=== PATIENT | male | born 1960 | race Caucasian/White ===

== ENCOUNTER → 2016-06-21 | Outpatient (CLI) | payer BC ==
--- NOTE | 2016-06-21 14:06 | CT ---
EXAMINATION TYPE: CT brain wo con DATE OF EXAM: 06/21/2016 2:00 PM COMPARISON: NONE HISTORY: Headaches severe for [address] DLP: 1126.5 mGycm. Automated Exposure Control for Dose Reduction was Utilized. TECHNIQUE: CT scan of the head is performed without contrast. FINDINGS: There is no acute intracranial hemorrhage, mass effect, or midline shift identified. The ventricles and sulci are within normal limits in size. There is 1.7 cm mucous retention cyst or poly p in the anterior left maxillary sinus. The globes are intact and the visualized sinuses are otherwis e clear. Some increased opacity bilateral mastoid air cells could reflect mastoiditis, clinical corre lation advised, findings more prominent on the right than on the left side. IMPRESSION: No acute intracranial hemorrhage or midline shift is seen. Possible right greater than l eft bilateral mastoiditis, clinical correlation advised.
== END | disposition home or self-care (01) ==
LOC: RADCTMAIN 12:13
PROVIDERS: ATTEND Family Medicine
DX: H70.92 Unspecified mastoiditis, left ear (principal); E11.9 Type 2 diabetes mellitus without complications
CPT/HCPCS: 70450; 82565; 84520

== ENCOUNTER → 2016-06-29 | Outpatient (CLI) | payer BC ==
--- NOTE | 2016-06-29 13:22 | US ---
EXAMINATION TYPE: US carotid duplex BILAT DATE OF EXAM: 06/29/2016 9:57 AM COMPARISON: NONE CLINICAL HISTORY: I10 htn E11.9 dm 2. EXAM MEASUREMENTS: RIGHT: Peak Systolic Velocity (PSV) cm/sec ----- Right CCA: 116.0 ----- Right ICA: 149.5 ----- Right ECA: 229.2 ICA/CCA ratio: 1.3 RIGHT: End Diastole cm/sec ----- Right CCA: 43.1 ----- Right ICA: 55.0 ----- Right ECA: 25.5 LEFT: Peak Systolic Velocity (PSV) cm/sec ----- Left CCA: 112.1 ----- Left ICA: 527.1 ----- Left ECA: 218.4 ICA/CCA ratio: 4.7 LEFT: End Diastole cm/sec ----- Left CCA: 23.4 ----- Left ICA: 253.9 ----- Left ECA: 30.9 VERTEBRALS (direction of flow): Right Vertebral: Antegrade Left Vertebral: Antegrade No significant stenosis seen on right moderate to severe atherosclerotic changes. Left side shows s evere atherosclerotic plaque with moderate to severe intimal thickening in CCA, ICA velocities severe ly elevated with extensive plaque with blunted signal distally. Intimal thickening is noted bilaterally. Large plaques are noted within the proximal internal carotid arteries bilaterally. There are marked left and moderate right elevated velocities within the financial internship al carotid arteries IMPRESSION: 1. Severe stenosis left internal carotid artery greater than 70%. 2. Moderate stenosis between 50 and 69% right internal carotid artery Criteria for Assigning % of Stenosis / Diameter reduction (Estimation based on the indirect measurements of the internal carotid artery velocities (ICA PSV). 1. Normal (no stenosis)=ICA PSV < 125 cm/s: ratio < 2.0: ICA EDV<40 cm/s. 2. Less than 50% stenosis=ICA PSV < 125 cm/s: ratio < 2.0: ICA EDV<40 cm/s. 3. 50 to 69% stenosis=ICA PSV of 125 to 230 cm/s: ration 2.0 ? 4.0: ICA EDV 40-100 cm/s. 4. Greater than 70% stenosis to near occlusion= ICA PSV > 230 cm/s: ratio > 4.0: ICA EDV > 100 cm/s. 5. Near occlusion= ICA PSV velocities may be low or undetectable: variable ratio and ICA EDV. 6. Total occlusion=unable to detect flow.
--- NOTE | 2016-06-29 14:01 | EST ---
DATE OF SERVICE: 06/29/2016 AGE: 56Y SEX: M HT: 70" WT: 200 lbs. Protocol David: X Other: Stress Stage: 2 Dur. of Exercise: 6:29 *Heart Rate Blood Pressure *Rest: 102 Rest: 144/75 * *Max. Achieved: 132 Maximum BP: 210/90 85% PMHR: 140 100% PMHR: 166 *METS: 7.1 INDICATIONS: Hypertension. MEDICATIONS: Omeprazole, fenofibrate, Invokana, Janumet, losartan, Toujeo. Patient was exercised for a total period of 6 minutes and 30 seconds. Peak heart rate of 132 was achieved, and maximum blood pressure of 210/90 mmHg was noted. Resting EKG shows normal sinus rhythm with ST-T changes suggestive of left ventricular hypertrophy and strain pattern was again about 0.[address] segment depression was noted in the lateral leads. Patient did not complain of any anginal pain during the test. FINAL IMPRESSION: 1. This exercise EKG is inconclusive to diagnose ischemia because of the resting electrocardiographic abnormality suggestive of left ventricular hypertrophy and strain pattern. 2. Patient did not complain of any anginal pain during the test. 3. Isolated premature ventricular contractions were recorded.
--- NOTE | 2016-06-30 10:55 | ECHOF ---
Referral Reason:I10 htn E11.9 dfm2 MEASUREMENTS -------- HEIGHT: 152.4 cm WEIGHT: 90.7 kg BP: IVSd: 1.4 cm (0.6 - 1.1) LVIDd: 4.8 cm (3.9 - 5.3) LVPWd: 1.4 cm (0.6 - 1.1) IVSs: 1.9 cm LVIDs: 3.9 cm LVPWs: 1.6 cm LAESV Index (A-L): 28.88 ml/m Ao Diam: 3.5 cm (2.0 - 3.7) AV Cusp: 1.3 cm (1.5 - 2.6) LA Diam: 3.3 cm (2.7 - 3.8) MV EXCURSION: 16.009 mm (> 18.000) MV EF SLOPE: 98 mm/s (70 - 150) EPSS: 0.4 cm MV E Cm: 0.73 m/s MV DecT: 315 ms MV A Cm: 1.07 m/s MV E/A Ratio: 0.68 AV maxP.07 mmHg AV meanP.62 mmHg RAP: 5.00 mmHg RVSP: 13.19 mmHg FINDINGS -------- Sinus rhythm. This was a technically adequate study. There is moderate concentric left ventricular hypertrophy. Overall left ventricular systolic function is normal with, an EF between 55 - 60 %. The right ventricle is normal in size. LA is midly dilated 29-33ml/m2. There is moderate aortic stenosis present. Peak/mean gradient across the Aortic Valve is 34.07mmHg / 17.62mmHg. Aov is not well visualized possible Bicuspid. Mild mitral annular calcification present. Mild mitral regurgitation is present. Mild tricuspid regurgitation present. Right ventricular systolic pressure is normal at < 35 mmHg. There is no evidence of pulmonary hypertension. There is no pulmonic regurgitation present. The aortic root size is normal. There is no pericardial effusion. Sushant recommended for evaluation of AOV. CONCLUSIONS -------- 1. There is moderate concentric left ventricular hypertrophy. 2. Right ventricular systolic pressure is normal at < 35 mmHg. 3. There is no evidence of pulmonary hypertension. 4. Sushant recommended for evaluation of AOV. 5. Overall left ventricular systolic function is normal with, an EF between 55 - 60 %. 6. LA is midly dilated 29-33ml/m2. 7. There is moderate aortic stenosis present. 8. Peak/mean gradient across the Aortic Valve is 34.07mmHg / 17.62mmHg. 9. Aov is not well visualized possible Bicuspid. 10. Mild mitral annular calcification present. 11. Mild mitral regurgitation is present. 12. Mild tricuspid regurgitation present. ACCOUNT DEVELOPER: Rody Watkins RDCS
== END | disposition home or self-care (01) ==
LOC: RADUSMAIN 09:22
PROVIDERS: ATTEND Family Medicine
DX: I10 Essential (primary) hypertension (principal); E11.9 Type 2 diabetes mellitus without complications; I65.23 Occlusion and stenosis of bilateral carotid arteries
CPT/HCPCS: 93017; 93306; 93880

== ENCOUNTER 2016-07-06 07:57 | Observation (INO) | payer BC ==
[2016-07-06] MEDS ORDERED: NITROGLYCERIN SL TABS 0.4 MG TAB SUBLINGUAL PRN ×2 (08:32→11:05)
[2016-07-06] MEDS ORDERED: ASPIRIN 325 MG TAB PO STA (08:32)
--- NOTE | 2016-07-06 08:36 | ED ---
General Adult HPI - General Source: patient, family, RN notes reviewed, old records reviewed Mode of arrival: ambulatory Limitations: no limitations <Danish Carty - Last Filed: 07/06/16 10:54> <Dimitris Ramesh - Last Filed: 07/06/16 11:04> - General Chief complaint: Chest Pain Stated complaint: Chest pain Time Seen by Provider: 07/06/16 08:21 - History of Present Illness Initial comments: Patient is 56-year-old male who has significant past medical history for diabetes, hypertension, who presents emergency room today with chief complaint of chest pain that started yesterday morning. Does admit that he worked a double shift yesterday. States he was having some discomfort. States that when he got home from work symptoms slightly better was able to go to bed. States woke up this morning with increased pain once again. Describes it as sharp pain in the middle of his chest. Patient states feels like it's difficult to breathe at times. Patient denies any other complaints or symptoms. Does admit that he had a recent stress test and echocardiogram performed. States does have an appointment with a vascular surgeon in one week. Patient denies any recent fever, chills, back pain, abdominal pain, nausea or vomiting, numbness or tingling, dysuria or hematuria, constipation or diarrhea, headaches or visual changes, or any other complaints. (Danish Carty) - Related Data Home Medications Medication Instructions Recorded Confirmed Canagliflozin [Invokana] 100 mg PO DAILY 12/03/15 07/06/16 Fenofibrate Nanocrystallized 145 mg PO DAILY 12/03/15 07/06/16 [Fenofibrate] Omeprazole [PriLOSEC] 20 mg PO DAILY 12/03/15 07/06/16 glipiZIDE [Glucotrol] 10 mg PO AC-BID 12/03/15 07/06/16 sitaGLIPtin PHOS/metFORMIN HCL 1 tab PO DAILY 12/03/15 07/06/16 [Janumet 50-1,000 mg Tablet] Insulin Glargine,Hum.rec.anlog 30 units SQ HS 07/06/16 07/06/16 [T[place]am Solostar] Losartan Potassium [Cozaar] 100 mg PO BID 07/06/16 07/06/16 Pregabalin [Lyrica] 100 mg PO BID 07/06/16 07/06/16 Allergies Allergy/AdvReac Type Severity Reaction Status Date / Time No Known Allergies Allergy Verified 07/06/16 08:40 Review of Systems ROS Other: All systems not noted in ROS Statement are negative. <Danish Carty - Last Filed: 07/06/16 10:54> ROS Other: All systems not noted in ROS Statement are negative. <Dimitris Ramesh - Last Filed: 07/06/16 11:04> ROS Statement: Those systems with pertinent positive or pertinent negative responses have been documented in the HPI. Past Medical History Past Medical History: Diabetes Mellitus, Hyperlipidemia, Hypertension History of Any Multi-Drug Resistant Organisms: None Reported Past Surgical History: Orthopedic Surgery Past Psychological History: Anxiety Smoking Status: Current every day smoker Past Alcohol Use History: None Reported Past Drug Use History: None Reported <Danish Carty - Last Filed: 07/06/16 10:54> General Exam Limitations: no limitations <Danish Carty - Last Filed: 07/06/16 10:54> <Dimitris Ramesh - Last Filed: 07/06/16 11:04> - General Exam Comments Initial Comments: General: The patient is awake and alert, in no distress, and does not appear acutely ill. Eye: Pupils are equal, round and reactive to light, extra-ocular movements are intact. No nystagmus. There is normal conjunctiva bilaterally. No signs of icterus. Ears, nose, mouth and throat: There are moist mucous membranes and no oral lesions. Neck: The neck is supple, there is no tenderness or JVD. Cardiovascular: There is a regular rate and rhythm. No murmur, rub or gallop is appreciated. Respiratory: Lungs are clear to auscultation, respirations are non-labored, breath sounds are equal. No wheezes, stridor, rales, or rhonchi. Gastrointestinal: Soft, non-distended, non-tender abdomen without masses or organomegaly noted. There is no rebound or guarding present. No CVA tenderness. Bowel sounds are unremarkable. Musculoskeletal: Normal ROM, no tenderness. Strength 5/5. Sensation intact. Pulses equal bilaterally 2+. Neurological: A&O x 3. CN II-XII intact, There are no obvious motor or sensory deficits. Coordination appears grossly intact. Speech is normal. Skin: Skin is warm and dry and no rashes or lesions are noted. Psychiatric: Cooperative, appropriate mood & affect, normal judgment. (Danish Carty) Course <Danish Carty - Last Filed: 07/06/16 10:54> <Dimitris Ramesh - Last Filed: 07/06/16 11:04> Vital Signs 07/06/16 08:04 Temperature 98.7 F Pulse Rate 83 Respiratory 18 Rate Blood Pressure 161/78 O2 Sat by Pulse 97 Oximetry - Reevaluation(s) Reevaluation #1: 07/06/16 11:04 Patient reevaluated by myself, Dr. Ramesh. Patient wasn't comfortably in bed. Patient updated on results and plan. Case discussed in detail with Dr. Hairston, who will admit for Dr. Cronin. (Dimitris Ramesh) EKG Findings - EKG Comments: EKG Findings:: EKG performed at 0809: Shows normal sinus rhythm at 83 bpm. [place] interval 186. QRS 92. QT/QTC 360/423. Compared to previous EKG on 04/30/2015. <Danish Carty - Last Filed: 07/06/16 10:54> Medical Decision Making - Lab Data Result diagrams: 07/06/16 08:20 07/06/16 08:20 <Danish Carty - Last Filed: 07/06/16 10:54> - Lab Data Result diagrams: 07/06/16 08:20 07/06/16 08:20 <Dimitris Ramesh - Last Filed: 07/06/16 11:04> - Medical Decision Making Patient's labs reviewed negative cardiac enzymes. Patient resting comfortable at this time. Patient's EKG reviewed and show a sinus rhythm. No acute changes at this time. Patient will be admitted for serial enzymes. Discussed with attending physician Dr. Ramesh. (Danish Carty) - Lab Data Lab Results 07/06/16 07/06/16 07/06/16 Range/Units 08:20 08:20 08:20 WBC 9.9 (3.8-10.6) k/uL RBC 4.63 (4.30-5.90) m/uL Hgb 12.9 L (13.0-17.5) gm/dL Hct 39.8 (39.0-53.0) % MCV 86.0 (80.0-100.0) fL MCH 28.0 (25.0-35.0) pg MCHC 32.5 (31.0-37.0) g/dL RDW 12.9 (11.5-15.5) % Plt Count 346 (150-450) k/uL Neutrophils % 73 % Lymphocytes % 16 % Monocytes % 5 % Eosinophils % 3 % Basophils % 0 % Neutrophils # 7.2 (1.3-7.7) k/uL Lymphocytes # 1.6 (1.0-4.8) k/uL Monocytes # 0.5 (0-1.0) k/uL Eosinophils # 0.3 (0-0.7) k/uL Basophils # 0.0 (0-0.2) k/uL Hypochromasia Slight PT (9.0-12.0) sec INR (<1.1) APTT (22.0-30.0) sec Sodium 142 (137-145) mmol/L Potassium 5.0 (3.5-5.1) mmol/L Chloride 103 (98-107) mmol/L Carbon Dioxide 29 (22-30) mmol/L Anion Gap 10 mmol/L BUN 30 H (9-20) mg/dL Creatinine 1.97 H (0.66-1.25) mg/dL Est GFR (MDRD) Af Amer 43 (>60 ml/min/1.73 sqM) Est GFR (MDRD) Non-Af 35 (>60 ml/min/1.73 sqM) Glucose 158 H (74-99) mg/dL Calcium 9.6 (8.4-10.2) mg/dL Magnesium 2.2 (1.6-2.3) mg/dL Total Bilirubin 0.5 (0.2-1.3) mg/dL AST 11 L (17-59) U/L ALT 22 (21-72) U/L Alkaline Phosphatase 52 (38-126) U/L Total Creatine Kinase 64 (55-170) U/L CK-MB (CK-2) 1.0 (0.0-2.4) ng/mL CK-MB (CK-2) Rel Index 1.6 Troponin I <0.012 (0.000-0.034) ng/mL Total Protein 6.7 (6.3-8.2) g/dL Albumin 3.8 (3.5-5.0) g/dL 07/06/16 Range/Units 08:20 WBC (3.8-10.6) k/uL RBC (4.30-5.90) m/uL Hgb (13.0-17.5) gm/dL Hct (39.0-53.0) % MCV (80.0-100.0) fL MCH (25.0-35.0) pg MCHC (31.0-37.0) g/dL RDW (11.5-15.5) % Plt Count (150-450) k/uL Neutrophils % % Lymphocytes % % Monocytes % % Eosinophils % % Basophils % % Neutrophils # (1.3-7.7) k/uL Lymphocytes # (1.0-4.8) k/uL Monocytes # (0-1.0) k/uL Eosinophils # (0-0.7) k/uL Basophils # (0-0.2) k/uL Hypochromasia PT 10.6 (9.0-12.0) sec INR 1.0 (<1.1) APTT 29.0 (22.0-30.0) sec Sodium (137-145) mmol/L Potassium (3.5-5.1) mmol/L Chloride (98-107) mmol/L Carbon Dioxide (22-30) mmol/L Anion Gap mmol/L BUN (9-20) mg/dL Creatinine (0.66-1.25) mg/dL Est GFR (MDRD) Af Amer (>60 ml/min/1.73 sqM) Est GFR (MDRD) Non-Af (>60 ml/min/1.73 sqM) Glucose (74-99) mg/dL Calcium (8.4-10.2) mg/dL Magnesium (1.6-2.3) mg/dL Total Bilirubin (0.2-1.3) mg/dL AST (17-59) U/L ALT (21-72) U/L Alkaline Phosphatase (38-126) U/L Total Creatine Kinase (55-170) U/L CK-MB (CK-2) (0.0-2.4) ng/mL CK-MB (CK-2) Rel Index Troponin I (0.000-0.034) ng/mL Total Protein (6.3-8.2) g/dL Albumin (3.5-5.0) g/dL Disposition Time of Disposition: 10:36 <Danish Carty - Last Filed: 07/06/16 10:54> <iDmitris Ramesh - Last Filed: 07/06/16 11:04> Clinical Impression: Chest pain Disposition: ADMITTED IP TO THIS [facility] Condition: Stable Referrals: Marquez Cronin DO [Primary Care Provider] - 1-2 days
--- NOTE | 2016-07-06 08:57 | XR ---
EXAMINATION TYPE: XR chest 2V DATE OF EXAM: 07/06/2016 8:49 AM COMPARISON: Chest x-ray April 30, 2015. HISTORY: Chest pain today. History of hypertension. TECHNIQUE: Frontal and lateral views of the chest are obtained. FINDINGS: There is chronic parenchymal change without suspicious new focal air space opacity, pleura l effusion, or pneumothorax seen. The cardiac silhouette size is stable and upper limits of normal. The osseous structures are intact. IMPRESSION: No acute process. No significant change from prior.
[2016-07-06 09:18] LABS: Basophils % (A) 0 %; CH 27.1; CHCM 31.6; Eosinophils # (A) 0.3 k/uL (0-0.7); Eosinophils % (A) 3 %; HCT 39.8 % (39.0-53.0); HDW 2.82; HGB 12.9 gm/dL (13.0-17.5); Hypochromasia Slight; Luc # (Auto) 0.27; Luc % (Auto) 3; Lymphocytes # (A) 1.6 k/uL (1.0-4.8); Lymphocytes % (A) 16 %; MCHC 32.5 g/dL (31.0-37.0); Mean Platelet Volume 7.2; Monocytes # (A) 0.5 k/uL (0-1.0); Monocytes % (A) 5 %; Neutrophils # (A) 7.2 k/uL (1.3-7.7); Neutrophils % (A) 73 %; RBC 4.63 m/uL (4.30-5.90); RDW 12.9 % (11.5-15.5); WBC 9.9 k/uL (3.8-10.6); WBC (Perox) 9.96
[2016-07-06 09:22] LABS: Calcium 9.6 mg/dL (8.4-10.2); Magnesium 2.2 mg/dL (1.6-2.3); Total Bilirubin 0.5 mg/dL (0.2-1.3); Total Protein 6.7 g/dL (6.3-8.2)
[2016-07-06 09:23] LABS: Prothrombin Time 10.6 sec (9.0-12.0)
[2016-07-06 09:44] LABS: Creatine Kinase 64 U/L (55-170)
[2016-07-06 09:56] LABS: Troponin I <0.012 ng/mL (0.000-0.034)
[2016-07-06] MEDS ORDERED: HEPARIN SODIUM,PORCINE 5,000 UNIT/ML 1 ML VIAL IV ONE (11:05)
[2016-07-06] MEDS ORDERED: SODIUM CHLORIDE 0.9% 1,000 ML IV ONE (11:05)
[2016-07-06] MEDS ORDERED: HEPARIN SODIUM,PORCINE/D5W PMX 25,000 UNIT in DEXTROSE/WATER 1 500ML.BAG IV SCH (11:15)
[2016-07-06 17:01] LABS: Creatine Kinase 51 U/L (55-170)
[2016-07-06 17:15] LABS: Creatine Kinase MB 0.7 ng/mL (0.0-2.4); Troponin I <0.012 ng/mL (0.000-0.034)
[2016-07-06 20:47] LABS: Creatine Kinase 52 U/L (55-170)
[2016-07-06] MEDS: PREGABALIN 100 MG CAP PO SCH (20:57)
[2016-07-06] MEDS: LOSARTAN 50 MG TAB PO SCH (20:57)
[2016-07-06] MEDS: NICOTINE 21MG/24HR PATCH TRANSDERM SCH (20:57)
[2016-07-06] MEDS ORDERED: INSULIN GLARGINE 100 UNIT/ML 10 ML VIAL SQ SCH (21:00)
[2016-07-06 21:01] LABS: Creatine Kinase MB 0.7 ng/mL (0.0-2.4); Troponin I <0.012 ng/mL (0.000-0.034)
[2016-07-06 21:19] LABS: Glucose,Whole Blood 187 mg/dL (75-99)
--- NOTE | 2016-07-06 22:48 | P.HPIM ---
History of Present Illness H&P Date: 07/06/16 Chief Complaint: Chest pain This is a pleasant 56-year-old gentleman patient of Dr. Cronin. He has underlying history of diabetes mellitus type 2, hypertension, BPH and chronic tobacco dependency. 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 Same consistency patient was subsequently seen in emergency room for cardiac evaluation. He was last seen by his PCP for which patient has had hypertensive urgency on his last visit several weeks ago and last week he underwent stress test and echocardiogram was performed in our facility. The echocardiogram showed ejection fraction of 55%, stress test shows equivocal test for ischemia. There is a significant family history of IN as young as 40 use of age, he was subsequently admitted to the hospital for monitoring, during his last informed material recommendation from Dr. Cronin , he was scheduled to see a vascular surgeon secondary to carotid stenosis patient does not know the physician or the amount of stenosis. Patient does not have any history of TIAs or previous CVAs in the past patient does not have any history of PE DVT or previous IN CHF Review of Systems Constitutional: Reports as per HPI, Denies anorexia, Denies chills, Denies chronic headaches, Denies chronic pain, Denies daytime sleepiness, Denies fatigue, Denies fever, Denies lethargy, Denies malaise, Denies night sweats, Denies poor appetite, Denies sweats, Denies weakness, Denies weight gain, Denies weight loss Ears, nose, mouth and throat: Reports as per HPI, Denies ant. neck pain, Denies bleeding gums, Denies dental pain, Denies dysphagia, Denies epistaxis, Denies headache, Denies hoarseness, Denies mouth pain, Denies nasal congestion, Denies nasal discharge, Denies neck fullness/pressure, Denies neck lump, Denies nose pain, Denies odynophagia, Denies post-nasal drip, Denies sinus pain, Denies sinus pressure, Denies swelling in mouth, Denies swelling in throat, Denies sore throat, Denies vertigo, Denies voice changes Cardiovascular: Reports as per HPI, Reports chest pain, Denies claudication, Denies decreased exercise tolerance, Denies dyspnea on exertion, Denies edema, Denies high blood pressure, Denies irregular heart beat, Denies leg edema, Denies lightheadedness, Denies orthopnea, Denies palpitations, Denies paroxysmal nocturnal dyspnea, Denies phlebitis, Denies rapid heart beat, Denies shortness of breath, Denies syncope Respiratory: Reports as per HPI, Denies congestion, Denies cough, Denies cough with sputum, Denies dyspnea, Denies excessive sputum, Denies hemoptysis, Denies home oxygen, Denies pain, Denies pain on inspiration, Denies pleurisy, Denies respiratory infections, Denies sleep apnea, Denies snoring, Denies wheezing Gastrointestinal: Reports as per HPI, Denies abdominal pain, Denies belching, Denies bloating, Denies BRBPR, Denies change in bowel habits, Denies coffee ground emesis, Denies constipation, Denies diarrhea, Denies dyspepsia, Denies early satiety, Denies excessive gas, Denies heartburn, Denies hematemesis, Denies hematochezia, Denies indigestion, Denies jaundice, Denies lactose intolerance, Denies loss of appetite, Denies melena, Denies nausea, Denies vomiting Genitourinary: Reports as per HPI, Denies decreased libido, Denies difficulties fathering child, Denies discharge, Denies dysuria, Denies erectile dysfunction, Denies flank pain, Denies genital pain, Denies genital sores, Denies hematuria, Denies impotence, Denies incontinence, Denies kidney stones, Denies nocturia, Denies polyuria, Denies testicular lump, Denies testicular pain, Denies urinary frequency, Denies urinary hesitancy, Denies urinary retention Musculoskeletal: Reports as per HPI, Denies arm numbness/tingling, Denies atrophy, Denies fractures, Denies frequent falls, Denies gait dysfunction, Denies hot joints, Denies leg numbness/tingling, Denies limitation of motion, Denies loss of height, Denies low back pain, Denies morning stiffness, Denies muscle cramps, Denies muscle weakness, Denies myalgias, Denies neck pain, Denies neck stiffness, Denies prior amputations, Denies redness of joints, Denies shooting arm pain, Denies shooting leg pain Integumentary: Reports as per HPI, Denies acne, Denies boils, Denies brittle nails, Denies change in hair/nails, Denies color changes, Denies darkening of skin, Denies depigmentation, Denies dryness, Denies foot/leg ulcers, Denies growths, Denies hirsutism, Denies lesions, Denies onychomycosis, Denies pruritus , Denies rash, Denies sores, Denies striae, Denies unusual bruising, Denies wounds Neurological: Reports as per HPI, Denies aphasia, Denies ataxia, Denies balance difficulties, Denies burning pain, Denies change in mentation, Denies change in smell/taste, Denies change in speech, Denies confusion, Denies convulsions, Denies double vision, Denies gait dysfunction, Denies head injury, Denies headaches, Denies hearing difficulties, Denies lack of coordination, Denies loss of vision, Denies memory loss, Denies migraines, Denies motor disturbance, Denies numbness, Denies paralysis, Denies paresthesias, Denies seizures, Denies sensory deficit, Denies spasticity, Denies syncope, Denies tic, Denies tingling , Denies transient paralysis, Denies tremors, Denies vertigo, Denies weakness, Denies visual changes Past Medical History Past Medical History: Diabetes Mellitus, GERD/Reflux, Hyperlipidemia, Hypertension Additional Past Medical History / Comment(s): IDDM type II, bilateral feet neuropathy, recent stress test and echo, History of Any Multi-Drug Resistant Organisms: None Reported Past Surgical History: Hernia Repair, Orthopedic Surgery Additional Past Surgical History / Comment(s): L arm muscle repair by elbow, L inguinal hernia repair. Past Anesthesia/Blood Transfusion Reactions: No Reported Reaction Past Psychological History: Anxiety Additional Psychological History / Comment(s): Pt resides with his spouse. He is independent. Smoking Status: Current every day smoker Past Alcohol Use History: None Reported Additional Past Alcohol Use History / Comment(s): Pt started smoking in 1981. He smokes less than a ppd. Past Drug Use History: None Reported - Past Family History Father Family Medical History: Coronary Artery Disease (CAD) Additional Family Medical History / Comment(s): Father during CABG Mother Family Medical History: Myocardial Infarction (IN) Additional Family Medical History / Comment(s): Mother of massive IN at the age of 81 yrs. Medications and Allergies Home Medications Medication Instructions Recorded Confirmed Type Canagliflozin [Invokana] 100 mg PO DAILY 12/03/15 07/06/16 History Fenofibrate Nanocrystallized 145 mg PO DAILY 12/03/15 07/06/16 History [Fenofibrate] Omeprazole [PriLOSEC] 20 mg PO DAILY 12/03/15 07/06/16 History glipiZIDE [Glucotrol] 10 mg PO AC-BID 12/03/15 07/06/16 History sitaGLIPtin PHOS/metFORMIN HCL 1 tab PO DAILY 12/03/15 07/06/16 History [Janumet 50-1,000 mg Tablet] Insulin Glargine,Hum.rec.anlog 30 units SQ HS 07/06/16 07/06/16 History [Toujeo Solostar] Losartan Potassium [Cozaar] 100 mg PO BID 07/06/16 07/06/16 History Pregabalin [Lyrica] 100 mg PO BID 07/06/16 07/06/16 History Allergies Allergy/AdvReac Type Severity Reaction Status Date / Time No Known Allergies Allergy Verified 07/06/16 08:40 Physical Exam Vitals: Vital Signs Temp Pulse Pulse Resp BP BP Pulse Ox 07/06/16 20:00 97.8 F 157 H 16 157/87 92 L 07/06/16 17:25 97.2 F L 83 16 157/77 96 07/06/16 15:30 98.1 F 83 16 128/60 96 07/06/16 12:29 98.4 F 07/06/16 11:18 84 16 147/74 98 Intake and Output 07/06/16 07/06/16 07/06/16 06:59 14:59 22:59 Other: # Voids 1 Weight 92.5 kg Patient Weight 07/07/16 06:59 Weight 92.5 kg - Constitutional General appearance: cooperative, no acute distress, obese - EENT Eyes: no abnormal pupil, anicteric sclerae, no disc margins sharp, no edentulous , EOMI, PERRLA, no fundus normal, no photophobia, dentition normal, no poor dentition, no ptosis, no scleral icterus, normal appearance ENT: hearing grossly normal, NA/AT, normal oropharynx - Neck Neck: no lymphadenopathy, normal ROM, no other, no rigidity, no stridor, no thyromegaly Carotids: bilateral: bruit present - Respiratory Respiratory: bilateral: CTA, negative: diminished, dullness, rales, rhonchi, wheezing - Cardiovascular Rhythm: regular Heart sounds: normal: S1, S2 Abnormal Heart Sounds: systolic murmur, no diastolic murmur, no rub, no S3 Gallop, no S4 Gallop, no click, no other - Gastrointestinal General gastrointestinal: normal bowel sounds, soft - Integumentary Integumentary: normal, normal turgor - Neurologic Neurologic: CNII-XII intact - Musculoskeletal Musculoskeletal: gait normal, strength equal bilaterally - Psychiatric Psychiatric: A&O x's 3, appropriate affect, intact judgment & insight Results CBC & Chem 7: 07/06/16 08:20 07/06/16 08:20 Labs: Abnormal Lab Results - Last 24 Hours (Table) 07/06/16 07/06/16 07/06/16 Range/Units 16:22 20:01 21:16 POC Glucose (mg/dL) 187 H (75-99) mg/dL Total Creatine Kinase 51 L 52 L (55-170) U/L Laboratory Results WBC 9.9 k/uL (3.8-10.6) 07/06/16 08:20 RBC 4.63 m/uL (4.30-5.90) 07/06/16 08:20 Hgb 12.9 gm/dL (13.0-17.5) L 07/06/16 08:20 Hct 39.8 % (39.0-53.0) 07/06/16 08:20 MCV 86.0 fL (80.0-100.0) 07/06/16 08:20 MCH 28.0 pg (25.0-35.0) 07/06/16 08:20 MCHC 32.5 g/dL (31.0-37.0) 07/06/16 08:20 RDW 12.9 % (11.5-15.5) 07/06/16 08:20 Plt Count 346 k/uL (150-450) 07/06/16 08:20 Neutrophils % 73 % 07/06/16 08:20 Lymphocytes % 16 % 07/06/16 08:20 Monocytes % 5 % 07/06/16 08:20 Eosinophils % 3 % 07/06/16 08:20 Basophils % 0 % 07/06/16 08:20 Neutrophils # 7.2 k/uL (1.3-7.7) 07/06/16 08:20 Lymphocytes # 1.6 k/uL (1.0-4.8) 07/06/16 08:20 Monocytes # 0.5 k/uL (0-1.0) 07/06/16 08:20 Eosinophils # 0.3 k/uL (0-0.7) 07/06/16 08:20 Basophils # 0.0 k/uL (0-0.2) 07/06/16 08:20 Hypochromasia Slight 07/06/16 08:20 PT 10.6 sec (9.0-12.0) 07/06/16 08:20 INR 1.0 (<1.1) 07/06/16 08:20 APTT 29.7 sec (22.0-30.0) 07/06/16 21:14 Sodium 142 mmol/L (137-145) 07/06/16 08:20 Potassium 5.0 mmol/L (3.5-5.1) 07/06/16 08:20 Chloride 103 mmol/L (98-107) 07/06/16 08:20 Carbon Dioxide 29 mmol/L (22-30) 07/06/16 08:20 Anion Gap 10 mmol/L 07/06/16 08:20 BUN 30 mg/dL (9-20) H 07/06/16 08:20 Creatinine 1.97 mg/dL (0.66-1.25) H 07/06/16 08:20 Est GFR (MDRD) Af Amer 43 (>60 ml/min/1.73 sqM) 07/06/16 08:20 Est GFR (MDRD) Non-Af 35 (>60 ml/min/1.73 sqM) 07/06/16 08:20 Glucose 158 mg/dL (74-99) H 07/06/16 08:20 POC Glucose (mg/dL) 187 mg/dL (75-99) H 07/06/16 21:16 POC Glu [employer] Enma Robertson 07/06/16 21:16 Calcium 9.6 mg/dL (8.4-10.2) 07/06/16 08:20 Magnesium 2.2 mg/dL (1.6-2.3) 07/06/16 08:20 Total Bilirubin 0.5 mg/dL (0.2-1.3) 07/06/16 08:20 AST 11 U/L (17-59) L 07/06/16 08:20 ALT 22 U/L (21-72) 07/06/16 08:20 Alkaline Phosphatase 52 U/L (38-126) 07/06/16 08:20 Total Creatine Kinase 52 U/L (55-170) L 07/06/16 20:01 CK-MB (CK-2) 0.7 ng/mL (0.0-2.4) 07/06/16 20:01 CK-MB (CK-2) Rel Index 1.3 07/06/16 20:01 Troponin I <0.012 ng/mL (0.000-0.034) 07/06/16 20:01 Total Protein 6.7 g/dL (6.3-8.2) 07/06/16 08:20 Albumin 3.8 g/dL (3.5-5.0) 07/06/16 08:20 Thrombosis Risk Factor Assmnt - DVT/VTE Prophylaxis DVT/VTE Prophylaxis: Low risk, early ambulation encouraged - Choose All That Apply Each Factor Represents 1 point: Age 41-60 years Thrombosis Risk Factor Assessment Total Risk Factor Score: 1 Thrombosis Risk Factor Assessment Level: Low Risk Assessment and Plan Plan: 1. Unstable angina presenting with pain with exertion equivocal stress test last week, patient will be seen by cardiology currently on nitrates, and IV heparin and aspirin and beta blockers 2. Aortic murmur of aortic stenosis type, this would be monitored as an outpatient 3. Abnormal EKG with inferolateral asymmetric ST-T wave changes, with equivocal stress test from his recent imaging studies 1 week prior to admission secondary to baseline EKG abnormalities 2. CK D stage III for approximately one year now, nephrotoxins will be avoided patient also was advised regarding strict surveillance and control of sugar diabetes and compliance medication as the patient already has reached the maximum allowance of safety for metformin, metformin is going to be discontinued 4. Carotid bruit with carotid stenosis per preliminary report from the patient , patient will be has scheduled vascular appointments, 5. chronic tobacco use at one pack per day patient is started on nicotine patches and was counseled regarding a permanent tobacco cessation program, 6. Hypertensive cardiac vascular disease for which patient is losartan 100 mg twice a day at home 7. 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 Hyperlipidemia on fenofibrate patient is not on statin fasting lipids would obtained ldl control needs to be maximized need to clarify statin intolerance or not 9. DVT prophylaxis with early ambulation GI prophylaxis with IV Pepcid
[2016-07-07] MEDS: METOPROLOL TARTRATE 25 MG TAB PO SCH ×2 (00:12→10:57)
[2016-07-07] MEDS: MORPHINE SULFATE 2 MG/ML SYRINGE IVP PRN ×2 (00:19→04:19)
[2016-07-07 04:37] LABS: Basophils # (A) 0.1 k/uL (0-0.2); Basophils % (A) 1 %; CH 27.5; CHCM 31.2; Eosinophils # (A) 0.3 k/uL (0-0.7); Eosinophils % (A) 4 %; HCT 43.7 % (39.0-53.0); HDW 2.79; HGB 13.6 gm/dL (13.0-17.5); Hypochromasia Slight; Luc # (Auto) 0.24; Luc % (Auto) 3; Lymphocytes # (A) 2.1 k/uL (1.0-4.8); Lymphocytes % (A) 21 %; MCH 27.6 pg (25.0-35.0); MCHC 31.2 g/dL (31.0-37.0); MCV 88.3 fL (80.0-100.0); Mean Platelet Volume 6.9; Monocytes # (A) 0.5 k/uL (0-1.0); Monocytes % (A) 6 %; Neutrophils # (A) 6.3 k/uL (1.3-7.7); Neutrophils % (A) 66 %; RBC 4.95 m/uL (4.30-5.90); RDW 13.3 % (11.5-15.5); WBC 9.6 k/uL (3.8-10.6); WBC (Perox) 9.62
[2016-07-07 04:45] LABS: Partial Thromboplastin Time 30.3 sec (22.0-30.0); Prothrombin Time 10.1 sec (9.0-12.0)
[2016-07-07 04:49] LABS: Calcium 9.9 mg/dL (8.4-10.2); Potassium 5.1 mmol/L (3.5-5.1); Total Bilirubin 0.4 mg/dL (0.2-1.3); Total Protein 6.9 g/dL (6.3-8.2)
[2016-07-07 06:50] LABS: Glucose,Whole Blood 132 mg/dL (75-99)
[2016-07-07] MEDS ORDERED: PANTOPRAZOLE 40 MG TABLET PO SCH (07:30)
[2016-07-07 07:57] VITALS: RESP 18
[2016-07-07] MEDS ORDERED: RX INFO: IV CONTRAST WAS GIVEN 1 EACH MISC MISCELLANE PRN (08:45)
[2016-07-07] MEDS ORDERED: FENOFIBRATE 160 MG TAB PO SCH (09:00)
[2016-07-07] MEDS ORDERED: ASPIRIN 325 MG TAB PO SCH (09:00)
[2016-07-07] MEDS ORDERED: NON-FORMULARY DRUG (Canagliflozin [Invokana] 100 MG) PO SCH (09:00)
[2016-07-07] MEDS ORDERED: metFORMIN 500 MG TAB PO SCH (09:00)
[2016-07-07] MEDS ORDERED: SODIUM CHLORIDE 0.9% 1,000 ML IV SCH (09:00)
[2016-07-07] MEDS ORDERED: ATORVASTATIN 20 MG TAB PO SCH (09:00)
[2016-07-07] MEDS ORDERED: LINAGLIPTIN 5 MG TABLET PO SCH (09:00)
--- NOTE | 2016-07-07 10:27 | CT ---
CT CHEST FOR PULMONARY EMBOLISM. EXAMINATION TYPE: CT angio chest DATE OF EXAM: 07/07/2016 10:20 AM INDICATION: Evaluate for aortic Aneur and dissection CT DLP: 816.1 mGycm, Automated exposure control for dose reduction was used. CONTRAST: Patient injected with 80ml with 50 ml saline flush mL of Visipaque 320. COMPARISON: NONE TECHNIQUE: CT of the chest is performed on a spiral scan at 2 mm thick sections. Study is performed with intravenous contrast timed for evaluation for pulmonary embolism. This will limit additional po rtions of the evaluation. 3-D MIP images reconstructed by the technologist are reviewed on the compu ter in the coronal and sagittal planes. FINDINGS: No persistent filling defects are evident to suggest an acute pulmonary embolism. There is a 1.1 cm pretracheal lymph node present. Additional enlarged adenopathy is not evident. The ascending aorta diameter at the level of the main pulmonary artery is 3.5 cm. The main pulmonary artery diameter at the bifurcation is 3.0 cm. Coronary artery calcification is present. Vascular calcifications within the aorta. Ascending aorta, aortic arch, descending thoracic aorta as well as the visualized proximal abdominal aorta appears normal without aneurysmal dilatation or disse ction. No mediastinal fluid is evident. There is a normal three-vessel arch. Lung windows are clear. Limited CT section through the upper abdomen are unremarkable. Small hiatal hernia is present. IMPRESSIONS: 1. No dissection or aneurysm of the thoracic or proximal abdominal aorta. 2. 1.1 cm pretracheal lymph node.
[2016-07-07] MEDS: glipiZIDE 10 MG TAB PO SCH ×2 (10:57→18:07)
[2016-07-07] MEDS: LOSARTAN 50 MG TAB PO SCH (10:57)
[2016-07-07] MEDS: NICOTINE 21MG/24HR PATCH TRANSDERM SCH (10:58)
[2016-07-07] MEDS: PREGABALIN 100 MG CAP PO SCH (11:05)
--- NOTE | 2016-07-07 11:05 | P.GSCN ---
<Chandni Monsivais - Last Filed: 07/07/16 10:52> History of Present Illness Consult date: 07/07/16 Reason for Consult: carotid stenosis Requesting physician: Chip Anthony History of present illness: This 56-year-old gentleman with a medical history of diabetes, hypertension, chronic tobacco abuse, hyperlipidemia, and family history of coronary artery disease presented to the emergency room with intermittent chest pain which went straight through to his back. Nothing he did was able to relieve his chest pain including position changes. He described the pain as sharp, intermittent, associated with mild shortness of breath, but no nausea, vomiting, palpitations. He was admitted for full cardiac workup. He does state that he previously had been having some increasing symptoms of headache, dizziness, and accelerated hypertension for which his primary care physician had ordered multiple diagnostic tests. His carotid Dopplers demonstrated significant stenosis of the left internal carotid artery. He did have a follow-up appointment scheduled for today with Dr. Anthony, however he was admitted to the hospital last night. Dr. Anthony was consulted to see this patient regarding his carotid stenosis while in hospital. Review of Systems 14 point review of systems was completed and was negative except as noted. - Cardiovascular Reports as per HPI - Respiratory Reports as per HPI - Neurological Reports as per HPI Past Medical History Past Medical History: Diabetes Mellitus, GERD/Reflux, Hyperlipidemia, Hypertension Additional Past Medical History / Comment(s): IDDM type II, bilateral feet neuropathy, recent stress test and echo, History of Any Multi-Drug Resistant Organisms: None Reported Past Surgical History: Hernia Repair, Orthopedic Surgery Additional Past Surgical History / Comment(s): L arm muscle repair by elbow, L inguinal hernia repair. Past Anesthesia/Blood Transfusion Reactions: No Reported Reaction Past Psychological History: Anxiety Additional Psychological History / Comment(s): Pt resides with his spouse. He is independent. Smoking Status: Current every day smoker Past Alcohol Use History: None Reported Additional Past Alcohol Use History / Comment(s): Pt started smoking in 1981. He smokes less than a ppd. Past Drug Use History: None Reported - Past Family History Father Family Medical History: Coronary Artery Disease (CAD) Additional Family Medical History / Comment(s): Father during CABG Mother Family Medical History: Myocardial Infarction (AL) Additional Family Medical History / Comment(s): Mother of massive AL at the age of 81 yrs. Medications and Allergies Home Medications Medication Instructions Recorded Confirmed Type Canagliflozin [Invokana] 100 mg PO DAILY 12/03/15 07/06/16 History Fenofibrate Nanocrystallized 145 mg PO DAILY 12/03/15 07/06/16 History [Fenofibrate] Omeprazole [PriLOSEC] 20 mg PO DAILY 12/03/15 07/06/16 History glipiZIDE [Glucotrol] 10 mg PO AC-BID 12/03/15 07/06/16 History sitaGLIPtin PHOS/metFORMIN HCL 1 tab PO DAILY 12/03/15 07/06/16 History [Janumet 50-1,000 mg Tablet] Insulin Glargine,Hum.rec.anlog 30 units SQ HS 07/06/16 07/06/16 History [Toujeo Solostar] Losartan Potassium [Cozaar] 100 mg PO BID 07/06/16 07/06/16 History Pregabalin [Lyrica] 100 mg PO BID 07/06/16 07/06/16 History Allergies Allergy/AdvReac Type Severity Reaction Status Date / Time No Known Allergies Allergy Verified 07/06/16 08:40 Surgical - Exam Vital Signs Temp Pulse Resp BP Pulse Ox 98.7 F 83 18 161/78 97 07/06/16 08:04 07/06/16 08:04 07/06/16 08:04 07/06/16 08:04 07/06/16 08:04 - General well developed, well nourished, no distress - Eyes PERRL, normal ocular movement - Neck no masses, trachea midline thyroid nodule: absent, carotid bruit: left - Respiratory normal expansion, normal respiratory effort, clear to auscultation - Cardiovascular S1 and S2 present. Systolic murmur present. Regular rate and rhythm, normal sinus rhythm on telemetry. No edema present. Palpable pulses bilaterally. Rhythm: regular - Abdomen Abdomen: soft, non tender, bowel sounds - Integumentary no rash - Neurologic normal coordination, normal sensation - Musculoskeletal normal gait - Psychiatric oriented to time, oriented to person, oriented to place, speech is normal, memory intact Results - Labs 07/07/16 04:16 07/07/16 04:16 Abnormal Lab Results - Last 24 Hours (Table) 07/06/16 07/06/16 07/06/16 Range/Units 16:22 20:01 21:16 APTT (22.0-30.0) sec BUN (9-20) mg/dL Creatinine (0.66-1.25) mg/dL Glucose (74-99) mg/dL POC Glucose (mg/dL) 187 H (75-99) mg/dL AST (17-59) U/L Total Creatine Kinase 51 L 52 L (55-170) U/L Triglycerides (<150) mg/dL Cholesterol (<200) mg/dL HDL Cholesterol (40-60) mg/dL 07/07/16 07/07/16 07/07/16 Range/Units 04:16 04:16 06:48 APTT 30.3 H (22.0-30.0) sec BUN 28 H (9-20) mg/dL Creatinine 1.62 H (0.66-1.25) mg/dL Glucose 213 H (74-99) mg/dL POC Glucose (mg/dL) 132 H (75-99) mg/dL AST 12 L (17-59) U/L Total Creatine Kinase (55-170) U/L Triglycerides 731 H (<150) mg/dL Cholesterol 263 H (<200) mg/dL HDL Cholesterol 26 L (40-60) mg/dL Diabetes panel 07/07/16 Range/Units 04:16 Sodium 140 (137-145) mmol/L Potassium 5.1 (3.5-5.1) mmol/L Chloride 104 (98-107) mmol/L Carbon Dioxide 29 (22-30) mmol/L BUN 28 H (9-20) mg/dL Creatinine 1.62 H (0.66-1.25) mg/dL Glucose 213 H (74-99) mg/dL Calcium 9.9 (8.4-10.2) mg/dL AST 12 L (17-59) U/L ALT 21 (21-72) U/L Alkaline Phosphatase 65 (38-126) U/L Total Protein 6.9 (6.3-8.2) g/dL Albumin 3.9 (3.5-5.0) g/dL Triglycerides 731 H (<150) mg/dL HDL Cholesterol 26 L (40-60) mg/dL Calcium panel 07/07/16 Range/Units 04:16 Calcium 9.9 (8.4-10.2) mg/dL Albumin 3.9 (3.5-5.0) g/dL Pituitary panel 07/07/16 Range/Units 04:16 Sodium 140 (137-145) mmol/L Potassium 5.1 (3.5-5.1) mmol/L Chloride 104 (98-107) mmol/L Carbon Dioxide 29 (22-30) mmol/L BUN 28 H (9-20) mg/dL Creatinine 1.62 H (0.66-1.25) mg/dL Glucose 213 H (74-99) mg/dL Calcium 9.9 (8.4-10.2) mg/dL Adrenal panel 07/07/16 Range/Units 04:16 Sodium 140 (137-145) mmol/L Potassium 5.1 (3.5-5.1) mmol/L Chloride 104 (98-107) mmol/L Carbon Dioxide 29 (22-30) mmol/L BUN 28 H (9-20) mg/dL Creatinine 1.62 H (0.66-1.25) mg/dL Glucose 213 H (74-99) mg/dL Calcium 9.9 (8.4-10.2) mg/dL Total Bilirubin 0.4 (0.2-1.3) mg/dL AST 12 L (17-59) U/L ALT 21 (21-72) U/L Alkaline Phosphatase 65 (38-126) U/L Total Protein 6.9 (6.3-8.2) g/dL Albumin 3.9 (3.5-5.0) g/dL - Imaging Chest x-ray: report reviewed, image reviewed CT scan - chest: report reviewed, image reviewed Assessment and Plan (1) Carotid stenosis, left Status: Acute Plan: 1. Continue aspirin, Lipitor, losartan, metoprolol. 2. Risk factor modification encouraged including quitting smoking, controlling diabetes, increasing exercise. 3. Blood pressure control extremely important and this was discussed in detail with the patient. 4. Recent diagnostics reviewed, will discuss with Dr. Anthony. Per Dr. Ayon patient may be discharged with follow-up in Dr. Anthony's office. Thank you Dr. Ayon for this consult. We look forward to participating in the care of your patient. <Chip Anthony - Last Filed: 07/07/16 12:11> Surgical - Exam Osteopathic Statement: *. No significant issues noted on an osteopathic structural exam other than those noted in the History and Physical/Consult. Vital Signs Temp Pulse Resp BP Pulse Ox 98.7 F 83 18 161/78 97 07/06/16 08:04 07/06/16 08:04 07/06/16 08:04 07/06/16 08:04 07/06/16 08:04 Results - Labs 07/07/16 04:16 07/07/16 04:16 Abnormal Lab Results - Last 24 Hours (Table) 07/06/16 07/06/16 07/06/16 Range/Units 16:22 20:01 21:16 APTT (22.0-30.0) sec BUN (9-20) mg/dL Creatinine (0.66-1.25) mg/dL Glucose (74-99) mg/dL POC Glucose (mg/dL) 187 H (75-99) mg/dL AST (17-59) U/L Total Creatine Kinase 51 L 52 L (55-170) U/L Triglycerides (<150) mg/dL Cholesterol (<200) mg/dL HDL Cholesterol (40-60) mg/dL 07/07/16 07/07/16 07/07/16 Range/Units 04:16 04:16 06:48 APTT 30.3 H (22.0-30.0) sec BUN 28 H (9-20) mg/dL Creatinine 1.62 H (0.66-1.25) mg/dL Glucose 213 H (74-99) mg/dL POC Glucose (mg/dL) 132 H (75-99) mg/dL AST 12 L (17-59) U/L Total Creatine Kinase (55-170) U/L Triglycerides 731 H (<150) mg/dL Cholesterol 263 H (<200) mg/dL HDL Cholesterol 26 L (40-60) mg/dL Diabetes panel 07/07/16 Range/Units 04:16 Sodium 140 (137-145) mmol/L Potassium 5.1 (3.5-5.1) mmol/L Chloride 104 (98-107) mmol/L Carbon Dioxide 29 (22-30) mmol/L BUN 28 H (9-20) mg/dL Creatinine 1.62 H (0.66-1.25) mg/dL Glucose 213 H (74-99) mg/dL Calcium 9.9 (8.4-10.2) mg/dL AST 12 L (17-59) U/L ALT 21 (21-72) U/L Alkaline Phosphatase 65 (38-126) U/L Total Protein 6.9 (6.3-8.2) g/dL Albumin 3.9 (3.5-5.0) g/dL Triglycerides 731 H (<150) mg/dL HDL Cholesterol 26 L (40-60) mg/dL Calcium panel 07/07/16 Range/Units 04:16 Calcium 9.9 (8.4-10.2) mg/dL Albumin 3.9 (3.5-5.0) g/dL Pituitary panel 07/07/16 Range/Units 04:16 Sodium 140 (137-145) mmol/L Potassium 5.1 (3.5-5.1) mmol/L Chloride 104 (98-107) mmol/L Carbon Dioxide 29 (22-30) mmol/L BUN 28 H (9-20) mg/dL Creatinine 1.62 H (0.66-1.25) mg/dL Glucose 213 H (74-99) mg/dL Calcium 9.9 (8.4-10.2) mg/dL Adrenal panel 07/07/16 Range/Units 04:16 Sodium 140 (137-145) mmol/L Potassium 5.1 (3.5-5.1) mmol/L Chloride 104 (98-107) mmol/L Carbon Dioxide 29 (22-30) mmol/L BUN 28 H (9-20) mg/dL Creatinine 1.62 H (0.66-1.25) mg/dL Glucose 213 H (74-99) mg/dL Calcium 9.9 (8.4-10.2) mg/dL Total Bilirubin 0.4 (0.2-1.3) mg/dL AST 12 L (17-59) U/L ALT 21 (21-72) U/L Alkaline Phosphatase 65 (38-126) U/L Total Protein 6.9 (6.3-8.2) g/dL Albumin 3.9 (3.5-5.0) g/dL Assessment and Plan Plan: SECURITY SYSTEMS INTEGRATOR notes reviewed and accepted. Impression: #1 asymptomatic high-grade left ICA stenosis #2 moderate aortic stenosis with mild AI #3 type 2 diabetes, poor control #4 ongoing cigarette smoker #5 renal insufficiency with elevated creatinine to 1.6 #6 dyslipidemia Recommendation: #1 definitive assessment of carotid anatomy with either MRA or selected carotid study if heart cath is undertaken. #2 most likely left carotid endarterectomy which would be delayed until after any definitive therapy recommended for cardiac status. #3 I've discussed specifically with the patient his need for better risk factor modification. This would include but not be exclusive of #1 smoking cessation # 2 better diabetes control #3 active exercise program. #4 aggressive management of her lipid status. He appears to understand all of these factors and is in agreement with an aggressive plan of management. We will communicate with cardiology regarding further measures.
--- NOTE | 2016-07-07 11:38 | CONS ---
DATE OF CONSULTATION: This is a 56-year-old gentleman with a history of type 2 diabetes, chronic kidney disease stage II, hypertension, and aortic stenosis which is mild and possibly has a bicuspid aortic valve. Within a week ago, he had a carotid Doppler and a stress test and echocardiogram. He walked for 6-1/2 minutes and LVH was noted on the EKG and his stress test was technically inconclusive, but no angina was noted. He had an echocardiogram that revealed normal LV function with possible bicuspid aortic valve and mild stenosis. He has type 2 diabetes mellitus as well. He came into the hospital complaining of discomfort in the chest. He has the pain in the chest that radiates sometimes to the back and also to the shoulder. Quality of the pain seems very atypical, however, possibility of underlying aortic pathology cannot be excluded given the fact he has bicuspid aortic valve. His stress test within the last 5 days was normal. He was actually advised to see Dr. Anthony from a vascular surgery standpoint because of a left carotid disease of moderate severity. The patient does not have any carotid related symptoms. He is resting comfortably without symptoms. His troponins are normal. PAST MEDICAL HISTORY: 1. Hypertension. 2. Type 2 diabetes mellitus. 3. Hypercholesterolemia. 4. Aortic stenosis possible bicuspid valve. 5. History of chronic kidney disease with creatinine of about 1.5. Medications at home include Invokana, fenofibrate, glipizide, Janumet, insulin, losartan. ALLERGIES: None. REVIEW OF SYSTEMS: Unremarkable other than above-mentioned facts. On examination, blood pressure is 128/70, pulse rate 78 per minute, regular. HEENT: Unremarkable. Fundus was not examined by me. Neck is supple. There is no JVD. I do not hear a carotid bruit. Heart exam reveals S1, S2 with ejection systolic murmur. Preserved second heart sound. Lungs are clear. Abdomen is soft, nontender. Lower extremities reveal normal pulses. Bilateral pulses are equal. Central nervous system is grossly within normal limits. EKG revealed sinus mechanism, borderline voltage criteria for LVH with nonspecific ST-T changes. IMPRESSION: 1. Chest wall pain cannot exclude aortic pathology. 2. Possible bicuspid valve with mild stenosis. 3. Type 2 diabetes with chronic kidney disease. 4. Hypertension. 5. Recent stress test, which was equivocal, but no chest pain at 6-1/2 minutes of exercise. 6. Carotid disease unilateral more so on the left side. RECOMMENDATIONS: I am recommending that we should perform a CT scan of the chest with contrast to look for aortic pathology. I initially contemplated of doing both for a carotid also but because there will be lot of contrast administration we will only give him 80 mL or less dye and perform a CT scan of the chest to assess the ascending aorta to rule out any dissection or aneurysm. I will also recommend a evaluation by Dr. Anthony for his carotid disease and he was supposed to see Dr. Anthony in the office. I will initiate him on a statin agent and continue beta erich. There is concern with worsening renal function, but I have explained to the patient the involved risks and he understands and we will proceed with angiography and I spoke to Dr. Rivera in radiology in this regard. Thank you very much for the consult.
[2016-07-07 12:18] LABS: Glucose,Whole Blood 144 mg/dL (75-99)
[2016-07-07 13:02] LABS: Hemoglobin A1C 9.4 % (4.2-6.1)
--- NOTE | 2016-07-07 15:05 | P.DS ---
Providers Date of admission: 07/06/16 11:04 Expected date of discharge: 07/07/16 Attending physician: Daniella Hairston Consults: 07/06/16 11:05 Consult Physician Stat Consulting Provider: [facility] Consult Reason/Comments: chest pain Do you want consulting provider notified?: Yes 07/07/16 08:50 Consult Physician Routine Consulting Provider: Chip Anthony Consult Reason/Comments: cartoid stenosis Do you want consulting provider notified?: Yes Primary care physician: Marquez Cronin [facility] Course: This is a pleasant 56-year-old gentleman patient of Dr. Cronin. He has underlying history of diabetes mellitus type 2, hypertension, BPH and chronic tobacco dependency. 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 Same consistency patient was subsequently seen in emergency room for cardiac evaluation. He was last seen by his PCP for which patient has had hypertensive urgency on his last visit several weeks ago and last week he underwent stress test and echocardiogram was performed in our facility. The echocardiogram showed ejection fraction of 55%, stress test shows equivocal test for ischemia. There is a significant family history of IA as young as 40 use of age, he was subsequently admitted to the hospital for monitoring, during his last informed material recommendation from Dr. Cronin , he was scheduled to see a vascular surgeon secondary to carotid stenosis patient does not know the physician or the amount of stenosis. Patient does not have any history of TIAs or previous CVAs in the past patient does not have any history of PE DVT or previous IA CHF 07/07: Cardiology order CAT scan of the chest to look at aortic pathology. Statin and beta erich started. CAT scan showed no dissection or aneurysm of the thoracic or proximal aortic aorta. 1.1 cm pretracheal lymph node. Patient was seen by Dr. Anthony with recommendations for either MRA or selected carotid study. Most likely left carotid endarterectomy will be delayed until after definitive therapy is done for cardiac status. Repeat BUN 20 and creatinine 1.62. Hemoglobin A1c is 9.4. Patient is being taken off and will continue only on Maruvia due to kidney function. Recommended for patient to follow-up with Dr. Guallpa or Dr. Arevalo. Nicotine patch is being provided for the patient. Patient will be discharged home today in stable condition. Discharge diagnoses: 1. Unstable angina presenting with pain with exertion equivocal stress test last week 2. Aortic murmur of aortic stenosis type 3. Abnormal EKG with inferolateral asymmetric ST-T wave changes, with equivocal stress test from his recent imaging studies 1 week prior to admission secondary to baseline EKG abnormalities 2. CKD stage III 4. Carotid carotid stenosis per preliminary report 5. chronic tobacco use at one pack per day 6. Hypertensive cardiac vascular disease 7. Diabetes mellitus type 2 with neuropathy and hyperglycemia 8. Hyperlipidemia Discharge plan: Return home Impression and plan of care have been directed as dictated by the signing physician. Chen Quiroz nurse practitioner acting as scribe for signing physician. Cc: Dr. Marquez Cronin Patient Condition at Discharge: Good Plan - Discharge Summary New Discharge Prescriptions: Atorvastatin [Lipitor] 20 mg PO DAILY #30 tab Metoprolol Tartrate [Lopressor] 25 mg PO BID #60 tab Nicotine 21Mg/24Hr Patch [Habitrol] 1 patch TRANSDERM DAILY #30 patch Nitroglycerin Sl Tabs [Nitrostat] 0.4 mg SUBLINGUAL Q5M PRN #25 tab PRN Reason: Chest Pain sitaGLIPtin PHOSPHATE [Januvia] 50 mg PO DAILY #30 tab Discharge Medication List Canagliflozin [Invokana] 100 mg PO DAILY 12/03/15 [History] Fenofibrate Nanocrystallized [Fenofibrate] 145 mg PO DAILY 12/03/15 [History] Omeprazole [PriLOSEC] 20 mg PO DAILY 12/03/15 [History] glipiZIDE [Glucotrol] 10 mg PO AC-BID 12/03/15 [History] Insulin Glargine,Hum.rec.anlog [Toujeo Solostar] 30 units SQ HS 07/06/16 [ History] Losartan Potassium [Cozaar] 100 mg PO BID 07/06/16 [History] Pregabalin [Lyrica] 100 mg PO BID 07/06/16 [History] Aspirin 325 mg PO DAILY tab 07/07/16 [Rx] Atorvastatin [Lipitor] 20 mg PO DAILY #30 tab 07/07/16 [Rx] Metoprolol Tartrate [Lopressor] 25 mg PO BID #60 tab 07/07/16 [Rx] Nicotine 21Mg/24Hr Patch [Habitrol] 1 patch TRANSDERM DAILY #30 patch 07/07/16 [ Rx] Nitroglycerin Sl Tabs [Nitrostat] 0.4 mg SUBLINGUAL Q5M PRN #25 tab 07/07/16 [Rx ] sitaGLIPtin PHOSPHATE [Januvia] 50 mg PO DAILY #30 tab 07/07/16 [Rx] Follow up Appointment(s)/Referral(s): Marian Ayon MD [STAFF PHYSICIAN] - 2 Weeks (Your appointment on July 15 was cancelled. [facility] will call you to schedule your follow up with Dr. Ayon. ) Marquez Cronin DO [Primary Care Provider] - 1 Week (Office will call you with follow up appointment. ) Niharika Guallpa MD [STAFF PHYSICIAN] - 1 Week Chip Anthony DO [Doctor of Osteopathic Medicine] - 1 Week Discharge Disposition: HOME SELF-CARE
[2016-07-07 16:27] VITALS: BP 127/62; PULSE 82; TEMP 97.9
[2016-07-07 17:09] LABS: Glucose,Whole Blood 128 mg/dL (75-99)
== END 2016-07-07 18:38 | disposition home or self-care (01) ==
LOC: EC 07:57 → 3OBS 11:04
PROVIDERS: ADMIT Family Medicine; ATTEND Family Medicine
DX: I20.0 Unstable angina (principal); I35.0 Nonrheumatic aortic (valve) stenosis; R94.31 Abnormal electrocardiogram [ECG] [EKG]; I12.9 Hypertensive chronic kidney disease with stage 1 through stage 4 chronic kidney disease, or unspecified chronic kidney disease; N18.3 Chronic kidney disease, stage 3 (moderate); I65.22 Occlusion and stenosis of left carotid artery; F17.210 Nicotine dependence, cigarettes, uncomplicated; I11.9 Hypertensive heart disease without heart failure; E78.5 Hyperlipidemia, unspecified; E78.00 Pure hypercholesterolemia, unspecified; K21.9 Gastro-esophageal reflux disease without esophagitis; E11.22 Type 2 diabetes mellitus with diabetic chronic kidney disease; E11.65 Type 2 diabetes mellitus with hyperglycemia; E11.40 Type 2 diabetes mellitus with diabetic neuropathy, unspecified; Z79.899 Other long term (current) drug therapy; Z79.84 Long term (current) use of oral hypoglycemic drugs; Z79.4 Long term (current) use of insulin; Z82.49 Family history of ischemic heart disease and other diseases of the circulatory system
CPT/HCPCS: 96366 ×4; 96372; 96375; 96376 ×2; 96365; 99285; 36415; 93005; 85379; 80061; 80053 ×2; 83036; 82550; 82553; 83735; 84484; 85025 ×2; 85610 ×2; 85730 ×2; 83721; 71020; 71275; G0378 ×2; S4990 ×2; J1644 ×2; Q9967; J2270

== ENCOUNTER → 2016-07-18 | Outpatient (CLI) | payer BC ==
[2016-07-18 08:35] LABS: CH 27.3; CHCM 31.3; HCT 40.9 % (39.0-53.0); HGB 12.8 gm/dL (13.0-17.5); Hypochromasia Slight; MCH 27.5 pg (25.0-35.0); MCHC 31.4 g/dL (31.0-37.0); MCV 87.4 fL (80.0-100.0); Mean Platelet Volume 7.9; RBC 4.68 m/uL (4.30-5.90); RDW 13.5 % (11.5-15.5); WBC 9.1 k/uL (3.8-10.6)
[2016-07-18 08:51] LABS: Calcium 9.6 mg/dL (8.4-10.2); Potassium 5.2 mmol/L (3.5-5.1)
== END | disposition home or self-care (01) ==
LOC: LABWHC1 07:57
PROVIDERS: ATTEND Internal Medicine Interventional Cardiology
DX: E11.9 Type 2 diabetes mellitus without complications (principal); N18.9 Chronic kidney disease, unspecified
CPT/HCPCS: 36415; 80048; 85027

== ENCOUNTER → 2016-07-22 | Outpatient (CLI) | payer BC ==
--- NOTE | 2016-07-23 11:08 | MR ---
EXAMINATION TYPE: MR angio neck wo/w con DATE OF EXAM: 07/22/2016 10:30 PM COMPARISON: Carotid ultrasound June 29, 2016. HISTORY: Left Carotid Stenosis CONTRAST: Standard multiplanar, multisequence MRI departmental protocol utilizing 20 mL intravenous MultiHance gadolinium contrast. Imaging is performed of the neck with 2-D and 3-D reconstructed images created and reviewed. FINDINGS: There is normal three-vessel origin from the aortic arch. The right common carotid artery s hows normal origin from the right brachiocephalic artery. There is no significant stenosis along cour se of the right common carotid artery. There is mild narrowing at right carotid bulb without signific ant stenosis seen in visualized portion of right internal carotid artery up to the petrous segment. T here is patent external carotid artery without significant stenosis. There is no significant stenosis in visualized portion of left common carotid artery up to carotid bu lb. There is significant stenosis in the left internal carotid artery proximal portion which then onl y transient flow remains present noted on images 55 through 58 series 401. Lumen diameter is estimate d 1.6 mm and reconstitutes to 7.5 x 5.2 mm superiorly on axial image 67. Past this point there is med ial course to the left internal carotid artery without significant stenosis of the petrous segment. O n the 3-D high-resolution images internal carotid arteries are patent to the [place] without significant stenosis. There is patent left external carotid artery without significant stenosis. The vertebral arteries are patent bilaterally. There is codominant vertebral basilar system patent to the basilar junction. Three-D images show patency through the basilar bifurcation. IMPRESSION: Hemodynamically significant stenosis on the left is confirmed, stenosis is 90-99% with minimal flow a long the seen on dedicated bifurcation axial images. No hemodynamically significant stenosis is noted on the right internal carotid artery.
== END ==
LOC: RADMRIMAIN 21:31
PROVIDERS: ATTEND Thoracic Surgery (Cardiothoracic Vascular Surgery)
DX: I65.22 Occlusion and stenosis of left carotid artery (principal)
CPT/HCPCS: 70549; A9577

== ENCOUNTER → 2016-08-11 | Outpatient (CLI) | payer BC ==
[2016-08-11 09:41] LABS: Partial Thromboplastin Time 27.9 sec (22.0-30.0); Prothrombin Time 10.4 sec (9.0-12.0)
[2016-08-11 09:43] LABS: Appearance,Urine Clear (Clear); Bilirubin,Urine Negative (Negative); Glucose,Urine (UA) 4+ (Negative); Ketones,Urine Negative (Negative); Leukocyte Esterase,Urine Negative (Negative); Nitrite,Urine Negative (Negative); PH, Urine 6.5 (5.0-8.0); Particle Count 287; Protein,Urine 1+ (Negative); RBC,Urine <1 /hpf (0-5); Specific Gravity,Urine 1.018 (1.001-1.035); UA Billing (MACRO vs. MICRO) MICRO; Urobilinogen,Urine <2.0 mg/dL (<2.0); WBC,Urine <1 /hpf (0-5)
[2016-08-11 09:46] LABS: Potassium 5.5 mmol/L (3.5-5.1)
[2016-08-11 09:47] LABS: CH 27.2; CHCM 32.1; HCT 44.2 % (39.0-53.0); HDW 2.83; HGB 14.5 gm/dL (13.0-17.5); MCH 27.8 pg (25.0-35.0); MCHC 32.7 g/dL (31.0-37.0); Mean Platelet Volume 7.8; RDW 14.5 % (11.5-15.5); WBC 8.5 k/uL (3.8-10.6)
== END ==
LOC: LABPAT 08:59
PROVIDERS: ATTEND Thoracic Surgery (Cardiothoracic Vascular Surgery)
DX: Z01.812 Encounter for preprocedural laboratory examination (principal)
CPT/HCPCS: 80051; 81001; 82565; 82947; 84520; 85027; 85610; 85730; 87086

== ENCOUNTER 2016-08-15 06:32 | Inpatient (IN) | payer BC ==
[2016-08-09 15:28] VITALS: BMI 29.2
[~2016-08-15 06:32] MED LIST: DEXAMETHASONE SOD PHOSPHATE 10 MG/ML 1 ML VIAL IV ONE; LACTATED RINGERS 1,000 ML IV SCH; LIDOCAINE 1% 20 ML VIAL (10MG/ML) FOR IV START INTRADERMA PRN; ONDANSETRON 4 MG/2 ML VIAL IVP ONE; SCOPOLAMINE 1.5MG/72HR PATCH TRANSDERM ONE; ceFAZolin 2 GM in SODIUM CHLORIDE 0.9% 100 ML IVPB ONE
[2016-08-15 07:30] LABS: Glucose,Whole Blood 132 mg/dL (75-99)
[2016-08-15] MEDS ORDERED: MIDAZOLAM 2 MG/2 ML VIAL IVP ONE (08:10)
[2016-08-15] MEDS ORDERED: NITROGLYCERIN-D5W PMX 50 MG in DEXTROSE/WATER 1 250ML.BAG IV SCH ×2 (08:30→14:00)
[2016-08-15] MEDS ORDERED: PHENYLEPHRINE 40 MG in SODIUM CHLORIDE 0.9% 250 ML IV SCH (08:30)
[2016-08-15] MEDS ORDERED: NEOSTIGMINE 1 MG/ML 10 ML VIAL ONE (08:49)
[2016-08-15] MEDS ORDERED: HEPARIN SODIUM,PORCINE 5,000 UNIT/ML 1 ML VIAL ONE (08:49)
[2016-08-15] MEDS ORDERED: SODIUM CHLORIDE 0.9% 500 ML with HEPARIN SODIUM,PORCINE 5,000 UNIT IV ONE ×2 (08:49)
[2016-08-15] MEDS ORDERED: SUCCINYLCHOLINE CHLORIDE 100 MG/5 ML SYR IV ONE (08:49)
[2016-08-15] MEDS ORDERED: ATROPINE SULFATE 0.4 MG/ML 1 ML VIAL ONE (08:49)
[2016-08-15] MEDS ORDERED: ROCURONIUM BROMIDE 10 MG/ML 10 ML VIAL IV ONE (08:49)
[2016-08-15] MEDS ORDERED: PHENYLEPHRINE-0.9% NACL SYG 1 MG/10 ML SYRINGE ONE (08:49)
[2016-08-15] MEDS ORDERED: PROPOFOL 10 MG/ML 20 ML VIAL IV ONE (08:49)
[2016-08-15] MEDS ORDERED: GLYCOPYRROLATE 0.2 MG/ML 2 ML VIAL ONE (08:49)
[2016-08-15] MEDS ORDERED: fentaNYL (PF) 50 MCG/ML 2 ML AMP ONE (08:49)
[2016-08-15] MEDS ORDERED: LIDOCAINE 1% INJ 10MG/ML (20 ML MDV) ONE (08:49)
[2016-08-15] MEDS ORDERED: THROMBIN (BOVINE) 5,000 UNIT VIAL MISCELLANE ONE (08:57)
[2016-08-15] MEDS ORDERED: LIDOCAINE 1% INJ 10MG/ML (20 ML MDV) SQ ONE ×2 (08:57→09:27)
[2016-08-15] MEDS ORDERED: GELATIN SPONGE,ABSORB (LARGE) 1 EACH SPONGE MISCELLANE ONE (08:58)
[2016-08-15] MEDS ORDERED: LACTATED RINGERS 1,000 ML IV ONE (10:37)
--- NOTE | 2016-08-15 10:48 | P.OP ---
Date of Procedure: 08/15/16 Preoperative Diagnosis: Left internal carotid artery stenosis left internal carotid artery stenosis Postoperative Diagnosis: Same Procedure(s) Performed: Left carotid endarterectomy with dacryon patch angioplasty Implants: Anesthesia: GETA Surgeon: Silvio Ramirez Estimated Blood Loss (ml): 100 Pathology: other (Atherosclerotic plaque) Condition: stable Disposition: ICU Indications for Procedure: Operative Findings: Description of Procedure: Patient was brought electively to the operating room because of a high-grade left internal carotid artery stenosis he was positioned under general anesthesia prepped and draped in usual sterile Betadine fashion and prepared for left carotid endarterectomy procedure was performed heparin was administered throughout the procedure at 5000 units of heparin IV and the carotid sheath was opened and the common carotid internal and external carotid arteries were identified the hypoglossal nerve was identified as well the carotid was controlled and the severe atherosclerotic plaque just above the bifurcation was completely and meticulously endarterectomized backbleeding and venting and restoring flow after the completed endarterectomy we patch close the vessel with background patch with a 6-0 Prolene suture meticulous care within the vessel during cross-clamp was accomplished with loupe magnification and fine [place] elevator we removed all particulate intimal debris and patch the vessel closed with 6-0 Prolene in a Hemashield background patch patient tolerated and vented the vessel well restore blood flow without changes in any neural monitoring during the case monitoring was performed with S SPEP as well as EEG monitoring there was no shunt required in this case patient tolerated all procedures well the heparin was not reversed and the wound was closed in layers with Vicryl sutures and Steri-Strips hemostatic Surgicel with topical thrombin as well as Gelfoam and topical thrombin were utilized and the wound was completely dry we closed in layers with Vicryl sutures and Steri-Strips C end of an operative report on patient Robby Oliva Dr. Ramirez dictating thank you
[2016-08-15] MEDS ORDERED: TEMAZEPAM 15 MG CAP PO PRN (11:29)
[2016-08-15] MEDS ORDERED: TRIMETHOBENZAMIDE 100 MG/ML 2 ML VIAL IM PRN (11:29)
[2016-08-15] MEDS ORDERED: ACETAMINOPHEN TAB 325 MG TAB PO PRN (11:29)
[2016-08-15] MEDS ORDERED: MAG HYDROX/AL HYDROX/SIMETH 30 ML CUP PO PRN (11:29)
[2016-08-15] MEDS ORDERED: BENZOCAINE/MENTHOL LOZENG 1 EACH LOZENGE MUCOUS MEM PRN (11:29)
[2016-08-15] MEDS: HYDROmorphone 1 MG/ML 1 ML SYRINGE IVP PRN ×3 (12:03→13:30)
[2016-08-15 12:19] LABS: Glucose,Whole Blood 184 mg/dL (75-99)
[2016-08-15 14:09] LABS: Glucose,Whole Blood 185 mg/dL (75-99)
[2016-08-15] MEDS ORDERED: ALPRAZolam 0.5 MG TAB PO PRN (15:25)
[2016-08-15] MEDS: HYDROcodone/APAP 5-325MG 1 EACH TAB PO PRN ×2 (15:28→21:06)
[2016-08-15] MEDS: ceFAZolin 2 GM in SODIUM CHLORIDE 0.9% 100 ML IVPB SCH (15:28)
[2016-08-15] MEDS: LACTATED RINGERS 1,000 ML IV SCH (15:28)
[2016-08-15] MEDS: HEPARIN SODIUM,PORCINE 5,000 UNIT/ML 1 ML VIAL SQ SCH (15:29)
[2016-08-15] MEDS: glipiZIDE 10 MG TAB PO SCH (17:38)
[2016-08-15] MEDS: MORPHINE SULFATE 2 MG/ML SYRINGE IVP PRN (17:41)
[2016-08-15] MEDS ORDERED: INSULIN GLARGINE 100 UNIT/ML 10 ML VIAL SQ SCH (21:00)
[2016-08-15 21:03] LABS: Glucose,Whole Blood 312 mg/dL (75-99)
[2016-08-15] MEDS: LOSARTAN 50 MG TAB PO SCH (21:06)
[2016-08-15] MEDS: METOPROLOL TARTRATE 25 MG TAB PO SCH (21:07)
[2016-08-15] MEDS: ATORVASTATIN 20 MG TAB PO SCH (21:07)
[2016-08-15] MEDS: PREGABALIN 100 MG CAP PO SCH (21:08)
[2016-08-16] MEDS: ceFAZolin 2 GM in SODIUM CHLORIDE 0.9% 100 ML IVPB SCH (00:18)
[2016-08-16] MEDS: HEPARIN SODIUM,PORCINE 5,000 UNIT/ML 1 ML VIAL SQ SCH ×3 (00:19→16:12)
[2016-08-16] MEDS: LACTATED RINGERS 1,000 ML IV SCH (01:55)
[2016-08-16] MEDS: HYDROcodone/APAP 5-325MG 1 EACH TAB PO PRN ×4 (03:40→21:16)
[2016-08-16 04:36] LABS: Basophils % (A) 0 %; CH 27.7; CHCM 32.3; Eosinophils # (A) 0.1 k/uL (0-0.7); Eosinophils % (A) 1 %; HCT 37.6 % (39.0-53.0); HDW 2.72; HGB 12.3 gm/dL (13.0-17.5); Luc # (Auto) 0.42; Luc % (Auto) 4; Lymphocytes # (A) 1.6 k/uL (1.0-4.8); Lymphocytes % (A) 14 %; MCHC 32.6 g/dL (31.0-37.0); MCV 85.9 fL (80.0-100.0); Mean Platelet Volume 8.5; Monocytes # (A) 0.7 k/uL (0-1.0); Monocytes % (A) 6 %; Neutrophils # (A) 9.1 k/uL (1.3-7.7); Neutrophils % (A) 76 %; RBC 4.38 m/uL (4.30-5.90); RDW 14.6 % (11.5-15.5); WBC 11.9 k/uL (3.8-10.6); WBC (Perox) 12.91
[2016-08-16] MEDS: MORPHINE SULFATE 2 MG/ML SYRINGE IVP PRN (05:54)
[2016-08-16] MEDS: glipiZIDE 10 MG TAB PO SCH (08:37)
[2016-08-16] MEDS: ASPIRIN 81 MG CHEW PO SCH (08:37)
[2016-08-16] MEDS: PANTOPRAZOLE 40 MG TABLET PO SCH (08:38)
[2016-08-16] MEDS: FENOFIBRATE 160 MG TAB PO SCH (08:38)
[2016-08-16] MEDS: LINAGLIPTIN 5 MG TABLET PO SCH (08:38)
[2016-08-16] MEDS: NICOTINE 21MG/24HR PATCH TRANSDERM SCH (08:39)
[2016-08-16] MEDS: METOPROLOL TARTRATE 25 MG TAB PO SCH ×2 (08:39→20:23)
[2016-08-16] MEDS: LOSARTAN 50 MG TAB PO SCH ×2 (08:39→20:24)
[2016-08-16 08:44] LABS: Glucose,Whole Blood 364 mg/dL (75-99)
[2016-08-16] MEDS ORDERED: NON-FORMULARY DRUG (Canagliflozin [Invokana] 100 MG) PO SCH (09:00)
[2016-08-16 09:45] LABS: Potassium 4.9 mmol/L (3.5-5.1); Total Bilirubin 0.4 mg/dL (0.2-1.3); Total Protein 6.1 g/dL (6.3-8.2)
[2016-08-16] MEDS ORDERED: cloNIDine HCL 0.1 MG TAB PO PRN (10:31)
--- NOTE | 2016-08-16 10:31 | P.PN ---
<Danny Castillo - Last Filed: 08/16/16 10:12> Progress Note - Text CV Surgery Nursing Principal diagnosis: Left internal carotid artery stenosis. POD: #1, status post elective left carotid endarterectomy with Dacron patch angioplasty. Patient awake and alert, no distress noted, no specific complaints. No focal or neuro deficits. He is sitting up to bedside. Vital Signs: Afebrile Vital Signs - 24 hr 08/15/16 08/15/16 08/15/16 11:03 11:15 11:30 Temperature 97.7 F Pulse Rate Pulse Rate [ 94 81 83 Left Pulse Oximetery] Respiratory 14 14 14 Rate Blood Pressure Blood Pressure 148/69 141/61 126/59 [Left Arm Sitting] O2 Sat by Pulse 95 96 97 Oximetry 08/15/16 08/15/16 08/15/16 11:45 12:00 12:15 Temperature Pulse Rate Pulse Rate [ 80 78 76 Left Pulse Oximetery] Respiratory 14 16 16 Rate Blood Pressure Blood Pressure 123/52 120/59 119/63 [Left Arm Sitting] O2 Sat by Pulse 97 97 97 Oximetry 08/15/16 08/15/16 08/15/16 12:31 12:45 13:00 Temperature Pulse Rate Pulse Rate [ 78 73 77 Left Pulse Oximetery] Respiratory 16 16 16 Rate Blood Pressure Blood Pressure 127/64 121/60 120/60 [Left Arm Sitting] O2 Sat by Pulse 97 98 98 Oximetry 08/15/16 08/15/16 08/15/16 13:15 13:30 13:45 Temperature Pulse Rate Pulse Rate [ 72 76 78 Left Pulse Oximetery] Respiratory 16 16 16 Rate Blood Pressure Blood Pressure 116/67 120/55 126/68 [Left Arm Sitting] O2 Sat by Pulse 97 97 97 Oximetry 08/15/16 08/15/16 08/15/16 14:08 14:10 14:20 Temperature 98.0 F Pulse Rate 81 Pulse Rate [ Left Pulse Oximetery] Respiratory Rate Blood Pressure 129/68 Blood Pressure [Left Arm Sitting] O2 Sat by Pulse 90 L 85 L 95 Oximetry 08/15/16 08/15/16 08/15/16 14:30 15:00 15:30 Temperature Pulse Rate 85 75 81 Pulse Rate [ Left Pulse Oximetery] Respiratory Rate Blood Pressure 129/68 123/68 132/72 Blood Pressure [Left Arm Sitting] O2 Sat by Pulse 97 96 96 Oximetry 08/15/16 08/15/16 08/15/16 15:51 16:00 16:30 Temperature Pulse Rate 73 82 Pulse Rate [ Left Pulse Oximetery] Respiratory Rate Blood Pressure 121/56 115/58 Blood Pressure [Left Arm Sitting] O2 Sat by Pulse 94 L 95 95 Oximetry 08/15/16 08/15/16 08/15/16 17:00 17:30 18:00 Temperature Pulse Rate 72 80 78 Pulse Rate [ Left Pulse Oximetery] Respiratory Rate Blood Pressure 115/60 135/66 113/56 Blood Pressure [Left Arm Sitting] O2 Sat by Pulse 94 L 96 91 L Oximetry 08/15/16 08/15/16 08/15/16 18:30 19:00 20:00 Temperature 98.4 F Pulse Rate 76 80 79 Pulse Rate [ Left Pulse Oximetery] Respiratory 16 Rate Blood Pressure 117/62 123/60 134/64 Blood Pressure [Left Arm Sitting] O2 Sat by Pulse 96 94 L 95 Oximetry 08/15/16 08/15/16 08/15/16 21:00 22:00 23:00 Temperature Pulse Rate 79 75 78 Pulse Rate [ Left Pulse Oximetery] Respiratory 16 8 L 8 L Rate Blood Pressure 134/64 Blood Pressure [Left Arm Sitting] O2 Sat by Pulse 95 94 L 94 L Oximetry 08/16/16 08/16/16 08/16/16 00:00 01:00 02:00 Temperature 97.9 F Pulse Rate 71 68 70 Pulse Rate [ Left Pulse Oximetery] Respiratory 7 L 8 L 10 L Rate Blood Pressure 147/62 147/62 Blood Pressure [Left Arm Sitting] O2 Sat by Pulse 95 95 94 L Oximetry 08/16/16 08/16/16 08/16/16 03:00 04:00 05:00 Temperature 98.5 F Pulse Rate 67 70 72 Pulse Rate [ Left Pulse Oximetery] Respiratory 10 L 8 L 10 L Rate Blood Pressure 166/78 166/78 Blood Pressure [Left Arm Sitting] O2 Sat by Pulse 96 96 95 Oximetry 08/16/16 08/16/16 08/16/16 06:00 07:00 08:00 Temperature Pulse Rate 78 72 87 Pulse Rate [ Left Pulse Oximetery] Respiratory 17 14 22 Rate Blood Pressure 147/69 Blood Pressure [Left Arm Sitting] O2 Sat by Pulse 94 L 94 L 95 Oximetry 08/16/16 09:00 Temperature 97.6 F Pulse Rate 78 Pulse Rate [ Left Pulse Oximetery] Respiratory 15 Rate Blood Pressure Blood Pressure [Left Arm Sitting] O2 Sat by Pulse 94 L Oximetry ABP, PAP, CO, CI - Last 8 Hours Arterial Blood Pressure 140/59 Arterial Blood Pressure 145/65 Arterial Blood Pressure 122/57 Arterial Blood Pressure 133/65 Arterial Blood Pressure 129/63 Arterial Blood Pressure 136/67 Arterial Blood Pressure 120/57 Labs: Short CBC 08/16/16 Range/Units 04:15 WBC 11.9 H (3.8-10.6) k/uL Hgb 12.3 L (13.0-17.5) gm/dL Hct 37.6 L (39.0-53.0) % Plt Count 217 (150-450) k/uL Neutrophils # 9.1 H (1.3-7.7) k/uL BMP 08/16/16 04:15 Sodium 138 Potassium 4.9 Chloride 104 Carbon Dioxide 27 BUN 32 H Creatinine 1.58 H Glucose 159 H Calcium 9.0 Liver Function 08/16/16 Range/Units 04:15 Total Bilirubin 0.4 (0.2-1.3) mg/dL AST 12 L (17-59) U/L ALT 23 (21-72) U/L Alkaline Phosphatase 58 (38-126) U/L Albumin 3.5 (3.5-5.0) g/dL IV Fluids: Lactated Ringer's at 75 mL per hour. 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 Respirations are symmetrical and unlabored. O2 sat: 92% on room air. I/S: 2000 mL, reviewed with the patient important of using his incentive spirometry every hour while awake. Patient did give a good return demonstration on his incentive spirometry. Heart: S1S2, regular rhythm and rate, positive for pansystolic murmur. Bedside telemetry showing normal sinus rhythm heart rate 77. Left neck incision clean dry and well approximated. Steri-Strips intact. No drainage noted. Abdomen: Soft, Positive bowel sounds present in all 4 quadrants. Patient states he is passing gas, but denies having a bowel movement. CBGs: 132-364 mg/dL in the last 24 hours. U/O: Adequate. 24 hr Total: Intake & Output 08/14/16 08/15/16 08/16/16 08/17/16 06:59 06:59 06:59 06:59 Intake Total 3473 465 Output Total 1375 Balance 808 465 Weight 97.9 kg Active Medications Acetaminophen (Tylenol Tab) 650 mg PO Q4HR PRN PRN Reason: Mild Pain Hydrocodone Bitart/Acetaminophen ([place] 5-325) 1 each PO Q6HR PRN PRN Reason: Pain Scale 4 to 6 Last Admin: 08/16/16 03:40 Dose: 1 each Hydrocodone Bitart/Acetaminophen ([place] 5-325) 2 each PO Q6HR PRN PRN Reason: Pain Scale 7 to 10 Last Admin: 08/16/16 09:09 Dose: 2 each Al Hydroxide/Mg Hydroxide (Maalox) 30 ml PO Q6HR PRN PRN Reason: Indigestion Alprazolam (Xanax) 0.5 mg PO BID PRN PRN Reason: Anxiety Aspirin (Aspirin) 162 mg PO DAILY [facility] Last Admin: 08/16/16 08:37 Dose: 162 mg Atorvastatin Calcium (Lipitor) 20 mg PO HS [facility] Last Admin: 08/15/16 21:07 Dose: 20 mg Benzocaine/Menthol (Cepacol Lozenge) 1 each MUCOUS MEM Q2HR PRN PRN Reason: Sore Throat Fenofibrate (Lofibra) 160 mg PO DAILY [facility] Last Admin: 08/16/16 08:38 Dose: 160 mg Glipizide (Glucotrol) 10 mg PO AC-BID [facility] Last Admin: 08/16/16 08:37 Dose: 10 mg Heparin Sodium (Porcine) (Heparin) 5,000 unit SQ Q8HR [facility] Last Admin: 08/16/16 08:37 Dose: 5,000 unit Nitroglycerin/Dextrose 50 mg/ (IV Solution) 250 mls @ 0 mls/hr IV .Q0M [facility]; Titrate PRN Reason: Protocol Insulin Glargine (Lantus) 30 unit SQ HS [facility] Last Admin: 08/15/16 21:06 Dose: 30 unit Linagliptin (Tradjenta) 5 mg PO DAILY [facility] Last Admin: 08/16/16 08:38 Dose: 5 mg Losartan Potassium (Cozaar) 100 mg PO BID [facility] Last Admin: 08/16/16 08:39 Dose: 100 mg Metoprolol Tartrate (Lopressor) 25 mg PO BID [facility] Last Admin: 08/16/16 08:39 Dose: 25 mg Nicotine (Habitrol 21mg/24hr Patch) 1 patch TRANSDERM DAILY [facility] Last Admin: 08/16/16 08:39 Dose: 1 patch Non-Formulary Medication (Canagliflozin [Invokana]) 100 mg PO DAILY [facility] Pantoprazole Sodium (Protonix) 40 mg PO AC-BRKFST [facility] Last Admin: 08/16/16 08:38 Dose: 40 mg Pregabalin (Lyrica) 100 mg PO BID [facility] Last Admin: 08/15/16 21:08 Dose: 100 mg Temazepam (Restoril) 15 mg PO HS PRN PRN Reason: Insomnia Trimethobenzamide HCl (Tigan) 200 mg IM Q4HR PRN PRN Reason: Nausea And Vomiting <Chip Anthony - Last Filed: 08/17/16 11:33> Progress Note - Text [facility] notes reviewed and accepted. Good first day post left carotid endarterectomy. Continue inpatient 1 more day to well regulate blood pressure.
[2016-08-16] MEDS: hydrALAZINE HCL 50 MG TAB PO SCH ×3 (11:24→21:16)
[2016-08-16] MEDS: PREGABALIN 100 MG CAP PO SCH ×2 (11:26→20:25)
[2016-08-16 11:50] LABS: Glucose,Whole Blood 233 mg/dL (75-99)
[2016-08-16 12:20] LABS: Hemoglobin A1C 8.4 % (4.2-6.1)
[2016-08-16] MEDS: INSULIN LISPRO (humaLOG) 300 UNIT/3 ML VIAL SQ SCH ×3 (12:58→21:16)
--- NOTE | 2016-08-16 14:59 | P.CONS ---
History of Present Illness - Reason for Consult Consult date: 08/16/16 Medical management Requesting physician: Silvio Ramirez - Chief Complaint Left carotid endarterectomy - History of Present Illness This is a pleasant 56-year-old gentleman patient of Dr. Cronin, Dr. SANDY Ayon. He has underlying history of diabetes mellitus type 2, hypertension, BPH and chronic tobacco dependency CK D stage III, hypertensive Vascular disease , diabetic neuropathy, hyperlipidemia. Patient was admitted for left carotid endarterectomy secondary to critical stenosis, patient did not have any previous history off CVA or TIA in the past, imaging studies was done as an outpatient prior to proceeding to the carotid endarterectomy. Patient currently stable in ICU, no chest pain no shortness of breath, he was thus admitted from our facility 07/06/2016 secondary to chest discomfort for which came in for unstable angina at that time and was treated by cardiology. The patient was asymptomatic since his last admission, no chest pain no shortness of breath, no TIA symptoms, no difficulty of breathing Review of Systems Constitutional: Reports as per HPI, Denies anorexia, Denies chills, Denies chronic headaches, Denies chronic pain, Denies daytime sleepiness, Denies fatigue, Denies fever, Denies lethargy, Denies malaise, Denies night sweats, Denies poor appetite, Denies sweats, Denies weakness, Denies weight gain, Denies weight loss Ears, nose, mouth and throat: Reports as per HPI, Denies ant. neck pain, Denies bleeding gums, Denies dental pain, Denies dysphagia, Denies epistaxis, Denies headache, Denies hoarseness, Denies mouth pain, Denies nasal congestion, Denies nasal discharge, Denies neck fullness/pressure, Denies neck lump, Denies nose pain, Denies odynophagia, Denies post-nasal drip, Denies sinus pain, Denies sinus pressure, Denies swelling in mouth, Denies swelling in throat, Denies sore throat, Denies vertigo, Denies voice changes Cardiovascular: Reports as per HPI, Denies chest pain, Denies claudication, Denies decreased exercise tolerance, Denies dyspnea on exertion, Denies edema, Denies high blood pressure, Denies irregular heart beat, Denies leg edema, Denies lightheadedness, Denies orthopnea, Denies palpitations, Denies paroxysmal nocturnal dyspnea, Denies phlebitis, Denies rapid heart beat, Denies shortness of breath, Denies syncope Respiratory: Reports as per HPI, Denies congestion, Denies cough, Denies cough with sputum, Denies dyspnea, Denies excessive sputum, Denies hemoptysis, Denies home oxygen, Denies pain, Denies pain on inspiration, Denies pleurisy, Denies respiratory infections, Denies sleep apnea, Denies snoring, Denies wheezing Gastrointestinal: Reports as per HPI, Denies abdominal pain, Denies belching, Denies bloating, Denies BRBPR, Denies change in bowel habits, Denies coffee ground emesis, Denies constipation, Denies diarrhea, Denies dyspepsia, Denies early satiety, Denies excessive gas, Denies heartburn, Denies hematemesis, Denies hematochezia, Denies indigestion, Denies jaundice, Denies lactose intolerance, Denies loss of appetite, Denies melena, Denies nausea, Denies vomiting Genitourinary: Reports as per HPI, Denies decreased libido, Denies difficulties fathering child, Denies discharge, Denies dysuria, Denies erectile dysfunction, Denies flank pain, Denies genital pain, Denies genital sores, Denies hematuria, Denies impotence, Denies incontinence, Denies kidney stones, Denies nocturia, Denies polyuria, Denies testicular lump, Denies testicular pain, Denies urinary frequency, Denies urinary hesitancy, Denies urinary retention Musculoskeletal: Reports as per HPI, Denies arm numbness/tingling, Denies atrophy, Denies fractures, Denies frequent falls, Denies gait dysfunction, Denies hot joints, Denies leg numbness/tingling, Denies limitation of motion, Denies loss of height, Denies low back pain, Denies morning stiffness, Denies muscle cramps, Denies muscle weakness, Denies myalgias, Denies neck pain, Denies neck stiffness, Denies prior amputations, Denies redness of joints, Denies shooting arm pain, Denies shooting leg pain Integumentary: Reports as per HPI, Denies acne, Denies boils, Denies brittle nails, Denies change in hair/nails, Denies color changes, Denies darkening of skin, Denies depigmentation, Denies dryness, Denies foot/leg ulcers, Denies growths, Denies hirsutism, Denies lesions, Denies onychomycosis, Denies pruritus , Denies rash, Denies sores, Denies striae, Denies unusual bruising, Denies wounds Neurological: Reports as per HPI, Denies aphasia, Denies ataxia, Denies balance difficulties, Denies burning pain, Denies change in mentation, Denies change in smell/taste, Denies change in speech, Denies confusion, Denies convulsions, Denies double vision, Denies gait dysfunction, Denies head injury, Denies headaches, Denies hearing difficulties, Denies lack of coordination, Denies loss of vision, Denies memory loss, Denies migraines, Denies motor disturbance, Denies numbness, Denies paralysis, Denies paresthesias, Denies seizures, Denies sensory deficit, Denies spasticity, Denies syncope, Denies tic, Denies tingling , Denies transient paralysis, Denies tremors, Denies vertigo, Denies weakness, Denies visual changes Psychiatric: Reports as per HPI, Denies anhedonia, Denies anxiety, Denies anxiety attacks, Denies change in appetite, Denies change in libido, Denies change in sleep habits, Denies confusion, Denies depression, Denies difficulty concentrating, Denies disorientation, Denies hallucinations, Denies hopelessness , Denies hypersomnia, Denies insomnia, Denies irritability, Denies memory loss, Denies mood swings, Denies paranoia, Denies sadness/tearfulness, Denies sleep disturbances, Denies suicidal ideation Endocrine: Reports as per HPI, Denies cold intolerance, Denies deepening of the voice, Denies excessive sweating, Denies excessive thirst, Denies fatigue, Denies flushing, Denies heat intolerance, Denies high blood sugars, Denies increase in ring/shoe/hat size, Denies low blood sugars, Denies nocturia, Denies palpitations, Denies polydipsia, Denies polyphagia, Denies polyuria, Denies proptosis, Denies recent glucocorticoid use, Denies thyroid mass, Denies weight change Past Medical History Past Medical History: Diabetes Mellitus, GERD/Reflux, Hyperlipidemia, Hypertension, Renal Disease Additional Past Medical History / Comment(s): bilateral feet neuropathy, recent stress test and echo, decreased kidney function per pt-to see kidney dr in August History of Any Multi-Drug Resistant Organisms: None Reported Past Surgical History: Hernia Repair, Orthopedic Surgery Additional Past Surgical History / Comment(s): L arm muscle repair by elbow, L inguinal hernia repair. Past Anesthesia/Blood Transfusion Reactions: No Reported Reaction Past Psychological History: Anxiety Additional Psychological History / Comment(s): Pt resides with his spouse. He is independent. Smoking Status: Former smoker Past Alcohol Use History: None Reported Additional Past Alcohol Use History / Comment(s): Pt started smoking in 1981. < ppd. quit in April 2016 Past Drug Use History: None Reported - Past Family History Father Family Medical History: Coronary Artery Disease (CAD) Additional Family Medical History / Comment(s): Father during CABG Mother Family Medical History: Myocardial Infarction (MT) Additional Family Medical History / Comment(s): Mother of massive MT at the age of 81 yrs. Medications and Allergies Home Medications Medication Instructions Recorded Confirmed Type Canagliflozin [Invokana] 100 mg PO DAILY 12/03/15 08/15/16 History Fenofibrate Nanocrystallized 145 mg PO DAILY 12/03/15 08/15/16 History [Fenofibrate] Omeprazole [PriLOSEC] 20 mg PO DAILY 12/03/15 08/15/16 History glipiZIDE [Glucotrol] 10 mg PO AC-BID 12/03/15 08/15/16 History Insulin Glargine,Hum.rec.anlog 30 units SQ HS 07/06/16 08/15/16 History [Toujeo Solostar] Losartan Potassium [Cozaar] 100 mg PO BID 07/06/16 08/15/16 History Pregabalin [Lyrica] 100 mg PO BID 07/06/16 08/15/16 History ALPRAZolam [Xanax] 0.5 mg PO BID PRN 08/09/16 08/15/16 History Atorvastatin [Lipitor] 20 mg PO HS 08/09/16 08/15/16 History Allergies Allergy/AdvReac Type Severity Reaction Status Date / Time No Known Allergies Allergy Verified 08/09/16 15:20 Physical Exam Vitals: Vital Signs Temp Pulse Resp BP Pulse Ox 08/16/16 13:00 97.9 F 75 17 158/81 95 05/23/17 12:00 68 19 155/78 93 L 08/16/16 11:00 63 13 156/84 92 L 08/16/16 10:00 80 24 93 L 08/16/16 09:00 97.6 F 78 15 94 L 08/16/16 08:00 87 22 147/69 95 08/16/16 07:00 72 14 94 L 08/16/16 06:00 78 17 94 L 08/16/16 05:00 72 10 L 166/78 95 08/16/16 04:00 98.5 F 70 8 L 166/78 96 08/16/16 03:00 67 10 L 96 08/16/16 02:00 70 10 L 94 L 08/16/16 01:00 68 8 L 147/62 95 08/16/16 00:00 97.9 F 71 7 L 147/62 95 08/15/16 23:00 78 8 L 94 L 08/15/16 22:00 75 8 L 94 L 08/15/16 21:00 79 16 134/64 95 08/15/16 20:00 98.4 F 79 16 134/64 95 08/15/16 19:00 80 123/60 94 L 08/15/16 18:30 76 117/62 96 08/15/16 18:00 78 113/56 91 L 08/15/16 17:30 80 135/66 96 08/15/16 17:00 72 115/60 94 L 08/15/16 16:30 82 115/58 95 08/15/16 16:00 73 121/56 95 08/15/16 15:51 94 L 08/15/16 15:30 81 132/72 96 08/15/16 15:00 75 123/68 96 08/15/16 14:30 85 129/68 97 08/15/16 14:20 98.0 F 81 129/68 95 Intake and Output 08/15/16 08/16/16 08/16/16 22:59 06:59 14:59 Intake Total 875 790 840 Output Total 605 1160 650 Balance 270 -370 190 Intake: IV 225 700 360 Lactated Ringers 1,000 ml 60 @ 20 mls/hr IV .Q24H [facility] Rx#:[id number] Lactated Ringers 1,000 ml 225 600 300 @ 75 mls/hr IV .[id number] [facility] Rx#:[id number] ceFAZolin 2 gm In Sodium 100 Chloride 0.9% 100 ml @ 100 mls/hr IVPB Q8HR [facility] Rx#:[id number] Intake, IV Titration 475 Amount Lactated Ringers 1,000 ml 375 @ 75 mls/hr IV .[id number] [facility] Rx#:[id number] ceFAZolin 2 gm In Sodium 100 Chloride 0.9% 100 ml @ 100 mls/hr IVPB Q8HR [facility] Rx#:[id number] Oral 175 90 480 Output: Urine 605 1160 650 Other: Voiding Method Indwelling Catheter Indwelling Catheter Urinal # Voids 0 Weight 97.9 kg ABP, PAP, CO, CI - Last 8 Hours Arterial Blood Pressure 144/72 Arterial Blood Pressure 166/84 Arterial Blood Pressure 141/73 Arterial Blood Pressure 152/77 Arterial Blood Pressure 140/59 Arterial Blood Pressure 145/65 Arterial Blood Pressure 122/57 - Constitutional General appearance: cooperative, no acute distress - EENT Eyes: anicteric sclerae, EOMI, PERRLA, dentition normal, normal appearance ENT: hearing grossly normal, NA/AT, normal oropharynx - Neck Neck: no lymphadenopathy, normal ROM, no other, no rigidity, no stridor, no thyromegaly - Respiratory Respiratory: bilateral: CTA, negative: diminished, dullness, rales, rhonchi, wheezing, prolonged expiration - Cardiovascular Rhythm: regular Heart sounds: normal: S1, S2 Abnormal Heart Sounds: no systolic murmur, no diastolic murmur, no rub, no S3 Gallop, no S4 Gallop, no click, no other - Gastrointestinal General gastrointestinal: normal bowel sounds, soft - Integumentary Integumentary: normal, normal turgor - Neurologic Neurologic: CNII-XII intact - Musculoskeletal Musculoskeletal: gait normal - Psychiatric Psychiatric: A&O x's 3, appropriate affect, intact judgment & insight Results CBC & Chem 7: 08/16/16 04:15 08/16/16 04:15 Labs: Abnormal Lab Results - Last 24 Hours (Table) 08/15/16 08/16/16 08/16/16 Range/Units 21:00 04:15 04:15 WBC 11.9 H (3.8-10.6) k/uL Hgb 12.3 L (13.0-17.5) gm/dL Hct 37.6 L (39.0-53.0) % Neutrophils # 9.1 H (1.3-7.7) k/uL BUN 32 H (9-20) mg/dL Creatinine 1.58 H (0.66-1.25) mg/dL Glucose 159 H (74-99) mg/dL POC Glucose (mg/dL) 312 H (75-99) mg/dL Hemoglobin A1c (4.2-6.1) % AST 12 L (17-59) U/L Total Protein 6.1 L (6.3-8.2) g/dL 08/16/16 08/16/16 08/16/16 Range/Units 04:15 08:42 11:47 WBC (3.8-10.6) k/uL Hgb (13.0-17.5) gm/dL Hct (39.0-53.0) % Neutrophils # (1.3-7.7) k/uL BUN (9-20) mg/dL Creatinine (0.66-1.25) mg/dL Glucose (74-99) mg/dL POC Glucose (mg/dL) 364 H 233 H (75-99) mg/dL Hemoglobin A1c 8.4 H (4.2-6.1) % AST (17-59) U/L Total Protein (6.3-8.2) g/dL Assessment and Plan Plan: 1. Critical internal carotid artery stenosis requiring Decron patch angioplasty on 08/15/[address] Ramirez, patient currently is in ICU requiring close vascular and blood pressure monitor in, patient tolerated the procedures intraoperatively, patient stable in ICU. Patient is to have closer titration off his sugars as his sugars is uncontrolled,, incentive spirometry for pulmonary prophylaxis, narcotics for pain control, 2. Diabetes mellitus type 2 with neuropathy and hyperglycemia, gout been A1c of 9.0, patient's on Glucotrol Lantus, recent adjustment made today to increase Lantus 10 additional units for a total 40 this would be monitored very closely with compliance to the carb consistent regimen as an outpatient, most likely secondary failure to Glucotrol is noted, we'll going to replace it with Glimepiride and dietitian to see for blood glucose monitor in, he is not a candidate for metformin and continue her trajenta 5 mg daily 3. Aortic murmur of aortic stenosis type, this would be monitored as an outpatient 4. History of Abnormal EKG with inferolateral asymmetric ST-T wave changes, with equivocal stress test from his recent imaging studies 5. CK D stage III for approximately one year now, nephrotoxins will be avoided patient also was advised regarding strict surveillance and control of sugar diabetes 6. chronic tobacco use at one pack per day patient is started on nicotine patches and was counseled regarding a permanent tobacco cessation program 7. Hypertensive cardiac vascular disease uncontrolled hypertension for which patient is losartan 100 mg twice a day at home, we'll going to add hydralazine 50 mg 3 times a day with parameters, Catapres 0.1 when necessary for blood pressure over 160 8. Hyperlipidemia on fenofibrate and Lipitor 20 9. DVT prophylaxis with early ambulation GI prophylaxis with IV Pepcid
[2016-08-16 17:34] LABS: Glucose,Whole Blood 185 mg/dL (75-99)
[2016-08-16] MEDS: GLIMEPIRIDE 4 MG TAB PO SCH (17:40)
[2016-08-16] MEDS: HYDROmorphone 1 MG/ML 1 ML SYRINGE IVP PRN (19:18)
[2016-08-16] MEDS: DOCUSATE 100 MG CAP PO SCH (20:24)
[2016-08-16] MEDS: ATORVASTATIN 20 MG TAB PO SCH (20:24)
[2016-08-16] MEDS ORDERED: INSULIN GLARGINE 100 UNIT/ML 10 ML VIAL SQ SCH (21:00)
[2016-08-16 21:14] LABS: Glucose,Whole Blood 167 mg/dL (75-99)
[2016-08-17] MEDS: HEPARIN SODIUM,PORCINE 5,000 UNIT/ML 1 ML VIAL SQ SCH ×3 (00:30→16:26)
[2016-08-17] MEDS: HYDROcodone/APAP 5-325MG 1 EACH TAB PO PRN ×2 (03:00→12:34)
[2016-08-17 04:38] LABS: Basophils # (A) 0.1 k/uL (0-0.2); Basophils % (A) 1 %; CH 27.5; CHCM 32.3; Eosinophils # (A) 0.5 k/uL (0-0.7); Eosinophils % (A) 6 %; HCT 38.3 % (39.0-53.0); HDW 2.75; HGB 12.5 gm/dL (13.0-17.5); Luc # (Auto) 0.26; Luc % (Auto) 3; Lymphocytes # (A) 2.6 k/uL (1.0-4.8); Lymphocytes % (A) 32 %; MCH 27.8 pg (25.0-35.0); MCHC 32.5 g/dL (31.0-37.0); MCV 85.4 fL (80.0-100.0); Mean Platelet Volume 8.8; Monocytes # (A) 0.5 k/uL (0-1.0); Monocytes % (A) 6 %; Neutrophils # (A) 4.3 k/uL (1.3-7.7); Neutrophils % (A) 53 %; RBC 4.48 m/uL (4.30-5.90); RDW 14.6 % (11.5-15.5); WBC 8.2 k/uL (3.8-10.6); WBC (Perox) 8.55
--- NOTE | 2016-08-17 07:20 | P.PN ---
<Danny Castillo L - Last Filed: 08/17/16 07:13> Progress Note - Text CV Surgery Nursing Principal diagnosis: Left internal carotid artery stenosis. POD: #2, status post elective left carotid endarterectomy with Dacron patch angioplasty. Patient awake and alert, no distress noted, no specific complaints. Vital Signs: Afebrile Vital Signs - 24 hr 08/16/16 08/16/16 08/16/16 08:00 09:00 10:00 Temperature 97.6 F Pulse Rate 87 78 80 Respiratory 22 15 24 Rate Blood Pressure 147/69 O2 Sat by Pulse 95 94 L 93 L Oximetry 08/16/16 08/16/16 08/16/16 11:00 12:00 13:00 Temperature 97.9 F Pulse Rate 63 68 75 Respiratory 13 19 17 Rate Blood Pressure 156/84 155/78 158/81 O2 Sat by Pulse 92 L 93 L 95 Oximetry 08/16/16 08/16/16 08/16/16 14:00 15:00 16:00 Temperature 97.6 F Pulse Rate 76 78 72 Respiratory 14 25 H 25 H Rate Blood Pressure O2 Sat by Pulse 93 L 90 L 90 L Oximetry 08/16/16 08/16/16 08/16/16 17:00 18:00 19:00 Temperature Pulse Rate 66 78 76 Respiratory 18 19 25 H Rate Blood Pressure O2 Sat by Pulse 95 93 L 91 L Oximetry 08/16/16 08/16/16 08/16/16 20:00 21:00 22:00 Temperature 98.2 F Pulse Rate 74 69 81 Respiratory 9 L 9 L 22 Rate Blood Pressure 159/82 159/82 O2 Sat by Pulse 88 L 96 95 Oximetry 08/16/16 08/17/16 08/17/16 23:00 00:00 01:00 Temperature 97.7 F Pulse Rate 72 73 69 Respiratory 11 L 11 L 10 L Rate Blood Pressure 144/74 144/74 O2 Sat by Pulse 94 L 94 L 94 L Oximetry 08/17/16 08/17/16 08/17/16 02:00 03:00 04:00 Temperature 98.3 F Pulse Rate 71 73 67 Respiratory 12 13 11 L Rate Blood Pressure 161/84 O2 Sat by Pulse 95 97 94 L Oximetry 08/17/16 08/17/16 08/17/16 05:00 06:00 07:00 Temperature Pulse Rate 67 68 65 Respiratory 8 L 10 L 10 L Rate Blood Pressure 161/84 O2 Sat by Pulse 96 96 94 L Oximetry ABP, PAP, CO, CI - Last 8 Hours Arterial Blood Pressure 139/67 Arterial Blood Pressure 141/67 Arterial Blood Pressure 136/62 Arterial Blood Pressure 142/64 Arterial Blood Pressure 143/69 Arterial Blood Pressure 145/65 Arterial Blood Pressure 120/58 Arterial Blood Pressure 131/60 Labs: Short CBC 08/17/16 Range/Units 04:25 WBC 8.2 (3.8-10.6) k/uL Hgb 12.5 L (13.0-17.5) gm/dL Hct 38.3 L (39.0-53.0) % Plt Count 190 (150-450) k/uL Neutrophils # 4.3 (1.3-7.7) k/uL BMP 08/16/16 04:15 Sodium 138 Potassium 4.9 Chloride 104 Carbon Dioxide 27 BUN 32 H Creatinine 1.58 H Glucose 159 H Calcium 9.0 Liver Function 08/16/16 Range/Units 04:15 Total Bilirubin 0.4 (0.2-1.3) mg/dL AST 12 L (17-59) U/L ALT 23 (21-72) U/L Alkaline Phosphatase 58 (38-126) U/L Albumin 3.5 (3.5-5.0) g/dL IV Fluids: Lactated Ringer's at 20 mL per hour Lungs: Essentially clear throughout, diminished bilateral bases. Respirations are symmetrical and unlabored. O2 sat: 96% on 2 L nasal cannula. I/S: 2000- 2250 mL, reviewed with the patient important of using his incentive spirometry every hour while awake. The patient did give a good return demonstration on his incentive spirometry. Heart: S1S2, regular rhythm and rate, pansystolic murmur. Bedside telemetry showing normal sinus rhythm heart rate 73. Left neck incision clean dry and well approximated. No drainage noted. Steri- Strips remain in place to his incision. Abdomen: Soft, Positive bowel sounds present in all 4 quadrants, positive flatus. CBGs: 167 to 263 mg/dL in the last 24 hours. U/O: Adequate. 24 hr Total: Intake & Output 08/15/16 08/16/16 08/17/16 08/18/16 06:59 06:59 06:59 06:59 Intake Total 3473 1400 Output Total 2665 5420 Balance 808 -2298 Weight 97.9 kg 90 kg Active Medications Acetaminophen (Tylenol Tab) 650 mg PO Q4HR PRN PRN Reason: Mild Pain Hydrocodone Bitart/Acetaminophen ([place] 5-325) 1 each PO Q6HR PRN PRN Reason: Pain Scale 4 to 6 Last Admin: 08/17/16 03:00 Dose: 1 each Hydrocodone Bitart/Acetaminophen ([place] 5-325) 2 each PO Q6HR PRN PRN Reason: Pain Scale 7 to 10 Last Admin: 08/16/16 21:16 Dose: 2 each Al Hydroxide/Mg Hydroxide (Maalox) 30 ml PO Q6HR PRN PRN Reason: Indigestion Alprazolam (Xanax) 0.5 mg PO BID PRN PRN Reason: Anxiety Last Admin: 08/16/16 20:47 Dose: 0.5 mg Aspirin (Aspirin) 162 mg PO DAILY [facility] Last Admin: 08/16/16 08:37 Dose: 162 mg Atorvastatin Calcium (Lipitor) 20 mg PO HS [facility] Last Admin: 08/16/16 20:24 Dose: 20 mg Benzocaine/Menthol (Cepacol Lozenge) 1 each MUCOUS MEM Q2HR PRN PRN Reason: Sore Throat Clonidine (Catapres) 0.1 mg PO Q4H PRN PRN Reason: SBP greater than 160mmhg Docusate Sodium (Colace) 100 mg PO BID [facility] Last Admin: 08/16/16 20:24 Dose: 100 mg Fenofibrate (Lofibra) 160 mg PO DAILY [facility] Last Admin: 08/16/16 08:38 Dose: 160 mg Glimepiride (Amaryl) 4 mg PO AC-BID [facility] Last Admin: 08/16/16 17:40 Dose: 4 mg Heparin Sodium (Porcine) (Heparin) 5,000 unit SQ Q8HR [facility] Last Admin: 08/17/16 00:30 Dose: 5,000 unit Hydralazine HCl (Apresoline) 50 mg PO TID [facility] Last Admin: 08/16/16 21:16 Dose: 50 mg Hydromorphone HCl (Dilaudid) 1 mg IVP Q3HR PRN PRN Reason: Pain Last Admin: 08/16/16 19:18 Dose: 1 mg Nitroglycerin/Dextrose 50 mg/ (IV Solution) 250 mls @ 0 mls/hr IV .Q0M ZAIN; Titrate PRN Reason: Protocol Insulin Glargine (Lantus) 40 unit SQ HS [facility] Last Admin: 08/16/16 21:16 Dose: 40 unit Insulin Human Lispro (Humalog) 0 unit SQ ACHS [facility] PRN Reason: Protocol Last Admin: 08/16/16 21:16 Dose: 2 unit Linagliptin (Tradjenta) 5 mg PO DAILY [facility] Last Admin: 08/16/16 08:38 Dose: 5 mg Losartan Potassium (Cozaar) 100 mg PO BID [facility] Last Admin: 08/16/16 20:24 Dose: 100 mg Metoprolol Tartrate (Lopressor) 25 mg PO BID [facility] Last Admin: 08/16/16 20:23 Dose: 25 mg Nicotine (Habitrol 21mg/24hr Patch) 1 patch TRANSDERM DAILY [facility] Last Admin: 08/16/16 08:39 Dose: 1 patch Non-Formulary Medication (Canagliflozin [Invokana]) 100 mg PO DAILY [facility] Pantoprazole Sodium (Protonix) 40 mg PO AC-BRKFST [facility] Last Admin: 08/16/16 08:38 Dose: 40 mg Pregabalin (Lyrica) 100 mg PO BID [facility] Last Admin: 08/16/16 20:25 Dose: 100 mg Temazepam (Restoril) 15 mg PO HS PRN PRN Reason: Insomnia Last Admin: 08/17/16 00:32 Dose: 15 mg Trimethobenzamide HCl (Tigan) 200 mg IM Q4HR PRN PRN Reason: Nausea And Vomiting <Chip Anthony - Last Filed: 08/17/16 11:32> Progress Note - Text PRIOR AUTHORIZATION NURSE notes reviewed and accepted. Good progress post left carotid endarterectomy. Continue to work on discharge as long as blood pressure maintains stability. Instructions reviewed.
[2016-08-17 07:22] LABS: Glucose,Whole Blood 70 mg/dL (75-99)
[2016-08-17] MEDS: GLIMEPIRIDE 4 MG TAB PO SCH ×2 (07:44→17:03)
[2016-08-17] MEDS: PANTOPRAZOLE 40 MG TABLET PO SCH (07:44)
[2016-08-17] MEDS: NICOTINE 21MG/24HR PATCH TRANSDERM SCH ×2 (07:47→07:48)
[2016-08-17] MEDS: INSULIN LISPRO (humaLOG) 300 UNIT/3 ML VIAL SQ SCH ×3 (07:47→17:01)
[2016-08-17 07:49] LABS: ALT 22 U/L (21-72); AST 13 U/L (17-59); Alkaline Phosphatase 50 U/L (38-126); Anion Gap 9 mmol/L; Blood Urea Nitrogen 29 mg/dL (9-20); Calcium 9.5 mg/dL (8.4-10.2); Carbon Dioxide 31 mmol/L (22-30); Chloride 103 mmol/L (98-107); Glucose 64 mg/dL (74-99); Non-African American GFR(MDRD) 51 (>60 ml/min/1.73 sqM); Potassium 4.8 mmol/L (3.5-5.1); Sodium 143 mmol/L (137-145); Total Bilirubin 0.5 mg/dL (0.2-1.3); Total Protein 6.3 g/dL (6.3-8.2)
[2016-08-17] MEDS: DOCUSATE 100 MG CAP PO SCH (07:52)
[2016-08-17] MEDS: FENOFIBRATE 160 MG TAB PO SCH (07:53)
[2016-08-17] MEDS: hydrALAZINE HCL 50 MG TAB PO SCH ×2 (07:54→16:26)
[2016-08-17] MEDS: LINAGLIPTIN 5 MG TABLET PO SCH (07:55)
[2016-08-17] MEDS: METOPROLOL TARTRATE 25 MG TAB PO SCH (07:55)
[2016-08-17] MEDS: LOSARTAN 50 MG TAB PO SCH (07:55)
[2016-08-17] MEDS: PREGABALIN 100 MG CAP PO SCH (07:58)
[2016-08-17] MEDS: ASPIRIN 81 MG CHEW PO SCH (08:55)
[2016-08-17 12:37] LABS: Glucose,Whole Blood 79 mg/dL (75-99)
[2016-08-17 14:19] LABS: Glucose,Whole Blood 139 mg/dL (75-99)
--- NOTE | 2016-08-17 14:52 | P.PN ---
Subjective This is a pleasant 56-year-old gentleman patient of Dr. Cronin, Dr. SANDY Ayon. He has underlying history of diabetes mellitus type 2, hypertension, BPH and chronic tobacco dependency CK D stage III, hypertensive Vascular disease , diabetic neuropathy, hyperlipidemia. Patient was admitted for left carotid endarterectomy secondary to critical stenosis, patient did not have any previous history off CVA or TIA in the past, imaging studies was done as an outpatient prior to proceeding to the carotid endarterectomy. Patient currently stable in ICU, no chest pain no shortness of breath, he was thus admitted from our facility 07/06/2016 secondary to chest discomfort for which came in for unstable angina at that time and was treated by cardiology. The patient was asymptomatic since his last admission, no chest pain no shortness of breath, no TIA symptoms, no difficulty of breathing 08/17: Patient's blood pressure have been elevated for which he has been started on hydralazine. He has also received Catapres as needed. We'll plan for patient to continue hydralazine for home at the current dose. 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 Regarding blood sugars, he is back on long acting insulin at 30 units at bedtime which will be continued at home as well as his Januvia and he was taken off Glucotrol and placed on glimepiride. Patient denies any chest pain. He does have some pain at the surgical site. Objective - Vital Signs Vital signs: Vital Signs Temp 98.6 F 08/17/16 08:00 Pulse 74 08/17/16 10:00 Resp 26 H 08/17/16 10:00 BP 170/81 08/17/16 10:00 Pulse Ox 94 L 08/17/16 10:00 Intake & Output 08/16/16 08/17/16 08/17/16 18:59 06:59 18:59 Intake Total 940 460 540 Output Total 1350 4070 0 Balance -410 -3610 540 Weight 90 kg Intake: IV 460 260 40 0.9 Normal Saline 100 260 Lactated Ringers 1,000 ml 60 @ 20 mls/hr IV .Q24H ZAIN Rx#:[id number] Lactated Ringers 1,000 ml 300 40 @ 75 mls/hr IV .[id number] ZAIN Rx#:[id number] Oral 480 100 500 Tube Feeding 100 Output: Urine 1350 4070 0 Other: Voiding Method Urinal Urinal Urinal # Voids 0 1 ABP, PAP, CO, CI - Last Documented Arterial Blood Pressure 142/60 - Exam General appearance: cooperative, no acute distress - EENT Eyes: anicteric sclerae, EOMI, PERRLA, dentition normal, normal appearance ENT: hearing grossly normal, NA/AT, normal oropharynx - Neck Neck: no lymphadenopathy, normal ROM, no other, no rigidity, no stridor, no thyromegaly - Respiratory Respiratory: bilateral: CTA, negative: diminished, dullness, rales, rhonchi, wheezing, prolonged expiration - Cardiovascular Rhythm: regular Heart sounds: normal: S1, S2 Abnormal Heart Sounds: no systolic murmur, no diastolic murmur, no rub, no S3 Gallop, no S4 Gallop, no click, no other - Gastrointestinal General gastrointestinal: normal bowel sounds, soft - Integumentary Integumentary: normal, normal turgor - Neurologic Neurologic: CNII-XII intact - Musculoskeletal Musculoskeletal: gait normal - Psychiatric Psychiatric: A&O x's 3, appropriate affect, intact judgment & insight - Labs CBC & Chem 7: 08/17/16 04:25 08/17/16 04:25 Labs: Abnormal Lab Results - Last 24 Hours (Table) 08/16/16 08/16/16 08/16/16 Range/Units 04:15 11:47 17:33 Hgb (13.0-17.5) gm/dL Hct (39.0-53.0) % Carbon Dioxide (22-30) mmol/L BUN (9-20) mg/dL Creatinine (0.66-1.25) mg/dL Glucose (74-99) mg/dL POC Glucose (mg/dL) 233 H 185 H (75-99) mg/dL Hemoglobin A1c 8.4 H (4.2-6.1) % AST (17-59) U/L 08/16/16 08/17/16 08/17/16 Range/Units 21:13 04:25 04:25 Hgb 12.5 L (13.0-17.5) gm/dL Hct 38.3 L (39.0-53.0) % Carbon Dioxide 31 H (22-30) mmol/L BUN 29 H (9-20) mg/dL Creatinine 1.45 H (0.66-1.25) mg/dL Glucose 64 L (74-99) mg/dL POC Glucose (mg/dL) 167 H (75-99) mg/dL Hemoglobin A1c (4.2-6.1) % AST 13 L (17-59) U/L 08/17/16 Range/Units 07:21 Hgb (13.0-17.5) gm/dL Hct (39.0-53.0) % Carbon Dioxide (22-30) mmol/L BUN (9-20) mg/dL Creatinine (0.66-1.25) mg/dL Glucose (74-99) mg/dL POC Glucose (mg/dL) 70 L (75-99) mg/dL Hemoglobin A1c (4.2-6.1) % AST (17-59) U/L Assessment and Plan Plan: 1. Critical internal carotid artery stenosis requiring Decron patch angioplasty on 08/15/[address] Ramirez, patient currently is in ICU requiring close vascular and blood pressure monitor in, patient tolerated the procedures intraoperatively, patient stable in ICU. Patient is to have closer titration off his sugars as his sugars is uncontrolled,, incentive spirometry for pulmonary prophylaxis, narcotics for pain control, 2. Diabetes mellitus type 2 with neuropathy and hyperglycemia, A1c of 9.0, patient's on Glucotrol discontinued and patient started on glimepiride. Continue long-acting insulin at 30 units and continue Januvia and invokana,. 3. Aortic murmur of aortic stenosis type, this would be monitored as an outpatient 4. History of Abnormal EKG with inferolateral asymmetric ST-T wave changes, with equivocal stress test from his recent imaging studies 5. CKD stage III for approximately one year now, nephrotoxins will be avoided patient also was advised regarding strict surveillance and control of sugar diabetes 6. chronic tobacco use at one pack per day patient is started on nicotine patches and was counseled regarding a permanent tobacco cessation program 7. Hypertensive cardiac vascular disease uncontrolled hypertension for which patient is losartan 100 mg twice a day at home, add hydralazine 50 mg 3 times a day with parameters, Catapres 0.1 when necessary for blood pressure over 160 8. Hyperlipidemia on fenofibrate and Lipitor 20 9. DVT prophylaxis with early ambulation GI prophylaxis with IV Pepcid Discharge plan: Return home Impression and plan of care have been directed as dictated by the signing physician. Chen Quirzo nurse practitioner acting as scribe for signing physician. Cc: Dr. Marquez Cronin
[2016-08-17] MEDS: HYDROmorphone 1 MG/ML 1 ML SYRINGE IVP PRN (15:24)
[2016-08-17 15:57] VITALS: BP 137/70; PULSE 75; RESP 18; TEMP 97.1
--- NOTE | 2016-08-17 16:24 | P.DS ---
Providers Date of admission: 08/15/16 06:32 Attending physician: Silvio Ramirez Consults: 08/15/16 11:29 Consult Physician Routine Consulting Provider: Chip Anthony Consult Reason/Comments: medical management Do you want consulting provider notified?: Already Contacted 08/15/16 11:36 Consult Physician Routine Consulting Provider: Daniella Hairston Consult Reason/Comments: medical management Do you want consulting provider notified?: Yes Primary care physician: Stated None Hospital Course: FINAL DIAGNOSIS: 1. Left internal carotid artery stenosis 2. Hypertension 3. Diabetes mellitus type 2 4. Benign prostatic hypertrophy 5. Chronic tobacco dependency PRINCIPAL PROCEDURE: 1. Left carotid endarterectomy with Dacron patch angioplasty HISTORY OF PRESENT ILLNESS: [This is a 56-year-old gentleman who is followed by Dr. Marquez Cronin on an outpatient basis. Recently, the patient had had complaints of a headache for 3-4 day period and was found to be having a hypertensive urgency. Subsequently on 06/29/2016 the patient underwent a carotid Doppler study which demonstrated severe stenosis to his left internal carotid artery greater than 70%, and moderate stenosis between 50 and 69% to his right internal carotid artery. For further workup and evaluation the patient underwent an MRA on 07/22/2016 which showed him to have a hemodynamically significant stenosis to his left internal carotid artery of 90- 99% and no hemodynamically significant stenosis noted to his right internal carotid artery. The above-mentioned studies were reviewed with the patient by Dr. Cronin and by Dr. Anthony and an elective left carotid endarterectomy was recommended.] HOSPITAL COURSE:[ The patient was admitted to the hospital and after obtaining consent, he underwent an elective left carotid endarterectomy with Dacron patch angioplasty performed by Dr. Ramirez. The patient was then recovered and transferred to the cardiovascular intensive care unit where he was further monitored and recovered. Postoperatively the patient did have some elevated blood pressures and blood sugars which were treated accordingly.] COMPLICATIONS: [There were no postoperative consultations.] CONSULTATIONS: 1.[ Dr. Hairston for medical management] DISCHARGE INSTRUCTIONS: 1. No driving for 2 weeks, or until physician gives their ok. 2. Shower daily, cleaning his incision with a separate white washcloth and liquid antibacterial soap, pat incision dry. 3. Continue with incentive spirometry every hour while awake, until otherwise directed by the physician. 4. No lifting, pushing, or pulling more than 10 pounds for 12 weeks. The physician will advise of any restriction changes. 5. The importance of smoking cessation discussed with the patient. Plan - Discharge Summary Discharge Medication List Canagliflozin [Invokana] 100 mg PO DAILY 12/03/15 [History] Fenofibrate Nanocrystallized [Fenofibrate] 145 mg PO DAILY 12/03/15 [History] Omeprazole [PriLOSEC] 20 mg PO DAILY 12/03/15 [History] glipiZIDE [Glucotrol] 10 mg PO AC-BID 12/03/15 [History] Insulin Glargine,Hum.rec.anlog [[place] Solostar] 30 units SQ HS 07/06/16 [ History] Losartan Potassium [Cozaar] 100 mg PO BID 07/06/16 [History] Pregabalin [Lyrica] 100 mg PO BID 07/06/16 [History] Aspirin 325 mg PO DAILY tab 07/07/16 [Rx] Metoprolol Tartrate [Lopressor] 25 mg PO BID #60 tab 07/07/16 [Rx] Nicotine 21Mg/24Hr Patch [Habitrol] 1 patch TRANSDERM DAILY #30 patch 07/07/16 [ Rx] Nitroglycerin Sl Tabs [Nitrostat] 0.4 mg SUBLINGUAL Q5M PRN #25 tab 07/07/16 [Rx ] sitaGLIPtin PHOSPHATE [Januvia] 50 mg PO DAILY #30 tab 07/07/16 [Rx] ALPRAZolam [Xanax] 0.5 mg PO BID PRN 08/09/16 [History] Atorvastatin [Lipitor] 20 mg PO HS 08/09/16 [History] Follow up Appointment(s)/Referral(s): Marquez Cronin DO [STAFF PHYSICIAN] - 1 Week (Dr. Cronin's office will call with a follow-up appointment.) Chip Anthony DO [Doctor of Osteopathic Medicine] - 08/25/16 10:45 am
[2016-08-17 16:48] LABS: Glucose,Whole Blood 102 mg/dL (75-99)
[2016-08-17] MEDS ORDERED: INSULIN GLARGINE 100 UNIT/ML 10 ML VIAL SQ SCH (21:00)
== END 2016-08-17 18:07 | disposition home or self-care (01) | DRG 38 ==
LOC: 2ORMAIN 06:32 → 6ICU 13:23 → 6SEL 08-17 12:25
PROVIDERS: ADMIT Thoracic Surgery (Cardiothoracic Vascular Surgery); ATTEND Thoracic Surgery (Cardiothoracic Vascular Surgery)
PROC: 03UJ0JZ Supplement Left Common Carotid Artery with Synthetic Substitute, Open Approach (ICD-10-PCS; 2016-08-15)
PROC: 03CL0ZZ Extirpation of Matter from Left Internal Carotid Artery, Open Approach (ICD-10-PCS; principal; 2016-08-15 08:15)
DX: I65.22 Occlusion and stenosis of left carotid artery (principal); Q23.1 Congenital insufficiency of aortic valve; E11.22 Type 2 diabetes mellitus with diabetic chronic kidney disease; E11.40 Type 2 diabetes mellitus with diabetic neuropathy, unspecified; N18.3 Chronic kidney disease, stage 3 (moderate); E78.00 Pure hypercholesterolemia, unspecified; I12.9 Hypertensive chronic kidney disease with stage 1 through stage 4 chronic kidney disease, or unspecified chronic kidney disease; E78.5 Hyperlipidemia, unspecified; N40.0 Benign prostatic hyperplasia without lower urinary tract symptoms; K21.9 Gastro-esophageal reflux disease without esophagitis; F41.9 Anxiety disorder, unspecified; Z87.891 Personal history of nicotine dependence; Z79.82 Long term (current) use of aspirin; Z79.84 Long term (current) use of oral hypoglycemic drugs; Z79.4 Long term (current) use of insulin; Z79.899 Other long term (current) drug therapy; Z82.49 Family history of ischemic heart disease and other diseases of the circulatory system
CPT/HCPCS: 80051; 80053; 81001; 82565; 82947; 83036; 84132; 84520; 85025; 85027; 85610; 85730; 86850; 86900; 86901; 87086; 88304

== ENCOUNTER → 2016-09-01 | Outpatient (CLI) | payer BC ==
--- NOTE | 2016-09-01 14:08 | US ---
EXAMINATION TYPE: US kidneys/renal and bladder DATE OF EXAM: 09/01/2016 COMPARISON: MRI lumbar spine December 14, 2015 CLINICAL HISTORY: Chronic N18.3 Kidney Disease stage 3. EXAM MEASUREMENTS: Right Kidney: 12.2 x 4.8 x 5.1 cm Left Kidney: 10.7 x 5.3 x 4.2 cm Post Void Residual Volume: 1.9 mL Right Kidney: No hydronephrosis or masses seen Left Kidney: No hydronephrosis or masses seen Bladder: wnl Bilateral Jets seen: No Normal Post Void Residual: Yes There is no evidence for hydronephrosis at this point in time. No nephrolithiasis is seen. No li s are identified. The urinary bladder is anechoic. Bilateral ureteral jets are not seen. After void ing minimal residual urine is present. IMPRESSION: No hydronephrosis is evident bilaterally.
== END | disposition home or self-care (01) ==
LOC: RADUSWWP 12:50
PROVIDERS: ATTEND Internal Medicine
DX: N18.3 Chronic kidney disease, stage 3 (moderate) (principal)
CPT/HCPCS: 76770; 81050; 84156

== ENCOUNTER → 2016-12-08 | Outpatient (CLI) | payer BC ==
--- NOTE | 2016-12-08 09:26 | NM ---
EXAMINATION TYPE: NM hepatobiliary w EF DATE OF EXAM: 12/08/2016 COMPARISON: NONE HISTORY: Right upper quadrant pain TECHNIQUE: After the intravenous administration of 5.21 mCi Tc 99m Mebrofenin hepatobiliary scintigra phy is performed. Immediate images post injection. FINDINGS: There is satisfactory initial accumulation of tracer by the liver. The gallbladder is visualized wit hin 12 minutes. The small bowel activity is noted within 60 minutes. At one hour 8 ounces of oral e nsure plus is given to mimic CCK and gallbladder ejection fraction is calculated at 90. IMPRESSION: Correlate for hypercontractile gallbladder.
== END | disposition home or self-care (01) ==
LOC: RADNMMAIN 07:02
PROVIDERS: ATTEND Family Medicine
DX: R10.9 Unspecified abdominal pain (principal)
CPT/HCPCS: 78226; A9537

== ENCOUNTER 2016-12-26 07:59 | Day surgery (SDC) | payer BC ==
[2016-12-21 13:02] VITALS: BMI 28.7
[~2016-12-26 07:59] MED LIST changes: +HEPARIN SODIUM,PORCINE 5,000 UNIT/ML 1 ML VIAL SQ ONE; -LIDOCAINE 1% 20 ML VIAL (10MG/ML) FOR IV START INTRADERMA PRN; +MIDAZOLAM 2 MG/2 ML VIAL IV PRN
[2016-12-26] MEDS ORDERED: LIDOCAINE 1% 20 ML VIAL (10MG/ML) FOR IV START INTRADERMA ONE (08:25)
[2016-12-26 08:43] LABS: Glucose,Whole Blood 138 mg/dL (75-99)
--- NOTE | 2016-12-26 09:05 | P.GSHP ---
History of Present Illness H&P Date: 12/26/16 Chief Complaint: Right upper quadrant pain Is a 56-year-old male referred from Dr. Cronin he's had complaints of right upper quadrant pain. His recent HIDA scan shows abnormal ejection fraction of 90%. He presents today for laparoscopic cholecystectomy Past Medical History Past Medical History: Diabetes Mellitus, GERD/Reflux, Hyperlipidemia, Hypertension, Renal Disease Additional Past Medical History / Comment(s): bilateral feet neuropathy, decreased kidney function per pt History of Any Multi-Drug Resistant Organisms: None Reported Past Surgical History: Hernia Repair, Orthopedic Surgery Additional Past Surgical History / Comment(s): L arm muscle repair by elbow, L inguinal hernia repair.Carotid Endarterectomy Past Anesthesia/Blood Transfusion Reactions: No Reported Reaction Smoking Status: Former smoker - Past Family History Father Family Medical History: Coronary Artery Disease (CAD) Additional Family Medical History / Comment(s): Father during CABG Mother Family Medical History: Myocardial Infarction ([place]) Additional Family Medical History / Comment(s): Mother of massive [place] at the age of 81 yrs. Medications and Allergies Home Medications Medication Instructions Recorded Confirmed Type Canagliflozin [Invokana] 100 mg PO DAILY 12/03/15 12/26/16 History Fenofibrate Nanocrystallized 145 mg PO HS 12/03/15 12/26/16 History [Fenofibrate] Omeprazole [PriLOSEC] 20 mg PO DAILY 12/03/15 12/26/16 History Insulin Glargine,Hum.rec.anlog 30 units SQ HS 07/06/16 12/26/16 History [Toujeo Solostar] Pregabalin [Lyrica] 100 mg PO BID 07/06/16 12/26/16 History Aspirin 325 mg PO DAILY tab 07/07/16 12/26/16 Rx Metoprolol Tartrate [Lopressor] 25 mg PO BID #60 tab 07/07/16 12/26/16 Rx Nitroglycerin Sl Tabs [Nitrostat] 0.4 mg SUBLINGUAL Q5M PRN #25 tab 07/07/1605/13 Rx sitaGLIPtin PHOSPHATE [Januvia] 50 mg PO DAILY #30 tab 07/07/16 12/26/16 Rx ALPRAZolam [Xanax] 0.5 mg PO BID PRN 08/09/16 12/26/16 History Atorvastatin [Lipitor] 20 mg PO HS 08/09/16 12/26/16 History Glimepiride [Amaryl] 4 mg PO AC-BID #60 tab 08/17/16 12/26/16 Rx HYDROcodone/APAP 5-325MG [[place] 1 each PO Q6HR PRN #90 tab 08/17/16 12/26/16 Rx 5-325] Losartan [Cozaar] 100 mg PO BID #60 tab 08/17/16 12/26/16 Rx hydrALAZINE HCL [Apresoline] 50 mg PO TID #90 tab 08/17/16 12/26/16 Rx Allergies Allergy/AdvReac Type Severity Reaction Status Date / Time No Known Allergies Allergy Verified 12/26/16 08:11 Surgical - Exam Vital Signs Temp Pulse Resp BP Pulse Ox 97.9 F 87 16 155/80 96 12/26/16 08:27 12/26/16 08:27 12/26/16 08:27 12/26/16 08:27 12/26/16 08:27 - General well developed, no distress - Eyes PERRL - ENT normal pinna - Neck no masses - Respiratory normal expansion - Cardiovascular Rhythm: regular - Abdomen Abdomen: soft, non tender Results - Labs Abnormal Lab Results - Last 24 Hours (Table) 12/26/16 Range/Units 08:22 POC Glucose (mg/dL) 138 H (75-99) mg/dL Assessment and Plan Plan: Right upper quadrant pain Chronic cholecystitis We'll perform laparoscopic cholecystectomy.
[2016-12-26] MEDS ORDERED: MIDAZOLAM 2 MG/2 ML VIAL ONE (09:28)
[2016-12-26] MEDS ORDERED: PHENYLEPHRINE-0.9% NACL SYG 1 MG/10 ML SYRINGE ONE (09:28)
[2016-12-26] MEDS ORDERED: LIDOCAINE 1% INJ 10MG/ML (20 ML MDV) ONE (09:28)
[2016-12-26] MEDS ORDERED: PROPOFOL 10 MG/ML 20 ML VIAL IV ONE (09:28)
[2016-12-26] MEDS ORDERED: fentaNYL (PF) 50 MCG/ML 2 ML AMP ONE (09:28)
[2016-12-26] MEDS ORDERED: NEOSTIGMINE 1 MG/ML 10 ML VIAL ONE (09:28)
[2016-12-26] MEDS ORDERED: NITROGLYCERIN OINT 1 INCH/GM PACKET TOPICAL ONE (09:28)
[2016-12-26] MEDS ORDERED: GLYCOPYRROLATE 0.2 MG/ML 2 ML VIAL ONE (09:28)
[2016-12-26] MEDS ORDERED: SUCCINYLCHOLINE CHLORIDE 100 MG/5 ML SYR IV ONE (09:28)
[2016-12-26] MEDS ORDERED: ROCURONIUM BROMIDE 10 MG/ML 10 ML VIAL IV ONE (09:28)
[2016-12-26] MEDS ORDERED: BUPIVACAINE (PF) 0.25% 30 ML VIAL SQ ONE (09:45)
[2016-12-26] MEDS ORDERED: LACTATED RINGERS 1,000 ML IV ONE ×2 (09:51→11:55)
--- NOTE | 2016-12-26 10:20 | P.OP ---
Date of Procedure: 12/26/16 Preoperative Diagnosis: Cholecystitis Postoperative Diagnosis: Cholecystitis Procedure(s) Performed: Laparoscopic cholecystectomy Anesthesia: MAC Surgeon: Gibson Rivera Estimated Blood Loss (ml): 5 Pathology: other (gAll bladder) Condition: stable Disposition: PACU Description of Procedure: The patient was placed on the operating table. The patient received a general endotracheal tube anesthesia. The patients abdomen was prepped and draped in the usual sterile fashion. Through an infraumbilical stab incision, the fascia of the anterior abdominal wall was grasped with a pair of Kochers and then the Veress needle was placed in the peritoneal cavity. Position of the Veress needle was confirmed with positive drop test. The abdomen was then insufflated. After adequate insufflation, the 10 mm trocar was placed in the peritoneal cavity. Following this the laparoscope was placed in the peritoneal cavity. The patient was placed in the head-up, right side up position and then a 5 mm trocar was placed in the right lateral and right subcostal position under direct visualization. A 8 mm trocar was placed in the epigastric position. The gallbladder was grasped in the fundus and infundibulum. Traction on the gallbladder was placed in the lateral and the cephalad positions. The triangle of Calot was visualized.. The cystic duct was bluntly dissected until the union of the cystic duct and common bile duct was seen. The cystic duct was then divided and sealed with the Harmonic scissors. A PDS Endoloop was then placed throughout the cystic duct stump. The cystic artery divided and sealed with the Harmonic scissors. The gallbladder was then removed from the liver bed using Harmonic scissors. The gallbladder was then extracted through the epigastric port site. Operative field was checked for any bleeding spots and Harmonic scissors was used to coagulate the liver bed. The abdomen was irrigated. The trocars were removed. The skin was closed using interrupted 3-0 Vicryl suture. Dermabond dressing were applied. The patient tolerated the procedure well.
[2016-12-26 10:36] VITALS: TEMP 97.4
[2016-12-26] MEDS: HYDROmorphone 0.5 MG/0.5 ML SYRINGE IVP PRN ×2 (10:41→11:08)
[2016-12-26 11:02] LABS: Glucose,Whole Blood 156 mg/dL (75-99)
--- NOTE | 2016-12-26 13:05 | CONS ---
CONSULTATION Mr. Oliva is followed on a regular basis by Dr. Mat Ayon, has a known history of carotid disease status post left carotid endarterectomies. He has a history of hypertension, hyperlipidemia, diabetes mellitus, as well as chronic kidney disease and a history of a bicuspid aortic valve. He underwent cholecystectomy today and postoperatively he had some elevation in his blood pressure and there was EKG changes for unknown duration. In view of that, cardiology consultation was requested. The patient denies any symptoms of chest pain. He is active physically, has no dyspnea on exertion. No dizziness, palpitation. No PND or orthopnea. No significant peripheral edema. His coronary risk factors are remarkable for diabetes, hypertension, hyperlipidemia, chronic tobacco use. MEDICATION: His medications at home include: 1. Aspirin, Coreg 12.5 mg twice a day. 2. Fenofibrate. 3. Glipizide. 4. Invokana. 5. Losartan 100 mg. 6. Lyrica. 7. Omeprazole. 8. Pravastatin. 9. Insulin. REVIEW OF SYSTEMS: Respiratory system: No recent wheezing. No cough. No history of documented obstructive lung disease. GI system: No recent GI bleeding. No peptic ulcer disease. system: No dysuria or hematuria nervous system. No stroke or seizure. PHYSICAL EXAMINATION: 83-year-old male evaluated in the recovery room. Her blood pressure 136/62 with a heart in the 80s. HEAD: Normocephalic. Eyes: Sclerae anicteric. Neck: Good carotid upstroke with bilateral bruit. Scar noted on the left side. LUNGS: Clear to auscultation. HEART: Regular rate and rhythm S1, S2. No S3 with systolic murmur ejection type heard at the base. No diastolic murmur. No rub. ABDOMEN: Soft, nontender. Positive bowel sounds. EXTREMITIES: No edema. EKG reveals sinus mechanism with T-wave inversion in the lateral leads consistent with hypertrophy. The patient had a myocardial perfusion imaging in June of this year that revealed no evidence of stress-induced ischemia. At that time the T-wave inversion laterally was documented. IMPRESSION: 1. Status post cholecystectomy. 2. Hypertension. 3. Hyperlipidemia. 4. Diabetes mellitus. 5. Chronic tobacco use. 6. Abnormal EKG, appears to be chronic. 7. History of left carotid endarterectomy. RECOMMENDATION: From the cardiac standpoint, he is stable. He will follow up with Dr. Mat Ayon in about a week. He will continue his present medical regimen. Thank you for this consult. We will follow with you. MMANGELICA / JOLENEN: [id number] /
[2016-12-26 13:30] VITALS: BP 134/67; PULSE 89; RESP 18
== END 2016-12-26 14:08 | disposition home or self-care (01) ==
LOC: OR 07:59
PROVIDERS: ATTEND Surgery
DX: K81.1 Chronic cholecystitis (principal); R94.31 Abnormal electrocardiogram [ECG] [EKG]; E78.5 Hyperlipidemia, unspecified; K21.9 Gastro-esophageal reflux disease without esophagitis; E11.40 Type 2 diabetes mellitus with diabetic neuropathy, unspecified; E11.22 Type 2 diabetes mellitus with diabetic chronic kidney disease; Z79.4 Long term (current) use of insulin; I12.9 Hypertensive chronic kidney disease with stage 1 through stage 4 chronic kidney disease, or unspecified chronic kidney disease; N18.9 Chronic kidney disease, unspecified; Q23.1 Congenital insufficiency of aortic valve; F17.200 Nicotine dependence, unspecified, uncomplicated; I25.10 Atherosclerotic heart disease of native coronary artery without angina pectoris; Z82.49 Family history of ischemic heart disease and other diseases of the circulatory system; I73.9 Peripheral vascular disease, unspecified; Z79.82 Long term (current) use of aspirin; Z79.899 Other long term (current) drug therapy
CPT/HCPCS: 47562; 93005; 88304; J2250; J1644; J1100; J2710; J0690; J2405; J2001; J3010; J2370; J0330; J2704; J1170

== ENCOUNTER 2017-10-05 09:19 | Emergency (ER) | payer BC ==
[2017-10-05 09:27] VITALS: TEMP 98.3
[2017-10-05] MEDS ORDERED: SODIUM CHLORIDE 0.9% 1,000 ML IV STA (09:42)
--- NOTE | 2017-10-05 09:51 | ED ---
General Adult HPI - General Chief complaint: Abdominal Pain Stated complaint: Back & Abd Pain Time Seen by Provider: 10/05/17 09:28 Source: patient, RN notes reviewed Mode of arrival: ambulatory Limitations: no limitations - History of Present Illness Initial comments: Patient 57-year-old male presented to the emergency room today with a chief complaint of left-sided abdominal pain and back pain over the last 6 weeks. Patient states started very superficial. States he was treated for auscultation but there has never been a rash. Patient states skin is very sensitive to touch even with the shirt been on top. Patient states over the last few days been feeling a deeper pain into the abdomen as well. Patient denies any other complaints or symptoms. Patient denies any recent fever, chills , shortness of breath, chest pain, nausea or vomiting, numbness or tingling, dysuria or hematuria, constipation or diarrhea, headaches or visual changes, or any other complaints. - Related Data Home Medications Medication Instructions Recorded Confirmed Canagliflozin [Invokana] 100 mg PO DAILY 12/03/15 10/05/17 Omeprazole [PriLOSEC] 20 mg PO DAILY 12/03/15 10/05/17 Insulin Glargine,Hum.rec.anlog 30 units SQ DAILY 07/06/16 10/05/17 [Toujeo Solostar] Pregabalin [Lyrica] 100 mg PO TID 07/06/16 10/05/17 Atorvastatin [Lipitor] 20 mg PO HS 08/09/16 10/05/17 Aspirin 325 mg PO DAILY 10/05/17 10/05/17 Carvedilol [Coreg] 12.5 mg PO BID 10/05/17 10/05/17 Fenofibrate Nanocrystallized 145 mg PO DAILY 10/05/17 10/05/17 [Tricor] Metoprolol Tartrate [Lopressor] 50 mg PO BID 10/05/17 10/05/17 Naproxen Sodium [Aleve] 220 mg PO DAILY PRN 10/05/17 10/05/17 Vortioxetine Hydrobromide 10 mg PO DAILY 10/05/17 10/05/17 [Trintellix] metFORMIN HCL [metFORMIN HCL ER] 750 mg PO BID 10/05/17 10/05/17 sitaGLIPtin [Januvia] 100 mg PO DAILY 10/05/17 10/05/17 Previous Rx's Medication Instructions Recorded Nitroglycerin Sl Tabs [Nitrostat] 0.4 mg SUBLINGUAL Q5M PRN #25 tab 07/07/16 Losartan [Cozaar] 100 mg PO BID #60 tab 08/17/16 hydrALAZINE HCL [Apresoline] 50 mg PO TID #90 tab 08/17/16 Lidocaine [Lidoderm 5% Patch] 1 patch TRANSDERM DAILY #7 patch 10/05/17 Sodium Polystyrene Sulfonate 15 gm PO BID 4 Days ml 10/05/17 [Kayexalate] Allergies Allergy/AdvReac Type Severity Reaction Status Date / Time No Known Allergies Allergy Verified 10/05/17 09:42 Review of Systems ROS Statement: Those systems with pertinent positive or pertinent negative responses have been documented in the HPI. ROS Other: All systems not noted in ROS Statement are negative. Past Medical History Past Medical History: Diabetes Mellitus, GERD/Reflux, Hyperlipidemia, Hypertension, Renal Disease Additional Past Medical History / Comment(s): bilateral feet neuropathy, decreased kidney function per pt History of Any Multi-Drug Resistant Organisms: None Reported Past Surgical History: Cholecystectomy, Hernia Repair, Orthopedic Surgery Additional Past Surgical History / Comment(s): L arm muscle repair by elbow, L inguinal hernia repair.Carotid Endarterectomy Past Anesthesia/Blood Transfusion Reactions: No Reported Reaction Past Psychological History: Anxiety Smoking Status: Current every day smoker Past Alcohol Use History: None Reported Past Drug Use History: None Reported - Past Family History Father Family Medical History: Coronary Artery Disease (CAD) Additional Family Medical History / Comment(s): Father during CABG Mother Family Medical History: Myocardial Infarction ([place]) Additional Family Medical History / Comment(s): Mother of massive [place] at the age of 81 yrs. General Exam - General Exam Comments Initial Comments: General: The patient is awake and alert, in no distress, and does not appear acutely ill. Eye: Pupils are equal, round and reactive to light, extra-ocular movements are intact. No nystagmus. There is normal conjunctiva bilaterally. No signs of icterus. Ears, nose, mouth and throat: There are moist mucous membranes and no oral lesions. Neck: The neck is supple, there is no tenderness or JVD. Cardiovascular: There is a regular rate and rhythm. No murmur, rub or gallop is appreciated. Respiratory: Lungs are clear to auscultation, respirations are non-labored, breath sounds are equal. No wheezes, stridor, rales, or rhonchi. Gastrointestinal: Normal. The abdomen. Abdomen soft on palpation. Mild discomfort left upper quadrant. No rebound tenderness. No guarding. Musculoskeletal: Normal ROM, no tenderness. Strength 5/5. Sensation intact. Pulses equal bilaterally 2+. Neurological: A&O x 3. CN II-XII intact, There are no obvious motor or sensory deficits. Coordination appears grossly intact. Speech is normal. Skin: Skin is warm and dry and no rashes or lesions are noted. Psychiatric: Cooperative, appropriate mood & affect, normal judgment. Limitations: no limitations Course Vital Signs 10/05/17 09:23 Temperature 98.3 F Pulse Rate 77 Respiratory 18 Rate Blood Pressure 126/68 O2 Sat by Pulse 97 Oximetry Medical Decision Making - Medical Decision Making Case discussed in detail with attending physician Dr. Coles. Patient's CT the abdomen and pelvis reviewed and does show 1. A few loops of small bowel cluster within the left mid abdomen demonstrates small bowel wall thickening most, relating to enteritis of infectious or inflammatory etiology. (No elevated white count. No fever). 2. Hepatosplenomegaly and hepatic stenosis. 3. A few equal. Thickening may relate to an incomplete distention or other etiology with most common etiology of gastritis. Small hiatal hernia is also seen. 4. Colonic diverticulosis without any evidence of diverticulitis. Patient is resting comfortable. Again has no fever. All other white count. Patient does describe a superficial pain to the left side flank. He states he' s had deep pain over the last few days. He was on some antiviral medication. Patient does not want steroids as he is a diabetic is afraid it'll mess up his blood sugar. Patient will be given a Lidoderm patch and prescription go home with. His potassium was elevated at 5.9 here in emergency room. EKG reviewed does show few mildly peaked T waves which is similar to previous EKG. Patient at this time doing well will be discharged home continue on Kayexalate for potassium and have prescription for redraw in 3 days. Patient's kidney function mildly elevated compared to previous. He is advised follow-up the family doctor. Patient and family state understanding and agreement. - Lab Data Result diagrams: 10/05/17 09:50 10/05/17 09:50 Lab Results 10/05/17 10/05/17 10/05/17 Range/Units 09:50 09:50 09:50 WBC 9.9 (3.8-10.6) k/uL RBC 5.89 (4.30-5.90) m/uL Hgb 16.0 (13.0-17.5) gm/dL Hct 50.5 (39.0-53.0) % MCV 85.7 (80.0-100.0) fL MCH 27.1 (25.0-35.0) pg MCHC 31.6 (31.0-37.0) g/dL RDW 16.0 H (11.5-15.5) % Plt Count 202 (150-450) k/uL Neutrophils % 67 % Lymphocytes % 18 % Monocytes % 7 % Eosinophils % 5 % Basophils % 1 % Neutrophils # 6.6 (1.3-7.7) k/uL Lymphocytes # 1.8 (1.0-4.8) k/uL Monocytes # 0.7 (0-1.0) k/uL Eosinophils # 0.5 (0-0.7) k/uL Basophils # 0.1 (0-0.2) k/uL Anisocytosis Slight Sodium 139 (137-145) mmol/L Potassium 5.9 H (3.5-5.1) mmol/L Chloride 104 (98-107) mmol/L Carbon Dioxide 24 (22-30) mmol/L Anion Gap 11 mmol/L BUN 38 H (9-20) mg/dL Creatinine 2.14 H (0.66-1.25) mg/dL Est GFR (CKD-EPI)AfAm 39 (>60 ml/min/1.73 sqM) Est GFR (CKD-EPI)NonAf 34 (>60 ml/min/1.73 sqM) Glucose 295 H (74-99) mg/dL Calcium 9.6 (8.4-10.2) mg/dL Total Bilirubin 0.5 (0.2-1.3) mg/dL AST 15 L (17-59) U/L ALT 24 (21-72) U/L Alkaline Phosphatase 60 (38-126) U/L Total Protein 6.7 (6.3-8.2) g/dL Albumin 4.4 (3.5-5.0) g/dL Amylase 77 (30-110) U/L Lipase 264 (23-300) U/L Urine Color Yellow Urine Appearance Clear (Clear) Urine pH 5.5 (5.0-8.0) Ur Specific Eagle 1.029 (1.001-1.035) Urine Protein 1+ H (Negative) Urine Glucose (UA) 4+ H (Negative) Urine Ketones Negative (Negative) Urine Blood Negative (Negative) Urine Nitrite Negative (Negative) Urine Bilirubin Negative (Negative) Urine Urobilinogen <2.0 (<2.0) mg/dL Ur Leukocyte Esterase Negative (Negative) Urine RBC <1 (0-5) /hpf Disposition Clinical Impression: Hyperkalemia Narrative: Zoster sine herpete Disposition: HOME SELF-CARE Condition: Good Instructions: Hyperkalemia (ED), Shingles (ED) Additional Instructions: Please use medications as prescribed and have repeat blood draw as discussed. Please follow-up the family doctor over the next 2 days returning to the emergency room symptoms increase worsen. Prescriptions: Lidocaine [Lidoderm 5% Patch] 1 patch TRANSDERM DAILY #7 patch Sodium Polystyrene Sulfonate [Kayexalate] 15 gm PO BID 4 Days ml Is patient prescribed a controlled substance at d/c from ED?: No Referrals: Marquez Cronin DO [Primary Care Provider] - 1-2 days Time of Disposition: 12:04
[2017-10-05 10:11] LABS: Anisocytosis Slight; Basophils # (A) 0.1 k/uL (0-0.2); Basophils % (A) 1 %; Eosinophils # (A) 0.5 k/uL (0-0.7); Eosinophils % (A) 5 %; HCT 50.5 % (39.0-53.0); Lymphocytes # (A) 1.8 k/uL (1.0-4.8); Lymphocytes % (A) 18 %; MCH 27.1 pg (25.0-35.0); MCHC 31.6 g/dL (31.0-37.0); MCV 85.7 fL (80.0-100.0); Mean Platelet Volume 8.8; Monocytes # (A) 0.7 k/uL (0-1.0); Monocytes % (A) 7 %; Neutrophils # (A) 6.6 k/uL (1.3-7.7); Neutrophils % (A) 67 %; Platelet Count 202 k/uL (150-450); RBC 5.89 m/uL (4.30-5.90); WBC 9.9 k/uL (3.8-10.6)
[2017-10-05 10:24] LABS: Albumin 4.4 g/dL (3.5-5.0); Calcium 9.6 mg/dL (8.4-10.2); Potassium 5.9 mmol/L (3.5-5.1); Total Bilirubin 0.5 mg/dL (0.2-1.3); Total Protein 6.7 g/dL (6.3-8.2)
[2017-10-05 10:25] LABS: Appearance,Urine Clear (Clear); Bilirubin,Urine Negative (Negative); Blood,Urine Negative (Negative); Color,Urine Yellow; Glucose,Urine (UA) 4+ (Negative); Ketones,Urine Negative (Negative); Leukocyte Esterase,Urine Negative (Negative); Nitrite,Urine Negative (Negative); PH, Urine 5.5 (5.0-8.0); Protein,Urine 1+ (Negative); RBC,Urine <1 /hpf (0-5); Specific Gravity,Urine 1.029 (1.001-1.035); Urobilinogen,Urine <2.0 mg/dL (<2.0)
--- NOTE | 2017-10-05 11:09 | CT ---
EXAMINATION TYPE: CT abdomen pelvis wo con DATE OF EXAM: 10/05/2017 COMPARISON: 12/03/2015 HISTORY: LLQ Pain; back pain CT DLP: 617.5 mGycm Automated exposure control for dose reduction was used. TECHNIQUE: Helical acquisition of images was performed from the lung bases aerated through the pelvi s. FINDINGS: LUNG BASES: No significant abnormality is appreciated. LIVER/GB: Hepatic parenchyma is diffusely hypoattenuated in comparison to that of the spleen, most co mmonly seen in hepatic steatosis. This finding limits evaluation for hepatic masses. No gross evidenc e of hepatic mass is seen. No intrahepatic biliary ductal dilatation. Gallbladder appears surgically absent. Liver is enlarged. PANCREAS: No significant abnormality is seen. SPLEEN: There is splenomegaly as the spleen measures 14.4 cm in craniocaudal dimension. ADRENALS: No significant abnormality is seen. KIDNEYS: No hydronephrosis or nephrolithiasis. FREE AIR: No free air is visualized REPRODUCTIVE ORGANS: Prostate gland is heterogenous containing central zone calcifications. URINARY BLADDER: Incompletely distended. PELVIC ADENOPATHY: No greater than 1 cm short axis lymph nodes within the abdomen or pelvis. OSSEOUS STRUCTURES: Mild multilevel degenerative disc disease. No suspicious osseous lesion. BOWEL: Diffuse gastric rugal fold thickening may relate to incomplete distention and is slightly calderon ited without oral contrast. Small hiatal hernia is also noted. There are multiple colonic diverticula predominating within the sigmoid colon without pericolonic fat stranding. Moderate amount retained colonic stool is noted. Appendix is air-filled and within normal limits of size. Few loops of prominent left mid abdominal small bowel demonstrate fold thickening wi thout significant inflammatory change. No dilated bowel. OTHER: Moderate calcific atheromatous changes of the abdominal aorta and its branches. IMPRESSION: 1. FEW LOOPS OF SMALL BOWEL CLUSTERED WITHIN THE LEFT MID ABDOMEN DEMONSTRATE SMALL BOWEL WALL THICKE MICHAEL MOST, RELATING TO ENTERITIS OF INFECTIOUS OR INFLAMMATORY ETIOLOGY. 2. HEPATOSPLENOMEGALY AND HEPATIC STEATOSIS. 3. FEW RUGAL FOLD THICKENING MAY RELATE TO INCOMPLETE DISTENTION OR OTHER ETIOLOGY WITH MOST COMMON E TIOLOGY OF GASTRITIS. SMALL HIATAL HERNIA IS ALSO SEEN. 4. COLONIC DIVERTICULOSIS WITHOUT EVIDENCE OF ACUTE DIVERTICULITIS.
[2017-10-05] MEDS ORDERED: SODIUM POLYSTYRENE SULFONATE 15 GM/60 ML BOTTLE PO STA (12:03)
[2017-10-05] MEDS ORDERED: LIDOCAINE 5% PATCH TOPICAL STA (12:03)
[2017-10-05 12:19] VITALS: BP 135/60; PULSE 72; RESP 16
== END 2017-10-05 12:20 | disposition home or self-care (01) ==
LOC: EC 09:19
DX: E87.5 Hyperkalemia (principal); R10.9 Unspecified abdominal pain; M54.9 Dorsalgia, unspecified; R21 Rash and other nonspecific skin eruption; K57.30 Diverticulosis of large intestine without perforation or abscess without bleeding; K83.1 Obstruction of bile duct; R16.2 Hepatomegaly with splenomegaly, not elsewhere classified; R94.31 Abnormal electrocardiogram [ECG] [EKG]; E11.9 Type 2 diabetes mellitus without complications; K21.9 Gastro-esophageal reflux disease without esophagitis; E78.5 Hyperlipidemia, unspecified; I10 Essential (primary) hypertension; F41.9 Anxiety disorder, unspecified; F17.200 Nicotine dependence, unspecified, uncomplicated; Z79.4 Long term (current) use of insulin; Z79.82 Long term (current) use of aspirin; Z79.899 Other long term (current) drug therapy; Z90.49 Acquired absence of other specified parts of digestive tract
CPT/HCPCS: 36415; 74176; 80053; 81001; 82150; 83690; 85025; 93005; 96360; 99284

== ENCOUNTER → 2017-10-05 | Outpatient (CLI) | payer BC ==
[2017-10-05 08:44] LABS: Albumin 4.5 g/dL (3.5-5.0); Calcium 9.8 mg/dL (8.4-10.2); Potassium 5.8 mmol/L (3.5-5.1); Total Bilirubin 0.5 mg/dL (0.2-1.3); Total Protein 6.8 g/dL (6.3-8.2)
== END | disposition home or self-care (01) ==
LOC: LABWHC1 07:26
PROVIDERS: ATTEND Internal Medicine Endocrinology, Diabetes & Metabolism
DX: E11.65 Type 2 diabetes mellitus with hyperglycemia (principal)
CPT/HCPCS: 36415; 80053; 84681

== ENCOUNTER 2017-10-12 16:53 | Emergency (ER) | payer BC ==
[2017-10-12 18:53] LABS: Anisocytosis Slight; Basophils # (A) 0.1 k/uL (0-0.2); Basophils % (A) 1 %; Eosinophils # (A) 0.5 k/uL (0-0.7); Eosinophils % (A) 5 %; HCT 45.6 % (39.0-53.0); HGB 15.1 gm/dL (13.0-17.5); Lymphocytes # (A) 1.7 k/uL (1.0-4.8); Lymphocytes % (A) 18 %; MCH 28.8 pg (25.0-35.0); MCHC 33.2 g/dL (31.0-37.0); MCV 86.7 fL (80.0-100.0); Mean Platelet Volume 8.2; Monocytes # (A) 0.6 k/uL (0-1.0); Monocytes % (A) 6 %; Neutrophils # (A) 6.4 k/uL (1.3-7.7); Neutrophils % (A) 68 %; Platelet Count 221 k/uL (150-450); RBC 5.26 m/uL (4.30-5.90); RDW 16.1 % (11.5-15.5); WBC 9.4 k/uL (3.8-10.6)
[2017-10-12 19:02] LABS: Albumin 4.2 g/dL (3.5-5.0); Potassium 5.6 mmol/L (3.5-5.1); Total Bilirubin 0.3 mg/dL (0.2-1.3); Total Protein 6.6 g/dL (6.3-8.2)
--- NOTE | 2017-10-12 19:45 | ED ---
General Adult HPI - General Chief complaint: Abdominal Pain Stated complaint: Sent by PCP for admission Source: patient Mode of arrival: ambulatory Limitations: no limitations - History of Present Illness Initial comments: Dictation was produced using [employer] dictation software. please excuse any grammatical, word or spelling errors. Chief Complaint: 57-year-old male sent in by his primary care physician for evaluation to possibly get a splenectomy. History of Present Illness: Patient is a 57-year-old male with past medical history of diabetes, hyperlipidemia, hypertension presents via instruction from his primary care physician come to the emergency department for possible splenectomy. Patient states that he was seen at his primary care physician's office with his PCP reviewed his films performed last week. Patient reports that his primary care physician but that his spleen was severely enlarged. Patient was seen in the emergency department last week. This is confirmed via chart review. Patient's chief complaint at that time was left-sided abdominal pain back pain for 6 weeks. Patient reports having had several weeks of skin pain in a dermatomal distribution. He is told that he possibly has shingles. Patient denies any abdominal pain. He is is however reports that his abdomen feels a little bit more scaphoid than usual. Patient has no other complaints at this time. The ROS documented in this emergency department record has been reviewed and confirmed by me. Those systems with pertinent positive or negative responses have been documented in the HPI. All other systems are other negative and/or noncontributory. - Related Data Home Medications Medication Instructions Recorded Confirmed Canagliflozin [Invokana] 100 mg PO DAILY 12/03/15 10/12/17 Omeprazole [PriLOSEC] 20 mg PO DAILY 12/03/15 10/12/17 Insulin Glargine,Hum.rec.anlog 30 units SQ DAILY 07/06/16 10/12/17 [Toujeo Solostar] Pregabalin [Lyrica] 100 mg PO TID 07/06/16 10/12/17 Atorvastatin [Lipitor] 20 mg PO HS 08/09/16 10/12/17 Aspirin 325 mg PO DAILY 10/05/17 10/12/17 Carvedilol [Coreg] 12.5 mg PO BID 10/05/17 10/12/17 Fenofibrate Nanocrystallized 145 mg PO DAILY 10/05/17 10/12/17 [Tricor] Metoprolol Tartrate [Lopressor] 50 mg PO BID 10/05/17 10/12/17 Naproxen Sodium [Aleve] 220 mg PO DAILY PRN 10/05/17 10/12/17 Vortioxetine Hydrobromide 10 mg PO DAILY 10/05/17 10/12/17 [Trintellix] metFORMIN HCL [metFORMIN HCL ER] 750 mg PO BID 10/05/17 10/12/17 sitaGLIPtin [Januvia] 100 mg PO DAILY 10/05/17 10/12/17 Previous Rx's Medication Instructions Recorded Nitroglycerin Sl Tabs [Nitrostat] 0.4 mg SUBLINGUAL Q5M PRN #25 tab 07/07/16 Losartan [Cozaar] 100 mg PO BID #60 tab 08/17/16 hydrALAZINE HCL [Apresoline] 50 mg PO TID #90 tab 08/17/16 Lidocaine [Lidoderm 5% Patch] 1 patch TRANSDERM DAILY #7 patch 10/05/17 Sodium Polystyrene Sulfonate 15 gm PO BID 4 Days ml 10/05/17 [Kayexalate] Allergies Allergy/AdvReac Type Severity Reaction Status Date / Time No Known Allergies Allergy Verified 10/12/17 17:51 Review of Systems ROS Statement: Those systems with pertinent positive or pertinent negative responses have been documented in the HPI. ROS Other: All systems not noted in ROS Statement are negative. Past Medical History Past Medical History: Diabetes Mellitus, GERD/Reflux, Hyperlipidemia, Hypertension, Renal Disease Additional Past Medical History / Comment(s): bilateral feet neuropathy, decreased kidney function per pt History of Any Multi-Drug Resistant Organisms: None Reported Past Surgical History: Cholecystectomy, Hernia Repair, Orthopedic Surgery Additional Past Surgical History / Comment(s): L arm muscle repair by elbow, L inguinal hernia repair.Carotid Endarterectomy Past Anesthesia/Blood Transfusion Reactions: No Reported Reaction Past Psychological History: Anxiety Smoking Status: Current every day smoker Past Alcohol Use History: None Reported Past Drug Use History: None Reported - Past Family History Father Family Medical History: Coronary Artery Disease (CAD) Additional Family Medical History / Comment(s): Father during CABG Mother Family Medical History: Myocardial Infarction ([place]) Additional Family Medical History / Comment(s): Mother of massive [place] at the age of 81 yrs. General Exam - General Exam Comments Initial Comments: PHYSICAL EXAM: General Impression: Alert and oriented x3, not in acute distress HEENT: Normocephalic atraumatic, extra-ocular movements intact, pupils equal and reactive to light bilaterally, mucous membranes moist. Cardiovascular: Heart regular rate and rhythm, S1&S2 audible, no murmurs, rubs or gallops Chest: Lungs clear to auscultation bilaterally, no rhonchi, no wheeze, no rales Abdomen: Bowel sounds present, abdomen soft, non-tender, non-distended, no organomegaly Musculoskeletal: Pulses present and equal in all extremities, no peripheral edema Motor: Power 5/5 bilaterally, no focal deficits noted Neurological: CN II-XII grossly intact, no focal motor or sensory deficits noted Skin: Exquisite tenderness to palpation with brushing of the skin of the left flank Psych: Normal affect and mood Limitations: no limitations Course Vital Signs 10/12/17 10/12/17 17:27 18:39 Temperature 97.9 F Pulse Rate 84 81 Respiratory 18 16 Rate Blood Pressure 152/73 152/79 O2 Sat by Pulse 97 94 L Oximetry Medical Decision Making - Medical Decision Making ED course: 57-year-old male who allegedly was sent here by his primary care physician for possible surgical intervention. They say that he was sent here because he may need a splenectomy. Chart review was performed. Patient was seen here last week where a CT abdomen and pelvis was performed. Patient had liver disease with resultant splenic enlargement. Vital signs upon arrival are within acceptable limits. Physical examination is benign. Patient is well-appearing. Discussed with patient that there is no urgent need for surgical intervention at this time. Patient was offered being admitted to observation with surgical consultation. However they preferred that they can be discharged with outpatient follow-up with the general surgeon. - Lab Data Result diagrams: 10/12/17 18:40 10/12/17 18:40 Lab Results 10/12/17 10/12/17 Range/Units 18:40 18:40 WBC 9.4 (3.8-10.6) k/uL RBC 5.26 (4.30-5.90) m/uL Hgb 15.1 (13.0-17.5) gm/dL Hct 45.6 (39.0-53.0) % MCV 86.7 (80.0-100.0) fL MCH 28.8 (25.0-35.0) pg MCHC 33.2 (31.0-37.0) g/dL RDW 16.1 H (11.5-15.5) % Plt Count 221 (150-450) k/uL Neutrophils % 68 % Lymphocytes % 18 % Monocytes % 6 % Eosinophils % 5 % Basophils % 1 % Neutrophils # 6.4 (1.3-7.7) k/uL Lymphocytes # 1.7 (1.0-4.8) k/uL Monocytes # 0.6 (0-1.0) k/uL Eosinophils # 0.5 (0-0.7) k/uL Basophils # 0.1 (0-0.2) k/uL Anisocytosis Slight Sodium 142 (137-145) mmol/L Potassium 5.6 H (3.5-5.1) mmol/L Chloride 108 H (98-107) mmol/L Carbon Dioxide 25 (22-30) mmol/L Anion Gap 9 mmol/L BUN 34 H (9-20) mg/dL Creatinine 1.80 H (0.66-1.25) mg/dL Est GFR (CKD-EPI)AfAm 48 (>60 ml/min/1.73 sqM) Est GFR (CKD-EPI)NonAf 41 (>60 ml/min/1.73 sqM) Glucose 272 H (74-99) mg/dL Calcium 10.0 (8.4-10.2) mg/dL Total Bilirubin 0.3 (0.2-1.3) mg/dL AST 15 L (17-59) U/L ALT 26 (21-72) U/L Alkaline Phosphatase 54 (38-126) U/L Total Protein 6.6 (6.3-8.2) g/dL Albumin 4.2 (3.5-5.0) g/dL Lipase 234 (23-300) U/L Disposition Clinical Impression: Spleen enlarged Disposition: HOME SELF-CARE Condition: Fair Instructions: Non-penetrating Injuries to the Liver or Spleen (ED) Is patient prescribed a controlled substance at d/c from ED?: No Referrals: Marquez Cronin DO [Primary Care Provider] - 1-2 days Alisa Fierro DO [Doctor of Osteopathic Medicine] - 1-2 days Time of Disposition: 19:44
[2017-10-12 19:53] VITALS: BP 135/74; PULSE 74; RESP 18; TEMP 97.5
== END 2017-10-12 19:56 | disposition home or self-care (01) ==
LOC: EC 16:53
DX: R16.1 Splenomegaly, not elsewhere classified (principal); R10.9 Unspecified abdominal pain; M54.9 Dorsalgia, unspecified; K21.9 Gastro-esophageal reflux disease without esophagitis; E78.5 Hyperlipidemia, unspecified; I10 Essential (primary) hypertension; E11.40 Type 2 diabetes mellitus with diabetic neuropathy, unspecified; F41.9 Anxiety disorder, unspecified; F17.200 Nicotine dependence, unspecified, uncomplicated; Z79.82 Long term (current) use of aspirin; Z79.4 Long term (current) use of insulin; Z79.899 Other long term (current) drug therapy; Z90.49 Acquired absence of other specified parts of digestive tract
CPT/HCPCS: 36415; 80053; 83690; 85025; 93005; 99284

== ENCOUNTER → 2017-12-18 | Outpatient (CLI) | payer BC ==
--- NOTE | 2017-12-18 08:10 | XR ---
EXAMINATION TYPE: XR ribs LT DATE OF EXAM: 12/18/2017 COMPARISON: NONE HISTORY: Pain TECHNIQUE: 4 views submitted FINDINGS: Mild hypertrophic change of the AC joint. Osseous structures intact. Hypertrophic change of the spine. Atherosclerotic change aorta. IMPRESSION: No acute displaced rib fracture.
--- NOTE | 2017-12-18 09:12 | CT ---
EXAMINATION TYPE: CT chest wo con DATE OF EXAM: 12/18/2017 COMPARISON: 07/07/2016 HISTORY: Chest pain CT DLP: 370.60 mGycm. Automated Exposure Control for Dose Reduction was Utilized. TECHNIQUE: CT scan of the thorax is performed without IV contrast. FINDINGS: LUNGS: The lungs are grossly clear, there is no concerning parenchymal mass or nodule identified. T here is no pleural effusion or pneumothorax seen. The tracheobronchial tree is patent. There is mild interlobular septal thickening. Vague areas of subsegmental consolidation are most typical atelectas is. MEDIASTINUM: Lack of IV contrast is noted to limit evaluation for mediastinal and especially hilar ad enopathy. There are no definitive greater than 1 cm hilar or mediastinal lymph nodes. No cardiomega ly or pericardial effusion is seen. Atherosclerotic change of the aorta. Coronary artery calcificatio n noted. Borderline cardiomegaly. OTHER: Postcholecystectomy changes are noted. Mild hypertrophic changes of the vertebral column. A va cuum disc and degenerative disc disease at multiple levels. Visualized rib cage appears intact. Arthr opathy of the sternoclavicular joints noted. Tiny hiatal hernia. IMPRESSION: 1. Minimal interlobular septal thickening can be associated with early interstitial chronic lung dise ase. No suspicious pulmonary nodule or mass. No consolidative process. 2. Borderline cardiomegaly and coronary artery calcification. 3. Tiny hiatal hernia. 4. Postcholecystectomy changes.
== END | disposition home or self-care (01) ==
LOC: RADCTMAIN 06:15
PROVIDERS: ATTEND Internal Medicine Hematology & Oncology
DX: I51.7 Cardiomegaly (principal); J98.4 Other disorders of lung; I25.10 Atherosclerotic heart disease of native coronary artery without angina pectoris; K44.9 Diaphragmatic hernia without obstruction or gangrene; R16.1 Splenomegaly, not elsewhere classified; E11.9 Type 2 diabetes mellitus without complications; Z71.3 Dietary counseling and surveillance
CPT/HCPCS: 36415; 71250; 82565; 84520

== ENCOUNTER → 2017-12-19 | Outpatient (CLI) | payer BC ==
[2017-12-19 15:05] LABS: Calcium 9.7 mg/dL (8.4-10.2); Creatinine,Urine Random 65.2 mg/dL; Magnesium 1.9 mg/dL (1.6-2.3); Phosphorus 2.9 mg/dL (2.5-4.5); Total Bilirubin 0.3 mg/dL (0.2-1.3); Total Protein 6.6 g/dL (6.3-8.2); Uric Acid 4.3 mg/dL (3.5-8.5)
[2017-12-19 18:57] LABS: Vitamin D 25 Hydroxy 16.2 ng/mL (30.0-100.0)
[2017-12-19 20:16] LABS: Parathyroid Hormone Intact 43.5 pg/mL (14.0-72.0)
== END | disposition home or self-care (01) ==
LOC: LABWHC1 14:14
PROVIDERS: ATTEND Internal Medicine
DX: E55.9 Vitamin D deficiency, unspecified (principal); M10.9 Gout, unspecified; N25.81 Secondary hyperparathyroidism of renal origin; D64.9 Anemia, unspecified; R80.9 Proteinuria, unspecified
CPT/HCPCS: 36415; 80053; 82306; 82570; 83735; 83970; 84100; 84156; 84550

== ENCOUNTER → 2018-07-02 | Outpatient (CLI) | payer BC | END | disposition home or self-care (01) | LOC: RADCTMAIN 06:23 | PROVIDERS: ATTEND Thoracic Surgery (Cardiothoracic Vascular Surgery) | DX: I65.29 Occlusion and stenosis of unspecified carotid artery (principal) | CPT/HCPCS: 82565; 84520 ==

== ENCOUNTER → 2018-07-02 | Outpatient (CLI) | payer BC ==
--- NOTE | 2018-07-02 09:53 | MR ---
EXAMINATION TYPE: MR angio neck wo/w con DATE OF EXAM: 07/02/2018 COMPARISON: MRA of the neck July 22, 2016. Carotid ultrasound June 29, 2016. HISTORY: carotid stenosis right per order. TECHNIQUE: Time of flight images focusing on the [place] [employer] [place] were performed without contrast.. 2-D and 3-D postprocessing imaging is performed on MRI scanner. FINDINGS: There is poor contrast opacification of the aortic arch and great vessels, no obvious steno sis in the right brachiocephalic or left subclavian artery is seen. No obvious stenosis in visualized portion of the subclavian arteries bilaterally. Suboptimal evaluation of left common carotid artery at its origin is noted. The right common carotid artery shows normal origin from the right brachiocep halic artery with poor opacification, concentric narrowing remains present image 118 down to 3.9 mm, there is constitution to 8.4 mm superior to this. This was even less well visualized on prior MRA. Re mainder of the mid to distal right common carotid artery shows no significant stenosis. There is more prominent plaque before and after right carotid bulb with nonvisualization of short segment of right internal carotid artery consistent with complete occlusion shortly after its origin. This is correla michaela with axial images. There is progression from prior MRA. There is patency of the right external ca rotid artery without significant stenosis. Visualized portion of left common carotid artery mid to distal segments shows no significant stenosis . There is mild to moderate narrowed narrowing near origin of proximal left internal carotid artery r ight before area of suspected interval surgery. No significant stenosis is identified on current stud y. Remainder of right internal carotid artery shows no significant stenosis. There is patent left ext ernal carotid artery without significant stenosis. There is codominant vertebral basilar system. Vertebral arteries are patent to basilar junction witho ut significant focal stenosis. IMPRESSION: Successful interval treatment of prior significant stenosis proximal left internal caroti d artery without recurrent significant stenosis. New significant stenosis proximal right internal car otid artery, there is nonvisualization of short segment suggesting complete occlusion. Advise direct catheter angiogram to further evaluate and/or possibly treat. I do also suspect stenosis just over 50 % in the proximal right common carotid artery.
== END | disposition home or self-care (01) ==
LOC: RADMRIMAIN 08:28
PROVIDERS: ATTEND Thoracic Surgery (Cardiothoracic Vascular Surgery)
DX: I65.21 Occlusion and stenosis of right carotid artery (principal)
CPT/HCPCS: 70549; 36415; A9585

== ENCOUNTER 2018-07-31 18:24 | Emergency (ER) | payer BC ==
[2018-07-31 18:30] VITALS: PULSE 84; RESP 18
[2018-07-31] MEDS ORDERED: MORPHINE SULFATE 4 MG/ML SYRINGE IVP STA (19:03)
[2018-07-31] MEDS ORDERED: SODIUM CHLORIDE 0.9% 500 ML 500 ML IV STA (19:07)
--- NOTE | 2018-07-31 19:09 | ED ---
General Adult HPI - General Chief complaint: Headache Stated complaint: Headache/post surgery Time Seen by Provider: 07/31/18 18:37 Source: patient, RN notes reviewed Mode of arrival: ambulatory Limitations: no limitations - History of Present Illness Initial comments: 58-year-old male post op day 4 from internal carotid surgery right side by Dr. Jha presents to the emergency department for a chief complaint of headaches. Patient states he has had persistent headaches since his surgery. States it is a pounding headache of his entire head. States it is also into his teeth. He denies any neurologic symptoms such as facial weakness, weakness of the arms or legs. No decreased sensation. No loss of consciousness. Patient states his home nurse called the surgeon today and the surgeon call back to advise him to go to the emergency department for a CT.Patient has no other complaints at this time including shortness of breath, chest pain, abdominal pain, nausea or vomiting, or visual changes. - Related Data Home Medications Medication Instructions Recorded Confirmed Omeprazole [PriLOSEC] 20 mg PO DAILY 12/03/15 07/31/18 Insulin Glargine,Hum.rec.anlog 40 units SQ HS 07/06/16 07/31/18 [Toujeo Solostar] Pregabalin [Lyrica] 100 mg PO TID 07/06/16 07/31/18 Atorvastatin [Lipitor] 20 mg PO HS 08/09/16 07/31/18 Fenofibrate Nanocrystallized 145 mg PO HS 10/05/17 07/31/18 [Tricor] sitaGLIPtin [Januvia] 100 mg PO DAILY 10/05/17 07/31/18 Carvedilol [Coreg] 25 mg PO DAILY 07/31/18 07/31/18 Clopidogrel [Plavix] 75 mg PO DAILY 07/31/18 07/31/18 Vortioxetine Hydrobromide 10 mg PO DAILY 07/31/18 07/31/18 [Trintellix] Previous Rx's Medication Instructions Recorded Losartan [Cozaar] 100 mg PO BID #60 tab 08/17/16 hydrALAZINE HCL [Apresoline] 50 mg PO TID #90 tab 08/17/16 Allergies Allergy/AdvReac Type Severity Reaction Status Date / Time No Known Allergies Allergy Verified 07/31/18 19:00 Review of Systems ROS Statement: Those systems with pertinent positive or pertinent negative responses have been documented in the HPI. ROS Other: All systems not noted in ROS Statement are negative. Past Medical History Past Medical History: Diabetes Mellitus, GERD/Reflux, Hyperlipidemia, Hypertension, Renal Disease Additional Past Medical History / Comment(s): bilateral feet neuropathy, decreased kidney function per pt History of Any Multi-Drug Resistant Organisms: None Reported Past Surgical History: Cholecystectomy, Hernia Repair, Orthopedic Surgery Additional Past Surgical History / Comment(s): L arm muscle repair by elbow, L inguinal hernia repair.Carotid Endarterectomy Past Anesthesia/Blood Transfusion Reactions: No Reported Reaction Past Psychological History: Anxiety Smoking Status: Former smoker Past Alcohol Use History: None Reported Past Drug Use History: None Reported - Past Family History Father Family Medical History: Coronary Artery Disease (CAD) Additional Family Medical History / Comment(s): Father during CABG Mother Family Medical History: Myocardial Infarction ([place]) Additional Family Medical History / Comment(s): Mother of massive [place] at the age of 81 yrs. General Exam Limitations: no limitations General appearance: alert, in no apparent distress Head exam: Present: atraumatic, normocephalic, normal inspection Eye exam: Present: normal appearance, PERRL, EOMI. Absent: scleral icterus, conjunctival injection, periorbital swelling ENT exam: Present: normal exam, normal oropharynx, mucous membranes moist, TM's normal bilaterally, normal external ear exam Neck exam: Present: full ROM, other (Patient has a new surgical incision right side anterior neck but does appear to be healing well. There is a noted old left surgical incision on the left side of the neck which patient states is from 2 years ago). Absent: tenderness, meningismus, lymphadenopathy Respiratory exam: Present: normal lung sounds bilaterally. Absent: respiratory distress, wheezes, rales, rhonchi, stridor Cardiovascular Exam: Present: regular rate, normal rhythm, normal heart sounds. Absent: bradycardia, tachycardia, irregular rhythm GI/Abdominal exam: Present: soft, normal bowel sounds. Absent: distended, tenderness, guarding, rebound, rigid Neurological exam: Present: alert, oriented X3, CN II-XII intact, normal gait Expanded Patient oriented to: Present: person, place, time Speech: Present: fluid speech Cranial nerves: EOM's Intact: Normal, Tongue Deviation: Normal, Nystagmus: Normal, Facial Sensation: Normal Cerebellar function: Finger to Nose: Normal Upper motor neuron: Pronator Drift: Normal Sensory exam: Upper Extremity Light Touch: Normal, Upper Extremity Pin Prick: Normal, Lower Extremity Light Touch: Normal, Lower Extremity Pin Prick: Normal Motor strength exam: RUE: 5 (no drift), LUE: 5 (no drift), RLE: 5 (no drift), LLE: 5 (no drift) Eye Response: (4) open spontaneously Motor Response: (6) obeys commands Verbal Response: (5) oriented [place] Total: 15 Psychiatric exam: Present: normal affect, normal mood Course Vital Signs 07/31/18 18:27 Temperature 98.2 F Pulse Rate 84 Respiratory 18 Rate Blood Pressure 187/89 O2 Sat by Pulse 99 Oximetry Medical Decision Making - Medical Decision Making 58-year-old male postop day 4 from internal carotid artery surgery presents for chief complaint of headaches. These have been persistent since his surgery. Pounding in nature. Patient states he spoke with his surgeon who recommended a CT and to come to the emergency department. On presentation patient is well- appearing. There are no focal neurologic deficits present. CBC and CMP are unremarkable. However glucose is 311, patient is diabetic on insulin. CT brain shows no acute process. CT angios shows no significant abnormality. Carotid artery systems are patent. Dr. Becerra spoke with who recommends discharge home. Patient will follow-up with him outpatient. He will return here if he has any worsening symptoms. - Lab Data Result diagrams: 07/31/18 19:10 07/31/18 19:10 Lab Results 07/31/18 07/31/18 07/31/18 Range/Units 19:10 19:10 19:10 WBC 10.4 (3.8-10.6) k/uL RBC 4.88 (4.30-5.90) m/uL Hgb 13.8 (13.0-17.5) gm/dL Hct 42.5 (39.0-53.0) % MCV 87.1 (80.0-100.0) fL MCH 28.2 (25.0-35.0) pg MCHC 32.4 (31.0-37.0) g/dL RDW 13.7 (11.5-15.5) % Plt Count 219 (150-450) k/uL Neutrophils % 69 % Lymphocytes % 15 % Monocytes % 5 % Eosinophils % 7 % Basophils % 0 % Neutrophils # 7.2 (1.3-7.7) k/uL Lymphocytes # 1.6 (1.0-4.8) k/uL Monocytes # 0.5 (0-1.0) k/uL Eosinophils # 0.8 H (0-0.7) k/uL Basophils # 0.0 (0-0.2) k/uL PT 9.7 (9.0-12.0) sec INR 0.9 (<1.2) APTT 25.9 (22.0-30.0) sec Sodium 137 (137-145) mmol/L Potassium 5.1 (3.5-5.1) mmol/L Chloride 102 (98-107) mmol/L Carbon Dioxide 29 (22-30) mmol/L Anion Gap 6 mmol/L BUN 21 H (9-20) mg/dL Creatinine 1.38 H (0.66-1.25) mg/dL Est GFR (CKD-EPI)AfAm 65 (>60 ml/min/1.73 sqM) Est GFR (CKD-EPI)NonAf 56 (>60 ml/min/1.73 sqM) Glucose 311 H (74-99) mg/dL Calcium 9.7 (8.4-10.2) mg/dL Total Bilirubin 0.4 (0.2-1.3) mg/dL AST 11 L (17-59) U/L ALT 26 (21-72) U/L Alkaline Phosphatase 61 (38-126) U/L Total Protein 6.1 L (6.3-8.2) g/dL Albumin 3.7 (3.5-5.0) g/dL Disposition Clinical Impression: Headache Disposition: HOME SELF-CARE Condition: Good Instructions (If sedation given, give patient instructions): Acute Headache (ED) Additional Instructions: Please follow-up with your surgeon and primary care in 1-2 days. If you have a ny worsening symptoms return here to the emergency department. Is patient prescribed a controlled substance at d/c from ED?: No Referrals: Marquez Cronin DO [Primary Care Provider] - 1-2 days Time of Disposition: 23:11
[2018-07-31 19:34] LABS: Basophils % (A) 0 %; Eosinophils # (A) 0.8 k/uL (0-0.7); Eosinophils % (A) 7 %; HCT 42.5 % (39.0-53.0); HGB 13.8 gm/dL (13.0-17.5); Lymphocytes # (A) 1.6 k/uL (1.0-4.8); Lymphocytes % (A) 15 %; MCH 28.2 pg (25.0-35.0); MCHC 32.4 g/dL (31.0-37.0); MCV 87.1 fL (80.0-100.0); Mean Platelet Volume 8.1; Monocytes # (A) 0.5 k/uL (0-1.0); Monocytes % (A) 5 %; Neutrophils # (A) 7.2 k/uL (1.3-7.7); Neutrophils % (A) 69 %; Platelet Count 219 k/uL (150-450); RBC 4.88 m/uL (4.30-5.90); RDW 13.7 % (11.5-15.5); WBC 10.4 k/uL (3.8-10.6)
[2018-07-31 19:35] LABS: Albumin 3.7 g/dL (3.5-5.0); Calcium 9.7 mg/dL (8.4-10.2); Potassium 5.1 mmol/L (3.5-5.1); Total Bilirubin 0.4 mg/dL (0.2-1.3); Total Protein 6.1 g/dL (6.3-8.2)
[2018-07-31 19:47] LABS: INR 0.9 (<1.2); Partial Thromboplastin Time 25.9 sec (22.0-30.0); Prothrombin Time 9.7 sec (9.0-12.0)
--- NOTE | 2018-07-31 21:55 | CT ---
EXAMINATION: CT brain wo con DATE AND TIME: 07/31/2018 9:49 PM CLINICAL INDICATION: PHH; Pain TECHNIQUE: Standard departmental protocol.; 1867.5 combined; COMPARISON: CT 06/21/2016 FINDINGS: The calvarium is intact. There is no intracranial hemorrhage. There is no intracranial mass or mass effect. No definite new intra-axial or extra-axial attenuation defect. The paranasal sinuses, middle ear cavities, and mastoid sinus air cells are clear. The orbits are unremarkable. IMPRESSION: NO ACUTE PROCESS.
--- NOTE | 2018-07-31 22:16 | CT ---
EXAMINATION TYPE: CT angio head neck with contrast and with 3-D reconstruction renderings. DATE OF EXAM: 07/31/2018 HISTORY: Headache, pain. Pt had RT carotid sx on Monday COMPARISON: None CT DLP: 1867.5 mGycm. Automated Exposure Control for Dose Reduction was Utilized. TECHNIQUE: CTA scan of the neck is performed with IV Contrast, patient injected with 50 mL of Isovue 370, axial images are obtained, coronal and sagittal reformatted images are reviewed. Three-D recons tructed images are created on an independent workstation and reviewed. FINDINGS: The bilateral carotid arterial systems are patent, without significant stenosis or aneurysm or dissec tion. The bilateral vertebral arterial systems are patent, without significant stenosis or aneurysm or diss ection. The venous structures are unremarkable. There are no significant soft tissue neck or skeletal findings. The bilateral intracranial anterior and posterior circulation are patent, without significant stenosi s or aneurysm or dissection. The dural venous sinuses are unremarkable. There are no significant intracranial findings. However, bilateral maxillary sinus mucosal thickening and fluid are noted, consistent with inflammato ry change, greater on the left. Minimal bilateral ethmoid sinus inflammatory changes are also noted. IMPRESSION: No significant CTA abnormality is seen.
[2018-07-31 23:28] VITALS: BP 150/83; TEMP 98.5
== END 2018-07-31 23:29 | disposition home or self-care (01) ==
LOC: EC 18:24
DX: R51 Headache (principal); E78.5 Hyperlipidemia, unspecified; K21.9 Gastro-esophageal reflux disease without esophagitis; I10 Essential (primary) hypertension; E11.40 Type 2 diabetes mellitus with diabetic neuropathy, unspecified; F41.9 Anxiety disorder, unspecified; Z79.4 Long term (current) use of insulin; Z79.01 Long term (current) use of anticoagulants; Z79.899 Other long term (current) drug therapy
CPT/HCPCS: 36415; 80053; 85025; 85610; 85730; 70496; 70450; 70498; 99284; 96374; 96361; J2270; Q9967

== ENCOUNTER → 2021-02-01 | Outpatient (CLI) | payer OTHER ==
--- NOTE | 2021-02-01 09:56 | XR ---
EXAMINATION TYPE: XR abdomen 1V DATE OF EXAM: 02/01/2021 9:46 AM CLINICAL HISTORY: Abdominal pain and distention. Nausea. TECHNIQUE: Two Upright KUB images of the abdomen are obtained. COMPARISON: CT abdomen and pelvis October 05, 2017. FINDINGS: Gas is seen in nondistended stomach. Some paucity of small bowel gas. Visualized gas seen i n nondistended small bowel loops. Gas and fecal material is seen in non-distended colon. Surgical nusrat nge at L5 level is present. Single cholecystectomy clip redemonstrated. No free air. Lung bases are c lear. Scattered pelvic phleboliths. IMPRESSION: Overall nonobstructive bowel gas pattern.
== END | disposition home or self-care (01) ==
LOC: RADXRMAIN 09:27
PROVIDERS: ATTEND Family Medicine
DX: R10.9 Unspecified abdominal pain (principal); R11.0 Nausea; R14.0 Abdominal distension (gaseous)
CPT/HCPCS: 74018

== ENCOUNTER 2021-03-01 18:55 | Inpatient (IN) | payer OTHER ==
[2021-03-01] MEDS ORDERED: FUROSEMIDE 10 MG/ML 2 ML VIAL IV ONE (19:46)
[2021-03-01 20:28] LABS: Albumin 3.7 g/dL (3.5-5.0); Anisocytosis Slight; Calcium 8.8 mg/dL (8.4-10.2); HCT 31.5 % (39.0-53.0); HGB 8.7 gm/dL (13.0-17.5); Hypochromasia Marked; MCH 19.8 pg (25.0-35.0); MCHC 27.7 g/dL (31.0-37.0); MCV 71.6 fL (80.0-100.0); Magnesium 2.4 mg/dL (1.6-2.3); Mean Platelet Volume 10.1; Microcytosis Marked; Platelet Count 246 k/uL (150-450); Poikilocytosis Slight; Potassium 5.1 mmol/L (3.5-5.1); RDW 18.6 % (11.5-15.5); Total Bilirubin 0.4 mg/dL (0.2-1.3); Total Protein 6.2 g/dL (6.3-8.2)
--- NOTE | 2021-03-01 20:37 | XR ---
EXAMINATION TYPE: XR chest 2V DATE OF EXAM: 03/01/2021 COMPARISON: 07/06/2016 HISTORY: Difficulty breathing TECHNIQUE: 2 views FINDINGS: There is slight increased pulmonary interstitial density. Heart size is fairly normal. Ther e is no pleural effusion. There are no hilar masses. IMPRESSION: Mild increased pulmonary interstitial density compared to old exam. This could be minimal interstitial pneumonia.
[2021-03-01] MEDS ORDERED: SODIUM CHLORIDE 0.9% 1,000 ML IV ONE (20:52)
--- NOTE | 2021-03-01 20:52 | ED ---
General Adult HPI - General Chief complaint: Extremity Problem,Nontraumatic Stated complaint: swelling legs/feet Time Seen by Provider: 03/01/21 19:00 Source: patient, RN notes reviewed, old records reviewed Mode of arrival: ambulatory Limitations: no limitations - History of Present Illness Initial comments: This is a 60-year-old male who presents emergency Department complaining of swelling to his legs last 10 days. Patient also states over the last few weeks she's been extremely tired short of breath. Patient denies any black or bloody stools. Patient denies any vomiting or diarrhea. Patient denies any abdominal pain. Patient denies any chest pain or palpitation. Patient denies any headache patient denies numbness weakness. Patient states a few weeks ago he did pass out one time. Patient currently was feeling okay while lying in bed. - Related Data Home Medications Medication Instructions Recorded Confirmed Omeprazole [PriLOSEC] 20 mg PO DAILY 12/03/15 07/31/18 Insulin Glargine,Hum.rec.anlog 40 units SQ HS 07/06/16 07/31/18 [Toujeo Solostar] Pregabalin [Lyrica] 100 mg PO TID 07/06/16 07/31/18 Atorvastatin [Lipitor] 20 mg PO HS 08/09/16 07/31/18 Fenofibrate Nanocrystallized 145 mg PO HS 10/05/17 07/31/18 [Tricor] sitaGLIPtin [Januvia] 100 mg PO DAILY 10/05/17 07/31/18 Carvedilol [Coreg] 25 mg PO DAILY 07/31/18 07/31/18 Clopidogrel [Plavix] 75 mg PO DAILY 07/31/18 07/31/18 Vortioxetine Hydrobromide 10 mg PO DAILY 07/31/18 07/31/18 [Trintellix] Previous Rx's Medication Instructions Recorded Losartan [Cozaar] 100 mg PO BID #60 tab 08/17/16 hydrALAZINE HCL [Apresoline] 50 mg PO TID #90 tab 08/17/16 Allergies Allergy/AdvReac Type Severity Reaction Status Date / Time No Known Allergies Allergy Verified 03/01/21 19:26 Review of Systems ROS Statement: Those systems with pertinent positive or pertinent negative responses have been documented in the HPI. ROS Other: All systems not noted in ROS Statement are negative. Past Medical History Past Medical History: Diabetes Mellitus, GERD/Reflux, Hyperlipidemia, Hypertension, Renal Disease Additional Past Medical History / Comment(s): bilateral feet neuropathy, decreased kidney function per pt History of Any Multi-Drug Resistant Organisms: None Reported Past Surgical History: Cholecystectomy, Hernia Repair, Orthopedic Surgery Additional Past Surgical History / Comment(s): L arm muscle repair by elbow, L inguinal hernia repair.Carotid Endarterectomy Past Anesthesia/Blood Transfusion Reactions: No Reported Reaction Past Psychological History: Anxiety Smoking Status: Current every day smoker Past Alcohol Use History: None Reported Past Drug Use History: None Reported - Past Family History Father Family Medical History: Coronary Artery Disease (CAD) Additional Family Medical History / Comment(s): Father during CABG Mother Family Medical History: Myocardial Infarction ([place]) Additional Family Medical History / Comment(s): Mother of massive [place] at the age of 81 yrs. General Exam - General Exam Comments Initial Comments: GENERAL: Patient is well-developed and well-nourished. Patient is nontoxic and well- hydrated and is in mild distress. ENT: Neck is soft and supple. No significant lymphadenopathy is noted. Oropharynx is clear. Moist mucous membranes. Neck has full range of motion without eliciting any pain. EYES: The sclera were anicteric and conjunctiva were pink and moist. Extraocular movements were intact and pupils were equal round and reactive to light. Eyelids were unremarkable. PULMONARY: Unlabored respirations. Good breath sounds bilaterally. No audible rales rhonchi or wheezing was noted. CARDIOVASCULAR: There is a regular rate and rhythm without any murmurs gallops or rubs. ABDOMEN: Soft and nontender with normal bowel sounds. SKIN: Skin is clear with no lesions or rashes and otherwise unremarkable. NEUROLOGIC: Patient is alert and oriented x3. Cranial nerves II through XII are grossly intact. Motor and sensory are also intact. Normal speech, volume and content. Symmetrical smile. MUSCULOSKELETAL: Normal extremities with adequate strength and full range of motion. 2+ edema bilaterally left slightly larger than the right LYMPHATICS: No significant lymphadenopathy is noted PSYCHIATRIC: Normal psychiatric evaluation. Limitations: no limitations Course Vital Signs 03/01/21 19:21 Temperature 98.6 F Pulse Rate 88 Respiratory 18 Rate Blood Pressure 180/86 O2 Sat by Pulse 94 L Oximetry Medical Decision Making - Medical Decision Making EKG shows normal sinus rhythm at 82 bpm IA interval 170 QRS is 96 QT interval 356 QTC is 4:15. Patient's EKG shows flipped T waves in II, III, and F aVF and flipped T waves in 1 and aVL which were seen in previous EKG. Patient's troponin is mildly elevated I will repeated and consult cardiology. I spoke with Dr. Desir she agreed to admit the patient admitted the patient I consult Dr. Rivera for the anemia and the investigation of the anemia. Eating orders I repeated CBCs. - Lab Data Result diagrams: 03/01/21 20:02 03/01/21 20:02 Lab Results 03/01/21 03/01/21 03/01/21 Range/Units 20:02 20:02 20:02 WBC 8.0 (3.8-10.6) k/uL RBC 4.40 (4.30-5.90) m/uL Hgb 8.7 L (13.0-17.5) gm/dL Hct 31.5 L (39.0-53.0) % MCV 71.6 L (80.0-100.0) fL MCH 19.8 L (25.0-35.0) pg MCHC 27.7 L (31.0-37.0) g/dL RDW 18.6 H (11.5-15.5) % Plt Count 246 (150-450) k/uL MPV 10.1 Hypochromasia Marked Poikilocytosis Slight Anisocytosis Slight Microcytosis Marked Sodium 142 (137-145) mmol/L Potassium 5.1 (3.5-5.1) mmol/L Chloride 106 (98-107) mmol/L Carbon Dioxide 29 (22-30) mmol/L Anion Gap 7 mmol/L BUN 42 H (9-20) mg/dL Creatinine 2.39 H (0.66-1.25) mg/dL Est GFR (CKD-EPI)AfAm 33 (>60 ml/min/1.73 sqM) Est GFR (CKD-EPI)NonAf 29 (>60 ml/min/1.73 sqM) Glucose 107 H (74-99) mg/dL Plasma Lactic Acid David 0.6 L (0.7-2.0) mmol/L Calcium 8.8 (8.4-10.2) mg/dL Magnesium 2.4 H (1.6-2.3) mg/dL Total Bilirubin 0.4 (0.2-1.3) mg/dL AST 28 (17-59) U/L ALT 16 (4-49) U/L Alkaline Phosphatase 59 (38-126) U/L Total Protein 6.2 L (6.3-8.2) g/dL Albumin 3.7 (3.5-5.0) g/dL Disposition Clinical Impression: Anemia, Bilateral edema of lower extremity, Elevated troponin Disposition: ADMITTED IP TO THIS HOSP Referrals: Marquez Cronin DO [Primary Care Provider] - 1-2 days Time of Disposition: 20:51
[2021-03-01 21:01] LABS: Eosinophils # (M) 0.16 k/uL (0-0.7); Lymphocytes # (M) 1.12 k/uL (1.0-4.8); Metamyelocytes # (M) 0.08 k/uL (0); Metamyelocytes % 1 %; Monocytes # (M) 0.72 k/uL (0-1.0); Myelocytes # (M) 0.08 k/uL (0); Myelocytes % 1 %; Neutrophils % (M) 75 %; Nucleated Red Blood Cells 0 /100 WBC (0-0); Total Cells Counted 200
[2021-03-01 21:02] LABS: Large Platelets Present; Poikilocytosis (M) Present; Polychromasia Present
--- NOTE | 2021-03-01 21:16 | US ---
EXAMINATION TYPE: US venous doppler duplex LE LT DATE OF EXAM: 03/01/2021 9:07 PM COMPARISON: NONE CLINICAL HISTORY: Swollen leg. Swelling. No hx of DVT. Patient takes aspirin. SIDE PERFORMED: Left TECHNIQUE: The lower extremity deep venous system is examined utilizing real time linear array sonog tomas with graded compression, doppler sonography and color-flow sonography. VESSELS IMAGED: Common Femoral Vein Deep Femoral Vein Greater Saphenous Vein * Femoral Vein Popliteal Vein Small Saphenous Vein * Proximal Calf Veins (* superficial vessels) Left Leg: No evidence of DVT in veins imaged at this time. Duplicate popliteal vein noted. IMPRESSION: No sign of deep vein thrombosis in the left leg.
[2021-03-01 22:31] LABS: Anisocytosis Slight; HCT 31.2 % (39.0-53.0); HGB 8.6 gm/dL (13.0-17.5); Hypochromasia Marked; MCH 19.6 pg (25.0-35.0); MCHC 27.4 g/dL (31.0-37.0); MCV 71.4 fL (80.0-100.0); Mean Platelet Volume 8.9; Microcytosis Marked; Platelet Count 219 k/uL (150-450); Poikilocytosis Slight; RBC 4.37 m/uL (4.30-5.90); RDW 18.4 % (11.5-15.5); WBC 8.6 k/uL (3.8-10.6)
[2021-03-01 23:35] LABS: Eosinophils # (M) 0.43 k/uL (0-0.7); Lymphocytes # (M) 1.89 k/uL (1.0-4.8); Monocytes # (M) 0.52 k/uL (0-1.0); Neutrophils # (M) 5.76 k/uL (1.3-7.7); Neutrophils % (M) 67 %; Nucleated Red Blood Cells 0 /100 WBC (0-0); Total Cells Counted 100
[2021-03-02] MEDS ORDERED: DEXTROSE 50% SYRINGE 50 ML IVP STA (02:44)
[2021-03-02 02:45] LABS: Glucose,Whole Blood 42 mg/dL (75-99)
[2021-03-02] MEDS: DEXTROSE 5%-0.45% NACL 1,000 ML IV SCH ×2 (02:57→14:50)
[2021-03-02 03:25] LABS: Glucose,Whole Blood 108 mg/dL (75-99)
[2021-03-02 05:01] LABS: Glucose,Whole Blood 72 mg/dL (75-99)
[2021-03-02] MEDS ORDERED: HEPARIN SODIUM 1,000 UN/ML (10ML VL) IV ONE (08:24)
[2021-03-02] MEDS ORDERED: HEPARIN SODIUM 1,000 UN/ML (10ML VL) IV PRN (08:24)
[2021-03-02 08:30] LABS: Glucose,Whole Blood 59 mg/dL (75-99)
[2021-03-02] MEDS ORDERED: CLOPIDOGREL 75 MG TAB PO SCH (09:00)
[2021-03-02] MEDS: HEPARIN SOD,PORK IN 0.45% NACL 25,000 UNIT in 0.45% NACL 1 250ML.BAG IV SCH (09:34)
[2021-03-02 09:47] LABS: Calcium 9.1 mg/dL (8.4-10.2)
[2021-03-02 09:49] LABS: INR 1.1 (<1.2); Partial Thromboplastin Time 24.2 sec (22.0-30.0); Prothrombin Time 11.9 sec (9.0-12.0)
[2021-03-02] MEDS: FUROSEMIDE 10 MG/ML 4 ML VIAL IV SCH ×3 (09:54→20:11)
[2021-03-02] MEDS: FENOFIBRATE 160 MG TAB PO SCH (09:54)
[2021-03-02] MEDS: ATORVASTATIN 20 MG TAB PO SCH (09:54)
[2021-03-02] MEDS: hydrALAZINE HCL 50 MG TAB PO SCH ×3 (09:55→20:11)
[2021-03-02] MEDS: carvediloL 12.5 MG TAB PO SCH (09:55)
[2021-03-02] MEDS: LOSARTAN 50 MG TAB PO SCH (09:55)
[2021-03-02 09:59] LABS: Anisocytosis Slight; Basophils % (A) 1 %; Eosinophils # (A) 0.2 k/uL (0-0.7); Eosinophils % (A) 3 %; HCT 32.5 % (39.0-53.0); HGB 9.2 gm/dL (13.0-17.5); Hypochromasia Marked; Lymphocytes # (A) 1.1 k/uL (1.0-4.8); Lymphocytes % (A) 15 %; MCH 20.4 pg (25.0-35.0); MCHC 28.2 g/dL (31.0-37.0); MCV 72.2 fL (80.0-100.0); Mean Platelet Volume 10.5; Microcytosis Marked; Monocytes # (A) 0.3 k/uL (0-1.0); Monocytes % (A) 5 %; Neutrophils # (A) 5.4 k/uL (1.3-7.7); Neutrophils % (A) 73 %; Platelet Count 237 k/uL (150-450); Poikilocytosis Slight; RDW 18.8 % (11.5-15.5); WBC 7.3 k/uL (3.8-10.6)
--- NOTE | 2021-03-02 11:45 | ECHOF ---
Referral Reason: MEASUREMENTS -------- HEIGHT: 177.8 cm WEIGHT: 86.2 kg BP: 198/99 IVSd: 1.7 cm (0.6 - 1.1) LVIDd: 4.4 cm (3.9 - 5.3) LVPWd: 1.6 cm (0.6 - 1.1) EDV(Teich): 88 ml IVSs: 1.9 cm LVIDs: 3.1 cm LVPWs: 2.0 cm %IVS Thck: 9 % ESV(Teich): 38 ml EF(Teich): 57 % %FS: 30 % SV(Teich): 50 ml RVIDd: 3.9 cm (< 3.3) LALs A4C: 5.7 cm LAAs A4C: 22.4 cm LAESV A-L A4C: 74 ml LAESV MOD A4C: 68 ml LALs A2C: 6.3 cm LAAs A2C: 19.8 cm LAESV A-L A2C: 53 ml LAESV MOD A2C: 52 ml LAESV(A-L): 66 ml LAESV Index (A-L): 32.16 ml/m Ao Diam: 2.6 cm (2.0 - 3.7) AV Cusp: 1.1 cm (1.5 - 2.6) MV E Cm: 1.38 m/s MV DecT: 129 ms MV Dec Estill: 10.7 m/s MV A Cm: 0.97 m/s MV E/A Ratio: 1.43 MV PHT: 38 ms LVOT Vmax: 0.93 m/s LVOT maxP.45 mmHg AV Vmax: 2.81 m/s AV maxP.65 mmHg AV Vmax: 2.97 m/s AV Vmean: 2.24 m/s AV maxP.30 mmHg AV meanP.91 mmHg AV Env.Ti: 287 ms AV VTI: 64.1 cm TR Vmax: 3.13 m/s TR maxP.10 mmHg RAP: 5.00 mmHg RVSP: 44.10 mmHg FINDINGS -------- Sinus rhythm. This was a technically difficult study with suboptimal parasternal views. The left ventricular size is normal. There is severe concentric left ventricular hypertrophy. Ove rall left ventricular systolic function is normal with, an EF between 55 - 60 %. The right ventricle is mild to moderately enlarged. LA is midly dilated 29-33ml/m2. The right atrium was not well visualized. 3.0mg of Lumason was utilized for enhancement of images Interatrial and interventricular septum intact. There is mild aortic regurgitation. There is moderate aortic stenosis present. The maximum veloci ty across the aortic valve is 2.97m/s. Peak/mean gradient across the Aortic Valve is 35.30mmHg / 21 .91mmHg. Mild mitral regurgitation is present. [id number] tricuspid regurgitation present. There is mild to moderate pulmonary hypertension. The right ventricular systolic pressure, as measured by Doppler, is 44.10mmHg. There is no pulmonic regurgitation present. The aortic root size is normal. IVC Not well visulized. There is no pericardial effusion. CONCLUSIONS -------- 1. The left ventricular size is normal. 2. There is severe concentric left ventricular hypertrophy. 3. Overall left ventricular systolic function is normal with, an EF between 55 - 60 %. 4. The right ventricle is mild to moderately enlarged. 5. LA is midly dilated 29-33ml/m2. 6. There is mild aortic regurgitation. 7. There is moderate aortic stenosis present. 8. The maximum velocity across the aortic valve is 2.97m/s. 9. Peak/mean gradient across the Aortic Valve is 35.30mmHg / 21.91mmHg. 10. Mild mitral regurgitation is present. 11. [id number] tricuspid regurgitation present. 12. There is mild to moderate pulmonary hypertension. 13. The right ventricular systolic pressure, as measured by Doppler, is 44.10mmHg. PSYCHOLOGY INTERN: Sandy Allen RDCS
--- NOTE | 2021-03-02 11:46 | P.CRDCN ---
History of Present Illness Consult date: 03/02/21 History of present illness: HISTORY OF PRESENT ILLNESS: This is a 60-year-old male with a past medical history significant for hypertension, aortic stenosis, hyperlipidemia, and diabetes. Patient used to follow in the office with Dr. Ayon but has not been seen in the office since 2017. We have been asked to see the patient in consultation for elevated troponin. Patient examined at the bedside. Patient states he has noticed shortness of breath and lower extremity edema for the past 10 days. 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 He states his post commander ordered some blood work and then he went to the ER for further evaluation. The patient also reports a presyncopal e pisode about two weeks ago. He did not lose consciousness at that time. The patient currently denies chest pain or pressure. He reports mild shortness of breath. Patient was found to be in congestive heart failure upon presentation to the emergency room. Patient's blood pressure is also elevated this morning with a systolic ranging between 180 and 190. EKG reveals sinus mechanism with T-wave inversions in inferior and lateral leads, new from previous EKG Chest xray mild increased pulmonary interstitial density compared to old exam. This could be minimal interstitial pneumonia. Laboratory data: WBC 7.3. Hemoglobin 9.2. Platelet count 237. Sodium 141. Potassium 5.0. BUN 38. Creatinine 2.32. Troponin 0.058. 0.067. 0.039. Current home cardiac medications include hydralazine 50 mg 3 times a day, fenofibrate 145 mg daily, atorvastatin 20 mg daily, aspirin 325 mg daily, losartan 100 mg twice a day, carvedilol 25 mg daily, Plavix any 5 mg daily Patient underwent Lexiscan stress test in June 2016 which was negative for stress-induced ischemia Echocardiogram performed in 2017 revealed ejection fraction 60%, possible bicuspid aortic valve, trace aortic regurgitation, mild aortic stenosis, mild mitral regurgitation, and mild tricuspid regurgitation REVIEW OF SYSTEMS: At the time of my exam: CONSTITUTIONAL: Denies fever or chills. HEENT: Denies blurred vision, vision changes, or eye pain. Denies hemoptysis CARDIOVASCULAR: Denies chest pain. Denies orthopnea. Denies PND. Denies palpitations RESPIRATORY: + shortness of breath. GASTROINTESTINAL: Denies abdominal pain. Denies nausea or vomiting. HEMATOLOGIC: Denies bleeding disorders. GENITOURINARY: Denies any blood in urine. SKIN: Denies pruitis. Denies rash. PHYSICAL EXAM: VITAL SIGNS: Reviewed. GENERAL: Well-developed in no acute distress. HEENT: Head is normocephalic. Pupils are equal, round. Sclerae anicteric. Mucous membranes of the mouth are moist. Neck supple. No JVD or thyromegaly LUNGS: Respirations even and unlabored. Lungs diminished with bibasilar rales HEART: Regular rate and rhythm. S1 and S2 heard. Harsh systolic murmur. ABDOMEN: Soft. Nondistended. Nontender. EXTREMITIES: Normal range of motion. No clubbing or cyanosis. Peripheral pulses intact. 2+ bilateral lower extremity edema NEUROLOGIC: Awake and alert. Oriented x 3. ASSESSMENT: Acute congestive heart failure, type unknown, echo pending Hypertensive urgency Acute on chronic kidney disease Abnormal troponins, may be secondary to CKD, cannot rule out underlying coronary artery disease Aortic stenosis Carotid stenosis, status post bilateral carotid enterectomy Hyperlipidemia Diabetes PLAN: Obtain 2-D echo to assess cardiac structure and function Continue IV heparin Begin Lasix 40 mg IV every 8 hours Monitor kidney function Daily weights Accurate I&O Resume home cardiac medications Decrease losartan to 100 mg daily as maximum daily dose is 100 mg Monitor blood pressure Add aspirin 81 mg daily Further recommendations pending patient's course Nurse practitioner note has been reviewed by physician. Signing provider agrees with the documented findings, assessment, and plan of care. Past Medical History Past Medical History: Diabetes Mellitus, GERD/Reflux, Hyperlipidemia, Hypertension, Renal Disease Additional Past Medical History / Comment(s): bilateral feet neuropathy, decreased kidney function per pt History of Any Multi-Drug Resistant Organisms: None Reported Past Surgical History: Cholecystectomy, Hernia Repair, Orthopedic Surgery Additional Past Surgical History / Comment(s): L arm muscle repair by elbow, L inguinal hernia repair.Carotid Endarterectomy Past Anesthesia/Blood Transfusion Reactions: No Reported Reaction Past Psychological History: Anxiety Smoking Status: Current every day smoker Past Alcohol Use History: None Reported Past Drug Use History: None Reported - Past Family History Father Family Medical History: Coronary Artery Disease (CAD) Additional Family Medical History / Comment(s): Father during CABG Mother Family Medical History: Myocardial Infarction ([place]) Additional Family Medical History / Comment(s): Mother of massive [place] at the age of 81 yrs. Medications and Allergies Home Medications Medication Instructions Recorded Confirmed Type Omeprazole [PriLOSEC] 20 mg PO DAILY 12/03/15 03/01/21 History Insulin Glargine,Hum.rec.anlog 40 units SQ DAILY 07/06/16 03/01/21 History [Toucyruso Solostar] Pregabalin [Lyrica] 100 mg PO TID 07/06/16 03/01/21 History Atorvastatin [Lipitor] 20 mg PO DAILY 08/09/16 03/01/21 History Losartan [Cozaar] 100 mg PO BID #60 tab 08/17/16 03/01/21 Rx Fenofibrate Nanocrystallized 145 mg PO DAILY 10/05/17 03/01/21 History [Tricor] Carvedilol [Coreg] 25 mg PO DAILY 07/31/18 03/01/21 History Clopidogrel [Plavix] 75 mg PO DAILY 07/31/18 03/01/21 History Vortioxetine Hydrobromide 10 mg PO DAILY 07/31/18 03/01/21 History [Trintellix] Aspirin EC [Ecotrin] 325 mg PO DAILY 03/01/21 03/01/21 History Cholecalciferol (Vitamin D3) 125 mcg PO DAILY 03/01/21 03/01/21 History [Vitamin D3 (125 MCG = 5,000 IU)] Cyanocobalamin [Vitamin B-12] 500 mcg PO DAILY 03/01/21 03/01/21 History Multivitamins, Thera [Multivitamin 1 tab PO DAILY 03/01/21 03/01/21 History (formulary)] Zinc Gluconate [Zinc] 50 mg PO DAILY 03/01/21 03/01/21 History Empagliflozin [Jardiance] 10 mg PO DAILY 03/02/21 03/02/21 History hydrALAZINE HCL [Apresoline] 50 mg PO TID PRN 03/02/21 03/02/21 History Allergies Allergy/AdvReac Type Severity Reaction Status Date / Time No Known Allergies Allergy Verified 03/01/21 22:03 Physical Exam Vitals: Vital Signs Temp Pulse Resp BP Pulse Ox 03/02/21 02:19 73 17 198/99 100 03/01/21 19:21 98.6 F 88 18 180/86 94 L Intake and Output 03/01/21 03/02/21 03/02/21 22:59 06:59 14:59 Other: Weight 86.183 kg Results 03/02/21 09:11 03/02/21 09:11 Cardiac Enzymes 03/01/21 03/01/21 03/01/21 Range/Units 20:02 20:02 21:46 AST 28 (17-59) U/L Troponin I 0.058 H* 0.067 H* (0.000-0.034) ng/mL CBC 03/01/21 03/01/21 Range/Units 20:02 21:46 WBC 8.0 8.6 (3.8-10.6) k/uL RBC 4.40 4.37 (4.30-5.90) m/uL Hgb 8.7 L 8.6 L (13.0-17.5) gm/dL Hct 31.5 L 31.2 L (39.0-53.0) % Plt Count 246 219 (150-450) k/uL Comprehensive Metabolic Panel 03/01/21 Range/Units 20:02 Sodium 142 (137-145) mmol/L Potassium 5.1 (3.5-5.1) mmol/L Chloride 106 (98-107) mmol/L Carbon Dioxide 29 (22-30) mmol/L BUN 42 H (9-20) mg/dL Creatinine 2.39 H (0.66-1.25) mg/dL Glucose 107 H (74-99) mg/dL Calcium 8.8 (8.4-10.2) mg/dL AST 28 (17-59) U/L ALT 16 (4-49) U/L Alkaline Phosphatase 59 (38-126) U/L Total Protein 6.2 L (6.3-8.2) g/dL Albumin 3.7 (3.5-5.0) g/dL Current Medications Generic Name Dose Route Start Last Admin Trade Name Freq PRN Reason Stop Dose Admin Sodium Chloride 1,000 mls @ 75 mls/hr 03/01/21 20:52 03/02/21 01:24 Saline 0.9% IV 03/02/21 10:11 75 mls/hr .[id number] ONE Administration Dextrose/Sodium Chloride 1,000 mls @ 83 mls/hr 03/02/21 02:45 03/02/21 02:57 Dextrose 5%-1/2ns Iv Soln IV 83 mls/hr .[id number] ZAIN Administration Intake and Output 03/01/21 03/02/21 03/02/21 22:59 06:59 14:59 Other: Weight 86.183 kg 03/01/21 21:46 03/01/21 20:02
--- NOTE | 2021-03-02 15:05 | P.GSCN ---
History of Present Illness Consult date: 03/02/21 History of present illness: CHIEF COMPLAINT: Shortness of breath, leg swelling and fatigue HISTORY OF PRESENT ILLNESS: This is a 60-year-old male who presented to the [facility] with complaints of bilateral leg swelling, shortness of breath and fatigue for the last 10 days. Patient was found to be in congestive heart failure exacerbation. Cardiology did place patient on IV Lasix. They've also placed him on IV heparin drip. Patient did have mildly abnormal troponins. Patient was also found to be anemic. Hemoglobin 8.7 on admission. December 2019 patient's hemoglobin was around 12.7. Patient has never had EGD or colonoscopy. He reports no signs or symptoms of bleeding. He denies any abdominal pain. Surgical service was consult blood in regards to patient's anemia. He also has a known history of chronic kidney disease. He is on Plavix at home. Plavix has currently been placed on hold. PAST MEDICAL HISTORY: Diabetes Mellitus, GERD/Reflux, Hyperlipidemia, Hypertension, chronic kidney disease, bilateral feet neuropathy PAST SURGICAL HISTORY: Cholecystectomy, left inguinal hernia repair, carotid endarterectomy bilaterally MEDICATIONS: See list. ALLERGIES: See list. SOCIAL HISTORY: No illicit drug use. REVIEW OF SYSTEMS: CONSTITUTIONAL: Denies fever or chills. HEENT: Denies blurred vision, vision changes, or eye pain. Denies hemoptysis CARDIOVASCULAR: Denies chest pain or pressure. RESPIRATORY: No shortness of breath. GASTROINTESTINAL: See HPI for pertinent findings HEMATOLOGIC: Denies bleeding disorders. GENITOURINARY: Denies any blood in urine or increased urinary frequency. SKIN: Denies pruitis. Denies rash. PHYSICAL EXAM: VITAL SIGNS: Reviewed GENERAL: Well-developed in no acute distress. HEENT: No sclera icterus. Extraocular movements grossly intact. Moist buccal mucosa. Head is atraumatic, normocephalic. No nasal drainage. ABDOMEN: Soft. Nondistended. Nontender. NEUROLOGIC: Alert and oriented. Cranial nerves II through XII grossly intact. LABORATORY DATA: WBC 8.6 Hgb 8.6 up to 9.2 platelets 237 Sodium 141 potassium 5.0 BUN 38 creatinine 2.3 to glucose 103 lactic acid 0.6 magnesium 2.4 LFTs normal. Troponin 0.058, 0.0 67, 0.039 BNP elevated IMAGING: Venous Doppler negative for DVT Echo shows EF of 55-60% moderate aortic stenosis, mild to moderate pulmonary hypertension, mild to moderate tricuspid regurgitation and mild mitral regurgitation ASSESSMENT: 1. Anemia with no active bleeding 2. Acute diastolic CHF exacerbation 3. Acute on Chronic kidney disease 4. Diabetes 5. Minimally elevated troponins evaluated by cardiology service and felt likely due to renal PLAN: -Hold Plavix -CHF management per cardiology service -We'll plan for EGD and colonoscopy for further evaluation of anemia on , 03/04/[address] Rivera if cleared by cardiology -Start heart healthy, carb consistent diet Thank you for this consultation Physician Ll[employer] Farmer note has been reviewed by physician. Signing provider agrees with the documented findings, assessment, and plan of care. Past Medical History Past Medical History: Diabetes Mellitus, GERD/Reflux, Hyperlipidemia, Hypertension, Renal Disease Additional Past Medical History / Comment(s): bilateral feet neuropathy, decreased kidney function per pt History of Any Multi-Drug Resistant Organisms: None Reported Past Surgical History: Cholecystectomy, Hernia Repair, Orthopedic Surgery Additional Past Surgical History / Comment(s): L arm muscle repair by elbow, L inguinal hernia repair.Carotid Endarterectomy Past Anesthesia/Blood Transfusion Reactions: No Reported Reaction Past Psychological History: Anxiety Smoking Status: Current every day smoker Past Alcohol Use History: None Reported Past Drug Use History: None Reported - Past Family History Father Family Medical History: Coronary Artery Disease (CAD) Additional Family Medical History / Comment(s): Father during CABG Mother Family Medical History: Myocardial Infarction ([place]) Additional Family Medical History / Comment(s): Mother of massive [place] at the age of 81 yrs. Medications and Allergies Home Medications Medication Instructions Recorded Confirmed Type Omeprazole [PriLOSEC] 20 mg PO DAILY 12/03/15 03/01/21 History Insulin Glargine,Hum.rec.anlog 40 units SQ DAILY 07/06/16 03/01/21 History [Toujeo Solostar] Pregabalin [Lyrica] 100 mg PO TID 07/06/16 03/01/21 History Atorvastatin [Lipitor] 20 mg PO DAILY 08/09/16 03/01/21 History Losartan [Cozaar] 100 mg PO BID #60 tab 08/17/16 03/01/21 Rx Fenofibrate Nanocrystallized 145 mg PO DAILY 10/05/17 03/01/21 History [Tricor] Carvedilol [Coreg] 25 mg PO DAILY 07/31/18 03/01/21 History Clopidogrel [Plavix] 75 mg PO DAILY 07/31/18 03/01/21 History Vortioxetine Hydrobromide 10 mg PO DAILY 07/31/18 03/01/21 History [Trintellix] Aspirin EC [Ecotrin] 325 mg PO DAILY 03/01/21 03/01/21 History Cholecalciferol (Vitamin D3) 125 mcg PO DAILY 03/01/21 03/01/21 History [Vitamin D3 (125 MCG = 5,000 IU)] Cyanocobalamin [Vitamin B-12] 500 mcg PO DAILY 03/01/21 03/01/21 History Multivitamins, Thera [Multivitamin 1 tab PO DAILY 03/01/21 03/01/21 History (formulary)] Zinc Gluconate [Zinc] 50 mg PO DAILY 03/01/21 03/01/21 History Empagliflozin [Jardiance] 10 mg PO DAILY 03/02/21 03/02/21 History hydrALAZINE HCL [Apresoline] 50 mg PO TID PRN 03/02/21 03/02/21 History Allergies Allergy/AdvReac Type Severity Reaction Status Date / Time No Known Allergies Allergy Verified 03/01/21 22:03 Surgical - Exam Vital Signs Temp Pulse Resp BP Pulse Ox 98.6 F 88 18 180/86 94 L 03/01/21 19:21 03/01/21 19:21 03/01/21 19:21 03/01/21 19:21 03/01/21 19:21 Results - Labs 03/02/21 09:11 03/02/21 09:11 Abnormal Lab Results - Last 24 Hours (Table) 03/01/21 03/01/21 03/01/21 Range/Units 20:02 20:02 20:02 Hgb 8.7 L (13.0-17.5) gm/dL Hct 31.5 L (39.0-53.0) % MCV 71.6 L (80.0-100.0) fL MCH 19.8 L (25.0-35.0) pg MCHC 27.7 L (31.0-37.0) g/dL RDW 18.6 H (11.5-15.5) % Metamyelocytes # (Man) 0.08 H (0) k/uL Myelocytes # (Manual) 0.08 H (0) k/uL Carbon Dioxide (22-30) mmol/L BUN 42 H (9-20) mg/dL Creatinine 2.39 H (0.66-1.25) mg/dL Glucose 107 H (74-99) mg/dL POC Glucose (mg/dL) (75-99) mg/dL Plasma Lactic Acid David 0.6 L (0.7-2.0) mmol/L Magnesium 2.4 H (1.6-2.3) mg/dL Troponin I (0.000-0.034) ng/mL Total Protein 6.2 L (6.3-8.2) g/dL 03/01/21 03/01/21 03/01/21 Range/Units 20:02 21:46 21:46 Hgb 8.6 L (13.0-17.5) gm/dL Hct 31.2 L (39.0-53.0) % MCV 71.4 L (80.0-100.0) fL MCH 19.6 L (25.0-35.0) pg MCHC 27.4 L (31.0-37.0) g/dL RDW 18.4 H (11.5-15.5) % Metamyelocytes # (Man) (0) k/uL Myelocytes # (Manual) (0) k/uL Carbon Dioxide (22-30) mmol/L BUN (9-20) mg/dL Creatinine (0.66-1.25) mg/dL Glucose (74-99) mg/dL POC Glucose (mg/dL) (75-99) mg/dL Plasma Lactic Acid David (0.7-2.0) mmol/L Magnesium (1.6-2.3) mg/dL Troponin I 0.058 H* 0.067 H* (0.000-0.034) ng/mL Total Protein (6.3-8.2) g/dL 03/02/21 03/02/21 03/02/21 Range/Units 02:43 03:24 04:58 Hgb (13.0-17.5) gm/dL Hct (39.0-53.0) % MCV (80.0-100.0) fL MCH (25.0-35.0) pg MCHC (31.0-37.0) g/dL RDW (11.5-15.5) % Metamyelocytes # (Man) (0) k/uL Myelocytes # (Manual) (0) k/uL Carbon Dioxide (22-30) mmol/L BUN (9-20) mg/dL Creatinine (0.66-1.25) mg/dL Glucose (74-99) mg/dL POC Glucose (mg/dL) 42 L 108 H 72 L (75-99) mg/dL Plasma Lactic Acid David (0.7-2.0) mmol/L Magnesium (1.6-2.3) mg/dL Troponin I (0.000-0.034) ng/mL Total Protein (6.3-8.2) g/dL 03/02/21 03/02/21 03/02/21 Range/Units 08:27 09:11 09:11 Hgb (13.0-17.5) gm/dL Hct (39.0-53.0) % MCV (80.0-100.0) fL MCH (25.0-35.0) pg MCHC (31.0-37.0) g/dL RDW (11.5-15.5) % Metamyelocytes # (Man) (0) k/uL Myelocytes # (Manual) (0) k/uL Carbon Dioxide 33 H (22-30) mmol/L BUN 38 H (9-20) mg/dL Creatinine 2.32 H (0.66-1.25) mg/dL Glucose 103 H (74-99) mg/dL POC Glucose (mg/dL) 59 L (75-99) mg/dL Plasma Lactic Acid David (0.7-2.0) mmol/L Magnesium (1.6-2.3) mg/dL Troponin I 0.039 H* (0.000-0.034) ng/mL Total Protein (6.3-8.2) g/dL 03/02/21 Range/Units 09:11 Hgb 9.2 L (13.0-17.5) gm/dL Hct 32.5 L (39.0-53.0) % MCV 72.2 L (80.0-100.0) fL MCH 20.4 L (25.0-35.0) pg MCHC 28.2 L (31.0-37.0) g/dL RDW 18.8 H (11.5-15.5) % Metamyelocytes # (Man) (0) k/uL Myelocytes # (Manual) (0) k/uL Carbon Dioxide (22-30) mmol/L BUN (9-20) mg/dL Creatinine (0.66-1.25) mg/dL Glucose (74-99) mg/dL POC Glucose (mg/dL) (75-99) mg/dL Plasma Lactic Acid David (0.7-2.0) mmol/L Magnesium (1.6-2.3) mg/dL Troponin I (0.000-0.034) ng/mL Total Protein (6.3-8.2) g/dL Diabetes panel 03/01/21 03/02/21 Range/Units 20:02 09:11 Sodium 142 141 (137-145) mmol/L Potassium 5.1 5.0 (3.5-5.1) mmol/L Chloride 106 102 (98-107) mmol/L Carbon Dioxide 29 33 H (22-30) mmol/L BUN 42 H 38 H (9-20) mg/dL Creatinine 2.39 H 2.32 H (0.66-1.25) mg/dL Glucose 107 H 103 H (74-99) mg/dL Calcium 8.8 9.1 (8.4-10.2) mg/dL AST 28 (17-59) U/L ALT 16 (4-49) U/L Alkaline Phosphatase 59 (38-126) U/L Total Protein 6.2 L (6.3-8.2) g/dL Albumin 3.7 (3.5-5.0) g/dL Calcium panel 03/01/21 03/02/21 Range/Units 20:02 09:11 Calcium 8.8 9.1 (8.4-10.2) mg/dL Albumin 3.7 (3.5-5.0) g/dL Pituitary panel 03/01/21 03/02/21 Range/Units 20:02 09:11 Sodium 142 141 (137-145) mmol/L Potassium 5.1 5.0 (3.5-5.1) mmol/L Chloride 106 102 (98-107) mmol/L Carbon Dioxide 29 33 H (22-30) mmol/L BUN 42 H 38 H (9-20) mg/dL Creatinine 2.39 H 2.32 H (0.66-1.25) mg/dL Glucose 107 H 103 H (74-99) mg/dL Calcium 8.8 9.1 (8.4-10.2) mg/dL Adrenal panel 03/01/21 03/02/21 Range/Units 20:02 09:11 Sodium 142 141 (137-145) mmol/L Potassium 5.1 5.0 (3.5-5.1) mmol/L Chloride 106 102 (98-107) mmol/L Carbon Dioxide 29 33 H (22-30) mmol/L BUN 42 H 38 H (9-20) mg/dL Creatinine 2.39 H 2.32 H (0.66-1.25) mg/dL Glucose 107 H 103 H (74-99) mg/dL Calcium 8.8 9.1 (8.4-10.2) mg/dL Total Bilirubin 0.4 (0.2-1.3) mg/dL AST 28 (17-59) U/L ALT 16 (4-49) U/L Alkaline Phosphatase 59 (38-126) U/L Total Protein 6.2 L (6.3-8.2) g/dL Albumin 3.7 (3.5-5.0) g/dL
--- NOTE | 2021-03-02 16:12 | P.HPIM ---
History of Present Illness H&P Date: 03/02/21 60 years old male patient of Dr. Cronin with past medical history of chronic kidney disease, type 2 diabetes, carotid stenosis status post carotid endarterectomy, GERD, hyperlipidemia, hypertension comes in with the bilateral lower extremity swelling for the past 1 week associated with shortness of breath. Patient denies any chest pain but does endorse palpitation on and off for the past few days. Patient denies any change in bowel habits nausea or vomiting. He denies any hematuria or melena. Labs are reviewed patient was noted to have a hemoglobin of 9.2 hematocrit 72 WBC 7.3 INR 1.1 CO2 33 BUN 38 creatinine 2.3 which is close to patient's baseline troponin 2 was positive. ProBNP 44 2-0 chromic was negative. Vitals are reviewed patient's afebrile pulse 90 respiratory rate 18 blood pressure 163/80 oxygen saturation 96% on room air Cardiology consult was placed. Patient initiated on Lasix 40 IV twice a day. Iron studies were ordered to rule out anemia of chronic disease. Continue patient on heparin drip until evaluated by cardiology. Venous Doppler was ordered. Echocardiogram was ordered. ROS Constitutional: Denies chills, Denies fever, Denies lethargy, Denies malaise, Denies poor appetite, Denies weakness, Denies weight loss Eyes: denies decreased vision, denies diplopia, denies discharge, denies pain Ears: deny: decreased hearing Ears, nose, mouth and throat: Denies dental pain, Denies headache, Denies nasal discharge, Denies nose pain Cardiovascular: Denies chest pain, endorses decreased exercise tolerance, endorses edema, endorses high blood pressure, Denies irregular heart beat, endorses palpitations, Denies paroxysmal nocturnal dyspnea, Denies rapid heart beat, Denies shortness of breath Respiratory: Denies congestion, Denies cough, Denies cough with sputum, Denies dyspnea, Denies home oxygen, Denies wheezing Gastrointestinal: Denies abdominal pain, Denies change in bowel habits, Denies coffee ground emesis, Denies early satiety, Denies excessive gas, Denies heartburn, Denies hematemesis, Denies hematochezia, Denies loss of appetite, Denies nausea, Denies vomiting Genitourinary: Denies dysuria, Denies flank pain, Denies kidney stones, Denies menorrhagia, Denies urgency, Denies urinary frequency Musculoskeletal: Denies gait dysfunction, Denies limitation of motion, Denies morning stiffness, Denies muscle cramps Integumentary: Denies rash, Denies wounds, Denies brittle nails, Denies change in hair/nails, Denies darkening of skin Neurological: Denies balance difficulties, Denies change in speech, Denies double vision, Denies gait dysfunction, Denies loss of vision, Denies motor disturbance, Denies numbness, Denies paralysis, Denies paresthesias, Denies seizures Psychiatric: Denies anxiety, Denies depression Endocrine: Denies excessive sweating, Denies excessive thirst, Denies high blood sugars, Denies palpitations Hematologic/Lymphatic: Denies easy bruising, Denies lymphadenopathy Social history Smokes half pack a day since patient was 20 years old Nonalcoholic No marijuana use and no illicit drug use Doesn't use oxygen at home No use of cane or walker Family history Father at 69 from coronary artery disease while he is getting coronary I artery bypass grafting Mother at 80 from congestive heart failure Brother at 55 from sarcoidosis complications Sr. at 60 from heart attack and stroke Brother in a motor weakness accident has history of coronary artery bypass 3 sisters living with no significant medical problems Patient is has 2 children with no medical problems Physical exam - Constitutional General appearance: cooperative, no acute distress, obese - EENT Eyes: anicteric sclerae, PERRLA, normal appearance ENT: hearing grossly normal - Neck Neck: no lymphadenopathy, normal ROM, no other, no rigidity, no stridor, no thyromegaly - Respiratory Respiratory: bilateral: CTA, negative: diminished, dullness, rales, rhonchi - Cardiovascular Rhythm: regular Heart sounds: normal: S1, S2 Abnormal Heart Sounds: 4/6 systolic murmur, no diastolic murmur, no rub, no S3 Gallop, no S4 Gallop, no click, bilateral lower extremity swelling 2+ - Gastrointestinal General gastrointestinal: normal bowel sounds, soft nontender - Integumentary Integumentary: no rash - Neurologic Neurologic: no gross motor or sensory deficits - Musculoskeletal Musculoskeletal: gait normal, strength equal bilaterally - Psychiatric Psychiatric: A&O x's 3, appropriate affect Assessment and plan acute diastolic congestive heart failure Lasix 40 IV 4 times a day Continue carvedilol 25 mg by mouth daily IV and O monitoring Daily weights Cardiology consult Echocardiogram ordered Carotid stenosis bilateral status post carotid endarterectomy Follows Dr. Jha outpatient Continue daily aspirin Continue Plavix Troponin elevation likely secondary to chronic kidney disease Rule out ACS Troponin 2 elevated EKG suggestive of possible V5 and V6 ST depressions Currently on heparin drip Asymptomatic Cardiology evaluation pending Chronic kidney disease stage IV Appears as baseline Nephrology consulted Anemia rule out acute blood loss likely secondary to anemia of chronic disease Iron studies ordered Nephrology consulted - Fecal occult ordered Surgery consulted for possible EGD and colonoscopy Hypertension Losartan reduced to 100 mg daily Hydralazine 50 3 times a day Hyperlipidemia continue Lipitor 20 mg daily Fenofibrate 160 by mouth daily Type 2 diabetes Continue Lantus 40 subcu daily Continue insulin sliding scale Follows Dr. Harper Diabetic diet Hold jardiance Diabetic neuropathy Continue Lyrica 100 mg 3 times a day Depression On trintellix 10 mg daily DVT prophylaxis Lovenox 40 subcu daily GI prophylaxis omeprazole 20 mg by mouth daily Disposition patient to stay in the hospital for at least 1-2 inpatient nights Past Medical History Past Medical History: Diabetes Mellitus, GERD/Reflux, Hyperlipidemia, Hypertension, Renal Disease, Syncope, Vascular Disorder Additional Past Medical History / Comment(s): IDDM type II, neuropathy bilateral feet, CKD, murmur, chronic low back pain/lumbar spinal stenosis, vertigo, falls, covid infection June 2020 History of Any Multi-Drug Resistant Organisms: None Reported Past Surgical History: Cholecystectomy, Hernia Repair, Orthopedic Surgery Additional Past Surgical History / Comment(s): L arm muscle repair by elbow, low back surgery/verteflex, L inguinal hernia repair, bilaterall carotid endarterectomies Past Anesthesia/Blood Transfusion Reactions: No Reported Reaction Smoking Status: Current every day smoker - Past Family History Father Family Medical History: Coronary Artery Disease (CAD) Additional Family Medical History / Comment(s): Father during CABG Mother Family Medical History: Congestive Heart Failure (CHF), Myocardial Infarction ([place]) Additional Family Medical History / Comment(s): Mother of CHF at the age of 81 yrs. Medications and Allergies Home Medications Medication Instructions Recorded Confirmed Type Omeprazole [PriLOSEC] 20 mg PO DAILY 12/03/15 03/01/21 History Insulin Glargine,Hum.rec.anlog 40 units SQ DAILY 07/06/16 03/01/21 History [Mary Alfaro] Pregabalin [Lyrica] 100 mg PO TID 07/06/16 03/01/21 History Atorvastatin [Lipitor] 20 mg PO DAILY 08/09/16 03/01/21 History Losartan [Cozaar] 100 mg PO BID #60 tab 08/17/16 03/01/21 Rx Fenofibrate Nanocrystallized 145 mg PO DAILY 10/05/17 03/01/21 History [Tricor] Carvedilol [Coreg] 25 mg PO DAILY 07/31/18 03/01/21 History Clopidogrel [Plavix] 75 mg PO DAILY 07/31/18 03/01/21 History Vortioxetine Hydrobromide 10 mg PO DAILY 07/31/18 03/01/21 History [Trintellix] Aspirin EC [Ecotrin] 325 mg PO DAILY 03/01/21 03/01/21 History Cholecalciferol (Vitamin D3) 125 mcg PO DAILY 03/01/21 03/01/21 History [Vitamin D3 (125 MCG = 5,000 IU)] Cyanocobalamin [Vitamin B-12] 500 mcg PO DAILY 03/01/21 03/01/21 History Multivitamins, Thera [Multivitamin 1 tab PO DAILY 03/01/21 03/01/21 History (formulary)] Zinc Gluconate [Zinc] 50 mg PO DAILY 03/01/21 03/01/21 History Empagliflozin [Jardiance] 10 mg PO DAILY 03/02/21 03/02/21 History hydrALAZINE HCL [Apresoline] 50 mg PO TID PRN 03/02/21 03/02/21 History Allergies Allergy/AdvReac Type Severity Reaction Status Date / Time No Known Allergies Allergy Verified 03/01/21 22:03 Physical Exam Vitals: Vital Signs Temp Pulse Resp BP BP Pulse Ox 03/02/21 10:04 16 166/88 98 03/02/21 08:00 16 167/98 98 03/02/21 02:19 73 17 198/99 100 03/01/21 19:21 98.6 F 88 18 180/86 94 L Intake and Output 03/01/21 03/02/21 03/02/21 22:59 06:59 14:59 Other: Weight 86.183 kg 86.183 kg Results CBC & Chem 7: 03/02/21 09:11 03/02/21 09:11 Labs: Abnormal Lab Results - Last 24 Hours (Table) 03/01/21 03/01/21 03/01/21 Range/Units 20:02 20:02 20:02 Hgb 8.7 L (13.0-17.5) gm/dL Hct 31.5 L (39.0-53.0) % MCV 71.6 L (80.0-100.0) fL MCH 19.8 L (25.0-35.0) pg MCHC 27.7 L (31.0-37.0) g/dL RDW 18.6 H (11.5-15.5) % Metamyelocytes # (Man) 0.08 H (0) k/uL Myelocytes # (Manual) 0.08 H (0) k/uL Carbon Dioxide (22-30) mmol/L BUN 42 H (9-20) mg/dL Creatinine 2.39 H (0.66-1.25) mg/dL Glucose 107 H (74-99) mg/dL POC Glucose (mg/dL) (75-99) mg/dL Plasma Lactic Acid David 0.6 L (0.7-2.0) mmol/L Magnesium 2.4 H (1.6-2.3) mg/dL Troponin I (0.000-0.034) ng/mL Total Protein 6.2 L (6.3-8.2) g/dL 03/01/21 03/01/21 03/01/21 Range/Units 20:02 21:46 21:46 Hgb 8.6 L (13.0-17.5) gm/dL Hct 31.2 L (39.0-53.0) % MCV 71.4 L (80.0-100.0) fL MCH 19.6 L (25.0-35.0) pg MCHC 27.4 L (31.0-37.0) g/dL RDW 18.4 H (11.5-15.5) % Metamyelocytes # (Man) (0) k/uL Myelocytes # (Manual) (0) k/uL Carbon Dioxide (22-30) mmol/L BUN (9-20) mg/dL Creatinine (0.66-1.25) mg/dL Glucose (74-99) mg/dL POC Glucose (mg/dL) (75-99) mg/dL Plasma Lactic Acid David (0.7-2.0) mmol/L Magnesium (1.6-2.3) mg/dL Troponin I 0.058 H* 0.067 H* (0.000-0.034) ng/mL Total Protein (6.3-8.2) g/dL 03/02/21 03/02/21 03/02/21 Range/Units 02:43 03:24 04:58 Hgb (13.0-17.5) gm/dL Hct (39.0-53.0) % MCV (80.0-100.0) fL MCH (25.0-35.0) pg MCHC (31.0-37.0) g/dL RDW (11.5-15.5) % Metamyelocytes # (Man) (0) k/uL Myelocytes # (Manual) (0) k/uL Carbon Dioxide (22-30) mmol/L BUN (9-20) mg/dL Creatinine (0.66-1.25) mg/dL Glucose (74-99) mg/dL POC Glucose (mg/dL) 42 L 108 H 72 L (75-99) mg/dL Plasma Lactic Acid David (0.7-2.0) mmol/L Magnesium (1.6-2.3) mg/dL Troponin I (0.000-0.034) ng/mL Total Protein (6.3-8.2) g/dL 03/02/21 03/02/21 03/02/21 Range/Units 08:27 09:11 09:11 Hgb (13.0-17.5) gm/dL Hct (39.0-53.0) % MCV (80.0-100.0) fL MCH (25.0-35.0) pg MCHC (31.0-37.0) g/dL RDW (11.5-15.5) % Metamyelocytes # (Man) (0) k/uL Myelocytes # (Manual) (0) k/uL Carbon Dioxide 33 H (22-30) mmol/L BUN 38 H (9-20) mg/dL Creatinine 2.32 H (0.66-1.25) mg/dL Glucose 103 H (74-99) mg/dL POC Glucose (mg/dL) 59 L (75-99) mg/dL Plasma Lactic Acid David (0.7-2.0) mmol/L Magnesium (1.6-2.3) mg/dL Troponin I 0.039 H* (0.000-0.034) ng/mL Total Protein (6.3-8.2) g/dL 03/02/21 Range/Units 09:11 Hgb 9.2 L (13.0-17.5) gm/dL Hct 32.5 L (39.0-53.0) % MCV 72.2 L (80.0-100.0) fL MCH 20.4 L (25.0-35.0) pg MCHC 28.2 L (31.0-37.0) g/dL RDW 18.8 H (11.5-15.5) % Metamyelocytes # (Man) (0) k/uL Myelocytes # (Manual) (0) k/uL Carbon Dioxide (22-30) mmol/L BUN (9-20) mg/dL Creatinine (0.66-1.25) mg/dL Glucose (74-99) mg/dL POC Glucose (mg/dL) (75-99) mg/dL Plasma Lactic Acid David (0.7-2.0) mmol/L Magnesium (1.6-2.3) mg/dL Troponin I (0.000-0.034) ng/mL Total Protein (6.3-8.2) g/dL Thrombosis Risk Factor Assmnt - Choose All That Apply Any of the Below Risk Factors Present?: Yes Each Factor Represents 1 point: Age 41-60 years, Obesity (BMI >25), Swollen legs (current) Other Risk Factors: No Other congenital or acquired thrombophilia - If yes, enter type in comment: No Thrombosis Risk Factor Assessment Total Risk Factor Score: 3 Thrombosis Risk Factor Assessment Level: Moderate Risk
[2021-03-02 16:48] LABS: Glucose,Whole Blood 178 mg/dL (75-99)
[2021-03-02] MEDS: VORTIOXETINE HYDROBROMIDE 10 MG TABLET PO SCH (17:16)
[2021-03-02 20:07] LABS: Glucose,Whole Blood 250 mg/dL (75-99)
[2021-03-02] MEDS: PREGABALIN 100 MG CAP PO SCH (20:11)
[2021-03-03] MEDS: DEXTROSE 5%-0.45% NACL 1,000 ML IV SCH (03:18)
[2021-03-03 06:09] LABS: Glucose,Whole Blood 145 mg/dL (75-99)
[2021-03-03] MEDS: INSULIN DETEMIR (LEVEMIR) 100 UNIT/ML SYR SQ SCH (06:14)
[2021-03-03 07:07] LABS: Calcium 9.4 mg/dL (8.4-10.2); Potassium 4.8 mmol/L (3.5-5.1)
[2021-03-03 07:26] LABS: INR 1.1 (<1.2); Prothrombin Time 11.7 sec (9.0-12.0)
[2021-03-03 07:34] LABS: Anisocytosis Slight; Basophils % (A) 1 %; Eosinophils # (A) 0.4 k/uL (0-0.7); Eosinophils % (A) 7 %; HCT 34.5 % (39.0-53.0); HGB 9.5 gm/dL (13.0-17.5); Hypochromasia Marked; Lymphocytes % (A) 17 %; MCH 20.2 pg (25.0-35.0); MCHC 27.5 g/dL (31.0-37.0); MCV 73.3 fL (80.0-100.0); Mean Platelet Volume 9.3; Microcytosis Moderate; Monocytes # (A) 0.4 k/uL (0-1.0); Monocytes % (A) 6 %; Neutrophils # (A) 3.7 k/uL (1.3-7.7); Neutrophils % (A) 64 %; Platelet Count 214 k/uL (150-450); Poikilocytosis Slight; RDW 18.4 % (11.5-15.5); WBC 5.8 k/uL (3.8-10.6)
[2021-03-03] MEDS: ASPIRIN 81 MG PO SCH (07:53)
[2021-03-03] MEDS: FENOFIBRATE 160 MG TAB PO SCH (07:53)
[2021-03-03] MEDS: VORTIOXETINE HYDROBROMIDE 10 MG TABLET PO SCH (07:53)
[2021-03-03] MEDS: ATORVASTATIN 20 MG TAB PO SCH (07:53)
[2021-03-03] MEDS: PREGABALIN 100 MG CAP PO SCH ×3 (07:53→21:10)
[2021-03-03] MEDS: FUROSEMIDE 10 MG/ML 4 ML VIAL IV SCH ×2 (07:53→16:28)
[2021-03-03] MEDS: PANTOPRAZOLE 40 MG TABLET PO SCH (07:54)
[2021-03-03] MEDS: carvediloL 12.5 MG TAB PO SCH (07:54)
[2021-03-03] MEDS: LOSARTAN 50 MG TAB PO SCH (07:54)
[2021-03-03] MEDS: hydrALAZINE HCL 50 MG TAB PO SCH ×3 (07:54→21:10)
[2021-03-03] MEDS: HEPARIN SOD,PORK IN 0.45% NACL 25,000 UNIT in 0.45% NACL 1 250ML.BAG IV SCH (08:02)
[2021-03-03] MEDS ORDERED: PEG 3350-NA SULF,BICARB,CL/KCL 4,000 ML BOTTLE PO ONE (09:34)
--- NOTE | 2021-03-03 10:35 | P.NPCON ---
History of Present Illness - Reason for Consult acute renal failure, chronic renal failure - History of Present Illness Reason for consultation: Acute kidney injury on chronic kidney disease History of present illness: Patient is a 60-year-old male seen in renal consultation for acute kidney injury on chronic kidney disease. Patient has chronic kidney disease stage IIIB/4 with baseline creatinine in the range of 1.8-2. Patient's creatinine in December 2019 was 2.6. This admission it has been stable in the range of 2.3-2.6. Patient presented to the hospital on 03/01/2021 with swelling in his legs and shortness of breath. Echocardiogram showed preserved ejection fraction. He is noted to have mild to moderate tricuspid regurgitation and pulmonary hypertension. He tested negative for coronavirus. No fever or chills. No vomiting or diarrhea. No melena or hematochezia. He scheduled to undergo EGD and colonoscopy tomorrow due to anemia. No evidence of DVT noted on ultrasound. He is currently receiving IV Lasix 40 mg 3 times daily. Urine output over 7 L in the last 24 hours. Edema gradually improving. He does admit to taking NSAIDs. He does a long-standing history of diabetes mellitus. Hemodynamically stable. Vital signs are stable. General: The patient appeared well nourished and normally developed. HEENT: Head exam is unremarkable. LUNGS: Breath sounds decreased. HEART: Rate and Rhythm are regular. ABDOMEN: Soft, no distention. EXTREMITITES: 2+ edema. Past Medical History Past Medical History: Diabetes Mellitus, GERD/Reflux, Hyperlipidemia, Hypertension, Renal Disease, Syncope, Vascular Disorder Additional Past Medical History / Comment(s): IDDM type II, neuropathy bilateral feet, CKD, murmur, chronic low back pain/lumbar spinal stenosis, vertigo, falls, covid infection June 2020 History of Any Multi-Drug Resistant Organisms: None Reported Past Surgical History: Cholecystectomy, Hernia Repair, Orthopedic Surgery Additional Past Surgical History / Comment(s): L arm muscle repair by elbow, low back surgery/verteflex, L inguinal hernia repair, bilaterall carotid endarterectomies Past Anesthesia/Blood Transfusion Reactions: No Reported Reaction Smoking Status: Current every day smoker - Past Family History Father Family Medical History: Coronary Artery Disease (CAD) Additional Family Medical History / Comment(s): Father during CABG Mother Family Medical History: Congestive Heart Failure (CHF), Myocardial Infarction ([place]) Additional Family Medical History / Comment(s): Mother of CHF at the age of 81 yrs. Medications and Allergies Home Medications Medication Instructions Recorded Confirmed Type Omeprazole [PriLOSEC] 20 mg PO DAILY 12/03/15 03/01/21 History Insulin Glargine,Hum.rec.anlog 40 units SQ DAILY 07/06/16 03/01/21 History [Toujeo Solostar] Pregabalin [Lyrica] 100 mg PO TID 07/06/16 03/01/21 History Atorvastatin [Lipitor] 20 mg PO DAILY 08/09/16 03/01/21 History Losartan [Cozaar] 100 mg PO BID #60 tab 08/17/16 03/01/21 Rx Fenofibrate Nanocrystallized 145 mg PO DAILY 10/05/17 03/01/21 History [Tricor] Carvedilol [Coreg] 25 mg PO DAILY 07/31/18 03/01/21 History Clopidogrel [Plavix] 75 mg PO DAILY 07/31/18 03/01/21 History Vortioxetine Hydrobromide 10 mg PO DAILY 07/31/18 03/01/21 History [Trintellix] Aspirin EC [Ecotrin] 325 mg PO DAILY 03/01/21 03/01/21 History Cholecalciferol (Vitamin D3) 125 mcg PO DAILY 03/01/21 03/01/21 History [Vitamin D3 (125 MCG = 5,000 IU)] Cyanocobalamin [Vitamin B-12] 500 mcg PO DAILY 03/01/21 03/01/21 History Multivitamins, Thera [Multivitamin 1 tab PO DAILY 03/01/21 03/01/21 History (formulary)] Zinc Gluconate [Zinc] 50 mg PO DAILY 03/01/21 03/01/21 History Empagliflozin [Jardiance] 10 mg PO DAILY 03/02/21 03/02/21 History hydrALAZINE HCL [Apresoline] 50 mg PO TID PRN 03/02/21 03/02/21 History Allergies Allergy/AdvReac Type Severity Reaction Status Date / Time No Known Allergies Allergy Verified 03/01/21 22:03 Physical Exam Vitals: Vital Signs Temp Pulse Pulse Resp BP BP Pulse Ox 03/03/21 07:48 85 18 03/03/21 07:46 98.0 F 85 18 167/83 96 03/03/21 03:13 76 16 132/74 95 03/03/21 02:00 76 16 03/03/21 00:00 98.3 F 86 18 116/60 96 03/02/21 20:00 97.9 F 80 18 128/57 95 03/02/21 16:00 98.0 F 87 85 18 158/82 98 03/02/21 15:59 97.4 F L 90 18 163/80 96 03/02/21 13:00 98.7 F 80 20 162/87 97 Intake and Output 03/02/21 03/03/21 03/03/21 22:59 06:59 14:59 Intake Total 979.232 6717 1010.182 Output Total 2850 2425 500 Balance -2706.182 -1385 510.182 Intake: Intake, IV Titration 143.818 800 770.182 Amount Dextrose 5%-0.45% NaCl 1, 800 664 000 ml @ 83 mls/hr IV . Q12H3M [facility] Rx#:[id number] Heparin Sod,Pork in 0.45% 143.818 106.182 NaCl 25,000 unit In 0.45 % NaCl 1 250ml.bag @ 11. 603 UNITS/KG/HR 10 mls/hr IV .Q24H [facility] Rx#: [id number] Oral 240 240 Output: Urine 2850 2425 500 Other: Voiding Method Toilet Toilet Toilet Urinal Urinal Urinal # Voids 1 1 Results - Lab Results Most recent lab results Calcium 9.4 mg/dL (8.4-10.2) 03/03/21 05:06 Magnesium 2.4 mg/dL (1.6-2.3) H 03/01/21 20:02 03/03/21 05:06 03/03/21 05:06 Assessment and Plan Plan: Assessment: 1. Acute kidney injury secondary to ATN secondary to cardiorenal syndrome. Renal function stable. Creatinine 2.48 today. 2. Acute on chronic diastolic CHF. 3. Volume overload. 4. Chronic kidney disease stage IIIB/4 with baseline creatinine in the range of 1.8-2. Etiology is diabetic kidney disease. 5. Hypertension with chronic kidney disease. 6. Diabetes mellitus. Plan: Maintain IV Lasix. Low-salt diet. 1500 mL fluid restriction. Maintain losartan for now as blood pressure is not low. Check urinalysis. Check renal ultrasound. Continue to monitor renal function and urine output. Thank you for the consultation. I will continue to follow the patient with you during his hospital stay.
--- NOTE | 2021-03-03 11:08 | P.PN ---
Subjective Progress Note Date: 03/03/21 HISTORY OF PRESENT ILLNESS: This is a 60-year-old male with a past medical history significant for hypertension, aortic stenosis, hyperlipidemia, and diabetes. Patient used to follow in the office with Dr. Ayon but has not been seen in the office since 2017. We have been asked to see the patient in consultation for elevated troponin. Patient examined at the bedside. Patient states he has noticed shortness of breath and lower extremity edema for the past 10 days. He states h e went to see his vp informatics because he thought it might be related to his diabetes. He states his vp informatics ordered some blood work and then he went to the ER for further evaluation. The patient also reports a presyncopal episode about two weeks ago. He did not lose consciousness at that time. The patient currently denies chest pain or pressure. He reports mild shortness of breath. Patient was found to be in congestive heart failure upon presentation to the emergency room. Patient's blood pressure is also elevated this morning with a systolic ranging between 180 and 190. EKG reveals sinus mechanism with T-wave inversions in inferior and lateral leads, new from previous EKG Chest xray mild increased pulmonary interstitial density compared to old exam. This could be minimal interstitial pneumonia. Laboratory data: WBC 7.3. Hemoglobin 9.2. Platelet count 237. Sodium 141. Potassium 5.0. BUN 38. Creatinine 2.32. Troponin 0.058. 0.067. 0.039. Current home cardiac medications include hydralazine 50 mg 3 times a day, fenofibrate 145 mg daily, atorvastatin 20 mg daily, aspirin 325 mg daily, losartan 100 mg twice a day, carvedilol 25 mg daily, Plavix any 5 mg daily Patient underwent Lexiscan stress test in June 2016 which was negative for stress-induced ischemia Echocardiogram performed in 2016 revealed ejection fraction 60%, possible bicuspid aortic valve, trace aortic regurgitation, mild aortic stenosis, mild mitral regurgitation, and mild tricuspid regurgitation 03/03/2021 Patient examined this morning at the bedside. Patient denies chest pain or pressure. Denies shortness of breath. Patients increased lower extremity edema. He remains on IV lasix. Hemoglobin stable. Blood pressure improved. Echo reveals EF 55-60% with moderate aortic stenosis. PHYSICAL EXAM: VITAL SIGNS: Reviewed. GENERAL: Well-developed in no acute distress. HEENT: Head is normocephalic. Pupils are equal, round. Sclerae anicteric. Mucous membranes of the mouth are moist. Neck supple. No JVD or thyromegaly LUNGS: Respirations even and unlabored. Lungs diminished with bibasilar rales HEART: Regular rate and rhythm. S1 and S2 heard. Harsh systolic murmur. ABDOMEN: Soft. Nondistended. Nontender. EXTREMITIES: Normal range of motion. No clubbing or cyanosis. Peripheral pulses intact. 2+ bilateral lower extremity edema NEUROLOGIC: Awake and alert. Oriented x 3. ASSESSMENT: Acute congestive heart failure, diastolic Hypertensive urgency Acute on chronic kidney disease Abnormal troponins, likely may be secondary to CKD Aortic stenosis Carotid stenosis, status post bilateral carotid enterectomy Hyperlipidemia Diabetes PLAN: Discontinue IV heparin Continue Lasix 40 mg IV every 8 hours Monitor kidney function Daily weights Accurate I&O Continue additional cardiac medications Patient may undergo endoscopy tomorrow from a cardiac standpoint Patient does not need to be resumed on Plavix from a cardiac perspective Further recommendations pending patient's course Nurse practitioner note has been reviewed by physician. Signing provider agrees with the documented findings, assessment, and plan of care. Objective - Vital Signs Vital signs: Vital Signs Temp 98.0 F 03/03/21 07:46 Pulse 85 03/03/21 07:48 Resp 18 03/03/21 07:48 BP 167/83 03/03/21 07:46 Pulse Ox 96 03/03/21 07:46 Intake & Output 03/02/21 03/03/21 03/03/21 18:59 06:59 18:59 Intake Total 83 5633.658 4791.182 Output Total 3600 3675 500 Balance -3517 -2574.182 510.182 Weight 86.183 kg Intake: Intake, IV Titration 83 860.818 770.182 Amount Dextrose 5%-0.45% NaCl 1, 800 664 000 ml @ 83 mls/hr IV . Q12H3M [facility] Rx#:[id number] Heparin Sod,Pork in 0.45% 83 60.818 106.182 NaCl 25,000 unit In 0.45 % NaCl 1 250ml.bag @ 11. 603 UNITS/KG/HR 10 mls/hr IV .Q24H [facility] Rx#: [id number] Oral 240 240 Output: Urine 3600 3675 500 Other: Voiding Method Toilet Toilet Toilet Urinal Urinal Urinal # Voids 1 1 - Labs CBC & Chem 7: 03/03/21 05:06 03/03/21 05:06 Labs: Abnormal Lab Results - Last 24 Hours (Table) 03/02/21 03/02/21 03/02/21 Range/Units 09:11 16:36 20:06 Hgb (13.0-17.5) gm/dL Hct (39.0-53.0) % MCV (80.0-100.0) fL MCH (25.0-35.0) pg MCHC (31.0-37.0) g/dL RDW (11.5-15.5) % APTT (22.0-30.0) sec Chloride (98-107) mmol/L Carbon Dioxide (22-30) mmol/L BUN (9-20) mg/dL Creatinine (0.66-1.25) mg/dL Glucose (74-99) mg/dL POC Glucose (mg/dL) 178 H 250 H (75-99) mg/dL Iron 16 L (65-175) ug/dL Transferrin 560.0 H (204.0-354.0) mg/dL Ferritin 7.0 L (22.0-322.0) ng/mL 03/03/21 03/03/21 03/03/21 Range/Units 05:06 05:06 05:06 Hgb 9.5 L (13.0-17.5) gm/dL Hct 34.5 L (39.0-53.0) % MCV 73.3 L (80.0-100.0) fL MCH 20.2 L (25.0-35.0) pg MCHC 27.5 L (31.0-37.0) g/dL RDW 18.4 H (11.5-15.5) % APTT 33.0 H (22.0-30.0) sec Chloride 96 L (98-107) mmol/L Carbon Dioxide 37 H (22-30) mmol/L BUN 38 H (9-20) mg/dL Creatinine 2.48 H (0.66-1.25) mg/dL Glucose 137 H (74-99) mg/dL POC Glucose (mg/dL) (75-99) mg/dL Iron (65-175) ug/dL Transferrin (204.0-354.0) mg/dL Ferritin (22.0-322.0) ng/mL 03/03/21 Range/Units 06:08 Hgb (13.0-17.5) gm/dL Hct (39.0-53.0) % MCV (80.0-100.0) fL MCH (25.0-35.0) pg MCHC (31.0-37.0) g/dL RDW (11.5-15.5) % APTT (22.0-30.0) sec Chloride (98-107) mmol/L Carbon Dioxide (22-30) mmol/L BUN (9-20) mg/dL Creatinine (0.66-1.25) mg/dL Glucose (74-99) mg/dL POC Glucose (mg/dL) 145 H (75-99) mg/dL Iron (65-175) ug/dL Transferrin (204.0-354.0) mg/dL Ferritin (22.0-322.0) ng/mL
[2021-03-03 11:54] LABS: Glucose,Whole Blood 216 mg/dL (75-99)
--- NOTE | 2021-03-03 12:53 | P.PN ---
Subjective Progress Note Date: 03/03/21 CHIEF COMPLAINT: Shortness of breath, leg swelling and fatigue HISTORY OF PRESENT ILLNESS: Surgical service is following regards to patient's anemia. He denies any blood in his stools. He reports some improvement in his shortness of breath and is still having some lower extremity edema. He is followed closely by cardiology for his CHF exacerbation. They have discontinued the IV heparin today. And have cleared patient to proceed with endoscopies tomorrow. Patient is afebrile. WBC is 5.8 hemoglobin is trending upwards at 9.5. Creatinine 2.48 and he is being seen by nephrology. Patient denies any abdominal pain. PHYSICAL EXAM: VITAL SIGNS: Reviewed. GENERAL: Well-developed in no acute distress. HEENT: No sclera icterus. Extraocular movements grossly intact. Moist buccal mucosa. Head is atraumatic, normocephalic. ABDOMEN: Soft. Nondistended. Nontender. NEUROLOGIC: Alert and oriented. Cranial nerves II through XII grossly intact. ASSESSMENT: 1. Anemia with no active bleeding 2. Acute diastolic CHF exacerbation 3. Acute on Chronic kidney disease 4. Diabetes 5. Minimally elevated troponins evaluated by cardiology service and felt likely due to CKD PLAN: -Patient scheduled for EGD and colonoscopy tomorrow, 03/04/[address] Rivera -Patient to have clear liquid diet today and then nothing by mouth after midnight -Start GoLY[employer]ELY prep Physician Banquet Cook note has been reviewed by physician. Signing provider agrees with the documented findings, assessment, and plan of care. Objective - Vital Signs Vital signs: Vital Signs Temp 98.1 F 03/03/21 11:52 Pulse 85 03/03/21 11:52 Resp 18 03/03/21 11:52 BP 110/62 03/03/21 11:52 Pulse Ox 95 03/03/21 11:52 Intake & Output 03/02/21 03/03/21 03/03/21 18:59 06:59 18:59 Intake Total 83 3148.254 5340.182 Output Total 3600 3675 950 Balance -1987 -8824.182 60.182 Weight 86.183 kg Intake: Intake, IV Titration 83 860.818 770.182 Amount Dextrose 5%-0.45% NaCl 1, 800 664 000 ml @ 83 mls/hr IV . Q12H3M [facility] Rx#:[id number] Heparin Sod,Pork in 0.45% 83 60.818 106.182 NaCl 25,000 unit In 0.45 % NaCl 1 250ml.bag @ 11. 603 UNITS/KG/HR 10 mls/hr IV .Q24H [facility] Rx#: [id number] Oral 240 240 Output: Urine 3600 3675 950 Other: Voiding Method Toilet Toilet Toilet Urinal Urinal Urinal # Voids 1 1 - Labs CBC & Chem 7: 03/03/21 05:06 03/03/21 05:06 Labs: Abnormal Lab Results - Last 24 Hours (Table) 03/02/21 03/02/21 03/02/21 Range/Units 09:11 16:36 20:06 Hgb (13.0-17.5) gm/dL Hct (39.0-53.0) % MCV (80.0-100.0) fL MCH (25.0-35.0) pg MCHC (31.0-37.0) g/dL RDW (11.5-15.5) % APTT (22.0-30.0) sec Chloride (98-107) mmol/L Carbon Dioxide (22-30) mmol/L BUN (9-20) mg/dL Creatinine (0.66-1.25) mg/dL Glucose (74-99) mg/dL POC Glucose (mg/dL) 178 H 250 H (75-99) mg/dL Iron 16 L (65-175) ug/dL Transferrin 560.0 H (204.0-354.0) mg/dL Ferritin 7.0 L (22.0-322.0) ng/mL 03/03/21 03/03/21 03/03/21 Range/Units 05:06 05:06 05:06 Hgb 9.5 L (13.0-17.5) gm/dL Hct 34.5 L (39.0-53.0) % MCV 73.3 L (80.0-100.0) fL MCH 20.2 L (25.0-35.0) pg MCHC 27.5 L (31.0-37.0) g/dL RDW 18.4 H (11.5-15.5) % APTT 33.0 H (22.0-30.0) sec Chloride 96 L (98-107) mmol/L Carbon Dioxide 37 H (22-30) mmol/L BUN 38 H (9-20) mg/dL Creatinine 2.48 H (0.66-1.25) mg/dL Glucose 137 H (74-99) mg/dL POC Glucose (mg/dL) (75-99) mg/dL Iron (65-175) ug/dL Transferrin (204.0-354.0) mg/dL Ferritin (22.0-322.0) ng/mL 03/03/21 03/03/21 Range/Units 06:08 11:53 Hgb (13.0-17.5) gm/dL Hct (39.0-53.0) % MCV (80.0-100.0) fL MCH (25.0-35.0) pg MCHC (31.0-37.0) g/dL RDW (11.5-15.5) % APTT (22.0-30.0) sec Chloride (98-107) mmol/L Carbon Dioxide (22-30) mmol/L BUN (9-20) mg/dL Creatinine (0.66-1.25) mg/dL Glucose (74-99) mg/dL POC Glucose (mg/dL) 145 H 216 H (75-99) mg/dL Iron (65-175) ug/dL Transferrin (204.0-354.0) mg/dL Ferritin (22.0-322.0) ng/mL
--- NOTE | 2021-03-03 13:07 | US ---
EXAMINATION TYPE: US kidneys/renal and bladder DATE OF EXAM: 03/03/2021 COMPARISON: CT A&P 2017, US Renal 2017 CLINICAL HISTORY: morales. EXAM MEASUREMENTS: Right Kidney: 11.1 x 6.1 x 5.2 cm Left Kidney: 9.4 x 5.3 x 4.5 cm Right Kidney: No hydronephrosis seen; questionable area mid cortex, appears to be normal renal cortex parenchyma. Angle of imaging may be slightly different than the 2017 comparison which does have a somewhat similar appearance. Consider a column of [place]. Recommend a follow-up exam in 6 months to r ramonavaluate. Left Kidney: No hydronephrosis seen Bladder: wnl; anechoic Bilateral Jets seen: Right jet seen IMPRESSION: 1. No discrete abnormality evident. What may be normal renal cortex is within the right kidney, follo w-up exam to confirm stability in 6 months is recommended.
[2021-03-03] MEDS: oxyCODONE-APAP 7.5-325MG 1 EACH TAB PO PRN ×2 (13:43→21:10)
--- NOTE | 2021-03-03 15:00 | P.PN ---
Subjective Progress Note Date: 03/03/21 60 years old male patient of Dr. Cronin with past medical history of chronic kidney disease, type 2 diabetes, carotid stenosis status post carotid endarterectomy, GERD, hyperlipidemia, hypertension comes in with the bilateral lower extremity swelling for the past 1 week associated with shortness of br eath. Patient denies any chest pain but does endorse palpitation on and off for the past few days. Patient denies any change in bowel habits nausea or vomiting. He denies any hematuria or melena. Labs are reviewed patient was noted to have a hemoglobin of 9.2 hematocrit 72 WBC 7.3 INR 1.1 CO2 33 BUN 38 creatinine 2.3 which is close to patient's baseline troponin 2 was positive. ProBNP 44 2-0 chromic was negative. Vitals are reviewed patient's afebrile pulse 90 respiratory rate 18 blood pressure 163/80 oxygen saturation 96% on room air Cardiology consult was placed. Patient initiated on Lasix 40 IV twice a day. Iron studies were ordered to rule out anemia of chronic disease. Continue patient on heparin drip until evaluated by cardiology. Venous Doppler was ordered. Echocardiogram was ordered. 03/03: Patient is off heparin. He is scheduled for EGD and colonoscopy tomorrow. Hemoglobin is 9.5, BUN 38 and creatinine 2.48. Blood sugars are running between 145 and 250. Patient is normally on Percocet 7.5 at home which is prescribed by a pain specialist which will be resumed. Patient also advised to wear compression socks and ANOOP hose will be ordered for here. Patient is also instructed to follow low-salt diet. Weight is unrecorded. Patient has had good urine output. He is currently on Lasix 40 mg IV every 8 hours. Lower extremity edema improved from yesterday. ROS Constitutional: Denies chills, Denies fever, Denies lethargy, Denies malaise, Denies poor appetite, Denies weakness, Denies weight loss Eyes: denies decreased vision, denies diplopia, denies discharge, denies pain Ears: deny: decreased hearing Ears, nose, mouth and throat: Denies dental pain, Denies headache, Denies nasal discharge, Denies nose pain Cardiovascular: Denies chest pain, endorses decreased exercise tolerance, endorses edema, endorses high blood pressure, Denies irregular heart beat, endorses palpitations, Denies paroxysmal nocturnal dyspnea, Denies rapid heart beat, Denies shortness of breath Respiratory: Denies congestion, Denies cough, Denies cough with sputum, Denies dyspnea, Denies home oxygen, Denies wheezing Gastrointestinal: Denies abdominal pain, Denies change in bowel habits, Denies coffee ground emesis, Denies early satiety, Denies excessive gas, Denies heartburn, Denies hematemesis, Denies loss of appetite, Denies nausea, Denies vomiting Genitourinary: Denies dysuria, Denies flank pain, Denies kidney stones, Denies menorrhagia, Denies urgency, Denies urinary frequency Musculoskeletal: Denies gait dysfunction, Denies limitation of motion, Denies morning stiffness, Denies muscle cramps Integumentary: Denies rash, Denies wounds, Denies brittle nails, Denies change in hair/nails, Denies darkening of skin Neurological: Denies balance difficulties, Denies change in speech, Denies double vision, Denies gait dysfunction, Denies loss of vision, Denies motor disturbance, Denies numbness, Denies paralysis, Denies paresthesias, Denies seizures Psychiatric: Denies anxiety, Denies depression Endocrine: Denies excessive sweating, Denies excessive thirst, Denies high blood sugars, Denies palpitations Hematologic/Lymphatic: Denies easy bruising, Denies lymphadenopathy Physical exam Gen: This is a 60-year-old male. He is resting on at the bedside, /significant other is at bedside. HEENT: Head is atraumatic, normocephalic. Pupils equal, round. Sclerae is anicteric. NECK: Supple. No JVD. No lymphadenopathy. No thyromegaly. LUNGS: Clear to auscultation. No wheezes or rhonchi. No intercostal retractions. HEART: Regular rate and rhythm. 4/6 systolic murmur, no diastolic murmur, no rub, no S3 gallop, no S4 gallop, no click. ABDOMEN: Soft. Bowel sounds are present. No masses. No tenderness. EXTREMITIES: 1+ pedal edema. No calf tenderness. NEUROLOGICAL: Patient is awake, alert and oriented x3. Cranial nerves 2 through 12 are grossly intact. Assessment and plan acute diastolic congestive heart failure Lasix 40 IV 3 times a day Continue carvedilol 25 mg by mouth daily IV and O monitoring Daily weights Cardiology consult Echocardiogram ordered Carotid stenosis bilateral status post carotid endarterectomy Follows Dr. Jha outpatient Continue daily aspirin Continue Plavix Troponin elevation likely secondary to chronic kidney disease Rule out ACS Troponin 2 elevated EKG suggestive of possible V5 and V6 ST depressions Currently on heparin drip Asymptomatic Cardiology evaluation pending Chronic kidney disease stage IV Appears as baseline Nephrology consulted Anemia rule out acute blood loss likely secondary to anemia of chronic disease Iron studies ordered Nephrology consulted Fecal occult ordered Surgery consulted for EGD and colonoscopy for tomorrow Hypertension Losartan reduced to 100 mg daily Hydralazine 50 3 times a day Hyperlipidemia continue Lipitor 20 mg daily Fenofibrate 160 by mouth daily Type 2 diabetes Continue Lantus 40 subcu daily Continue insulin sliding scale Follows Dr. Harper Diabetic diet Hold jardiance Diabetic neuropathy Continue Lyrica 100 mg 3 times a day Depression On trintellix 10 mg daily DVT prophylaxis Upper and drip GI prophylaxis omeprazole 20 mg by mouth daily Impression and plan of care have been directed as dictated by the signing physic ian. Chen Quiroz nurse practitioner acting as scribe for signing physician. Objective - Vital Signs Vital signs: Vital Signs Temp 98.1 F 03/03/21 11:52 Pulse 85 03/03/21 11:52 Resp 18 03/03/21 11:52 BP 110/62 03/03/21 11:52 Pulse Ox 95 03/03/21 11:52 Intake & Output 03/02/21 03/03/21 03/03/21 18:59 06:59 18:59 Intake Total 83 1466.976 8360.182 Output Total 3600 3675 950 Balance -3517 -2574.182 60.182 Weight 86.183 kg Intake: Intake, IV Titration 83 860.818 770.182 Amount Dextrose 5%-0.45% NaCl 1, 800 664 000 ml @ 83 mls/hr IV . Q12H3M [facility] Rx#:[id number] Heparin Sod,Pork in 0.45% 83 60.818 106.182 NaCl 25,000 unit In 0.45 % NaCl 1 250ml.bag @ 11. 603 UNITS/KG/HR 10 mls/hr IV .Q24H [facility] Rx#: [id number] Oral 240 240 Output: Urine 3600 3675 950 Other: Voiding Method Toilet Toilet Toilet Urinal Urinal Urinal # Voids 1 1 - Labs CBC & Chem 7: 03/03/21 05:06 03/03/21 05:06 Labs: Abnormal Lab Results - Last 24 Hours (Table) 03/02/21 03/02/21 03/02/21 Range/Units 09:11 16:36 20:06 Hgb (13.0-17.5) gm/dL Hct (39.0-53.0) % MCV (80.0-100.0) fL MCH (25.0-35.0) pg MCHC (31.0-37.0) g/dL RDW (11.5-15.5) % APTT (22.0-30.0) sec Chloride (98-107) mmol/L Carbon Dioxide (22-30) mmol/L BUN (9-20) mg/dL Creatinine (0.66-1.25) mg/dL Glucose (74-99) mg/dL POC Glucose (mg/dL) 178 H 250 H (75-99) mg/dL Iron 16 L (65-175) ug/dL Transferrin 560.0 H (204.0-354.0) mg/dL Ferritin 7.0 L (22.0-322.0) ng/mL 03/03/21 03/03/21 03/03/21 Range/Units 05:06 05:06 05:06 Hgb 9.5 L (13.0-17.5) gm/dL Hct 34.5 L (39.0-53.0) % MCV 73.3 L (80.0-100.0) fL MCH 20.2 L (25.0-35.0) pg MCHC 27.5 L (31.0-37.0) g/dL RDW 18.4 H (11.5-15.5) % APTT 33.0 H (22.0-30.0) sec Chloride 96 L (98-107) mmol/L Carbon Dioxide 37 H (22-30) mmol/L BUN 38 H (9-20) mg/dL Creatinine 2.48 H (0.66-1.25) mg/dL Glucose 137 H (74-99) mg/dL POC Glucose (mg/dL) (75-99) mg/dL Iron (65-175) ug/dL Transferrin (204.0-354.0) mg/dL Ferritin (22.0-322.0) ng/mL 03/03/21 03/03/21 Range/Units 06:08 11:53 Hgb (13.0-17.5) gm/dL Hct (39.0-53.0) % MCV (80.0-100.0) fL MCH (25.0-35.0) pg MCHC (31.0-37.0) g/dL RDW (11.5-15.5) % APTT (22.0-30.0) sec Chloride (98-107) mmol/L Carbon Dioxide (22-30) mmol/L BUN (9-20) mg/dL Creatinine (0.66-1.25) mg/dL Glucose (74-99) mg/dL POC Glucose (mg/dL) 145 H 216 H (75-99) mg/dL Iron (65-175) ug/dL Transferrin (204.0-354.0) mg/dL Ferritin (22.0-322.0) ng/mL
[2021-03-03 16:16] LABS: Glucose,Whole Blood 108 mg/dL (75-99)
[2021-03-03 17:15] LABS: Appearance,Urine Clear (Clear); Bilirubin,Urine Negative (Negative); Blood,Urine Negative (Negative); Color,Urine Light Yellow; Glucose,Urine (UA) 2+ (Negative); Ketones,Urine Negative (Negative); Leukocyte Esterase,Urine Negative (Negative); Nitrite,Urine Negative (Negative); PH, Urine 7.5 (5.0-8.0); Protein,Urine Trace (Negative); Urobilinogen,Urine <2.0 mg/dL (<2.0)
[2021-03-03 19:58] LABS: Glucose,Whole Blood 96 mg/dL (75-99)
[2021-03-04] MEDS: FUROSEMIDE 10 MG/ML 4 ML VIAL IV SCH ×2 (01:45→09:20)
[2021-03-04 06:21] LABS: Glucose,Whole Blood 76 mg/dL (75-99)
[2021-03-04] MEDS: INSULIN DETEMIR (LEVEMIR) 100 UNIT/ML SYR SQ SCH (06:29)
[2021-03-04 07:58] LABS: Calcium 9.6 mg/dL (8.4-10.2); Magnesium 2.3 mg/dL (1.6-2.3); Potassium 4.7 mmol/L (3.5-5.1)
[2021-03-04 08:00] LABS: Anisocytosis Slight; HCT 33.9 % (39.0-53.0); HGB 9.7 gm/dL (13.0-17.5); Hypochromasia Marked; MCH 20.6 pg (25.0-35.0); MCHC 28.5 g/dL (31.0-37.0); MCV 72.3 fL (80.0-100.0); Mean Platelet Volume 8.9; Microcytosis Moderate; Platelet Count 193 k/uL (150-450); Poikilocytosis Slight; RBC 4.69 m/uL (4.30-5.90); RDW 18.3 % (11.5-15.5)
[2021-03-04] MEDS ORDERED: LIDOCAINE 1% INJ 10MG/ML (20 ML MDV) ONE (08:10)
[2021-03-04] MEDS ORDERED: IV FLUID CONTINUATION 1,000 ML IV ONE (08:10)
[2021-03-04] MEDS ORDERED: PROPOFOL 10 MG/ML 20 ML VIAL IV ONE (08:10)
--- NOTE | 2021-03-04 08:42 | P.OP ---
Date of Procedure: 03/04/21 Preoperative Diagnosis: GI bleed Postoperative Diagnosis: Antral gastritis Diverticulosis Hemorrhoids Procedure(s) Performed: EGD Colonoscopy Anesthesia: MAC Surgeon: Gibson Rivera Pathology: other (Antrum) Condition: stable Disposition: PACU Description of Procedure: The patient's placed on the endoscopy table in the lateral position. She received IV sedation. The gastroscope placed oropharynx past esophagus and stomach. Scope was pylorus. The first and second portion of the duodenum appeared normal. Scope was then brought back the antrum this appeared mildly inflamed. A biopsies performed. Scope was retroflexed the remainder the stomach appeared normal. There is no evidence of GI bleed. The GE junction was at 40 cm. The distal esophagus appeared normal. Proximal esophagus.. Scope withdrawn for patient. Next digital rectal exam was performed which revealed internal and external hemorrhoids. Flexible colonoscope was then placed patient anus passed throughout the entire colon. The ileocecal valve was visualized. The cecum, ascending and transverse colon appeared normal. In the descending; there is moderate diverticular changes. The scope was then brought back into the rectum and this. Normal. Scope was passed through the anus and internal hemorrhoids noted. There is no evidence of any significant GI bleed. The patient may have had bleeding from either hemorrhoids or diverticular disease.
[2021-03-04 09:15] VITALS: BP 141/69; PULSE 87; RESP 16; TEMP 98.1
[2021-03-04] MEDS: ATORVASTATIN 20 MG TAB PO SCH (09:19)
[2021-03-04] MEDS: PREGABALIN 100 MG CAP PO SCH (09:19)
[2021-03-04] MEDS: LOSARTAN 50 MG TAB PO SCH (09:19)
[2021-03-04] MEDS: ASPIRIN 81 MG PO SCH (09:19)
[2021-03-04] MEDS: VORTIOXETINE HYDROBROMIDE 10 MG TABLET PO SCH (09:20)
[2021-03-04] MEDS: hydrALAZINE HCL 50 MG TAB PO SCH (09:20)
[2021-03-04] MEDS: carvediloL 12.5 MG TAB PO SCH (09:21)
[2021-03-04] MEDS: FENOFIBRATE 160 MG TAB PO SCH (09:21)
[2021-03-04] MEDS: PANTOPRAZOLE 40 MG TABLET PO SCH (09:22)
[2021-03-04] MEDS: oxyCODONE-APAP 7.5-325MG 1 EACH TAB PO PRN (09:32)
--- NOTE | 2021-03-04 09:45 | P.PN ---
Subjective Patient is seen in follow-up for acute kidney injury on chronic kidney disease. Edema improved. Good urine output. No chest pain or shortness of breath. Underwent EGD and colonoscopy this morning. Vital signs are stable. General: The patient appeared well nourished and normally developed. HEENT: Head exam is unremarkable. LUNGS: Breath sounds decreased. HEART: Rate and Rhythm are regular. ABDOMEN: Soft, no distention. EXTREMITITES: Trace edema. Objective - Vital Signs Vital signs: Vital Signs Temp 98.1 F 03/04/21 08:00 Pulse 87 03/04/21 08:00 Resp 16 03/04/21 08:00 BP 141/69 03/04/21 08:00 Pulse Ox 96 03/04/21 08:00 Intake & Output 03/03/21 03/04/21 03/04/21 18:59 06:59 18:59 Intake Total 1368.182 400 Output Total 1150 Balance 218.182 400 Intake: IV 400 Intake, IV Titration 770.182 Amount Dextrose 5%-0.45% NaCl 1, 664 000 ml @ 83 mls/hr IV . Q12H3M [facility] Rx#:[id number] Heparin Sod,Pork in 0.45% 106.182 NaCl 25,000 unit In 0.45 % NaCl 1 250ml.bag @ 11. 603 UNITS/KG/HR 10 mls/hr IV .Q24H [facility] Rx#: [id number] Oral 598 Output: Urine 1150 Other: Voiding Method Toilet Toilet Urinal Urinal # Voids 1 1 - Labs CBC & Chem 7: 03/04/21 06:44 03/04/21 06:44 Labs: Abnormal Lab Results - Last 24 Hours (Table) 03/03/21 03/03/21 03/03/21 Range/Units 11:53 16:16 16:47 Hgb (13.0-17.5) gm/dL Hct (39.0-53.0) % MCV (80.0-100.0) fL MCH (25.0-35.0) pg MCHC (31.0-37.0) g/dL RDW (11.5-15.5) % Chloride (98-107) mmol/L Carbon Dioxide (22-30) mmol/L BUN (9-20) mg/dL Creatinine (0.66-1.25) mg/dL Glucose (74-99) mg/dL POC Glucose (mg/dL) 216 H 108 H (75-99) mg/dL Urine Protein Trace H (Negative) Urine Glucose (UA) 2+ H (Negative) 03/04/21 03/04/21 Range/Units 06:44 06:44 Hgb 9.7 L (13.0-17.5) gm/dL Hct 33.9 L (39.0-53.0) % MCV 72.3 L (80.0-100.0) fL MCH 20.6 L (25.0-35.0) pg MCHC 28.5 L (31.0-37.0) g/dL RDW 18.3 H (11.5-15.5) % Chloride 92 L (98-107) mmol/L Carbon Dioxide 38 H (22-30) mmol/L BUN 39 H (9-20) mg/dL Creatinine 2.40 H (0.66-1.25) mg/dL Glucose 56 L (74-99) mg/dL POC Glucose (mg/dL) (75-99) mg/dL Urine Protein (Negative) Urine Glucose (UA) (Negative) Assessment and Plan Plan: Assessment: 1. Acute kidney injury secondary to ATN secondary to cardiorenal syndrome. Renal function stable. Creatinine stable at 2.4 today. UA with trace proteinuria. No hydronephrosis noted on kidney ultrasound. 2. Acute on chronic diastolic CHF. 3. Volume overload. Improved to diuresis. 4. Chronic kidney disease stage IIIB/4 with baseline creatinine in the range of 1.8-2. Etiology is diabetic kidney disease. 5. Hypertension with chronic kidney disease. Controlled. 6. Diabetes mellitus. 7. Anemia of chronic kidney disease. Iron deficiency noted. EGD and colono scopy revealed antral gastritis, diverticulosis and hemorrhoids. Plan: Stop IV Lasix. Add Demadex 20 mg once daily. Low-salt diet. 1500 mL fluid restriction. Maintain losartan for now as blood pressure is not low. Add IV iron.
--- NOTE | 2021-03-04 11:43 | P.PN ---
Subjective Progress Note Date: 03/04/21 HISTORY OF PRESENT ILLNESS: This is a 60-year-old male with a past medical history significant for hypertension, aortic stenosis, hyperlipidemia, and diabetes. Patient used to follow in the office with Dr. Ayon but has not been seen in the office since 2017. We have been asked to see the patient in consultation for elevated troponin. Patient examined at the bedside. Patient states he has noticed shortness of breath and lower extremity edema for the past 10 days. He states h e went to see his grade tamper because he thought it might be related to his diabetes. He states his grade tamper ordered some blood work and then he went to the ER for further evaluation. The patient also reports a presyncopal episode about two weeks ago. He did not lose consciousness at that time. The patient currently denies chest pain or pressure. He reports mild shortness of breath. Patient was found to be in congestive heart failure upon presentation to the emergency room. Patient's blood pressure is also elevated this morning with a systolic ranging between 180 and 190. EKG reveals sinus mechanism with T-wave inversions in inferior and lateral leads, new from previous EKG Chest xray mild increased pulmonary interstitial density compared to old exam. This could be minimal interstitial pneumonia. Laboratory data: WBC 7.3. Hemoglobin 9.2. Platelet count 237. Sodium 141. Potassium 5.0. BUN 38. Creatinine 2.32. Troponin 0.058. 0.067. 0.039. Current home cardiac medications include hydralazine 50 mg 3 times a day, fenofibrate 145 mg daily, atorvastatin 20 mg daily, aspirin 325 mg daily, losartan 100 mg twice a day, carvedilol 25 mg daily, Plavix any 5 mg daily Patient underwent Lexiscan stress test in June 2016 which was negative for stress-induced ischemia Echocardiogram performed in 2017 revealed ejection fraction 60%, possible bicuspid aortic valve, trace aortic regurgitation, mild aortic stenosis, mild mitral regurgitation, and mild tricuspid regurgitation 03/03/2021 Patient examined this morning at the bedside. Patient denies chest pain or pressure. Denies shortness of breath. Patients increased lower extremity edema. He remains on IV lasix. Hemoglobin stable. Blood pressure improved. Echo reveals EF 55-60% with moderate aortic stenosis. 03/04/2021 Patient examined this morning at the bedside. Patient denies chest pain or pressure. He denies short of breath. He remains on IV Lasix. Creatinine 2.4 today. The pressure 141/69. He is scheduled to undergo endoscopy today. He is hoping to be discharged home this afternoon. PHYSICAL EXAM: VITAL SIGNS: Reviewed. GENERAL: Well-developed in no acute distress. HEENT: Head is normocephalic. Pupils are equal, round. Sclerae anicteric. Mucous membranes of the mouth are moist. Neck supple. No JVD or thyromegaly LUNGS: Respirations even and unlabored. Lungs diminished HEART: Regular rate and rhythm. S1 and S2 heard. Harsh systolic murmur. EXTREMITIES: Normal range of motion. No clubbing or cyanosis. Peripheral pulses intact. Trace bilateral lower extremity edema ASSESSMENT: Acute congestive heart failure, diastolic Hypertensive urgency Acute on chronic kidney disease Abnormal troponins, likely secondary to CKD Aortic stenosis Carotid stenosis, status post bilateral carotid enterectomy Hyperlipidemia Diabetes PLAN: IV Lasix discontinued. Patient started on Demadex per nephrology Continue additional cardiac medications Patient does not need to be resumed on Plavix from a cardiac perspective Patient may be discharged home this afternoon from a cardiac standpoint We will sign off. Please reconsult if needed Nurse practitioner note has been reviewed by physician. Signing provider agrees with the documented findings, assessment, and plan of care. Objective - Vital Signs Vital signs: Vital Signs Temp 98.1 F 03/04/21 08:00 Pulse 87 03/04/21 08:00 Resp 16 03/04/21 08:00 BP 141/69 03/04/21 08:00 Pulse Ox 96 03/04/21 08:00 Intake & Output 03/03/21 03/04/21 03/04/21 18:59 06:59 18:59 Intake Total 1368.182 400 Output Total 1150 Balance 218.182 400 Intake: IV 400 Intake, IV Titration 770.182 Amount Dextrose 5%-0.45% NaCl 1, 664 000 ml @ 83 mls/hr IV . Q12H3M [facility] Rx#:[id number] Heparin Sod,Pork in 0.45% 106.182 NaCl 25,000 unit In 0.45 % NaCl 1 250ml.bag @ 11. 603 UNITS/KG/HR 10 mls/hr IV .Q24H [facility] Rx#: [id number] Oral 598 Output: Urine 1150 Other: Voiding Method Toilet Toilet Urinal Urinal # Voids 1 1 - Labs CBC & Chem 7: 03/04/21 06:44 03/04/21 06:44 Labs: Abnormal Lab Results - Last 24 Hours (Table) 03/03/21 03/03/21 03/03/21 Range/Units 11:53 16:16 16:47 Hgb (13.0-17.5) gm/dL Hct (39.0-53.0) % MCV (80.0-100.0) fL MCH (25.0-35.0) pg MCHC (31.0-37.0) g/dL RDW (11.5-15.5) % Chloride (98-107) mmol/L Carbon Dioxide (22-30) mmol/L BUN (9-20) mg/dL Creatinine (0.66-1.25) mg/dL Glucose (74-99) mg/dL POC Glucose (mg/dL) 216 H 108 H (75-99) mg/dL Urine Protein Trace H (Negative) Urine Glucose (UA) 2+ H (Negative) 03/04/21 03/04/21 Range/Units 06:44 06:44 Hgb 9.7 L (13.0-17.5) gm/dL Hct 33.9 L (39.0-53.0) % MCV 72.3 L (80.0-100.0) fL MCH 20.6 L (25.0-35.0) pg MCHC 28.5 L (31.0-37.0) g/dL RDW 18.3 H (11.5-15.5) % Chloride 92 L (98-107) mmol/L Carbon Dioxide 38 H (22-30) mmol/L BUN 39 H (9-20) mg/dL Creatinine 2.40 H (0.66-1.25) mg/dL Glucose 56 L (74-99) mg/dL POC Glucose (mg/dL) (75-99) mg/dL Urine Protein (Negative) Urine Glucose (UA) (Negative)
[2021-03-04 11:44] LABS: Glucose,Whole Blood 194 mg/dL (75-99)
--- NOTE | 2021-03-04 16:46 | P.DS ---
Providers Date of admission: 03/01/21 20:54 Expected date of discharge: 03/04/21 Attending physician: Nitish Desir MD Consults: 03/01/21 20:52 Consult Physician Urgent Consulting Provider: Gibson Rivera Consult Reason/Comments: Anemia Do you want consulting provider notified?: Yes 03/02/21 15:58 Consult Physician Routine Consulting Provider: Harman Arevalo Consult Reason/Comments: CARMELITA on CKD Do you want consulting provider notified?: Yes Primary care physician: Marquez AlvarezRoseanne [facility] Course: 60 years old male patient of Dr. Cronin with past medical history of chronic kidney disease, type 2 diabetes, carotid stenosis status post carotid endarterectomy, GERD, hyperlipidemia, hypertension comes in with the bilateral lower extremity swelling for the past 1 week associated with shortness of breath. Patient denies any chest pain but does endorse palpitation on and off for the past few days. Patient denies any change in bowel habits nausea or vomiting. He denies any hematuria or melena. Labs are reviewed patient was noted to have a hemoglobin of 9.2 hematocrit 72 WBC 7.3 INR 1.1 CO2 33 BUN 38 creatinine 2.3 which is close to patient's baseline troponin 2 was positive. ProBNP 44 2-0 chromic was negative. Vitals are reviewed patient's afebrile pulse 90 respiratory rate 18 blood pressure 163/80 oxygen saturation 96% on room air Cardiology consult was placed. Patient initiated on Lasix 40 IV twice a day. Iron studies were ordered to rule out anemia of chronic disease. Continue patient on heparin drip until evaluated by cardiology. Venous Doppler was ordered. Echocardiogram was ordered. 03/03: Patient is off heparin. He is scheduled for EGD and colonoscopy tomorrow. Hemoglobin is 9.5, BUN 38 and creatinine 2.48. Blood sugars are running between 145 and 250. Patient is normally on Percocet 7.5 at home which is prescribed by a pain specialist which will be resumed. Patient also advised to wear compression socks and ANOOP hose will be ordered for here. Patient is also instructed to follow low-salt diet. Weight is unrecorded. Patient has had good urine output. He is currently on Lasix 40 mg IV every 8 hours. Lower extremity edema improved from yesterday. 03/04: Patient underwent EGD and colonoscopy with Dr. Rivera today which found antral gastritis, diverticulosis and hemorrhoids and patient was cleared for discharge by surgery. Patient was seen and followed by cardiology and cardiology has signed off. He denies any new complaints. Hemoglobin 9.7, BUN 39 creatinine 2.4. Patient will be discharged today in stable condition. DISCHARGE DIAGNOSES acute diastolic congestive heart failure Carotid stenosis bilateral status post carotid endarterectomy Troponin elevation likely secondary to chronic kidney disease Chronic kidney disease stage IV Anemia rule out acute blood loss likely secondary to anemia of chronic disease Hypertension Hyperlipidemia Type 2 diabetes Diabetic neuropathy Recurrent Depression DISCHARGE PLAN Home Greater than 35 minutes was utilized and coordinating patient's discharge. Impression and plan of care have been directed as dictated by the signing physician. Chen Quiroz nurse practitioner acting as scribe for signing physician. Patient Condition at Discharge: Good Plan - Discharge Summary Discharge Rx Participant: No New Discharge Prescriptions: New Torsemide [Demadex] 20 mg PO DAILY #30 tab Aspirin 81 mg PO DAILY #90 tab Continue Omeprazole [PriLOSEC] 20 mg PO DAILY Pregabalin [Lyrica] 100 mg PO TID Insulin Glargine,Hum.rec.anlog [Toujeo Solostar] 40 units SQ DAILY Atorvastatin [Lipitor] 20 mg PO DAILY Losartan [Cozaar] 100 mg PO BID #60 tab Fenofibrate Nanocrystallized [Tricor] 145 mg PO DAILY Carvedilol [Coreg] 25 mg PO DAILY Vortioxetine Hydrobromide [Trintellix] 10 mg PO DAILY Cholecalciferol (Vitamin D3) [Vitamin D3 (125 MCG = 5,000 IU)] 125 mcg PO DAILY hydrALAZINE HCL [Apresoline] 50 mg PO TID PRN PRN Reason: Blood Pressure - High Cyanocobalamin [Vitamin B-12] 500 mcg PO DAILY Multivitamins, Thera [Multivitamin (formulary)] 1 tab PO DAILY Zinc Gluconate [Zinc] 50 mg PO DAILY Empagliflozin [Jardiance] 10 mg PO DAILY Discontinued Clopidogrel [Plavix] 75 mg PO DAILY Aspirin EC [Ecotrin] 325 mg PO DAILY Discharge Medication List Omeprazole [PriLOSEC] 20 mg PO DAILY 12/03/15 [History] Insulin Glargine,Hum.rec.anlog [Toujeo Solostar] 40 units SQ DAILY 07/06/16 [History] Pregabalin [Lyrica] 100 mg PO TID 07/06/16 [History] Atorvastatin [Lipitor] 20 mg PO DAILY 08/09/16 [History] Losartan [Cozaar] 100 mg PO BID #60 tab 08/17/16 [Rx] Fenofibrate Nanocrystallized [Tricor] 145 mg PO DAILY 10/05/17 [History] Carvedilol [Coreg] 25 mg PO DAILY 07/31/18 [History] Vortioxetine Hydrobromide [Trintellix] 10 mg PO DAILY 07/31/18 [History] Cholecalciferol (Vitamin D3) [Vitamin D3 (125 MCG = 5,000 IU)] 125 mcg PO DAILY 03/01/21 [History] Cyanocobalamin [Vitamin B-12] 500 mcg PO DAILY 03/01/21 [History] Multivitamins, Thera [Multivitamin (formulary)] 1 tab PO DAILY 03/01/21 [History] Zinc Gluconate [Zinc] 50 mg PO DAILY 03/01/21 [History] Empagliflozin [Jardiance] 10 mg PO DAILY 03/02/21 [History] hydrALAZINE HCL [Apresoline] 50 mg PO TID PRN 03/02/21 [History] Aspirin 81 mg PO DAILY #90 tab 03/04/21 [Rx] Torsemide [Demadex] 20 mg PO DAILY #30 tab 03/04/21 [Rx] Follow up Appointment(s)/Referral(s): Anant Muñoz MD [STAFF PHYSICIAN] - 1 Week (Office will call you with an appointment.) Marquez Cronin DO [Primary Care Provider] - 1 Week (Office will call you with an appointment.) Patient Instructions/Handouts: Heart Failure (DC), Diverticulosis (DC), Iron Rich Diet (DC), Diverticulosis Diet (GEN) Discharge Disposition: HOME SELF-CARE
[2021-03-05] MEDS ORDERED: TORSEMIDE 20 MG TAB PO SCH (09:00)
== END 2021-03-04 14:39 | disposition home or self-care (01) | DRG 291 ==
LOC: EC 18:55 → 3SCARD 20:54
PROVIDERS: ADMIT Internal Medicine; ATTEND Internal Medicine
PROC: 0DB78ZX Excision of Stomach, Pylorus, Via Natural or Artificial Opening Endoscopic, Diagnostic (ICD-10-PCS; principal; 2021-03-04 11:25)
PROC: 0DJD8ZZ Inspection of Lower Intestinal Tract, Via Natural or Artificial Opening Endoscopic (ICD-10-PCS; 2021-03-04 11:25)
DX: I13.0 Hypertensive heart and chronic kidney disease with heart failure and stage 1 through stage 4 chronic kidney disease, or unspecified chronic kidney disease (principal); I50.33 Acute on chronic diastolic (congestive) heart failure; N17.0 Acute kidney failure with tubular necrosis; K57.31 Diverticulosis of large intestine without perforation or abscess with bleeding; F33.9 Major depressive disorder, recurrent, unspecified; N18.4 Chronic kidney disease, stage 4 (severe); Z20.822 Contact with and (suspected) exposure to COVID-19; I16.0 Hypertensive urgency; D63.1 Anemia in chronic kidney disease; E11.22 Type 2 diabetes mellitus with diabetic chronic kidney disease; E11.40 Type 2 diabetes mellitus with diabetic neuropathy, unspecified; E61.1 Iron deficiency; E78.5 Hyperlipidemia, unspecified; F17.210 Nicotine dependence, cigarettes, uncomplicated; I08.3 Combined rheumatic disorders of mitral, aortic and tricuspid valves; R29.6 Repeated falls; R79.89 Other specified abnormal findings of blood chemistry; I27.20 Pulmonary hypertension, unspecified; G89.29 Other chronic pain; M54.50 Low back pain, unspecified; I65.23 Occlusion and stenosis of bilateral carotid arteries; K29.70 Gastritis, unspecified, without bleeding; K64.9 Unspecified hemorrhoids; Z79.02 Long term (current) use of antithrombotics/antiplatelets; Z79.4 Long term (current) use of insulin; Z79.82 Long term (current) use of aspirin; Z79.84 Long term (current) use of oral hypoglycemic drugs; Z79.899 Other long term (current) drug therapy; Z90.49 Acquired absence of other specified parts of digestive tract; Z87.19 Personal history of other diseases of the digestive system; Z91.81 History of falling
CPT/HCPCS: 36415; 43239; 45378; 71046; 76770; 80048; 80053; 81003; 82728; 83540; 83550; 83605; 83735; 83880; 84484; 85025; 85027; 85610; 85730; 87635; 88305; 93005; 93306; 96374; 99285

== ENCOUNTER → 2021-03-01 | Outpatient (CLI) | payer OTHER ==
[2021-03-02 01:15] LABS: ALT 17 U/L (10-49); AST 21 U/L (14-35); African American GFR (CKD) 29.9 (60.0-200.0); Albumin 3.9 g/dL (3.8-4.9); Albumin/Globulin Ratio 1.86 (1.60-3.17); Alkaline Phosphatase 63 U/L (41-126); Calcium 8.9 mg/dL (8.7-10.3); Carbon Dioxide 26.3 mmol/L (20.0-27.5); Chloride 105 mmol/L (96-109); Globulin 2.1 g/dL (1.6-3.3); Glucose 126 mg/dL (70-110); Non-African American GFR(CKD) 25.8 (60.0-200.0); Potassium 5.7 mmol/L (3.5-5.5); Sodium 143 mmol/L (135-145); Total Bilirubin <0.20 mg/dL (0.30-1.20)
== END | disposition home or self-care (01) ==
LOC: LABWHC1 15:01
PROVIDERS: ATTEND Internal Medicine Endocrinology, Diabetes & Metabolism
DX: E11.65 Type 2 diabetes mellitus with hyperglycemia (principal)
CPT/HCPCS: 36415; 80053

== ENCOUNTER 2021-04-10 02:24 | Inpatient (IN) | payer OTHER ==
--- NOTE | 2021-04-10 02:44 | ED ---
Chest Pain [facility] - General Chief Complaint: Chest Pain Stated Complaint: Chest Pain Time Seen by Provider: 04/10/21 02:43 Source: patient Mode of arrival: ambulatory Limitations: no limitations - History of Present Illness Initial Comments: This patient is a 61-year-old man who woke with pain all across the upper chest tonight. Patient states he also was feeling short of breath. Patient does note that she has history of congestive heart failure and had been out of Lasix. Denies other anginal type symptoms. MD Complaint: chest pain -: hour(s) Onset: during rest Pain Location: left chest, right chest Pain Radiation: none Severity: moderate Quality: heaviness Consistency: constant Improves With: nothing Worsens With: nothing Anginal Symptoms: dyspnea - Related Data Home Medications Medication Instructions Recorded Confirmed Omeprazole [PriLOSEC] 20 mg PO DAILY 12/03/15 04/10/21 Insulin Glargine,Hum.rec.anlog 40 units SQ DAILY 07/06/16 04/10/21 [Toujeo Solostar] Pregabalin [Lyrica] 100 mg PO TID 07/06/16 04/10/21 Atorvastatin [Lipitor] 20 mg PO DAILY 08/09/16 04/10/21 Fenofibrate Nanocrystallized 145 mg PO DAILY 10/05/17 04/10/21 [Tricor] Carvedilol [Coreg] 25 mg PO DAILY 07/31/18 04/10/21 Vortioxetine Hydrobromide 10 mg PO DAILY 07/31/18 04/10/21 [Trintellix] Cholecalciferol (Vitamin D3) 125 mcg PO DAILY 03/01/21 04/10/21 [Vitamin D3 (125 MCG = 5,000 IU)] Cyanocobalamin [Vitamin B-12] 500 mcg PO DAILY 03/01/21 04/10/21 Multivitamins, Thera [Multivitamin 1 tab PO DAILY 03/01/21 04/10/21 (formulary)] Zinc Gluconate [Zinc] 50 mg PO DAILY 03/01/21 04/10/21 Empagliflozin [Jardiance] 10 mg PO DAILY 03/02/21 04/10/21 hydrALAZINE HCL [Apresoline] 50 mg PO TID PRN 03/02/21 04/10/21 Losartan Potassium 100 mg PO DAILY 04/10/21 04/10/21 metFORMIN HCL [Glucophage XR] 750 mg PO BID-W/MEALS 04/10/21 04/10/21 sitaGLIPtin [Januvia] 100 mg PO DAILY 04/10/21 04/10/21 Previous Rx's Medication Instructions Recorded Aspirin 81 mg PO DAILY #90 tab 03/04/21 Torsemide [Demadex] 20 mg PO DAILY #30 tab 03/04/21 Allergies Allergy/AdvReac Type Severity Reaction Status Date / Time No Known Allergies Allergy Verified 04/10/21 07:16 Review of Systems ROS Statement: Those systems with pertinent positive or pertinent negative responses have been documented in the HPI. ROS Other: All systems not noted in ROS Statement are negative. Constitutional: Denies: fever, chills Respiratory: Reports: cough, dyspnea Cardiovascular: Reports: chest pain Gastrointestinal: Denies: abdominal pain, nausea, vomiting, diarrhea Genitourinary: Denies: dysuria, hematuria Musculoskeletal: Denies: back pain Skin: Denies: rash Neurological: Denies: headache, weakness, numbness EKG Findings - EKG Comments: EKG Findings:: Possible old anterior infarct. - EKG Results: EKG: interpreted by ERMD, sinus rhythm EKG shows: tachycardia (Rate 120 bpm) - Blocks, [place], Hypertrophy, ST Abn: Repolarization changes or abnormalities: ST or T wave suggestive of ischemia (Lateral) Past Medical History Past Medical History: Diabetes Mellitus, GERD/Reflux, Hyperlipidemia, Hypertension, Renal Disease, Syncope, Vascular Disorder Additional Past Medical History / Comment(s): IDDM type II, neuropathy bilateral feet, CKD, murmur, chronic low back pain/lumbar spinal stenosis, vertigo, falls, covid infection June 2020 History of Any Multi-Drug Resistant Organisms: None Reported Past Surgical History: Cholecystectomy, Hernia Repair, Orthopedic Surgery Additional Past Surgical History / Comment(s): L arm muscle repair by elbow, low back surgery/verteflex, L inguinal hernia repair, bilaterall carotid endarterectomies Past Anesthesia/Blood Transfusion Reactions: No Reported Reaction Past Psychological History: Anxiety Smoking Status: Current every day smoker Past Alcohol Use History: None Reported Past Drug Use History: None Reported - Past Family History Father Family Medical History: Coronary Artery Disease (CAD) Additional Family Medical History / Comment(s): Father during CABG Mother Family Medical History: Congestive Heart Failure (CHF), Myocardial Infarction ([place]) Additional Family Medical History / Comment(s): Mother of CHF at the age of 81 yrs. General Exam Limitations: no limitations General appearance: alert, in no apparent distress Head exam: Present: atraumatic, normocephalic Eye exam: Present: normal appearance. Absent: scleral icterus, conjunctival in jection Neck exam: Present: normal inspection Respiratory exam: Present: wheezes. Absent: respiratory distress, rales, rhonchi, stridor, chest wall tenderness, accessory muscle use, decreased breath sounds Cardiovascular Exam: Present: normal rhythm, tachycardia, systolic murmur (Grade 3/6 systolic ejection murmur). Absent: diastolic murmur, rubs, gallop GI/Abdominal exam: Present: soft. Absent: distended, tenderness, guarding, rebound, rigid, mass Extremities exam: Present: normal inspection, normal capillary refill. Absent: pedal edema, calf tenderness Neurological exam: Present: alert Skin exam: Present: warm, dry, intact, normal color. Absent: rash Course Vital Signs 04/10/21 04/10/21 04/10/21 02:29 02:54 03:00 Temperature 99.5 F Pulse Rate 130 H 108 H Respiratory 28 H 24 28 H Rate Blood Pressure 182/100 169/94 O2 Sat by Pulse 97 Oximetry 04/10/21 04/10/21 04/10/21 04:18 05:00 06:49 Temperature Pulse Rate 92 90 85 Respiratory 24 20 22 Rate Blood Pressure 169/94 127/83 114/70 O2 Sat by Pulse 97 97 97 Oximetry Disposition Clinical Impression: Elevated troponin, CHF (congestive heart failure), Chest pain Disposition: ADMITTED IP TO THIS HOSP Condition: Fair Is patient prescribed a controlled substance at d/c from ED?: No
[2021-04-10 03:21] LABS: Anisocytosis Moderate; Basophils # (A) 0.1 k/uL (0-0.2); Basophils % (A) 1 %; Eosinophils # (A) 0.6 k/uL (0-0.7); Eosinophils % (A) 6 %; HCT 34.7 % (39.0-53.0); HGB 9.4 gm/dL (13.0-17.5); Hypochromasia Marked; Lymphocytes # (A) 0.6 k/uL (1.0-4.8); Lymphocytes % (A) 6 %; MCH 20.9 pg (25.0-35.0); Mean Platelet Volume 10.7; Microcytosis Moderate; Monocytes # (A) 0.7 k/uL (0-1.0); Monocytes % (A) 7 %; Neutrophils # (A) 7.8 k/uL (1.3-7.7); Neutrophils % (A) 78 %; Platelet Count 210 k/uL (150-450); RBC 4.49 m/uL (4.30-5.90); RDW 21.5 % (11.5-15.5); WBC 9.9 k/uL (3.8-10.6)
--- NOTE | 2021-04-10 03:22 | XR ---
EXAMINATION TYPE: XR chest 1V portable DATE OF EXAM: 04/10/2021 COMPARISON: 03/01/2021 HISTORY: Short of breath. Chest pain TECHNIQUE: FINDINGS: There is coarse interstitial density throughout the lungs. Heart size is fairly normal. The re are chest leads. There is no definite pleural effusion. IMPRESSION: There are interstitial pulmonary infiltrates which are slightly worse than last exam. Thi s could be some acute and chronic interstitial pneumonia.
[2021-04-10 03:35] LABS: MCV 77.4 fL (80.0-100.0)
[2021-04-10 04:02] LABS: INR 0.9 (<1.2)
[2021-04-10 04:24] LABS: Albumin 4.1 g/dL (3.5-5.0); Calcium 9.5 mg/dL (8.4-10.2); Magnesium 2.4 mg/dL (1.6-2.3); Potassium 4.9 mmol/L (3.5-5.1); Total Bilirubin 0.5 mg/dL (0.2-1.3); Total Protein 6.8 g/dL (6.3-8.2)
[2021-04-10] MEDS ORDERED: LABETALOL 5 MG/ML VIAL MDV IVP STA (05:12)
[2021-04-10] MEDS ORDERED: fentaNYL (PF) 50 MCG/ML 2 ML AMP IVP STA (05:13)
[2021-04-10] MEDS ORDERED: METOPROLOL TARTRATE 25 MG TAB PO STA (05:25)
[2021-04-10] MEDS ORDERED: NITROGLYCERIN SL TABS 0.4 MG TAB SUBLINGUAL PRN ×2 (05:31→07:49)
[2021-04-10] MEDS ORDERED: HEPARIN SODIUM 1,000 UN/ML (10ML VL) IV ONE ×2 (05:35→13:16)
[2021-04-10] MEDS ORDERED: HEPARIN SODIUM 1,000 UN/ML (10ML VL) IV PRN (05:35)
[2021-04-10] MEDS ORDERED: AZITHROMYCIN 500 MG TAB PO STA (05:45)
[2021-04-10] MEDS ORDERED: HEPARIN SOD,PORK IN 0.45% NACL 25,000 UNIT in 0.45% NACL 1 250ML.BAG IV SCH (05:45)
[2021-04-10] MEDS ORDERED: NITROGLYCERIN OINT 1 INCH/GM PACKET TOPICAL STA (05:46)
[2021-04-10 06:59] LABS: Anisocytosis Moderate; Basophils % (A) 0 %; Eosinophils # (A) 0.4 k/uL (0-0.7); Eosinophils % (A) 5 %; HCT 31.5 % (39.0-53.0); HGB 8.9 gm/dL (13.0-17.5); Hypochromasia Marked; Lymphocytes # (A) 0.7 k/uL (1.0-4.8); Lymphocytes % (A) 8 %; MCH 22.1 pg (25.0-35.0); MCHC 28.2 g/dL (31.0-37.0); MCV 78.2 fL (80.0-100.0); Mean Platelet Volume 10.6; Microcytosis Moderate; Monocytes # (A) 0.6 k/uL (0-1.0); Monocytes % (A) 6 %; Neutrophils # (A) 7.1 k/uL (1.3-7.7); Neutrophils % (A) 78 %; Platelet Count 174 k/uL (150-450); RBC 4.03 m/uL (4.30-5.90); RDW 21.7 % (11.5-15.5); WBC 9.2 k/uL (3.8-10.6)
[2021-04-10 07:07] LABS: Partial Thromboplastin Time 43.7 sec (22.0-30.0); Prothrombin Time 10.7 sec (9.0-12.0)
[2021-04-10] MEDS ORDERED: ALPRAZolam 0.5 MG TAB PO PRN (07:49)
[2021-04-10] MEDS ORDERED: ATORVASTATIN 80 MG TAB PO STA (07:49)
[2021-04-10] MEDS ORDERED: ALPRAZolam 0.25 MG TAB PO PRN (07:49)
[2021-04-10] MEDS: SODIUM CHLORIDE 0.9% 1,000 ML IV SCH ×2 (08:23→17:01)
[2021-04-10] MEDS: SODIUM CHLORIDE 0.9% 250 ML IV SCH ×4 (08:23→17:01)
[2021-04-10 09:28] LABS: Glucose,Whole Blood 95 mg/dL (75-99)
--- NOTE | 2021-04-10 11:28 | P.CRDCN ---
History of Present Illness Consult date: 04/10/21 Consult reason: non-Q-wave [place] History of present illness: The patient is a 61-year-old male with past medical history of hypertension, aortic stenosis, dyslipidemia, diabetes, chronic kidney disease, who presented to the emergency room with new onset of chest discomfort. The patient states he was sleeping in bed when he developed a sharp midsternal pain. He states that he also had shortness of breath. He denies any diaphoresis or radiation into his jaw or arm. The patient was seen inpatient February for shortness of breath and hypertensive urgency. It was noted to have mildly elevated cardiac enzymes during that admission. He subsequently followed up with Dr. Muñoz in the office. He states he has been compliant with this medication regimen. DIAGNOSTICS: EKG shows sinus tachycardia with possible lateral ischemia Elevated troponins, 0.09 and 3.4 Chest x-ray shows interstitial pulmonary infiltrates Lab data: WBC 9.2, hemoglobin 8.9, platelet 174, d-dimer 1.2, sodium 142, potassium 4.9, BUN 57, creatinine 2.66, magnesium 2.4, AST 34, AL18 Vital signs: Blood pressure 117/71, SpO2 90% on 5 L nasal cannula, pulse 80, respiratory rate 16 REVIEW OF SYSTEMS: No fever or chills. No cough or expectoration. No diaphoresis. Patient denies headache, dizziness, blurred vision, double vision. Patient denies any stomach discomfort. No nausea, vomiting. No hematochezia. No hematemesis. Denies any black stools or blood in his stools. Denies dysuria or hematuria. No muscle weakness or numbness. Chest pain has since resolved. No shortness of breath currently. No orthopnea. PHYSICAL EXAMINATION: This is a 61-year-old male in no apparent distress at the time of my examination. HEENT: Head is atraumatic, normocephalic. Pupils are equal, round. Sclerae anicteric. Conjunctivae are clear. Mucous membranes of the mouth are moist. Neck is supple. There is no jugular venous distention. No carotid bruit is heard. CHEST EXAMINATION: Lungs are clear to auscultation. No chest wall tenderness is noted on palpation or with deep breathing. HEART EXAMINATION: Heart regular rate and rhythm. S1, S2 heard. No gallops or rub. Harsh systolic ejection murmur ABDOMEN: Soft, nontender. Bowel sounds are heard. No organomegaly noted. EXTREMITIES: 2+ peripheral pulses with no evidence of peripheral edema and no calf tenderness noted. NEUROLOGIC EXAMINATION: Patient is awake, alert and oriented x3. FINAL ASSESSMENT AND PLAN: Non-ST elevated myocardial infarction, proceed with coronary angiogram Abnormal troponins, 0.09, 3.4 Elevated BNP, 6470 Elevated d-dimer Chronic kidney disease, 250 mL saline bolus prior to heart cath Hypertension, controlled PLAN: 250 mL saline bolus Continue 100 mL saline infusion thereafter Continue heparin drip Proceed with coronary angiogram Further recommendations will be based on clinical course The patient has been seen and evaluated by practitioner and coordinating physician. Plan of care has been reviewed and agreed upon by Dr Jang. Past Medical History Past Medical History: Diabetes Mellitus, GERD/Reflux, Hyperlipidemia, Hypertension, Renal Disease, Syncope, Vascular Disorder Additional Past Medical History / Comment(s): IDDM type II, neuropathy bilateral feet, CKD, murmur, chronic low back pain/lumbar spinal stenosis, vertigo, falls, covid infection June 2020 History of Any Multi-Drug Resistant Organisms: None Reported Past Surgical History: Cholecystectomy, Hernia Repair, Orthopedic Surgery Additional Past Surgical History / Comment(s): L arm muscle repair by elbow, low back surgery/verteflex, L inguinal hernia repair, bilaterall carotid endarterectomies Past Anesthesia/Blood Transfusion Reactions: No Reported Reaction Past Psychological History: Anxiety Smoking Status: Current every day smoker Past Alcohol Use History: None Reported Past Drug Use History: None Reported - Past Family History Father Family Medical History: Coronary Artery Disease (CAD) Additional Family Medical History / Comment(s): Father during CABG Mother Family Medical History: Congestive Heart Failure (CHF), Myocardial Infarction ([place]) Additional Family Medical History / Comment(s): Mother of CHF at the age of 81 yrs. Medications and Allergies Home Medications Medication Instructions Recorded Confirmed Type Omeprazole [PriLOSEC] 20 mg PO DAILY 12/03/15 04/10/21 History Insulin Glargine,Hum.rec.anlog 40 units SQ DAILY 07/06/16 04/10/21 History [Toujeo Solostar] Pregabalin [Lyrica] 100 mg PO TID 07/06/16 04/10/21 History Atorvastatin [Lipitor] 20 mg PO DAILY 08/09/16 04/10/21 History Fenofibrate Nanocrystallized 145 mg PO DAILY 10/05/17 04/10/21 History [Tricor] Carvedilol [Coreg] 25 mg PO DAILY 07/31/18 04/10/21 History Vortioxetine Hydrobromide 10 mg PO DAILY 07/31/18 04/10/21 History [Trintellix] Cholecalciferol (Vitamin D3) 125 mcg PO DAILY 03/01/21 04/10/21 History [Vitamin D3 (125 MCG = 5,000 IU)] Cyanocobalamin [Vitamin B-12] 500 mcg PO DAILY 03/01/21 04/10/21 History Multivitamins, Thera [Multivitamin 1 tab PO DAILY 03/01/21 04/10/21 History (formulary)] Zinc Gluconate [Zinc] 50 mg PO DAILY 03/01/21 04/10/21 History Empagliflozin [Jardiance] 10 mg PO DAILY 03/02/21 04/10/21 History hydrALAZINE HCL [Apresoline] 50 mg PO TID PRN 03/02/21 04/10/21 History Aspirin 81 mg PO DAILY #90 tab 03/04/21 04/10/21 Rx Torsemide [Demadex] 20 mg PO DAILY #30 tab 03/04/21 04/10/21 Rx Losartan Potassium 100 mg PO DAILY 04/10/21 04/10/21 History metFORMIN HCL [Glucophage XR] 750 mg PO BID-W/MEALS 04/10/21 04/10/21 History sitaGLIPtin [Januvia] 100 mg PO DAILY 04/10/21 04/10/21 History Allergies Allergy/AdvReac Type Severity Reaction Status Date / Time No Known Allergies Allergy Verified 04/10/21 07:16 Physical Exam Vitals: Vital Signs Temp Pulse Resp BP Pulse Ox 04/10/21 06:49 85 22 114/70 97 04/10/21 05:00 90 20 127/83 97 04/10/21 04:18 92 24 169/94 97 04/10/21 03:00 108 H 28 H 169/94 97 04/10/21 02:54 24 04/10/21 02:29 99.5 F 130 H 28 H 182/100 Intake and Output 04/09/21 04/10/21 04/10/21 22:59 06:59 14:59 Other: Weight 83.915 kg Results 04/10/21 06:39 04/10/21 03:06 Cardiac Enzymes 04/10/21 04/10/21 04/10/21 Range/Units 03:06 03:06 06:39 AST 34 (17-59) U/L Troponin I 0.099 H* 3.420 H* (0.000-0.034) ng/mL Coagulation 04/10/21 04/10/21 Range/Units 03:06 06:39 PT 10.0 10.7 (9.0-12.0) sec APTT 24.0 43.7 H (22.0-30.0) sec CBC 04/10/21 04/10/21 Range/Units 03:06 06:39 WBC 9.9 9.2 (3.8-10.6) k/uL RBC 4.49 4.03 L (4.30-5.90) m/uL Hgb 9.4 L 8.9 L (13.0-17.5) gm/dL Hct 34.7 L 31.5 L (39.0-53.0) % Plt Count 210 174 (150-450) k/uL Comprehensive Metabolic Panel 04/10/21 Range/Units 03:06 Sodium 142 (137-145) mmol/L Potassium 4.9 (3.5-5.1) mmol/L Chloride 104 (98-107) mmol/L Carbon Dioxide 29 (22-30) mmol/L BUN 57 H (9-20) mg/dL Creatinine 2.66 H (0.66-1.25) mg/dL Glucose 148 H (74-99) mg/dL Calcium 9.5 (8.4-10.2) mg/dL AST 34 (17-59) U/L ALT 18 (4-49) U/L Alkaline Phosphatase 50 (38-126) U/L Total Protein 6.8 (6.3-8.2) g/dL Albumin 4.1 (3.5-5.0) g/dL Current Medications Generic Name Dose Route Start Last Admin Trade Name Freq PRN Reason Stop Dose Admin Alprazolam 0.25 mg 04/10/21 07:49 Alprazolam 0.25 Mg Tab PO Q6HR PRN Mild Anxiety Alprazolam 0.5 mg 04/10/21 07:49 Alprazolam 0.5 Mg Tab PO Q6HR PRN Moderate Anxiety Aspirin 325 mg 04/11/21 09:00 Aspirin 325 Mg Tab PO DAILY [facility] Atorvastatin Calcium 80 mg 04/10/21 07:49 Atorvastatin 80 Mg Tab PO 04/10/21 07:50 ONCE STA Heparin Sodium (Porcine) 0 unit 04/10/21 05:35 Heparin Sodium 1,000 Un/Ml (10ml Vl) IV PER PROTOCOL PRN Low PTT Protocol Heparin Sodium/Sodium Chloride 250 mls @ 10 mls/hr 04/10/21 05:45 04/10/21 05:46 25,000 unit/ Sodium Chloride IV 11.9168 units/kg/hr .Q24H ZAIN 10 mls/hr Administration Protocol 11.9168 UNITS/KG/HR Sodium Chloride 250 mls @ 999 mls/hr 04/10/21 08:00 Saline 0.9% IV .Q16M [facility] Nitroglycerin 0.4 mg 04/10/21 05:31 Nitroglycerin Sl Tabs 0.4 Mg Tab SUBLINGUAL Q5M PRN Chest Pain Nitroglycerin 0.4 mg 04/10/21 07:49 Nitroglycerin Sl Tabs 0.4 Mg Tab SUBLINGUAL Q5M PRN Chest Pain Intake and Output 04/09/21 04/10/21 04/10/21 22:59 06:59 14:59 Other: Weight 83.915 kg 04/10/21 06:39 04/10/21 03:06
--- NOTE | 2021-04-10 11:39 | CONS ---
CONSULTATION REASON FOR CONSULTATION: Renal failure. HISTORY OF PRESENT ILLNESS: The patient is a 61-year-old male with history of chronic kidney disease, NKF stage 3B to 4, with baseline creatinine around 1.8 to 2 mg/dL, although his creatinine was about 2.6 in December of 2019. Patient since then has had creatinine about 2.3 to 2.4 most of February of 2021. He was admitted to the hospital with complaints of chest pain. His troponin is elevated. It increased from 0.09 to 3.4 and patient is being taken for cardiac catheterization. He denies use of any nonsteroidal anti-inflammatory agents. Blood pressure is not low. His current creatinine is 2.6 mg/dL. PAST MEDICAL HISTORY: Significant for type 2 diabetes, gastroesophageal reflux disease, hyperlipidemia, hypertension, CKD, peripheral vascular disease, history of COVID infection June of 2020, chronic back pain. PAST SURGICAL HISTORY: Cholecystectomy, hernia repair, left arm muscle repair below the elbow, low back surgery, left inguinal hernia repair. SOCIAL HISTORY: Positive for smoking. No drug abuse or alcohol abuse. MEDICATIONS: Medications prior to admission included Januvia, Glucophage, hydralazine zinc, Demadex, Lyrica, Prilosec, losartan, Tricor, Jardiance, Coreg, Lipitor, aspirin. REVIEW OF SYSTEMS: As per HPI. Other systems negative. PHYSICAL EXAMINATION: Patient is comfortable, awake, alert, oriented x3, not in any acute distress. Blood pressure 117/71, heart rate 80 per minute. He is afebrile. EXAMINATION OF THE HEART: S1 and S2. EXAMINATION OF LUNGS: Decreased breath sounds at the bases. Abdomen is soft, non-tender. Examination of lower extremities shows no significant edema. [facility] COORDINATOR EXAM: Grossly intact. LABS: Sodium 142, potassium 4.9, chloride 104. CO2 is 29, BUN 56, creatinine 2.6, hemoglobin 9.4 g/dL. ASSESSMENT: 1. Acute kidney injury, possibly prerenal, currently maintained on IV fluids. Serum creatinine slightly higher than baseline. It is at 2.6 from 2.3 to 2.2 mg/dL previously in February of 2021. Continue with the IV fluids. Patient is advised regarding the risk of dye-induced ATN and even risk for dialysis. He understands at this time. 2. Chronic kidney disease, stage 3B to 4, secondary to nephrosclerosis. Check urinalysis. Patient will need to continue to follow up as outpatient. He had an ultrasound in February of 2021 which showed no significant abnormalities on the kidney. No hydronephrosis was noted at that time. Previous UA showed trace protein in February of 2021. 3. Acute myocardial infarction; going for cardiac catheterization to the salvage laborer in about an hour. 4. Type 2 diabetes, maintained on SGLT2 inhibitors. 5. History of diastolic congestive heart failure. Echocardiogram done in February of 2021 showed ejection fraction 55% to 60% with moderate pulmonary hypertension. 6. Anemia. Rule out iron deficiency as well as component of anemia of chronic disease. PLAN: Continue IV fluids. Check iron profile. Okay to proceed with cardiac catheterization. Patient has been advised regarding risk of contrast-induced nephropathy, including risk of acute kidney injury requiring dialysis. Will repeat labs in a.m. Continue with the IV fluids for now. Check urinalysis. Thank you for this consultation. Will continue to follow the patient with you during his hospitalization. MMODL / IJN: [id number] /
[2021-04-10 12:16] LABS: Appearance,Urine Clear (Clear); Bilirubin,Urine Negative (Negative); Blood,Urine Negative (Negative); Color,Urine Yellow; Glucose,Urine (UA) 4+ (Negative); Ketones,Urine Negative (Negative); Leukocyte Esterase,Urine Negative (Negative); Nitrite,Urine Negative (Negative); PH, Urine 6.5 (5.0-8.0); Protein,Urine 1+ (Negative); RBC,Urine <1 /hpf (0-5); Specific Gravity,Urine 1.019 (1.001-1.035); Urobilinogen,Urine <2.0 mg/dL (<2.0); WBC,Urine <1 /hpf (0-5)
[2021-04-10] MEDS ORDERED: LIDOCAINE 1% INJ 10MG/ML (20 ML MDV) ONE (13:03)
[2021-04-10] MEDS ORDERED: VERAPAMIL 2.5 MG/ML 2 ML AMP ONE (13:03)
[2021-04-10] MEDS ORDERED: HEPARIN SODIUM 1,000 UN/ML (10ML VL) ONE (13:03)
[2021-04-10] MEDS ORDERED: fentaNYL (PF) 50 MCG/ML 2 ML AMP ONE (13:03)
[2021-04-10] MEDS ORDERED: fentaNYL (PF) 50 MCG/ML 2 ML AMP IVP ONE (13:07)
[2021-04-10] MEDS ORDERED: LIDOCAINE 1% INJ 10MG/ML (20 ML MDV) SQ ONE (13:08)
[2021-04-10] MEDS ORDERED: IV FLUID CONTINUATION 1,000 ML IV ONE (13:10)
[2021-04-10] MEDS ORDERED: VERAPAMIL SYRINGE (5 MG/10 ML) INTRAARTER ONE (13:12)
[2021-04-10] MEDS ORDERED: IOPAMIDOL-370 125ML BTL INJ ONE (13:22)
[2021-04-10] MEDS ORDERED: CLOPIDOGREL 75 MG TAB ONE (13:24)
[2021-04-10] MEDS ORDERED: CLOPIDOGREL 75 MG TAB PO ONE (13:26)
[2021-04-10] MEDS ORDERED: RX INFO: IV CONTRAST WAS GIVEN 1 EACH MISC MISCELLANE PRN (13:37)
[2021-04-10] MEDS ORDERED: hydrALAZINE HCL 50 MG TAB PO PRN (13:38)
[2021-04-10] MEDS ORDERED: SODIUM CHLORIDE 0.9% 1,000 ML IV SCH (13:45)
[2021-04-10 14:02] LABS: Glucose,Whole Blood 63 mg/dL (75-99)
[2021-04-10 14:24] LABS: Glucose,Whole Blood 65 mg/dL (75-99)
[2021-04-10 14:41] LABS: Glucose,Whole Blood 90 mg/dL (75-99)
--- NOTE | 2021-04-10 14:43 | P.HPIM ---
History of Present Illness H&P Date: 04/10/21 60 years old male patient of Dr. Cronin and Dr. Muñoz with past medical history of chronic kidney disease, type 2 diabetes, carotid stenosis status post carotid endarterectomy, GERD, hyperlipidemia, hypertension presenting to the emergency room, secondary to chest discomfort, lasting 30 minutes last night. Patient did not take anything for this pain, Patient was sent in via EMS, and was subsequently given nitroglycerin in the ambulance, with relief of the pain. Patient has known history of CHF, CK D stage IV aortic stenosis. His diabetes he said is controlled, with A1c of 6.4 within the past few months. In the emergency room, troponins are noted to be elevated, with anti-troponin o f 0.099, subsequent to that was 3.4, then 7.2 and was seen by Dr. Shelby and was sent to the cardiac cath lab radiology technologist, for non-ST elevation myocardial infarction, patient underwent cardiac cath, right radial artery results are currently pending, has 2 occlusive disease, no intervention according to the patient. Formal report to follow Review of Systems Constitutional: Reports as per HPI, Denies anorexia, Denies chills, Denies chronic headaches, Denies chronic pain, Denies daytime sleepiness, Denies fatigue, Denies fever, Denies lethargy, Denies malaise, Denies night sweats, Denies poor appetite, Denies sweats, Denies weakness, Denies weight gain, Denies weight loss Ears, nose, mouth and throat: Reports as per HPI Cardiovascular: Reports as per HPI, Reports chest pain, Denies irregular heart beat, Denies leg edema, Denies paroxysmal nocturnal dyspnea, Denies shortness of breath Respiratory: Reports as per HPI, Denies cough, Denies cough with sputum, Denies home oxygen, Denies pain on inspiration, Denies wheezing Genitourinary: Reports as per HPI Musculoskeletal: Reports as per HPI, Denies shooting arm pain, Denies shooting leg pain Integumentary: Reports as per HPI, Denies acne, Denies boils, Denies brittle nails, Denies change in hair/nails, Denies color changes, Denies darkening of skin, Denies depigmentation, Denies dryness, Denies foot/leg ulcers, Denies growths, Denies hirsutism, Denies lesions, Denies onychomycosis, Denies pruritus, Denies rash, Denies sores, Denies striae, Denies unusual bruising, Denies wounds Neurological: Reports as per HPI, Denies aphasia, Denies ataxia, Denies balance difficulties, Denies burning pain, Denies change in mentation, Denies change in smell/taste, Denies change in speech, Denies confusion, Denies convulsions, Denies double vision, Denies gait dysfunction, Denies head injury, Denies headaches, Denies hearing difficulties, Denies lack of coordination, Denies loss of vision, Denies memory loss, Denies migraines, Denies motor disturbance, Denies numbness, Denies paralysis, Denies paresthesias, Denies seizures, Denies sensory deficit, Denies spasticity, Denies syncope, Denies tic, Denies tingling, Denies transient paralysis, Denies tremors, Denies vertigo, Denies weakness, Denies visual changes Psychiatric: Reports as per HPI, Denies anhedonia, Denies anxiety, Denies anxiety attacks, Denies change in appetite, Denies change in libido, Denies change in sleep habits, Denies confusion, Denies depression, Denies difficulty concentrating, Denies disorientation, Denies hallucinations, Denies hopele ssness, Denies hypersomnia, Denies insomnia, Denies irritability, Denies memory loss, Denies mood swings, Denies paranoia, Denies sadness/tearfulness, Denies sleep disturbances, Denies suicidal ideation Endocrine: Reports as per HPI, Denies cold intolerance, Denies deepening of the voice, Denies excessive sweating, Denies excessive thirst, Denies fatigue, Denies flushing, Denies heat intolerance, Denies high blood sugars, Denies increase in ring/shoe/hat size, Denies low blood sugars, Denies nocturia, Denies palpitations, Denies polydipsia, Denies polyphagia, Denies polyuria, Denies proptosis, Denies recent glucocorticoid use, Denies thyroid mass, Denies weight change Hematologic/Lymphatic: Reports as per HPI Allergic/Immunologic: Reports as per HPI, Denies allergic rhinitis, Denies anaphylaxis, Denies angioedema, Denies gluten intolerance, Denies persistent infections, Denies seasonal allergies, Denies urticaria, Denies wheezing Past Medical History Past Medical History: Diabetes Mellitus, GERD/Reflux, Hyperlipidemia, Hypertension, Renal Disease, Syncope, Vascular Disorder Additional Past Medical History / Comment(s): IDDM type II, neuropathy bilateral feet, CKD, murmur, chronic low back pain/lumbar spinal stenosis, vertigo, falls, covid infection June 2020 History of Any Multi-Drug Resistant Organisms: None Reported Past Surgical History: Cholecystectomy, Hernia Repair, Orthopedic Surgery Additional Past Surgical History / Comment(s): L arm muscle repair by elbow, low back surgery/verteflex, L inguinal hernia repair, bilaterall carotid endarterectomies Past Anesthesia/Blood Transfusion Reactions: No Reported Reaction Past Psychological History: Anxiety Smoking Status: Current every day smoker Past Alcohol Use History: None Reported Past Drug Use History: None Reported - Past Family History Father Family Medical History: Coronary Artery Disease (CAD) Additional Family Medical History / Comment(s): Father during CABG Mother Family Medical History: Congestive Heart Failure (CHF), Myocardial Infarction (LA) Additional Family Medical History / Comment(s): Mother of CHF at the age of 81 yrs. Medications and Allergies Home Medications Medication Instructions Recorded Confirmed Type Omeprazole [PriLOSEC] 20 mg PO DAILY 12/03/15 04/10/21 History Insulin Glargine,Hum.rec.anlog 40 units SQ DAILY 07/06/16 04/10/21 History [Toujeo Solostar] Pregabalin [Lyrica] 100 mg PO TID 07/06/16 04/10/21 History Atorvastatin [Lipitor] 20 mg PO DAILY 08/09/16 04/10/21 History Fenofibrate Nanocrystallized 145 mg PO DAILY 10/05/17 04/10/21 History [Tricor] Carvedilol [Coreg] 25 mg PO DAILY 07/31/18 04/10/21 History Vortioxetine Hydrobromide 10 mg PO DAILY 07/31/18 04/10/21 History [Trintellix] Cholecalciferol (Vitamin D3) 125 mcg PO DAILY 03/01/21 04/10/21 History [Vitamin D3 (125 MCG = 5,000 IU)] Cyanocobalamin [Vitamin B-12] 500 mcg PO DAILY 03/01/21 04/10/21 History Multivitamins, Thera [Multivitamin 1 tab PO DAILY 03/01/21 04/10/21 History (formulary)] Zinc Gluconate [Zinc] 50 mg PO DAILY 03/01/21 04/10/21 History Empagliflozin [Jardiance] 10 mg PO DAILY 03/02/21 04/10/21 History hydrALAZINE HCL [Apresoline] 50 mg PO TID PRN 03/02/21 04/10/21 History Aspirin 81 mg PO DAILY #90 tab 03/04/21 04/10/21 Rx Torsemide [Demadex] 20 mg PO DAILY #30 tab 03/04/21 04/10/21 Rx Losartan Potassium 100 mg PO DAILY 04/10/21 04/10/21 History metFORMIN HCL [Glucophage XR] 750 mg PO BID-W/MEALS 04/10/21 04/10/21 History sitaGLIPtin [Januvia] 100 mg PO DAILY 04/10/21 04/10/21 History Allergies Allergy/AdvReac Type Severity Reaction Status Date / Time No Known Allergies Allergy Verified 04/10/21 07:16 Physical Exam Vitals: Vital Signs Temp Pulse Resp BP Pulse Ox 04/10/21 09:00 80 16 117/71 98 04/10/21 06:49 85 22 114/70 97 04/10/21 05:00 90 20 127/83 97 04/10/21 04:18 92 24 169/94 97 04/10/21 03:00 108 H 28 H 169/94 97 04/10/21 02:54 24 04/10/21 02:29 99.5 F 130 H 28 H 182/100 Intake and Output 04/09/21 04/10/21 04/10/21 22:59 06:59 14:59 Other: Weight 83.915 kg - Constitutional General appearance: cooperative, no acute distress - EENT Eyes: dentition normal, normal appearance ENT: hard of hearing, NA/AT, normal oropharynx - Neck Neck: normal ROM - Respiratory Respiratory: bilateral: CTA, negative: diminished, dullness - Cardiovascular Rhythm: regular Heart sounds: normal: S1, S2 Abnormal Heart Sounds: no systolic murmur, no diastolic murmur, no rub, no S3 Gallop, no S4 Gallop, no click, no other - Gastrointestinal General gastrointestinal: normal bowel sounds, soft - Integumentary Integumentary: normal - Psychiatric Psychiatric: A&O x's 3, appropriate affect, intact judgment & insight Results CBC & Chem 7: 04/10/21 06:39 04/10/21 03:06 Labs: Abnormal Lab Results - Last 24 Hours (Table) 04/10/21 04/10/21 04/10/21 Range/Units 03:06 03:06 03:06 RBC (4.30-5.90) m/uL Hgb 9.4 L (13.0-17.5) gm/dL Hct 34.7 L (39.0-53.0) % MCV 77.4 L D (80.0-100.0) fL MCH 20.9 L (25.0-35.0) pg MCHC 27.0 L (31.0-37.0) g/dL RDW 21.5 H (11.5-15.5) % Neutrophils # 7.8 H (1.3-7.7) k/uL Lymphocytes # 0.6 L (1.0-4.8) k/uL APTT (22.0-30.0) sec D-Dimer 1.21 H (<0.60) mg/L FEU BUN 57 H (9-20) mg/dL Creatinine 2.66 H (0.66-1.25) mg/dL Glucose 148 H (74-99) mg/dL Magnesium 2.4 H (1.6-2.3) mg/dL Troponin I (0.000-0.034) ng/mL 04/10/21 04/10/21 04/10/21 Range/Units 03:06 06:39 06:39 RBC 4.03 L (4.30-5.90) m/uL Hgb 8.9 L (13.0-17.5) gm/dL Hct 31.5 L (39.0-53.0) % MCV 78.2 L (80.0-100.0) fL MCH 22.1 L (25.0-35.0) pg MCHC 28.2 L (31.0-37.0) g/dL RDW 21.7 H (11.5-15.5) % Neutrophils # (1.3-7.7) k/uL Lymphocytes # 0.7 L (1.0-4.8) k/uL APTT (22.0-30.0) sec D-Dimer (<0.60) mg/L FEU BUN (9-20) mg/dL Creatinine (0.66-1.25) mg/dL Glucose (74-99) mg/dL Magnesium (1.6-2.3) mg/dL Troponin I 0.099 H* 3.420 H* (0.000-0.034) ng/mL 04/10/21 Range/Units 06:39 RBC (4.30-5.90) m/uL Hgb (13.0-17.5) gm/dL Hct (39.0-53.0) % MCV (80.0-100.0) fL MCH (25.0-35.0) pg MCHC (31.0-37.0) g/dL RDW (11.5-15.5) % Neutrophils # (1.3-7.7) k/uL Lymphocytes # (1.0-4.8) k/uL APTT 43.7 H (22.0-30.0) sec D-Dimer (<0.60) mg/L FEU BUN (9-20) mg/dL Creatinine (0.66-1.25) mg/dL Glucose (74-99) mg/dL Magnesium (1.6-2.3) mg/dL Troponin I (0.000-0.034) ng/mL Assessment and Plan Plan: Assessment and plan 1. Acute non-ST elevation myocardial infraction, underwent cardiac cath, on 04/10 2021, for which he is currently on Plavix 75 mg Coreg 25 mg and aspirin 81 mg daily. Cardiac cath report is currently pending, continue on high-dose statin, Lipitor 80 mg daily patient is going to undergo another procedure on April 12, most likely to include a cardiac percutaneous intervention and stenting 2 vessels. The procedure cannot be completed today secondary to elevated creatinine of 2.6 echocardiogram 2. History of carotid stenosis, with bilateral carotid endarterectomy, on aspirin and Plavix, along with statin 3. Hypertension, hold losartan 100 mg daily, hold Demadex secondary to ckd 4, until blood pressure would stabilize 4. Diabetes mellitus type 2, with diabetic neuropathy with hyperglycemia, check for A1c, on Lyrica 100 mg twice a day, continue Januvia, hold metformin, and hold discharge and his continued to retirement 40 units daily 5CK D stage IV, he would require another cast on April 12, for percutaneous intervention, consult with Dr. Guallpa nephrology, need to optimize renal function hold Demadex till blood pressure would stabilize, discontinue metformin, hold charge in his 6. Anemia of chronic disease, baseline hemoglobin of 8.9, check for iron studies 7. Diastolic CHF history 8 Dysthymia, ontrintellix 9 DVT prophylaxis Lovenox 40 subcu daily 10 GI prophylaxis Pepcid not omeprazole secondary to CK D4 Disposition patient to stay in the hospital for at least 1-2 inpatient nights CODE STATUS full
[2021-04-10] MEDS: HEPARIN SOD,PORK IN 0.45% NACL 25,000 UNIT in 0.45% NACL 1 250ML.BAG IV SCH (15:59)
[2021-04-10] MEDS: NITROGLYCERIN OINT 1 INCH/GM PACKET TOPICAL SCH ×2 (16:00→23:15)
[2021-04-10] MEDS: PREGABALIN 100 MG CAP PO SCH ×2 (16:00→20:59)
[2021-04-10] MEDS: carvediloL 12.5 MG TAB PO SCH (16:19)
[2021-04-10 17:07] LABS: Glucose,Whole Blood 241 mg/dL (75-99)
--- NOTE | 2021-04-10 18:10 | US ---
EXAMINATION TYPE: US kidneys/renal and bladder DATE OF EXAM: 04/10/2021 COMPARISON: 03/03/2021. 10/05/2017. CLINICAL HISTORY: ckd hydroneprhosis eval. EXAM MEASUREMENTS: Right Kidney: 12.7 x 5.3 x 5.1 cm Left Kidney: 10.0 x 4.4 x 4.2 cm Right Kidney: No hydronephrosis or shadowing calculi seen. Left Kidney: No hydronephrosis or shadowing calculus seen. Bladder: wnl Bilateral Jets seen: right jet seen, left jet not seen Spleen: enlarged at 14.8cm. . IMPRESSION: 1. Unremarkable appearance of the kidneys and urinary bladder. 2. Splenomegaly, no significant change since CT dated 10/05/2017.
--- NOTE | 2021-04-10 19:54 | CC ---
CARDIAC CATHETERIZATION REPORT Mr. Oliva is a 61-year-old male with known history of hypertension, hyperlipidemia and diabetes mellitus who presented with symptoms of chest discomfort and troponin elevation consistent with non-STEMI. He was evaluated by Dr. Jang. The patient has a known history of advanced chronic kidney disease. He was evaluated by Dr. Guallpa. In view of his presentation, recommendation was made regarding cardiac catheterization. The procedure as well as its risks and the complications were discussed with the patient, who was in full understanding and agreement. PROCEDURE DESCRIPTION: Patient was brought to general laborer in a fasting, semi-sedated state after receiving fentanyl and Benadryl and achieving a moderate conscious sedated state. Using xylocaine anesthesia and Seldinger technique, a 6[place] sheath was introduced in the right radial artery. Selective right and left coronary angiography was performed using 5[place] 3.5 bend right and left Raul catheters. Multiple views were taken of the arteries, including hemiaxial views. Following that, a 5[place] tight pigtail catheter was introduced into the left ventricle and left ventricular end-diastolic pressure was calculated. Following that, catheters and sheath were removed. Hemostasis was obtained with deployment of a TR band. There was no immediate complication. Patient was returned to his room in stable condition. Of note, the patient received 4000 units of intravenous heparin as well as intraarterial verapamil. FINDINGS: LEFT MAIN: This is a large-sized vessel bifurcating into left circumflex and left anterior descending artery. Left main coronary artery has no evidence of high-grade stenosis. LEFT ANTERIOR DESCENDING ARTERY: This is a large-sized vessel reaching to the apex with a wrap around the apex segment giving rise to a diagonal branch of moderate caliber proximally. The left anterior descending artery has mild intimal disease of 10% to 20% in the mid segment. The diagonal branch has about 40% to 50% plaque proximally. The rest of the vessel has no high-grade stenosis. LEFT CIRCUMFLEX: This is a nondominant vessel giving rise to a large obtuse marginal branch. The left circumflex as well as its branches have no evidence of obstructive coronary artery disease. RIGHT CORONARY ARTERY: This vessel is totally occluded in mid segment, has diffuse disease proximally. There is minimal antegrade flow. COLLATERALS: There are collaterals from the left coronary system toward the right PDA. LEFT VENTRICULOGRAM: Left ventriculogram was not performed. HEMODYNAMICS: There was no gradient across the aortic valve. The left ventricular end- diastolic pressure was 20 to 24 mmHg. CONCLUSION: 1. 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 2. Mild disease in the LAD with moderate disease in the diagonal branch. 3. Collaterals from the left coronary system. 4. Elevated left ventricular end-diastolic pressure. RECOMMENDATIONS: In view of findings, I have recommend continued medical therapy. Patient will be reevaluated for possible recanalization of the totally occluded right coronary artery. He will have a staged procedure in view of his advanced renal failure. Those findings and recommendations were discussed with the patient and his family, and they are in full understanding and agreement. Duration of sedation was 17 minutes. MMANGELICA / JOLENEN: [id number] /
[2021-04-10 20:38] LABS: Anisocytosis Moderate; Basophils % (A) 1 %; Eosinophils # (A) 0.5 k/uL (0-0.7); Eosinophils % (A) 7 %; HCT 29.5 % (39.0-53.0); HGB 8.5 gm/dL (13.0-17.5); Hypochromasia Marked; Lymphocytes # (A) 1.1 k/uL (1.0-4.8); Lymphocytes % (A) 15 %; MCH 22.7 pg (25.0-35.0); MCHC 28.9 g/dL (31.0-37.0); MCV 78.5 fL (80.0-100.0); Mean Platelet Volume 9.3; Microcytosis Moderate; Monocytes # (A) 0.6 k/uL (0-1.0); Monocytes % (A) 8 %; Neutrophils # (A) 4.9 k/uL (1.3-7.7); Neutrophils % (A) 66 %; Platelet Count 167 k/uL (150-450); RBC 3.76 m/uL (4.30-5.90); RDW 21.4 % (11.5-15.5); WBC 7.4 k/uL (3.8-10.6)
[2021-04-10 20:51] LABS: Partial Thromboplastin Time 26.1 sec (22.0-30.0); Prothrombin Time 10.4 sec (9.0-12.0)
[2021-04-10 20:55] LABS: Glucose,Whole Blood 140 mg/dL (75-99)
[2021-04-11 03:33] LABS: Anisocytosis Moderate; HGB 7.9 gm/dL (13.0-17.5); Hypochromasia Marked; MCH 22.1 pg (25.0-35.0); MCHC 28.3 g/dL (31.0-37.0); Mean Platelet Volume 9.6; Microcytosis Moderate; Platelet Count 168 k/uL (150-450); RBC 3.59 m/uL (4.30-5.90); RDW 21.5 % (11.5-15.5); WBC 6.8 k/uL (3.8-10.6)
[2021-04-11 03:40] LABS: Partial Thromboplastin Time 31.3 sec (22.0-30.0); Prothrombin Time 10.6 sec (9.0-12.0)
[2021-04-11 03:46] LABS: Calcium 8.8 mg/dL (8.4-10.2); Potassium 5.2 mmol/L (3.5-5.1)
[2021-04-11 03:48] LABS: Eosinophils # (M) 0.75 k/uL (0-0.7); Lymphocytes # (M) 0.54 k/uL (1.0-4.8); Monocytes # (M) 0.61 k/uL (0-1.0); Neutrophils % (M) 72 %; Nucleated Red Blood Cells 0 /100 WBC (0-0); Total Cells Counted 100
[2021-04-11 03:50] LABS: Anisocytosis (M) Present; Ovalocytes Present; Poikilocytosis (M) Present; Polychromasia Present
[2021-04-11 05:57] LABS: Glucose,Whole Blood 106 mg/dL (75-99)
[2021-04-11 06:00] LABS: Glucose,Whole Blood 68 mg/dL (75-99)
[2021-04-11] MEDS: SODIUM CHLORIDE 0.9% 1,000 ML IV SCH ×2 (06:40→15:43)
[2021-04-11] MEDS: carvediloL 12.5 MG TAB PO SCH ×2 (06:44→17:45)
[2021-04-11 08:56] LABS: Chol/HDL Ratio 6.52 Ratio; LDL Cholesterol,Calculated 81.2 mg/dL (0.0-131.0)
[2021-04-11] MEDS ORDERED: NON FORMULARY DRUG (Empagliflozin [Jardiance] 10 MG Tablet) PO SCH (09:00)
[2021-04-11] MEDS ORDERED: ASPIRIN 325 MG TAB PO SCH (09:00)
[2021-04-11] MEDS ORDERED: ASPIRIN 325 MG TAB PO STA (09:50)
[2021-04-11] MEDS ORDERED: ALPRAZolam 0.5 MG TAB PO PRN (09:50)
[2021-04-11] MEDS ORDERED: ALPRAZolam 0.25 MG TAB PO PRN (09:50)
[2021-04-11] MEDS: PANTOPRAZOLE 40 MG TABLET PO SCH (09:59)
[2021-04-11] MEDS: INSULIN DETEMIR (LEVEMIR) 100 UNIT/ML SYR SQ SCH (10:00)
[2021-04-11] MEDS: ATORVASTATIN 80 MG TAB PO SCH (10:00)
[2021-04-11] MEDS: PREGABALIN 100 MG CAP PO SCH ×3 (10:00→21:04)
[2021-04-11] MEDS: CYANOCOBALAMIN 500 MCG TAB PO SCH (10:00)
[2021-04-11] MEDS: NITROGLYCERIN OINT 1 INCH/GM PACKET TOPICAL SCH ×2 (10:00→15:38)
[2021-04-11] MEDS: VORTIOXETINE HYDROBROMIDE 10 MG TABLET PO SCH (10:00)
[2021-04-11] MEDS: CLOPIDOGREL 75 MG TAB PO SCH (10:00)
[2021-04-11] MEDS: ASPIRIN 81 MG PO SCH (10:00)
[2021-04-11] MEDS: HEPARIN SODIUM 1,000 UN/ML (10ML VL) IV PRN ×2 (10:26→18:38)
--- NOTE | 2021-04-11 11:44 | P.PN ---
Subjective Progress Note Date: 04/11/21 This is David cook NP, dictating a progress note on behalf of Dr. Jang. Patient was interviewed and examined. Patient reports he feels okay today. He denies chest pain and shortness of breath. Patient had a diagnostic heart cath yesterday which demonstrated a totally occluded long segment of the mid right coronary artery, mild disease in the LAD with moderate disease in the diagonal branch, collaterals from the left coronary system, and elevated left ventricular end-diastolic pressure. Initial recommendation was to continue medical therapy, with reevaluation for possible recanalization of the RCA using a staged approach due to his renal failure. Patient's labs are somewhat improved today. We will plan on scheduling him for recanalization tomorrow with Dr. Muñoz. GENERAL: Well-appearing, well-nourished and in no acute distress. NECK: Supple without JVD or thyromegaly. LUNGS: Breath sounds clear to auscultation bilaterally. Respiration equal and unlabored. No wheezes, rales or rhonchi. HEART: Regular rate and rhythm with a pansystolic murmur, no rubs or gallops. S1 and S2 heard. EXTREMITIES: Normal range of motion, no edema. No clubbing or cyanosis. Peripheral pulses intact and strong. VITALS: [Temp 98.6, pulse 85, respirations 18, blood pressure 145/74, O2 saturation 96% on 2 L] TELEMETRY: [Normal sinus rhythm] LABS: [White count 6.8, hemoglobin 7.9, platelets 168, sodium 140, potassium 5.2, B1 47, creatinine 2.46, triglycerides 157, cholesterol 133, LDL 81.2, HDL 20.4] IMPRESSION: [Non-ST elevated DC Abnormal troponins Elevated BNP Elevated d-dimer Chronic kidney disease Hypertension] PLAN: [Proceed with coronary angioplasty tomorrow morning with Dr. Muñoz Continue heparin drip Nothing by mouth after midnight Continue current medications as prescribed Recommendations based on patient's clinical course] The patient has been seen and evaluated. Plan of care has been reviewed and agreed upon by Dr. Jang. Objective - Vital Signs Vital signs: Vital Signs Temp 98.6 F 04/11/21 07:46 Pulse 85 04/11/21 07:46 Resp 18 04/11/21 07:46 BP 145/74 04/11/21 07:46 Pulse Ox 96 04/11/21 07:46 Intake & Output 04/10/21 04/11/21 04/11/21 18:59 06:59 18:59 Intake Total 762.5 583.089 600 Balance 762.5 583.089 600 Weight 83.915 kg Intake: IV 100 Intake, IV Titration 62.5 383.089 Amount Heparin Sod,Pork in 0.45% 62.5 NaCl 25,000 unit In 0.45 % NaCl 1 250ml.bag @ 11. 9168 UNITS/KG/HR 10 mls/ hr IV .Q24H [facility] Rx#: [id number] Heparin Sod,Pork in 0.45% 133.089 NaCl 25,000 unit In 0.45 % NaCl 1 250ml.bag @ 12 UNITS/KG/HR 10.07 mls/hr IV .Q24H [facility] Rx#: [id number] Sodium Chloride 0.9% 1, 250 000 ml @ 50 mls/hr IV . Q20H [facility] Rx#:[id number] Oral 600 200 600 Other: # Voids 2 2 - Labs CBC & Chem 7: 04/11/21 02:52 04/11/21 02:52 Labs: Abnormal Lab Results - Last 24 Hours (Table) 04/10/21 04/10/21 04/10/21 Range/Units 06:39 10:54 12:06 RBC (4.30-5.90) m/uL Hgb (13.0-17.5) gm/dL Hct (39.0-53.0) % MCV (80.0-100.0) fL MCH (25.0-35.0) pg MCHC (31.0-37.0) g/dL RDW (11.5-15.5) % Lymphocytes # (Manual) (1.0-4.8) k/uL Eosinophils # (Manual) (0-0.7) k/uL APTT (22.0-30.0) sec Potassium (3.5-5.1) mmol/L BUN (9-20) mg/dL Creatinine (0.66-1.25) mg/dL POC Glucose (mg/dL) (75-99) mg/dL Troponin I 7.230 H* (0.000-0.034) ng/mL Triglycerides (0.00-149.00) mg/dL HDL Cholesterol (40.00-60.00) mg/dL Procalcitonin 0.15 H (0.02-0.09) ng/mL Urine Protein 1+ H (Negative) Urine Glucose (UA) 4+ H (Negative) 04/10/21 04/10/21 04/10/21 Range/Units 13:59 14:21 16:55 RBC (4.30-5.90) m/uL Hgb (13.0-17.5) gm/dL Hct (39.0-53.0) % MCV (80.0-100.0) fL MCH (25.0-35.0) pg MCHC (31.0-37.0) g/dL RDW (11.5-15.5) % Lymphocytes # (Manual) (1.0-4.8) k/uL Eosinophils # (Manual) (0-0.7) k/uL APTT (22.0-30.0) sec Potassium (3.5-5.1) mmol/L BUN (9-20) mg/dL Creatinine (0.66-1.25) mg/dL POC Glucose (mg/dL) 63 L 65 L 241 H (75-99) mg/dL Troponin I (0.000-0.034) ng/mL Triglycerides (0.00-149.00) mg/dL HDL Cholesterol (40.00-60.00) mg/dL Procalcitonin (0.02-0.09) ng/mL Urine Protein (Negative) Urine Glucose (UA) (Negative) 04/10/21 04/10/21 04/11/21 Range/Units 20:00 20:53 02:52 RBC 3.76 L (4.30-5.90) m/uL Hgb 8.5 L (13.0-17.5) gm/dL Hct 29.5 L (39.0-53.0) % MCV 78.5 L (80.0-100.0) fL MCH 22.7 L (25.0-35.0) pg MCHC 28.9 L (31.0-37.0) g/dL RDW 21.4 H (11.5-15.5) % Lymphocytes # (Manual) (1.0-4.8) k/uL Eosinophils # (Manual) (0-0.7) k/uL APTT (22.0-30.0) sec Potassium (3.5-5.1) mmol/L BUN (9-20) mg/dL Creatinine (0.66-1.25) mg/dL POC Glucose (mg/dL) 140 H (75-99) mg/dL Troponin I (0.000-0.034) ng/mL Triglycerides 157.00 H (0.00-149.00) mg/dL HDL Cholesterol 20.40 L (40.00-60.00) mg/dL Procalcitonin (0.02-0.09) ng/mL Urine Protein (Negative) Urine Glucose (UA) (Negative) 04/11/21 04/11/21 04/11/21 Range/Units 02:52 02:52 02:52 RBC 3.59 L (4.30-5.90) m/uL Hgb 7.9 L (13.0-17.5) gm/dL Hct 28.0 L (39.0-53.0) % MCV 78.0 L (80.0-100.0) fL MCH 22.1 L (25.0-35.0) pg MCHC 28.3 L (31.0-37.0) g/dL RDW 21.5 H (11.5-15.5) % Lymphocytes # (Manual) 0.54 L (1.0-4.8) k/uL Eosinophils # (Manual) 0.75 H (0-0.7) k/uL APTT 31.3 H (22.0-30.0) sec Potassium 5.2 H (3.5-5.1) mmol/L BUN 47 H (9-20) mg/dL Creatinine 2.46 H (0.66-1.25) mg/dL POC Glucose (mg/dL) (75-99) mg/dL Troponin I (0.000-0.034) ng/mL Triglycerides (0.00-149.00) mg/dL HDL Cholesterol (40.00-60.00) mg/dL Procalcitonin (0.02-0.09) ng/mL Urine Protein (Negative) Urine Glucose (UA) (Negative) 04/11/21 04/11/21 Range/Units 05:34 05:56 RBC (4.30-5.90) m/uL Hgb (13.0-17.5) gm/dL Hct (39.0-53.0) % MCV (80.0-100.0) fL MCH (25.0-35.0) pg MCHC (31.0-37.0) g/dL RDW (11.5-15.5) % Lymphocytes # (Manual) (1.0-4.8) k/uL Eosinophils # (Manual) (0-0.7) k/uL APTT (22.0-30.0) sec Potassium (3.5-5.1) mmol/L BUN (9-20) mg/dL Creatinine (0.66-1.25) mg/dL POC Glucose (mg/dL) 68 L 106 H (75-99) mg/dL Troponin I (0.000-0.034) ng/mL Triglycerides (0.00-149.00) mg/dL HDL Cholesterol (40.00-60.00) mg/dL Procalcitonin (0.02-0.09) ng/mL Urine Protein (Negative) Urine Glucose (UA) (Negative)
--- NOTE | 2021-04-11 12:01 | ECHOF ---
Referral Reason:mi MEASUREMENTS -------- HEIGHT: 177.8 cm WEIGHT: 83.9 kg BP: 135/78 IVSd: 1.6 cm (0.6 - 1.1) LVIDd: 4.5 cm (3.9 - 5.3) LVPWd: 1.8 cm (0.6 - 1.1) EDV(Teich): 92 ml IVSs: 2.2 cm LVIDs: 3.2 cm LVPWs: 2.0 cm %IVS Thck: 34 % ESV(Teich): 41 ml EF(Teich): 55 % %FS: 29 % SV(Teich): 51 ml LA Diam: 3.5 cm (2.7 - 3.8) RVIDd: 3.6 cm (< 3.3) IVC: 22.64 mm LALs A4C: 5.9 cm LAAs A4C: 20.9 cm LAESV A-L A4C: 63 ml LAESV MOD A4C: 62 ml LALs A2C: 6.5 cm LAAs A2C: 21.4 cm LAESV A-L A2C: 60 ml LAESV MOD A2C: 60 ml LAESV(A-L): 65 ml LAESV Index (A-L): 32.07 ml/m Ao Diam: 3.5 cm (2.0 - 3.7) AV Cusp: 1.8 cm (1.5 - 2.6) EPSS: 0.5 cm MV E Cm: 1.29 m/s MV DecT: 144 ms MV Dec [place]: 9.0 m/s MV A Cm: 1.06 m/s MV E/A Ratio: 1.22 MV PHT: 42 ms LVOT Vmax: 1.03 m/s LVOT maxP.25 mmHg LVOT Vmax: 1.04 m/s LVOT Vmean: 0.65 m/s LVOT maxP.29 mmHg LVOT meanP.04 mmHg LVOT Env.Ti: 364 ms LVOT VTI: 23.8 cm AV Vmax: 2.56 m/s AV maxP.30 mmHg AV Vmax: 2.57 m/s AV Vmean: 1.70 m/s AV maxP.53 mmHg AV meanP.32 mmHg AV Env.Ti: 332 ms AV VTI: 56.4 cm TR Vmax: 2.89 m/s TR maxP.29 mmHg RAP: 5.00 mmHg RVSP: 38.29 mmHg MV EF SLOPE: 71.52 mm/s (70 - 150) MV EXCURSION: 14.75 mm (> 18.000) FINDINGS -------- Sinus rhythm. This was a technically adequate study. The left ventricular size is normal. There is severe concentric left ventricular hypertrophy. Ove rall left ventricular systolic function is normal with, an EF between 60 - 65 %. The right ventricle is mildly enlarged. LA is midly dilated 29-33ml/m2. The right atrium is normal in size. Interatrial and interventricular septum intact. There is moderate aortic valve sclerosis. There is mild aortic stenosis present. Peak/mean gradie nt across the Aortic Valve is 26.53mmHg / 13.32mmHg. There is trace mitral regurgitation. Mild tricuspid regurgitation present. There is mild pulmonary hypertension. The right ventricular systolic pressure, as measured by Doppler, is 38.29mmHg. The pulmonic valve was not well visualized. The aortic root size is normal. Normal inferior vena cava with normal inspiratory collapse consistent with estimated right atrial pre ssure of 5 mmHg. The inferior vena cava is mildly dilated. There is no pericardial effusion. CONCLUSIONS -------- 1. The left ventricular size is normal WITH MILD INFERIOR WALL (MID AND BASE) 2. There is severe concentric left ventricular hypertrophy. 3. Overall left ventricular systolic function is normal with, an EF between 60 - 65 %. 4. The right ventricle is mildly enlarged. 5. LA is midly dilated 29-33ml/m2. 6. There is moderate aortic valve sclerosis. 7. There is mild aortic stenosis present. 8. Peak/mean gradient across the Aortic Valve is 26.53mmHg / 13.32mmHg. 9. There is trace mitral regurgitation. 10. Mild tricuspid regurgitation present. 11. There is mild pulmonary hypertension. 12. The right ventricular systolic pressure, as measured by Doppler, is 38.29mmHg. 13. The inferior vena cava is mildly dilated. 14. There is no pericardial effusion. AUTOMATED WEAVER: Lorene Khalil RD
[2021-04-11 12:22] LABS: Glucose,Whole Blood 171 mg/dL (75-99)
--- NOTE | 2021-04-11 13:01 | PN ---
PROGRESS NOTE Patient is seen for followup for chronic kidney disease and acute kidney injury. He was admitted to the hospital with chest pains. Patient had cardiac catheterization done yesterday. He will need intervention on his right coronary artery, and this is planned for tomorrow. In the meantime, patient is maintained on IV fluids. His creatinine was 2.6 on admission. It is down to 2.46. Baseline creatinine is about 2.4 to 2.3 mg/dL. On examination today, patient is comfortable. Blood pressure 145/74, heart rate 85 per minute. He is afebrile. EXAMINATION OF THE HEART: S1 and S2. EXAMINATION OF LUNGS: Bilateral breath sounds are heard. Abdomen is soft, non-tender. Examination of lower extremities shows no significant edema. EYE CARE PROFESSIONAL EXAM: Grossly intact. Labs show sodium 140, potassium 5.2, chloride 106, BUN 47, creatinine 2.4, hemoglobin 7.9 g/dL. ASSESSMENT: 1. Acute kidney injury, likely prerenal, improved with IV hydration. 2. Chronic kidney disease NKF stage 4. Baseline creatinine 2.3 to 2.4 mg/dL. Also underlying diabetic kidney disease, as patient does have 1+ proteinuria. 3. Coronary artery disease with acute myocardial infarction, status post cardiac catheterization yesterday with plans for intervention on the right coronary artery tomorrow. 4. History of diastolic congestive heart failure. Echocardiogram done in February 2021 showed EF 55% to 60% with moderate pulmonary hypertension. 5. Anemia. Rule out iron deficiency. Check iron profile. Also component of anemia of chronic disease, for which Aranesp will be started. 6. Type 2 diabetes, maintained on SGLT2 inhibitors. PLAN: Check iron profile. Add Aranesp. Repeat labs in a.m. Avoid nephrotoxic agents. May continue with the IV fluids. MMODL / IJN: [id number] /
--- NOTE | 2021-04-11 13:28 | P.PN ---
Subjective Progress Note Date: 04/11/21 60 years old male patient of Dr. Cronin and Dr. Muñoz with past medical history of chronic kidney disease, type 2 diabetes, carotid stenosis status post carotid endarterectomy, GERD, hyperlipidemia, hypertension presenting to the emergency room, secondary to chest discomfort, lasting 30 minutes last night. Patient did not take anything for this pain, Patient was sent in via EMS, and was subsequently given nitroglycerin in the ambulance, with relief of the pain. Patient has known history of CHF, CK D stage IV aortic stenosis. His diabetes he said is controlled, with A1c of 6.4 within the past few months. In the emergency room, troponins are noted to be elevated, with anti-troponin of 0.099, subsequent to that was 3.4, then 7.2 and was seen by Dr. 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 Might need Prandin, for prandial glucose control, however he is on tuojeo, along with a weekly shot not listed in home med, pt will need refill of demadex on discharge per request Review of Systems Constitutional: Reports as per HPI, Denies anorexia, Denies chills, Denies chronic headaches, Denies chronic pain, Denies daytime sleepiness, Denies fatigue, Denies fever, Denies lethargy, Denies malaise, Denies night sweats, Denies poor appetite, Denies sweats, Denies weakness, Denies weight gain, Denies weight loss Ears, nose, mouth and throat: Reports as per HPI Cardiovascular: Reports as per HPI, Reports chest pain, Denies irregular heart beat, Denies leg edema, Denies paroxysmal nocturnal dyspnea, Denies shortness of breath Respiratory: Reports as per HPI, Denies cough, Denies cough with sputum, Denies home oxygen, Denies pain on inspiration, Denies wheezing Genitourinary: Reports as per HPI Musculoskeletal: Reports as per HPI, Denies shooting arm pain, Denies shooting leg pain Integumentary: Reports as per HPI, Denies acne, Denies boils, Denies brittle nails, Denies change in hair/nails, Denies color changes, Denies darkening of skin, Denies depigmentation, Denies dryness, Denies foot/leg ulcers, Denies growths, Denies hirsutism, Denies lesions, Denies onychomycosis, Denies pruritus, Denies rash, Denies sores, Denies striae, Denies unusual bruising, Denies wounds Neurological: Reports as per HPI, Denies aphasia, Denies ataxia, Denies balance difficulties, Denies burning pain, Denies change in mentation, Denies change in smell/taste, Denies change in speech, Denies confusion, Denies convulsions, Denies double vision, Denies gait dysfunction, Denies head injury, Denies headaches, Denies hearing difficulties, Denies lack of coordination, Denies loss of vision, Denies memory loss, Denies migraines, Denies motor disturbance, Denies numbness, Denies paralysis, Denies paresthesias, Denies seizures, Denies sensory deficit, Denies spasticity, Denies syncope, Denies tic, Denies tingling, Denies transient paralysis, Denies tremors, Denies vertigo, Denies weakness, Denies visual changes Psychiatric: Reports as per HPI, Denies anhedonia, Denies anxiety, Denies anxiety attacks, Denies change in appetite, Denies change in libido, Denies change in sleep habits, Denies confusion, Denies depression, Denies difficulty concentrating, Denies disorientation, Denies hallucinations, Denies hopelessness, Denies hypersomnia, Denies insomnia, Denies irritability, Denies memory loss, Denies mood swings, Denies paranoia, Denies sadness/tearfulness, Denies sleep disturbances, Denies suicidal ideation Endocrine: Reports as per HPI, Denies cold intolerance, Denies deepening of the voice, Denies excessive sweating, Denies excessive thirst, Denies fatigue, Denies flushing, Denies heat intolerance, Denies high blood sugars, Denies increase in ring/shoe/hat size, Denies low blood sugars, Denies nocturia, Denies palpitations, Denies polydipsia, Denies polyphagia, Denies polyuria, Denies proptosis, Denies recent glucocorticoid use, Denies thyroid mass, Denies weight change Hematologic/Lymphatic: Reports as per HPI Allergic/Immunologic: Reports as per HPI, Denies allergic rhinitis, Denies anaphylaxis, Denies angioedema, Denies gluten intolerance, Denies persistent infections, Denies seasonal allergies, Denies urticaria, Denies wheezing physical exam - Constitutional General appearance: cooperative, no acute distress - EENT Eyes: dentition normal, normal appearance ENT: hard of hearing, NA/AT, normal oropharynx - Neck Neck: normal ROM - Respiratory Respiratory: bilateral: CTA, negative: diminished, dullness - Cardiovascular Rhythm: regular Heart sounds: normal: S1, S2 Abnormal Heart Sounds: no systolic murmur, no diastolic murmur, no rub, no S3 Gallop, no S4 Gallop, no click, no other - Gastrointestinal General gastrointestinal: normal bowel sounds, soft - Integumentary Integumentary: normal - Psychiatric Psychiatric: A&O x's 3, appropriate affect, intact judgment & insight Assessment and Plan Plan: Assessment and plan 1. Acute non-ST elevation myocardial infraction, underwent cardiac cath, on 04/10 2021, for which he is currently on Plavix 75 mg Coreg 25 mg and aspirin 81 mg daily. Cardiac cath report is currently pending, continue on high-dose statin, Lipitor 80 mg daily patient is going to undergo another procedure on April 12, most likely to include a cardiac percutaneous intervention and stenting 2 vessels. The procedure cannot be completed today secondary to elevated creatinine of 2.6 echocardiogram 2. History of carotid stenosis, with bilateral carotid endarterectomy, on aspirin and Plavix, along with statin 3. Hypertension, hold losartan 100 mg daily, hold Demadex secondary to ckd 4, until blood pressure would stabilize 4. Diabetes mellitus type 2, with diabetic neuropathy with hyperglycemia, check for A1c, on Lyrica 100 mg twice a day, continue Januvia, hold metformin, and hold discharge and his continued levemir 40 units daily 5CK D stage IV, he would require another cast on April 12, for percutaneous intervention, consult with Dr. Guallpa nephrology, need to optimize renal function hold Demadex till blood pressure would stabilize, discontinue metformin, hold charge in his 6. Anemia of chronic disease, baseline hemoglobin of 8.9, check for iron studies 7. Diastolic CHF history 8 Dysthymia, ontrintellix 9 DVT prophylaxis Lovenox 40 subcu daily 10 GI prophylaxis Pepcid not omeprazole secondary to CK D4 Disposition patient to stay in the hospital for at least 1-2 inpatient nights CODE STATUS full Current Medications Alprazolam (Alprazolam 0.25 Mg Tab) 0.25 mg PO Q6HR PRN PRN Reason: Mild Anxiety Alprazolam (Alprazolam 0.5 Mg Tab) 0.5 mg PO Q6HR PRN PRN Reason: Moderate Anxiety Aspirin (Aspirin 81 Mg) 81 mg PO DAILY [facility] Last Admin: 04/11/21 10:00 Dose: 81 mg Documented by: Aspirin (Aspirin 325 Mg Tab) 325 mg PO ONCE ONE Stop: 04/12/21 06:01 Atorvastatin Calcium (Atorvastatin 80 Mg Tab) 80 mg PO DAILY [facility] Last Admin: 04/11/21 10:00 Dose: 80 mg Documented by: Carvedilol (Carvedilol 12.5 Mg Tab) 25 mg PO AC-BID [facility] Last Admin: 04/11/21 06:44 Dose: 25 mg Documented by: Clopidogrel Bisulfate (Clopidogrel 75 Mg Tab) 75 mg PO DAILY [facility] Last Admin: 04/11/21 10:00 Dose: 75 mg Documented by: Cyanocobalamin (Cyanocobalamin 500 Mcg Tab) 500 mcg PO DAILY [facility] Last Admin: 04/11/21 10:00 Dose: 500 mcg Documented by: Heparin Sodium (Porcine) (Heparin Sodium 1,000 Un/Ml (10ml Vl)) 0 unit IV PER PROTOCOL PRN; Protocol PRN Reason: Low PTT Hydralazine HCl (Hydralazine Hcl 50 Mg Tab) 50 mg PO TID [facility] Sodium Chloride (Saline 0.9%) 1,000 mls @ 100 mls/hr IV .Q10H [facility] Last Admin: 04/11/21 06:40 Dose: Not Given Documented by: Heparin Sodium/Sodium Chloride (25,000 unit/ Sodium Chloride) 250 mls @ 10.07 mls/hr IV .Q24H [facility]; Protocol Last Titration: 04/11/21 03:42 Dose: 18 units/kg/hr, 15.105 mls/hr Documented by: Insulin Detemir (Insulin Detemir (Levemir) 100 Unit/Ml Syr) 40 unit SQ DAILY [facility] Last Admin: 04/11/21 10:00 Dose: 40 unit Documented by: Miscellaneous Information (Rx Info: Iv Contrast Was Given 1 Each Misc) 1 each MISCELLANE DAILY PRN PRN Reason: Per Protocol Stop: 04/12/21 13:37 Nitroglycerin (Nitroglycerin Oint 1 Inch/Gm Packet) 1 inch TOPICAL Q8HR [facility] Last Admin: 04/11/21 10:00 Dose: 1 inch Documented by: Nitroglycerin (Nitroglycerin Sl Tabs 0.4 Mg Tab) 0.4 mg SUBLINGUAL Q5M PRN PRN Reason: Chest Pain Pantoprazole Sodium (Pantoprazole 40 Mg Tablet) 40 mg PO DAILY [facility] Last Admin: 04/11/21 09:59 Dose: 40 mg Documented by: Pregabalin (Pregabalin 100 Mg Cap) 100 mg PO TID [facility] Last Admin: 04/11/21 10:00 Dose: 100 mg Documented by: Vortioxetine (Vortioxetine Hydrobromide 10 Mg Tablet) 10 mg PO DAILY [facility] Last Admin: 04/11/21 10:00 Dose: 10 mg Documented by: Laboratory Results - Last 24 Hours 04/10/21 04/10/21 04/10/21 06:39 10:54 10:54 WBC RBC Hgb Hct MCV MCH MCHC RDW Plt Count MPV Neutrophils % Neutrophils % (Manual) Lymphocytes % Lymphocytes % (Manual) Monocytes % Monocytes % (Manual) Eosinophils % Eosinophils % (Manual) Basophils % Neutrophils # Neutrophils # (Manual) Lymphocytes # Lymphocytes # (Manual) Monocytes # Monocytes # (Manual) Eosinophils # Eosinophils # (Manual) Basophils # Nucleated RBCs Manual Slide Review Polychromasia Hypochromasia Poikilocytosis (manual Anisocytosis Anisocytosis (manual) Microcytosis Ovalocytes PT INR APTT 28.5 Sodium Potassium Chloride Carbon Dioxide Anion Gap BUN Creatinine Est GFR (CKD-EPI)AfAm Est GFR (CKD-EPI)NonAf Glucose POC Glucose (mg/dL) POC Glu Mosaic Floor Layer ID Calcium Troponin I 7.230 H* Triglycerides Cholesterol LDL Cholesterol, Calc VLDL Cholesterol, Calc HDL Cholesterol Cholesterol/HDL Ratio Procalcitonin 0.15 H Urine Color Urine Appearance Urine pH Ur Specific [place] Urine Protein Urine Glucose (UA) Urine Ketones Urine Blood Urine Nitrite Urine Bilirubin Urine Urobilinogen Ur Leukocyte Esterase Urine RBC Urine WBC 04/10/21 04/10/21 04/10/21 12:06 13:59 14:21 WBC RBC Hgb Hct MCV MCH MCHC RDW Plt Count MPV Neutrophils % Neutrophils % (Manual) Lymphocytes % Lymphocytes % (Manual) Monocytes % Monocytes % (Manual) Eosinophils % Eosinophils % (Manual) Basophils % Neutrophils # Neutrophils # (Manual) Lymphocytes # Lymphocytes # (Manual) Monocytes # Monocytes # (Manual) Eosinophils # Eosinophils # (Manual) Basophils # Nucleated RBCs Manual Slide Review Polychromasia Hypochromasia Poikilocytosis (manual Anisocytosis Anisocytosis (manual) Microcytosis Ovalocytes PT INR APTT Sodium Potassium Chloride Carbon Dioxide Anion Gap BUN Creatinine Est GFR (CKD-EPI)AfAm Est GFR (CKD-EPI)NonAf Glucose POC Glucose (mg/dL) 63 L 65 L POC Glu Mosaic Floor Layer ID Sumi Reina Sherry Calcium Troponin I Triglycerides Cholesterol LDL Cholesterol, Calc VLDL Cholesterol, Calc HDL Cholesterol Cholesterol/HDL Ratio Procalcitonin Urine Color Yellow Urine Appearance Clear Urine pH 6.5 Ur Specific [place] 1.019 Urine Protein 1+ H Urine Glucose (UA) 4+ H Urine Ketones Negative Urine Blood Negative Urine Nitrite Negative Urine Bilirubin Negative Urine Urobilinogen <2.0 Ur Leukocyte Esterase Negative Urine RBC <1 Urine WBC <1 04/10/21 04/10/21 04/10/21 14:39 16:55 20:00 WBC 7.4 RBC 3.76 L Hgb 8.5 L Hct 29.5 L MCV 78.5 L MCH 22.7 L MCHC 28.9 L RDW 21.4 H Plt Count 167 MPV 9.3 Neutrophils % 66 Neutrophils % (Manual) Lymphocytes % 15 Lymphocytes % (Manual) Monocytes % 8 Monocytes % (Manual) Eosinophils % 7 Eosinophils % (Manual) Basophils % 1 Neutrophils # 4.9 Neutrophils # (Manual) Lymphocytes # 1.1 Lymphocytes # (Manual) Monocytes # 0.6 Monocytes # (Manual) Eosinophils # 0.5 Eosinophils # (Manual) Basophils # 0.0 Nucleated RBCs Manual Slide Review Polychromasia Hypochromasia Marked Poikilocytosis (manual Anisocytosis Moderate Anisocytosis (manual) Microcytosis Moderate Ovalocytes PT INR APTT Sodium Potassium Chloride Carbon Dioxide Anion Gap BUN Creatinine Est GFR (CKD-EPI)AfAm Est GFR (CKD-EPI)NonAf Glucose POC Glucose (mg/dL) 90 241 H POC Glu Mosaic Floor Layer ID Sumi Reina Sherry Calcium Troponin I Triglycerides Cholesterol LDL Cholesterol, Calc VLDL Cholesterol, Calc HDL Cholesterol Cholesterol/HDL Ratio Procalcitonin Urine Color Urine Appearance Urine pH Ur Specific [place] Urine Protein Urine Glucose (UA) Urine Ketones Urine Blood Urine Nitrite Urine Bilirubin Urine Urobilinogen Ur Leukocyte Esterase Urine RBC Urine WBC 04/10/21 04/10/21 04/11/21 20:00 20:53 02:52 WBC RBC Hgb Hct MCV MCH MCHC RDW Plt Count MPV Neutrophils % Neutrophils % (Manual) Lymphocytes % Lymphocytes % (Manual) Monocytes % Monocytes % (Manual) Eosinophils % Eosinophils % (Manual) Basophils % Neutrophils # Neutrophils # (Manual) Lymphocytes # Lymphocytes # (Manual) Monocytes # Monocytes # (Manual) Eosinophils # Eosinophils # (Manual) Basophils # Nucleated RBCs Manual Slide Review Polychromasia Hypochromasia Poikilocytosis (manual Anisocytosis Anisocytosis (manual) Microcytosis Ovalocytes PT 10.4 INR 1.0 APTT 26.1 Sodium Potassium Chloride Carbon Dioxide Anion Gap BUN Creatinine Est GFR (CKD-EPI)AfAm Est GFR (CKD-EPI)NonAf Glucose POC Glucose (mg/dL) 140 H POC Glu Mosaic Floor Layer ID Adin Del Real Calcium Troponin I Triglycerides 157.00 H Cholesterol 133.00 LDL Cholesterol, Calc 81.2 VLDL Cholesterol, Calc 31.40 HDL Cholesterol 20.40 L Cholesterol/HDL Ratio 6.52 Procalcitonin Urine Color Urine Appearance Urine pH Ur Specific [place] Urine Protein Urine Glucose (UA) Urine Ketones Urine Blood Urine Nitrite Urine Bilirubin Urine Urobilinogen Ur Leukocyte Esterase Urine RBC Urine WBC 04/11/21 04/11/21 04/11/21 02:52 02:52 02:52 WBC 6.8 RBC 3.59 L Hgb 7.9 L Hct 28.0 L MCV 78.0 L MCH 22.1 L MCHC 28.3 L RDW 21.5 H Plt Count 168 MPV 9.6 Neutrophils % Neutrophils % (Manual) 72 Lymphocytes % Lymphocytes % (Manual) 8 Monocytes % Monocytes % (Manual) 9 Eosinophils % Eosinophils % (Manual) 11 Basophils % Neutrophils # Neutrophils # (Manual) 4.90 Lymphocytes # Lymphocytes # (Manual) 0.54 L Monocytes # Monocytes # (Manual) 0.61 Eosinophils # Eosinophils # (Manual) 0.75 H Basophils # Nucleated RBCs 0 Manual Slide Review Performed Polychromasia Present Hypochromasia Marked Poikilocytosis (manual Present Anisocytosis Moderate Anisocytosis (manual) Present Microcytosis Moderate Ovalocytes Present PT 10.6 INR 1.0 APTT 31.3 H Sodium 140 Potassium 5.2 H Chloride 106 Carbon Dioxide 30 Anion Gap 4 BUN 47 H Creatinine 2.46 H Est GFR (CKD-EPI)AfAm 32 Est GFR (CKD-EPI)NonAf 27 Glucose 78 POC Glucose (mg/dL) POC Glu Mosaic Floor Layer ID Calcium 8.8 Troponin I Triglycerides Cholesterol LDL Cholesterol, Calc VLDL Cholesterol, Calc HDL Cholesterol Cholesterol/HDL Ratio Procalcitonin Urine Color Urine Appearance Urine pH Ur Specific [place] Urine Protein Urine Glucose (UA) Urine Ketones Urine Blood Urine Nitrite Urine Bilirubin Urine Urobilinogen Ur Leukocyte Esterase Urine RBC Urine WBC 04/11/21 04/11/21 04/11/21 05:34 05:56 09:18 WBC RBC Hgb Hct MCV MCH MCHC RDW Plt Count MPV Neutrophils % Neutrophils % (Manual) Lymphocytes % Lymphocytes % (Manual) Monocytes % Monocytes % (Manual) Eosinophils % Eosinophils % (Manual) Basophils % Neutrophils # Neutrophils # (Manual) Lymphocytes # Lymphocytes # (Manual) Monocytes # Monocytes # (Manual) Eosinophils # Eosinophils # (Manual) Basophils # Nucleated RBCs Manual Slide Review Polychromasia Hypochromasia Poikilocytosis (manual Anisocytosis Anisocytosis (manual) Microcytosis Ovalocytes PT INR APTT 31.8 H Sodium Potassium Chloride Carbon Dioxide Anion Gap BUN Creatinine Est GFR (CKD-EPI)AfAm Est GFR (CKD-EPI)NonAf Glucose POC Glucose (mg/dL) 68 L 106 H POC Glu Mosaic Floor Layer ID Kali Perez FrammoAdin ramirez Calcium Troponin I Triglycerides Cholesterol LDL Cholesterol, Calc VLDL Cholesterol, Calc HDL Cholesterol Cholesterol/HDL Ratio Procalcitonin Urine Color Urine Appearance Urine pH Ur Specific [place] Urine Protein Urine Glucose (UA) Urine Ketones Urine Blood Urine Nitrite Urine Bilirubin Urine Urobilinogen Ur Leukocyte Esterase Urine RBC Urine WBC Vital Signs Temp 98.6 F 04/11/21 07:46 Pulse 85 04/11/21 07:46 Resp 18 04/11/21 07:46 BP 145/74 04/11/21 07:46 Pulse Ox 96 04/11/21 07:46 Intake & Output 04/10/21 04/11/21 04/11/21 18:59 06:59 18:59 Intake Total 762.5 583.089 600 Balance 762.5 583.089 600 Weight 83.915 kg Intake: IV 100 Intake, IV Titration 62.5 383.089 Amount Heparin Sod,Pork in 0.45% 62.5 NaCl 25,000 unit In 0.45 % NaCl 1 250ml.bag @ 11. 9168 UNITS/KG/HR 10 mls/ hr IV .Q24H [facility] Rx#: [id number] Heparin Sod,Pork in 0.45% 133.089 NaCl 25,000 unit In 0.45 % NaCl 1 250ml.bag @ 12 UNITS/KG/HR 10.07 mls/hr IV .Q24H [facility] Rx#: [id number] Sodium Chloride 0.9% 1, 250 000 ml @ 50 mls/hr IV . Q20H [facility] Rx#:[id number] Oral 600 200 600 Other: # Voids 2 2 Objective - Vital Signs Vital signs: Vital Signs Temp 98.6 F 04/11/21 07:46 Pulse 85 04/11/21 07:46 Resp 18 04/11/21 07:46 BP 145/74 04/11/21 07:46 Pulse Ox 96 04/11/21 07:46 Intake & Output 04/10/21 04/11/21 04/11/21 18:59 06:59 18:59 Intake Total 762.5 583.089 600 Balance 762.5 583.089 600 Weight 83.915 kg Intake: IV 100 Intake, IV Titration 62.5 383.089 Amount Heparin Sod,Pork in 0.45% 62.5 NaCl 25,000 unit In 0.45 % NaCl 1 250ml.bag @ 11. 9168 UNITS/KG/HR 10 mls/ hr IV .Q24H [facility] Rx#: [id number] Heparin Sod,Pork in 0.45% 133.089 NaCl 25,000 unit In 0.45 % NaCl 1 250ml.bag @ 12 UNITS/KG/HR 10.07 mls/hr IV .Q24H [facility] Rx#: [id number] Sodium Chloride 0.9% 1, 250 000 ml @ 50 mls/hr IV . Q20H [facility] Rx#:[id number] Oral 600 200 600 Other: # Voids 2 2 - Labs CBC & Chem 7: 04/11/21 02:52 04/11/21 02:52 Labs: Abnormal Lab Results - Last 24 Hours (Table) 04/10/21 04/10/21 04/10/21 Range/Units 06:39 10:54 12:06 RBC (4.30-5.90) m/uL Hgb (13.0-17.5) gm/dL Hct (39.0-53.0) % MCV (80.0-100.0) fL MCH (25.0-35.0) pg MCHC (31.0-37.0) g/dL RDW (11.5-15.5) % Lymphocytes # (Manual) (1.0-4.8) k/uL Eosinophils # (Manual) (0-0.7) k/uL APTT (22.0-30.0) sec Potassium (3.5-5.1) mmol/L BUN (9-20) mg/dL Creatinine (0.66-1.25) mg/dL POC Glucose (mg/dL) (75-99) mg/dL Troponin I 7.230 H* (0.000-0.034) ng/mL Triglycerides (0.00-149.00) mg/dL HDL Cholesterol (40.00-60.00) mg/dL Procalcitonin 0.15 H (0.02-0.09) ng/mL Urine Protein 1+ H (Negative) Urine Glucose (UA) 4+ H (Negative) 04/10/21 04/10/21 04/10/21 Range/Units 13:59 14:21 16:55 RBC (4.30-5.90) m/uL Hgb (13.0-17.5) gm/dL Hct (39.0-53.0) % MCV (80.0-100.0) fL MCH (25.0-35.0) pg MCHC (31.0-37.0) g/dL RDW (11.5-15.5) % Lymphocytes # (Manual) (1.0-4.8) k/uL Eosinophils # (Manual) (0-0.7) k/uL APTT (22.0-30.0) sec Potassium (3.5-5.1) mmol/L BUN (9-20) mg/dL Creatinine (0.66-1.25) mg/dL POC Glucose (mg/dL) 63 L 65 L 241 H (75-99) mg/dL Troponin I (0.000-0.034) ng/mL Triglycerides (0.00-149.00) mg/dL HDL Cholesterol (40.00-60.00) mg/dL Procalcitonin (0.02-0.09) ng/mL Urine Protein (Negative) Urine Glucose (UA) (Negative) 04/10/21 04/10/21 04/11/21 Range/Units 20:00 20:53 02:52 RBC 3.76 L (4.30-5.90) m/uL Hgb 8.5 L (13.0-17.5) gm/dL Hct 29.5 L (39.0-53.0) % MCV 78.5 L (80.0-100.0) fL MCH 22.7 L (25.0-35.0) pg MCHC 28.9 L (31.0-37.0) g/dL RDW 21.4 H (11.5-15.5) % Lymphocytes # (Manual) (1.0-4.8) k/uL Eosinophils # (Manual) (0-0.7) k/uL APTT (22.0-30.0) sec Potassium (3.5-5.1) mmol/L BUN (9-20) mg/dL Creatinine (0.66-1.25) mg/dL POC Glucose (mg/dL) 140 H (75-99) mg/dL Troponin I (0.000-0.034) ng/mL Triglycerides 157.00 H (0.00-149.00) mg/dL HDL Cholesterol 20.40 L (40.00-60.00) mg/dL Procalcitonin (0.02-0.09) ng/mL Urine Protein (Negative) Urine Glucose (UA) (Negative) 04/11/21 04/11/21 04/11/21 Range/Units 02:52 02:52 02:52 RBC 3.59 L (4.30-5.90) m/uL Hgb 7.9 L (13.0-17.5) gm/dL Hct 28.0 L (39.0-53.0) % MCV 78.0 L (80.0-100.0) fL MCH 22.1 L (25.0-35.0) pg MCHC 28.3 L (31.0-37.0) g/dL RDW 21.5 H (11.5-15.5) % Lymphocytes # (Manual) 0.54 L (1.0-4.8) k/uL Eosinophils # (Manual) 0.75 H (0-0.7) k/uL APTT 31.3 H (22.0-30.0) sec Potassium 5.2 H (3.5-5.1) mmol/L BUN 47 H (9-20) mg/dL Creatinine 2.46 H (0.66-1.25) mg/dL POC Glucose (mg/dL) (75-99) mg/dL Troponin I (0.000-0.034) ng/mL Triglycerides (0.00-149.00) mg/dL HDL Cholesterol (40.00-60.00) mg/dL Procalcitonin (0.02-0.09) ng/mL Urine Protein (Negative) Urine Glucose (UA) (Negative) 04/11/21 04/11/21 04/11/21 Range/Units 05:34 05:56 09:18 RBC (4.30-5.90) m/uL Hgb (13.0-17.5) gm/dL Hct (39.0-53.0) % MCV (80.0-100.0) fL MCH (25.0-35.0) pg MCHC (31.0-37.0) g/dL RDW (11.5-15.5) % Lymphocytes # (Manual) (1.0-4.8) k/uL Eosinophils # (Manual) (0-0.7) k/uL APTT 31.8 H (22.0-30.0) sec Potassium (3.5-5.1) mmol/L BUN (9-20) mg/dL Creatinine (0.66-1.25) mg/dL POC Glucose (mg/dL) 68 L 106 H (75-99) mg/dL Troponin I (0.000-0.034) ng/mL Triglycerides (0.00-149.00) mg/dL HDL Cholesterol (40.00-60.00) mg/dL Procalcitonin (0.02-0.09) ng/mL Urine Protein (Negative) Urine Glucose (UA) (Negative)
[2021-04-11] MEDS ORDERED: DARBEPOETIN ALFA 60 MCG/0.3 ML SYRINGE SQ SCH (14:00)
[2021-04-11] MEDS: hydrALAZINE HCL 50 MG TAB PO SCH ×2 (15:37→21:04)
[2021-04-11 17:03] LABS: Glucose,Whole Blood 168 mg/dL (75-99)
[2021-04-11] MEDS: HEPARIN SOD,PORK IN 0.45% NACL 25,000 UNIT in 0.45% NACL 1 250ML.BAG IV SCH (18:37)
[2021-04-11] MEDS: NITROGLYCERIN SL TABS 0.4 MG TAB SUBLINGUAL PRN ×2 (18:40→18:44)
[2021-04-11 20:37] LABS: Glucose,Whole Blood 145 mg/dL (75-99)
[2021-04-11 23:40] LABS: % Iron Saturation 2.94 (15.00-50.00)
[2021-04-12] MEDS: NITROGLYCERIN OINT 1 INCH/GM PACKET TOPICAL SCH ×3 (00:21→17:19)
[2021-04-12] MEDS: SODIUM CHLORIDE 0.9% 1,000 ML IV SCH ×3 (00:21→21:06)
[2021-04-12 01:51] LABS: Glucose,Whole Blood 77 mg/dL (75-99)
[2021-04-12] MEDS ORDERED: FUROSEMIDE 10 MG/ML 10 ML VIAL IV STA (01:51)
[2021-04-12] MEDS ORDERED: FUROSEMIDE 10 MG/ML 4 ML VIAL ONE (01:51)
[2021-04-12] MEDS ORDERED: DEXTROSE 50% SYRINGE 50 ML IVP ONE (01:51)
[2021-04-12] MEDS ORDERED: LABETALOL 5 MG/ML VIAL MDV IVP STA (02:04)
[2021-04-12] MEDS: NITROGLYCERIN-D5W PMX 50 MG in DEXTROSE/WATER 1 250ML.BAG IV SCH (02:14)
[2021-04-12 02:21] LABS: ABG Base Excess 1.1 mmol/L; ABG HCO3 30 mmol/L (21-25); ABG Oxygen Saturation 99.8 % (94-97); ABG PO2 323 mmHg (83-108); ABG TCO2 33 mmol/L (19-24); Allen Test Performed? Yes
[2021-04-12 02:34] LABS: ABG PCO2 91 mmHg (35-45); ABG PH 7.13 (7.35-7.45)
--- NOTE | 2021-04-12 02:37 | XR ---
EXAMINATION TYPE: XR chest 1V portable DATE OF EXAM: 04/12/2021 COMPARISON: 04/10/2021 HISTORY: Short of breath TECHNIQUE: Single view FINDINGS: There is pulmonary interstitial and airspace edema. Heart is enlarged. Costophrenic angles are clear. There are no hilar masses. IMPRESSION: There is pulmonary edema which is suggestive of congestive heart failure and slightly wor se than last exam.
[2021-04-12 02:49] LABS: ABG HCO3 31 mmol/L (21-25); ABG PO2 >400 mmHg (83-108); ABG TCO2 34 mmol/L (19-24); Allen Test Performed? Yes
[2021-04-12 03:02] LABS: ABG PCO2 89 mmHg (35-45); ABG PH 7.15 (7.35-7.45)
[2021-04-12] MEDS ORDERED: NALOXONE 0.4 MG/ML 1 ML VIAL IV PRN (03:03)
[2021-04-12 03:25] LABS: Glucose,Whole Blood 112 mg/dL (75-99)
--- NOTE | 2021-04-12 03:33 | P.EN ---
A- team: Indication: Shortness of breath, chest discomfort Arrived on Scene to find: Patient diaphoretic, sitting at the edge of the bed, complaining of chest discomfort Vital signs reviewed: BP 210/124, pulse 118, SpO2 95% via nonrebreather mask at 15 L Patient seen and examined at bedside. General: A chronic ill-appearing male, in moderate to severe respiratory distress, [appears at stated age] Derm: [warm], [dry] Head: [atraumatic], [normocephalic], [symmetric] Eyes: [EOMI], [no lid lag], [anicteric sclera] Mouth: [no lip lesion], [mucus membranes moist] Cardiovascular: [S1S2 reg], tachycardic, [no murmur], [positive posterior tibial pulse bilateral], Lungs: Bilateral rales, no wheezing or rhonchi, sensory muscle use noted Abdominal: [soft], [ nontender to palpation], [no guarding], [no appreciable organomegaly] Ext: [no gross muscle atrophy], [no edema], [no contractures] Neuro: [no focal neuro deficits] Psych: Somewhat confused, oriented to person and place Assessment: Acute hypoxic and hypercapnic respiratory failure suspected secondary to CHF exacerbation with hypertensive emergency -Chest x-ray showing pulmonary edema -Lasix 80 mg IVP ordered -ABG reviewed showing hypercapnia -The patient's mentation and respiratory status quickly deteriorated upon arrival at the scene. The patient was thereby initiated on Bipap. -The case was discussed with cardiology on-call doctor Suhail including the EKGs obtained showing precordial lead ST-depressions somewhat worse from prior. He recommended transfer to MICU for HTN emergency along with IV labetalol -Nitroglycerin infusion ordered -Case discussed with crater and packer on-call Dr. Gomez who agreed with transfer to MICU -Shortly after arrival at the MICU, the patient's mentation improved slightly and he became more responsive and answered questions appropriately. Repeat ABG showed minor improvements. Will attempt trial of NIPPV for now. -The case was discussed with the patient's via telephone A Total of 45 minutes of critical care time was spent on the complex care of this patient.
[2021-04-12] MEDS: HEPARIN SODIUM 1,000 UN/ML (10ML VL) IV PRN (04:04)
[2021-04-12] MEDS: HEPARIN SOD,PORK IN 0.45% NACL 25,000 UNIT in 0.45% NACL 1 250ML.BAG IV SCH ×2 (04:07→15:05)
[2021-04-12 04:40] LABS: Amorphous Sediment,Urine Rare /hpf; Appearance,Urine Clear (Clear); Bilirubin,Urine Negative (Negative); Blood,Urine Negative (Negative); Color,Urine Light Yellow; Glucose,Urine (UA) 3+ (Negative); Hyaline Casts,Urine 1 /lpf (0-2); Ketones,Urine Negative (Negative); Leukocyte Esterase,Urine Negative (Negative); Mucus,Urine Rare /hpf; Nitrite,Urine Negative (Negative); Protein,Urine 1+ (Negative); RBC,Urine <1 /hpf (0-5); Urobilinogen,Urine <2.0 mg/dL (<2.0); WBC,Urine 1 /hpf (0-5)
[2021-04-12 05:38] LABS: ABG Base Excess 3.8 mmol/L; ABG HCO3 31 mmol/L (21-25); ABG Oxygen Saturation 97.6 % (94-97); ABG PCO2 65 mmHg (35-45); ABG PH 7.28 (7.35-7.45); ABG PO2 100 mmHg (83-108); ABG TCO2 33 mmol/L (19-24); Allen Test Performed? Yes
--- NOTE | 2021-04-12 05:41 | XR ---
EXAMINATION TYPE: XR chest 1V portable DATE OF EXAM: 04/12/2021 COMPARISON: Today HISTORY: Short of breath TECHNIQUE: FINDINGS: There is pulmonary interstitial and airspace edema. Heart appears slightly enlarged. There are chest leads. IMPRESSION: Moderate pulmonary edema without change compared to exam 3 hours ago.
[2021-04-12 05:47] LABS: Anisocytosis Moderate; Basophils % (A) 0 %; Eosinophils # (A) 0.2 k/uL (0-0.7); Eosinophils % (A) 2 %; Hypochromasia Marked; Lymphocytes # (A) 0.5 k/uL (1.0-4.8); Lymphocytes % (A) 5 %; MCH 22.3 pg (25.0-35.0); MCHC 28.1 g/dL (31.0-37.0); MCV 79.4 fL (80.0-100.0); Mean Platelet Volume 9.6; Microcytosis Slight; Monocytes # (A) 0.7 k/uL (0-1.0); Monocytes % (A) 6 %; Neutrophils # (A) 9.4 k/uL (1.3-7.7); Neutrophils % (A) 85 %; Platelet Count 193 k/uL (150-450); RBC 4.03 m/uL (4.30-5.90); RDW 21.3 % (11.5-15.5)
[2021-04-12] MEDS ORDERED: ASPIRIN 325 MG TAB PO ONE (06:00)
[2021-04-12 06:25] LABS: Calcium 9.2 mg/dL (8.4-10.2)
[2021-04-12 06:33] LABS: Magnesium 2.1 mg/dL (1.6-2.3); Potassium 5.7 mmol/L (3.5-5.1)
[2021-04-12 06:38] LABS: Glucose,Whole Blood 111 mg/dL (75-99)
--- NOTE | 2021-04-12 09:37 | P.PN ---
Subjective Patient is seen in follow-up for acute kidney injury on chronic kidney disease. Patient developed chest discomfort last night and was subsequently transferred to the ICU. He's currently on heparin drip and nitro drip. He received a dose of IV Lasix last night. Good urine output. No chest pain now. Vital signs are stable. General: On BiPAP. HEENT: Head exam is unremarkable. LUNGS: Breath sounds decreased. HEART: Rate and Rhythm are regular. ABDOMEN: Soft, no distention. EXTREMITITES: No edema. Objective - Vital Signs Vital signs: Vital Signs Temp 98.8 F 04/12/21 04:00 Pulse 91 04/12/21 07:00 Resp 16 04/12/21 07:00 BP 157/71 04/12/21 07:00 Pulse Ox 96 04/12/21 07:00 Intake & Output 04/11/21 04/12/21 04/12/21 18:59 06:59 18:59 Intake Total 1316.911 183.35 Output Total 1450 300 Balance 1316.911 -1266.65 -300 Intake: Intake, IV Titration 116.911 183.35 Amount Heparin Sod,Pork in 0.45% 116.911 183.35 NaCl 25,000 unit In 0.45 % NaCl 1 250ml.bag @ 12 UNITS/KG/HR 10.07 mls/hr IV .Q24H [facility] Rx#: [id number] Oral 1200 Output: Urine 1450 300 Other: Voiding Method Indwelling Catheter # Voids 2 3 - Labs CBC & Chem 7: 04/12/21 05:16 04/12/21 05:16 Labs: Abnormal Lab Results - Last 24 Hours (Table) 04/10/21 04/11/21 04/11/21 Range/Units 06:39 02:52 09:18 WBC (3.8-10.6) k/uL RBC (4.30-5.90) m/uL Hgb (13.0-17.5) gm/dL Hct (39.0-53.0) % MCV (80.0-100.0) fL MCH (25.0-35.0) pg MCHC (31.0-37.0) g/dL RDW (11.5-15.5) % Neutrophils # (1.3-7.7) k/uL Lymphocytes # (1.0-4.8) k/uL APTT 31.8 H (22.0-30.0) sec ABG pH (7.35-7.45) ABG pCO2 (35-45) mmHg ABG pO2 (83-108) mmHg ABG HCO3 (21-25) mmol/L ABG Total CO2 (19-24) mmol/L ABG O2 Saturation (94-97) % Potassium (3.5-5.1) mmol/L Chloride (98-107) mmol/L BUN (9-20) mg/dL Creatinine (0.66-1.25) mg/dL Glucose (74-99) mg/dL POC Glucose (mg/dL) (75-99) mg/dL Hemoglobin A1c 6.1 H (0.0-6.0) % Iron 19 L (65-175) ug/dL TIBC 638 H (228-460) ug/dL % Saturation 2.94 L (15.00-50.00) Transferrin 456.0 H (204.0-354.0) mg/dL Urine Protein (Negative) Urine Glucose (UA) (Negative) Amorphous Sediment (None) /hpf Urine Mucus (None) /hpf 04/11/21 04/11/21 04/11/21 Range/Units 12:02 16:24 16:47 WBC (3.8-10.6) k/uL RBC (4.30-5.90) m/uL Hgb (13.0-17.5) gm/dL Hct (39.0-53.0) % MCV (80.0-100.0) fL MCH (25.0-35.0) pg MCHC (31.0-37.0) g/dL RDW (11.5-15.5) % Neutrophils # (1.3-7.7) k/uL Lymphocytes # (1.0-4.8) k/uL APTT 36.8 H (22.0-30.0) sec ABG pH (7.35-7.45) ABG pCO2 (35-45) mmHg ABG pO2 (83-108) mmHg ABG HCO3 (21-25) mmol/L ABG Total CO2 (19-24) mmol/L ABG O2 Saturation (94-97) % Potassium (3.5-5.1) mmol/L Chloride (98-107) mmol/L BUN (9-20) mg/dL Creatinine (0.66-1.25) mg/dL Glucose (74-99) mg/dL POC Glucose (mg/dL) 171 H 168 H (75-99) mg/dL Hemoglobin A1c (0.0-6.0) % Iron (65-175) ug/dL TIBC (228-460) ug/dL % Saturation (15.00-50.00) Transferrin (204.0-354.0) mg/dL Urine Protein (Negative) Urine Glucose (UA) (Negative) Amorphous Sediment (None) /hpf Urine Mucus (None) /hpf 04/11/21 04/12/21 04/12/21 Range/Units 20:00 00:45 02:19 WBC (3.8-10.6) k/uL RBC (4.30-5.90) m/uL Hgb (13.0-17.5) gm/dL Hct (39.0-53.0) % MCV (80.0-100.0) fL MCH (25.0-35.0) pg MCHC (31.0-37.0) g/dL RDW (11.5-15.5) % Neutrophils # (1.3-7.7) k/uL Lymphocytes # (1.0-4.8) k/uL APTT 35.7 H (22.0-30.0) sec ABG pH 7.13 L* (7.35-7.45) ABG pCO2 91 H* (35-45) mmHg ABG pO2 323 H (83-108) mmHg ABG HCO3 30 H (21-25) mmol/L ABG Total CO2 33 H (19-24) mmol/L ABG O2 Saturation 99.8 H (94-97) % Potassium (3.5-5.1) mmol/L Chloride (98-107) mmol/L BUN (9-20) mg/dL Creatinine (0.66-1.25) mg/dL Glucose (74-99) mg/dL POC Glucose (mg/dL) 145 H (75-99) mg/dL Hemoglobin A1c (0.0-6.0) % Iron (65-175) ug/dL TIBC (228-460) ug/dL % Saturation (15.00-50.00) Transferrin (204.0-354.0) mg/dL Urine Protein (Negative) Urine Glucose (UA) (Negative) Amorphous Sediment (None) /hpf Urine Mucus (None) /hpf 04/12/21 04/12/21 04/12/21 Range/Units 02:47 03:12 03:38 WBC (3.8-10.6) k/uL RBC (4.30-5.90) m/uL Hgb (13.0-17.5) gm/dL Hct (39.0-53.0) % MCV (80.0-100.0) fL MCH (25.0-35.0) pg MCHC (31.0-37.0) g/dL RDW (11.5-15.5) % Neutrophils # (1.3-7.7) k/uL Lymphocytes # (1.0-4.8) k/uL APTT (22.0-30.0) sec ABG pH 7.15 L* (7.35-7.45) ABG pCO2 89 H* (35-45) mmHg ABG pO2 >400 H (83-108) mmHg ABG HCO3 31 H (21-25) mmol/L ABG Total CO2 34 H (19-24) mmol/L ABG O2 Saturation 100.0 H (94-97) % Potassium (3.5-5.1) mmol/L Chloride (98-107) mmol/L BUN (9-20) mg/dL Creatinine (0.66-1.25) mg/dL Glucose (74-99) mg/dL POC Glucose (mg/dL) 112 H (75-99) mg/dL Hemoglobin A1c (0.0-6.0) % Iron (65-175) ug/dL TIBC (228-460) ug/dL % Saturation (15.00-50.00) Transferrin (204.0-354.0) mg/dL Urine Protein 1+ H (Negative) Urine Glucose (UA) 3+ H (Negative) Amorphous Sediment Rare H (None) /hpf Urine Mucus Rare H (None) /hpf 04/12/21 04/12/21 04/12/21 Range/Units 05:16 05:16 05:36 WBC 11.0 H (3.8-10.6) k/uL RBC 4.03 L (4.30-5.90) m/uL Hgb 9.0 L (13.0-17.5) gm/dL Hct 32.0 L (39.0-53.0) % MCV 79.4 L (80.0-100.0) fL MCH 22.3 L (25.0-35.0) pg MCHC 28.1 L (31.0-37.0) g/dL RDW 21.3 H (11.5-15.5) % Neutrophils # 9.4 H (1.3-7.7) k/uL Lymphocytes # 0.5 L (1.0-4.8) k/uL APTT (22.0-30.0) sec ABG pH 7.28 L (7.35-7.45) ABG pCO2 65 H (35-45) mmHg ABG pO2 (83-108) mmHg ABG HCO3 31 H (21-25) mmol/L ABG Total CO2 33 H (19-24) mmol/L ABG O2 Saturation 97.6 H (94-97) % Potassium 5.7 H (3.5-5.1) mmol/L Chloride 109 H (98-107) mmol/L BUN 42 H (9-20) mg/dL Creatinine 2.39 H (0.66-1.25) mg/dL Glucose 103 H (74-99) mg/dL POC Glucose (mg/dL) (75-99) mg/dL Hemoglobin A1c (0.0-6.0) % Iron (65-175) ug/dL TIBC (228-460) ug/dL % Saturation (15.00-50.00) Transferrin (204.0-354.0) mg/dL Urine Protein (Negative) Urine Glucose (UA) (Negative) Amorphous Sediment (None) /hpf Urine Mucus (None) /hpf 04/12/21 Range/Units 06:36 WBC (3.8-10.6) k/uL RBC (4.30-5.90) m/uL Hgb (13.0-17.5) gm/dL Hct (39.0-53.0) % MCV (80.0-100.0) fL MCH (25.0-35.0) pg MCHC (31.0-37.0) g/dL RDW (11.5-15.5) % Neutrophils # (1.3-7.7) k/uL Lymphocytes # (1.0-4.8) k/uL APTT (22.0-30.0) sec ABG pH (7.35-7.45) ABG pCO2 (35-45) mmHg ABG pO2 (83-108) mmHg ABG HCO3 (21-25) mmol/L ABG Total CO2 (19-24) mmol/L ABG O2 Saturation (94-97) % Potassium (3.5-5.1) mmol/L Chloride (98-107) mmol/L BUN (9-20) mg/dL Creatinine (0.66-1.25) mg/dL Glucose (74-99) mg/dL POC Glucose (mg/dL) 111 H (75-99) mg/dL Hemoglobin A1c (0.0-6.0) % Iron (65-175) ug/dL TIBC (228-460) ug/dL % Saturation (15.00-50.00) Transferrin (204.0-354.0) mg/dL Urine Protein (Negative) Urine Glucose (UA) (Negative) Amorphous Sediment (None) /hpf Urine Mucus (None) /hpf Assessment and Plan Plan: Assessment: 1. Acute kidney injury mostly prerenal initially improved with IV hydration. Now hypervolemic. Creatinine 2.39 today. No hydronephrosis noted on kidney ultrasound. 2. Chronic kidney disease stage IV with baseline creatinine 2.3-2.4 secondary to nephrosclerosis and diabetic kidney disease. 3. Acute HI status post cardiac catheterization on April 10. Right coronary intervention pending. 4. Acute on chronic diastolic CHF. 5. Hyperkalemia secondary to chronic kidney disease. Hemolyzed sample. 6. Diabetes mellitus. 7. Anemia of chronic kidney disease maintained on Aranesp. Severe iron deficiency noted. Plan: Add IV Lasix 40 mg twice daily. Repeat potassium level. Avoid nephrotoxins. Continue to monitor renal function and urine output. Monitor for contrast-induced acute kidney injury. Add IV iron.
--- NOTE | 2021-04-12 09:48 | P.PN ---
Subjective Progress Note Date: 04/12/21 Patient is a 61-year-old male with a past medical history of hypertension, aortic stenosis, dyslipidemia, diabetes, chronic kidney disease was admitted with acute coronary syndrome. He follows with Dr. Muñoz in the office. Patient underwent heart catheterization on April 10 was found to have total occlusion of the mid RCA. Due to advanced renal failure and elevated creatinine of 2.66 at that time patient was not stented, he was continued to be medically managed. Patient remains on heparin drip. Patient's creatinine is returned to baseline of 2.39. Patient will possibly undergo a heart catheterization for PCI of the mid RCA tomorrow at Dr. Muñoz. Patient was evaluated sleeping in bed with no signs of acute distress, he is on 50% BiPAP. Patient denies chest pain, palpitations, dyspnea, dizziness, syncope, or edema at this time. DIAGNOSTICS: EKG shows sinus rhythm with ST-T wave changes Echocardiogram showed normal LV function with an ejection fraction is 60-65%, mild aortic stenosis, and severe left ventricular hypertrophy Chest x-ray showed moderate pulmonary edema with no acute changes from previous exam Labs reviewed-hemoglobin 9, potassium 5.7, B1 42, creatinine 2.39, magnesium 2.1 Objective - Vital Signs Vital signs: Vital Signs Temp 98.8 F 04/12/21 04:00 Pulse 91 04/12/21 07:00 Resp 16 04/12/21 07:00 BP 157/71 04/12/21 07:00 Pulse Ox 96 04/12/21 07:00 Intake & Output 04/11/21 04/12/21 04/12/21 18:59 06:59 18:59 Intake Total 1316.911 183.35 Output Total 1450 300 Balance 1316.911 -1266.65 -300 Intake: Intake, IV Titration 116.911 183.35 Amount Heparin Sod,Pork in 0.45% 116.911 183.35 NaCl 25,000 unit In 0.45 % NaCl 1 250ml.bag @ 12 UNITS/KG/HR 10.07 mls/hr IV .Q24H [facility] Rx#: [id number] Oral 1200 Output: Urine 1450 300 Other: Voiding Method Indwelling Catheter # Voids 2 3 - Exam PHYSICAL EXAM: VITAL SIGNS: Reviewed. GENERAL: Well-developed in no acute distress. HEENT: Head is normocephalic. Pupils are equal, round. Sclerae anicteric. Mucous membranes of the mouth are moist. NECK: Supple. No JVD or thyromegaly RESPIRATORY: Respirations even and unlabored. Lungs diminished to auscultation bilaterally. Patient on BiPAP CARDIO: Regular rate and rhythm. S1 and S2 heard. no gallops. Ejection systolic murmur heard over the left chest EXTREMITIES: Normal range of motion. No clubbing or cyanosis. Peripheral pulses intact. Negative for bilateral lower extremity edema NEURO: Orientated x2, he is fatigued, but arouses to voice - Labs CBC & Chem 7: 04/12/21 05:16 04/12/21 05:16 Labs: Abnormal Lab Results - Last 24 Hours (Table) 04/10/21 04/11/21 04/11/21 Range/Units 06:39 02:52 09:18 WBC (3.8-10.6) k/uL RBC (4.30-5.90) m/uL Hgb (13.0-17.5) gm/dL Hct (39.0-53.0) % MCV (80.0-100.0) fL MCH (25.0-35.0) pg MCHC (31.0-37.0) g/dL RDW (11.5-15.5) % Neutrophils # (1.3-7.7) k/uL Lymphocytes # (1.0-4.8) k/uL APTT 31.8 H (22.0-30.0) sec ABG pH (7.35-7.45) ABG pCO2 (35-45) mmHg ABG pO2 (83-108) mmHg ABG HCO3 (21-25) mmol/L ABG Total CO2 (19-24) mmol/L ABG O2 Saturation (94-97) % Potassium (3.5-5.1) mmol/L Chloride (98-107) mmol/L BUN (9-20) mg/dL Creatinine (0.66-1.25) mg/dL Glucose (74-99) mg/dL POC Glucose (mg/dL) (75-99) mg/dL Hemoglobin A1c 6.1 H (0.0-6.0) % Iron 19 L (65-175) ug/dL TIBC 638 H (228-460) ug/dL % Saturation 2.94 L (15.00-50.00) Transferrin 456.0 H (204.0-354.0) mg/dL Urine Protein (Negative) Urine Glucose (UA) (Negative) Amorphous Sediment (None) /hpf Urine Mucus (None) /hpf 04/11/21 04/11/21 04/11/21 Range/Units 12:02 16:24 16:47 WBC (3.8-10.6) k/uL RBC (4.30-5.90) m/uL Hgb (13.0-17.5) gm/dL Hct (39.0-53.0) % MCV (80.0-100.0) fL MCH (25.0-35.0) pg MCHC (31.0-37.0) g/dL RDW (11.5-15.5) % Neutrophils # (1.3-7.7) k/uL Lymphocytes # (1.0-4.8) k/uL APTT 36.8 H (22.0-30.0) sec ABG pH (7.35-7.45) ABG pCO2 (35-45) mmHg ABG pO2 (83-108) mmHg ABG HCO3 (21-25) mmol/L ABG Total CO2 (19-24) mmol/L ABG O2 Saturation (94-97) % Potassium (3.5-5.1) mmol/L Chloride (98-107) mmol/L BUN (9-20) mg/dL Creatinine (0.66-1.25) mg/dL Glucose (74-99) mg/dL POC Glucose (mg/dL) 171 H 168 H (75-99) mg/dL Hemoglobin A1c (0.0-6.0) % Iron (65-175) ug/dL TIBC (228-460) ug/dL % Saturation (15.00-50.00) Transferrin (204.0-354.0) mg/dL Urine Protein (Negative) Urine Glucose (UA) (Negative) Amorphous Sediment (None) /hpf Urine Mucus (None) /hpf 04/11/21 04/12/21 04/12/21 Range/Units 20:00 00:45 02:19 WBC (3.8-10.6) k/uL RBC (4.30-5.90) m/uL Hgb (13.0-17.5) gm/dL Hct (39.0-53.0) % MCV (80.0-100.0) fL MCH (25.0-35.0) pg MCHC (31.0-37.0) g/dL RDW (11.5-15.5) % Neutrophils # (1.3-7.7) k/uL Lymphocytes # (1.0-4.8) k/uL APTT 35.7 H (22.0-30.0) sec ABG pH 7.13 L* (7.35-7.45) ABG pCO2 91 H* (35-45) mmHg ABG pO2 323 H (83-108) mmHg ABG HCO3 30 H (21-25) mmol/L ABG Total CO2 33 H (19-24) mmol/L ABG O2 Saturation 99.8 H (94-97) % Potassium (3.5-5.1) mmol/L Chloride (98-107) mmol/L BUN (9-20) mg/dL Creatinine (0.66-1.25) mg/dL Glucose (74-99) mg/dL POC Glucose (mg/dL) 145 H (75-99) mg/dL Hemoglobin A1c (0.0-6.0) % Iron (65-175) ug/dL TIBC (228-460) ug/dL % Saturation (15.00-50.00) Transferrin (204.0-354.0) mg/dL Urine Protein (Negative) Urine Glucose (UA) (Negative) Amorphous Sediment (None) /hpf Urine Mucus (None) /hpf 04/12/21 04/12/21 04/12/21 Range/Units 02:47 03:12 03:38 WBC (3.8-10.6) k/uL RBC (4.30-5.90) m/uL Hgb (13.0-17.5) gm/dL Hct (39.0-53.0) % MCV (80.0-100.0) fL MCH (25.0-35.0) pg MCHC (31.0-37.0) g/dL RDW (11.5-15.5) % Neutrophils # (1.3-7.7) k/uL Lymphocytes # (1.0-4.8) k/uL APTT (22.0-30.0) sec ABG pH 7.15 L* (7.35-7.45) ABG pCO2 89 H* (35-45) mmHg ABG pO2 >400 H (83-108) mmHg ABG HCO3 31 H (21-25) mmol/L ABG Total CO2 34 H (19-24) mmol/L ABG O2 Saturation 100.0 H (94-97) % Potassium (3.5-5.1) mmol/L Chloride (98-107) mmol/L BUN (9-20) mg/dL Creatinine (0.66-1.25) mg/dL Glucose (74-99) mg/dL POC Glucose (mg/dL) 112 H (75-99) mg/dL Hemoglobin A1c (0.0-6.0) % Iron (65-175) ug/dL TIBC (228-460) ug/dL % Saturation (15.00-50.00) Transferrin (204.0-354.0) mg/dL Urine Protein 1+ H (Negative) Urine Glucose (UA) 3+ H (Negative) Amorphous Sediment Rare H (None) /hpf Urine Mucus Rare H (None) /hpf 04/12/21 04/12/21 04/12/21 Range/Units 05:16 05:16 05:36 WBC 11.0 H (3.8-10.6) k/uL RBC 4.03 L (4.30-5.90) m/uL Hgb 9.0 L (13.0-17.5) gm/dL Hct 32.0 L (39.0-53.0) % MCV 79.4 L (80.0-100.0) fL MCH 22.3 L (25.0-35.0) pg MCHC 28.1 L (31.0-37.0) g/dL RDW 21.3 H (11.5-15.5) % Neutrophils # 9.4 H (1.3-7.7) k/uL Lymphocytes # 0.5 L (1.0-4.8) k/uL APTT (22.0-30.0) sec ABG pH 7.28 L (7.35-7.45) ABG pCO2 65 H (35-45) mmHg ABG pO2 (83-108) mmHg ABG HCO3 31 H (21-25) mmol/L ABG Total CO2 33 H (19-24) mmol/L ABG O2 Saturation 97.6 H (94-97) % Potassium 5.7 H (3.5-5.1) mmol/L Chloride 109 H (98-107) mmol/L BUN 42 H (9-20) mg/dL Creatinine 2.39 H (0.66-1.25) mg/dL Glucose 103 H (74-99) mg/dL POC Glucose (mg/dL) (75-99) mg/dL Hemoglobin A1c (0.0-6.0) % Iron (65-175) ug/dL TIBC (228-460) ug/dL % Saturation (15.00-50.00) Transferrin (204.0-354.0) mg/dL Urine Protein (Negative) Urine Glucose (UA) (Negative) Amorphous Sediment (None) /hpf Urine Mucus (None) /hpf 04/12/21 Range/Units 06:36 WBC (3.8-10.6) k/uL RBC (4.30-5.90) m/uL Hgb (13.0-17.5) gm/dL Hct (39.0-53.0) % MCV (80.0-100.0) fL MCH (25.0-35.0) pg MCHC (31.0-37.0) g/dL RDW (11.5-15.5) % Neutrophils # (1.3-7.7) k/uL Lymphocytes # (1.0-4.8) k/uL APTT (22.0-30.0) sec ABG pH (7.35-7.45) ABG pCO2 (35-45) mmHg ABG pO2 (83-108) mmHg ABG HCO3 (21-25) mmol/L ABG Total CO2 (19-24) mmol/L ABG O2 Saturation (94-97) % Potassium (3.5-5.1) mmol/L Chloride (98-107) mmol/L BUN (9-20) mg/dL Creatinine (0.66-1.25) mg/dL Glucose (74-99) mg/dL POC Glucose (mg/dL) 111 H (75-99) mg/dL Hemoglobin A1c (0.0-6.0) % Iron (65-175) ug/dL TIBC (228-460) ug/dL % Saturation (15.00-50.00) Transferrin (204.0-354.0) mg/dL Urine Protein (Negative) Urine Glucose (UA) (Negative) Amorphous Sediment (None) /hpf Urine Mucus (None) /hpf Assessment and Plan Assessment: Non-ST elevated myocardial infarction Coronary artery syndrome Post heart catheterization, possible PCI tomorrow Uncontrolled Hypertension Chronic renal failure Mild aortic stenosis Plan: Patient nothing by mouth at midnight, possible heart catheterization tomorrow for stenting of the mid RCA Increase hydralazine to 75 mg 3 times a day for poorly controlled hypertension Continue on heparin drip Continue Plavix Continue Coreg Continue all other current cardiac medications Further recommendations will be based on clinical course The above impression and plan of care have been discussed and directed by the signing physician. Manasa Jimenez, nurse practitioner, acting as scribe for signing physician.
[2021-04-12] MEDS: ASPIRIN 81 MG PO SCH (10:45)
[2021-04-12] MEDS: PANTOPRAZOLE 40 MG TABLET PO SCH (10:50)
[2021-04-12] MEDS: carvediloL 12.5 MG TAB PO SCH ×2 (10:50→17:18)
[2021-04-12] MEDS: CYANOCOBALAMIN 500 MCG TAB PO SCH (10:50)
[2021-04-12] MEDS: SODIUM FERRIC GLUCONAT-SUCROSE 125 MG in SODIUM CHLORIDE 0.9% 100 ML IVPB SCH (10:50)
[2021-04-12] MEDS: ATORVASTATIN 80 MG TAB PO SCH (10:50)
[2021-04-12] MEDS: VORTIOXETINE HYDROBROMIDE 10 MG TABLET PO SCH (10:50)
[2021-04-12] MEDS: PREGABALIN 100 MG CAP PO SCH ×3 (10:50→21:00)
[2021-04-12] MEDS: CLOPIDOGREL 75 MG TAB PO SCH (10:51)
[2021-04-12 11:34] LABS: Glucose,Whole Blood 104 mg/dL (75-99)
[2021-04-12] MEDS: INSULIN DETEMIR (LEVEMIR) 100 UNIT/ML SYR SQ SCH (12:24)
[2021-04-12 13:58] LABS: ABG Base Excess 7.7 mmol/L; ABG HCO3 33 mmol/L (21-25); ABG Oxygen Saturation 96.8 % (94-97); ABG PCO2 59 mmHg (35-45); ABG PH 7.36 (7.35-7.45); ABG PO2 85 mmHg (83-108); ABG TCO2 35 mmol/L (19-24); Allen Test Performed? Yes
--- NOTE | 2021-04-12 14:12 | P.PN ---
Subjective Progress Note Date: 04/12/21 HISTORY OF PRESENT ILLNESS 61-year-old male patient of Dr. Cronin and Dr. Muñoz with past medical hist ory of chronic kidney disease, type 2 diabetes, carotid stenosis status post carotid endarterectomy, GERD, hyperlipidemia, hypertension presenting to the emergency room, secondary to chest discomfort, lasting 30 minutes last night. Patient did not take anything for this pain, Patient was sent in via EMS, and was subsequently given nitroglycerin in the ambulance, with relief of the pain. Patient has known history of CHF, CK D stage IV aortic stenosis. His diabetes he said is controlled, with A1c of 6.4 within the past few months. In the emergency room, troponins are noted to be elevated, with anti-troponin of 0.099, subsequent to that was 3.4, then 7.2 and was seen by Dr. Shelby and was sent to the [facility] lab[facility], for non-ST elevation myocardial infarction, patient underwent cardiac cath, right radial artery results are currently pending, has 2 occlusive disease, no intervention according to the patient. 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 Might need Prandin, for prandial glucose control, however he is on tuojeo, along with a weekly shot not listed in home med, pt will need refill of demadex on discharge per request 04/12: A-Team was called on this patient this morning due to low pulse ox requiring 4 L with pulse ox of 93% then developed worsening shortness of breath and increasingly unresponsive. Blood pressure was 216/105, heart rate 113. Patient was given Lasix 80 mg IV push, 1 amp of dextrose and a nitro drip was started and patient was transferred into the intensive care unit. She has been mostly on BiPAP and intermittently for brief periods on 5 L nasal cannula. Patient has been very sleepy since he arrived to the ICU but awakens and can answer questions appropriately. Urine output has been [address] Muñoz has spoken with him and his in detail about ECI of the RCA and they are undecided whether to have it done here or transfer to tertiary care. Hydralazine was increased to 75 g 3 times daily. Chest x-ray reveals moderate pulmonary edema without change on 3 hours ago. Cardiac gram reveals EF of 60-65% with severe concentric left ventricular hypertrophy, moderate aortic valve sclerosis, mild aortic stenosis with gradient of 26.53 mmHg, trace mitral regurgitation, mild tricuspid regurgitation, mild pulmonary hypertension, RVSP 38.29 mmHg. REVIEW OF SYSTEMS Constitutional: No fever, no chills, no night sweats. No weight change. No weakness, fatigue or lethargy. No daytime sleepiness. EENT: No headache. No blurred vision or double vision, no loss of vision. No loss of Hearing, no ringing in the ears, no dizziness. No nasal drainage or congestion. No epistaxis. No sore throat. Lungs: Reported shortness of breath, cough, no sputum production. No wheezing. Cardiovascular: Reported chest pain, no lower extremity edema. No palpitations. No paroxysmal nocturnal dyspnea. No orthopnea. No lightheadedness or dizziness. No syncopal episodes. Abdominal: No abdominal pain. No nausea, vomiting. No diarrhea. No constipation. No bloody or tarry stools. No loss of appetite. Genitourinary: No dysuria, increased frequency, urgency. No urinary retention. Musculoskeletal: No myalgias. No muscle weakness, no gait dysfunction, no frequent falls. No back pain. No neck pain. Integumentary: No wounds, no lesions. No rash or pruritus. No unusual bruising. No change in hair or nails. Neurologic: No aphasia. No facial droop. No change in mentation. No head injury. No headache. No paralysis. No paresthesia. Psychiatric: No depression. No anxiety. No mood swings. Endocrine: No abnormal blood sugars. No weight change. No excessive sweating or thirst. No cold intolerance. PHYSICAL EXAMINATION Gen: This is a 61-year-old male. He is resting in the ICU bed on nasal cannula and appears to be comfortable and in no acute distress. Patient's is at bedside. HEENT: Head is atraumatic, normocephalic. Pupils equal, round. Sclerae is anicteric. NECK: Supple. No JVD. No lymphadenopathy. No thyromegaly. LUNGS: Clear to auscultation. No wheezes or rhonchi. No intercostal retractions. HEART: Regular rate and rhythm. Systolic murmur. ABDOMEN: Soft. Bowel sounds are present. No masses. No tenderness. EXTREMITIES: No pedal edema. No calf tenderness. Dorsalis pedis +2 bilaterally. NEUROLOGICAL: Patient is awake, alert and oriented x3. Cranial nerves 2 through 12 are grossly intact. ASSESSMENT AND PLAN 1. Acute non-ST elevation myocardial infraction, underwent cardiac cath, on 04/10 2021, for which he is currently on Plavix 75 mg Coreg 25 mg and aspirin 81 mg daily, Lipitor 80 mg daily patient is going to undergo another procedure in the next 24 hours or transferred to tertiary care. 2. Acute hypoxic respiratory failure secondary to acute diastolic heart failure. Continue Lasix 40 mg IV every 12 hours, monitor KALEB, daily weights, electrolytes and renal function. 3. Hypertension. Continue Coreg 25 mg twice daily, Lasix 40 mg IV every 12 hours, hydralazine 75 mg 3 times daily. 4. Diabetes mellitus type 2, with diabetic neuropathy with hyperglycemia, check for A1c, on Lyrica 100 mg twice a day, continue Januvia, hold metformin, and hold discharge and his continued levemir 40 units daily 5. CK D stage IV, followed by nephrology 6. Anemia of chronic disease, baseline hemoglobin of 8.9, check for iron studi es. Continue Aranesp 7. History of carotid stenosis, with bilateral carotid endarterectomy, on as pirin and Plavix, along with statin 8. Dysthymia, on trintellix 9. DVT prophylaxis 10 GI prophylaxis Pepcid not omeprazole secondary to CK D4 11. COVID-19 testing negative. Patient has been hospitalized during a pandemic. DISCHARGE PLAN Home. Impression and plan of care have been directed as dictated by the signing physician. Chen Quiroz nurse practitioner acting as scribe for signing physician. Objective - Vital Signs Vital signs: Vital Signs Temp 98.6 F 04/12/21 12:00 Pulse 80 04/12/21 12:00 Resp 18 04/12/21 12:00 BP 131/58 04/12/21 12:00 Pulse Ox 99 04/12/21 12:00 Intake & Output 04/11/21 04/12/21 04/12/21 18:59 06:59 18:59 Intake Total 1316.911 183.35 600 Output Total 1450 1650 Balance 1316.911 -1266.65 -1050 Intake: IV 100 Sodium Chloride 0.9% 1, 100 000 ml @ 100 mls/hr IV . Q10H [facility] Rx#:[id number] Intake, IV Titration 116.911 183.35 Amount Heparin Sod,Pork in 0.45% 116.911 183.35 NaCl 25,000 unit In 0.45 % NaCl 1 250ml.bag @ 12 UNITS/KG/HR 10.07 mls/hr IV .Q24H [facility] Rx#: [id number] Oral 1200 500 Output: Urine 1450 1650 Other: Voiding Method Indwelling Catheter # Voids 2 3 - Labs CBC & Chem 7: 04/12/21 05:16 04/12/21 10:44 Labs: Abnormal Lab Results - Last 24 Hours (Table) 04/10/21 04/11/21 04/11/21 Range/Units 06:39 16:24 16:47 WBC (3.8-10.6) k/uL RBC (4.30-5.90) m/uL Hgb (13.0-17.5) gm/dL Hct (39.0-53.0) % MCV (80.0-100.0) fL MCH (25.0-35.0) pg MCHC (31.0-37.0) g/dL RDW (11.5-15.5) % Neutrophils # (1.3-7.7) k/uL Lymphocytes # (1.0-4.8) k/uL APTT 36.8 H (22.0-30.0) sec ABG pH (7.35-7.45) ABG pCO2 (35-45) mmHg ABG pO2 (83-108) mmHg ABG HCO3 (21-25) mmol/L ABG Total CO2 (19-24) mmol/L ABG O2 Saturation (94-97) % Potassium (3.5-5.1) mmol/L Chloride (98-107) mmol/L BUN (9-20) mg/dL Creatinine (0.66-1.25) mg/dL Glucose (74-99) mg/dL POC Glucose (mg/dL) 168 H (75-99) mg/dL Iron 19 L (65-175) ug/dL TIBC 638 H (228-460) ug/dL % Saturation 2.94 L (15.00-50.00) Transferrin 456.0 H (204.0-354.0) mg/dL Urine Protein (Negative) Urine Glucose (UA) (Negative) Amorphous Sediment (None) /hpf Urine Mucus (None) /hpf 04/11/21 04/12/21 04/12/21 Range/Units 20:00 00:45 02:19 WBC (3.8-10.6) k/uL RBC (4.30-5.90) m/uL Hgb (13.0-17.5) gm/dL Hct (39.0-53.0) % MCV (80.0-100.0) fL MCH (25.0-35.0) pg MCHC (31.0-37.0) g/dL RDW (11.5-15.5) % Neutrophils # (1.3-7.7) k/uL Lymphocytes # (1.0-4.8) k/uL APTT 35.7 H (22.0-30.0) sec ABG pH 7.13 L* (7.35-7.45) ABG pCO2 91 H* (35-45) mmHg ABG pO2 323 H (83-108) mmHg ABG HCO3 30 H (21-25) mmol/L ABG Total CO2 33 H (19-24) mmol/L ABG O2 Saturation 99.8 H (94-97) % Potassium (3.5-5.1) mmol/L Chloride (98-107) mmol/L BUN (9-20) mg/dL Creatinine (0.66-1.25) mg/dL Glucose (74-99) mg/dL POC Glucose (mg/dL) 145 H (75-99) mg/dL Iron (65-175) ug/dL TIBC (228-460) ug/dL % Saturation (15.00-50.00) Transferrin (204.0-354.0) mg/dL Urine Protein (Negative) Urine Glucose (UA) (Negative) Amorphous Sediment (None) /hpf Urine Mucus (None) /hpf 04/12/21 04/12/21 04/12/21 Range/Units 02:47 03:12 03:38 WBC (3.8-10.6) k/uL RBC (4.30-5.90) m/uL Hgb (13.0-17.5) gm/dL Hct (39.0-53.0) % MCV (80.0-100.0) fL MCH (25.0-35.0) pg MCHC (31.0-37.0) g/dL RDW (11.5-15.5) % Neutrophils # (1.3-7.7) k/uL Lymphocytes # (1.0-4.8) k/uL APTT (22.0-30.0) sec ABG pH 7.15 L* (7.35-7.45) ABG pCO2 89 H* (35-45) mmHg ABG pO2 >400 H (83-108) mmHg ABG HCO3 31 H (21-25) mmol/L ABG Total CO2 34 H (19-24) mmol/L ABG O2 Saturation 100.0 H (94-97) % Potassium (3.5-5.1) mmol/L Chloride (98-107) mmol/L BUN (9-20) mg/dL Creatinine (0.66-1.25) mg/dL Glucose (74-99) mg/dL POC Glucose (mg/dL) 112 H (75-99) mg/dL Iron (65-175) ug/dL TIBC (228-460) ug/dL % Saturation (15.00-50.00) Transferrin (204.0-354.0) mg/dL Urine Protein 1+ H (Negative) Urine Glucose (UA) 3+ H (Negative) Amorphous Sediment Rare H (None) /hpf Urine Mucus Rare H (None) /hpf 04/12/21 04/12/21 04/12/21 Range/Units 05:16 05:16 05:36 WBC 11.0 H (3.8-10.6) k/uL RBC 4.03 L (4.30-5.90) m/uL Hgb 9.0 L (13.0-17.5) gm/dL Hct 32.0 L (39.0-53.0) % MCV 79.4 L (80.0-100.0) fL MCH 22.3 L (25.0-35.0) pg MCHC 28.1 L (31.0-37.0) g/dL RDW 21.3 H (11.5-15.5) % Neutrophils # 9.4 H (1.3-7.7) k/uL Lymphocytes # 0.5 L (1.0-4.8) k/uL APTT (22.0-30.0) sec ABG pH 7.28 L (7.35-7.45) ABG pCO2 65 H (35-45) mmHg ABG pO2 (83-108) mmHg ABG HCO3 31 H (21-25) mmol/L ABG Total CO2 33 H (19-24) mmol/L ABG O2 Saturation 97.6 H (94-97) % Potassium 5.7 H (3.5-5.1) mmol/L Chloride 109 H (98-107) mmol/L BUN 42 H (9-20) mg/dL Creatinine 2.39 H (0.66-1.25) mg/dL Glucose 103 H (74-99) mg/dL POC Glucose (mg/dL) (75-99) mg/dL Iron (65-175) ug/dL TIBC (228-460) ug/dL % Saturation (15.00-50.00) Transferrin (204.0-354.0) mg/dL Urine Protein (Negative) Urine Glucose (UA) (Negative) Amorphous Sediment (None) /hpf Urine Mucus (None) /hpf 04/12/21 04/12/21 04/12/21 Range/Units 06:36 10:44 11:21 WBC (3.8-10.6) k/uL RBC (4.30-5.90) m/uL Hgb (13.0-17.5) gm/dL Hct (39.0-53.0) % MCV (80.0-100.0) fL MCH (25.0-35.0) pg MCHC (31.0-37.0) g/dL RDW (11.5-15.5) % Neutrophils # (1.3-7.7) k/uL Lymphocytes # (1.0-4.8) k/uL APTT 52.7 H (22.0-30.0) sec ABG pH (7.35-7.45) ABG pCO2 (35-45) mmHg ABG pO2 (83-108) mmHg ABG HCO3 (21-25) mmol/L ABG Total CO2 (19-24) mmol/L ABG O2 Saturation (94-97) % Potassium (3.5-5.1) mmol/L Chloride (98-107) mmol/L BUN (9-20) mg/dL Creatinine (0.66-1.25) mg/dL Glucose (74-99) mg/dL POC Glucose (mg/dL) 111 H 104 H (75-99) mg/dL Iron (65-175) ug/dL TIBC (228-460) ug/dL % Saturation (15.00-50.00) Transferrin (204.0-354.0) mg/dL Urine Protein (Negative) Urine Glucose (UA) (Negative) Amorphous Sediment (None) /hpf Urine Mucus (None) /hpf
[2021-04-12] MEDS ORDERED: FUROSEMIDE 100 MG in SODIUM CHLORIDE 0.9% 90 ML IV SCH (17:00)
[2021-04-12] MEDS: hydrALAZINE HCL 25 MG TAB PO SCH ×2 (17:18→22:51)
--- NOTE | 2021-04-12 18:06 | P.CNPUL ---
History of Present Illness Consult date: 04/12/21 Requesting physician: Daniella Hairston Reason for consult: dyspnea Chief complaint: Shortness of breath and chest pain History of present illness: This is a 61-year-old white male with history of hypertension, [id number] smoking history, aortic stenosis, chronic kidney disease, diabetes, patient was admitted on 04/10/2021, patient came into the ER mostly with chest pain, across the upper chest, patient was also complaining of shortness of breath. Patient has been known to have history of congestive heart failure, history of type 2 diabetes, chronic kidney disease, and history of hypertension. Patient is also known to have history of chronic low back pain, and history of COVID-19 infectio n back in June 2020. Patient was seen by cardiology on consultation, and he was felt to have non-ST elevation myocardial infarction, patient had elevated BNP, elevated d-dimer, and he underwent cardiac catheterization. Patient was found to have totally occluded long segment of mid RCA, mild disease in LAD with moderate disease in the diagonal branch, and he was also upon to have elevated left ventricular end-diastolic pressure. Medical therapy was recommended, patient was also advised to have a staged procedure in view of his advanced renal failure, and he may undergo stenting of the RCA and possibly tomorrow the delay was only because of his renal status. Today the patient was transferred to the ICU with shortness of breath, and his chest x-ray is showing worsening pulmonary edema. He is on Lasix, today I recommended Lasix at 10 mg per hour infusion. He is now on 5 L nasal cannula, O2 sats is 94%, he has been intermittently on BiPAP. When I evaluated the patient, did not seem to be in much of distress. But again he is on 5 L nasal cannula with O2 saturation of 94% ABG earlier today showed a pO2 of 85 pCO2 59 pH of 7.36. Previous ABG showed a pO2 of 100 pCO2 of 65 pH of 7.29, and at that point the patient was placed on BiPAP. He was also on 50% FiO2 at the time. And since then the patient has been on lower FiO2 with nasal cannula. Review of Systems Constitutional: Negative. Ears, nose, mouth and throat: Negative. Cardiovascular: As noted in HPI. Respiratory: As noted in HPI. Genitourinary: Negative. Musculoskeletal: Chronic low back pain. Integumentary: Negative. Neurological: Negative. Psychiatric: Negative. Hematologic/Lymphatic: Negative. Allergic: Negative. Past Medical History Past Medical History: Diabetes Mellitus, GERD/Reflux, Hyperlipidemia, Hypertension, Renal Disease, Syncope, Vascular Disorder Additional Past Medical History / Comment(s): IDDM type II, neuropathy bilateral feet, CKD, murmur, chronic low back pain/lumbar spinal stenosis, vertigo, falls, covid infection June 2020 History of Any Multi-Drug Resistant Organisms: None Reported Past Surgical History: Cholecystectomy, Hernia Repair, Orthopedic Surgery Additional Past Surgical History / Comment(s): L arm muscle repair by elbow, low back surgery/verteflex, L inguinal hernia repair, bilaterall carotid endarterectomies Past Anesthesia/Blood Transfusion Reactions: No Reported Reaction Past Psychological History: Anxiety Additional Psychological History / Comment(s): Pt resides with his spouse. He is independent. Smoking Status: Current every day smoker Past Alcohol Use History: None Reported Additional Past Alcohol Use History / Comment(s): Pt started smoking in 1981 and is a half a ppd smoker. Past Drug Use History: None Reported Additional Drug Use History / Comment(s): Rare marijuana - Past Family History Father Family Medical History: Coronary Artery Disease (CAD) Additional Family Medical History / Comment(s): Father during CABG Mother Family Medical History: Congestive Heart Failure (CHF), Myocardial Infarction (OR) Additional Family Medical History / Comment(s): Mother of CHF at the age of 81 yrs. Medications and Allergies Home Medications Medication Instructions Recorded Confirmed Type Omeprazole [PriLOSEC] 20 mg PO DAILY 12/03/15 04/10/21 History Insulin Glargine,Hum.rec.anlog 40 units SQ DAILY 07/06/16 04/10/21 History [Toujeo Solostar] Pregabalin [Lyrica] 100 mg PO TID 07/06/16 04/10/21 History Atorvastatin [Lipitor] 20 mg PO DAILY 08/09/16 04/10/21 History Fenofibrate Nanocrystallized 145 mg PO DAILY 10/05/17 04/10/21 History [Tricor] Carvedilol [Coreg] 25 mg PO DAILY 07/31/18 04/10/21 History Vortioxetine Hydrobromide 10 mg PO DAILY 07/31/18 04/10/21 History [Trintellix] Cholecalciferol (Vitamin D3) 125 mcg PO DAILY 03/01/21 04/10/21 History [Vitamin D3 (125 MCG = 5,000 IU)] Cyanocobalamin [Vitamin B-12] 500 mcg PO DAILY 03/01/21 04/10/21 History Multivitamins, Thera [Multivitamin 1 tab PO DAILY 03/01/21 04/10/21 History (formulary)] Zinc Gluconate [Zinc] 50 mg PO DAILY 03/01/21 04/10/21 History Empagliflozin [Jardiance] 10 mg PO DAILY 03/02/21 04/10/21 History hydrALAZINE HCL [Apresoline] 50 mg PO TID PRN 03/02/21 04/10/21 History Aspirin 81 mg PO DAILY #90 tab 03/04/21 04/10/21 Rx Torsemide [Demadex] 20 mg PO DAILY #30 tab 03/04/21 04/10/21 Rx Losartan Potassium 100 mg PO DAILY 04/10/21 04/10/21 History metFORMIN HCL [Glucophage XR] 750 mg PO BID-W/MEALS 04/10/21 04/10/21 History sitaGLIPtin [Januvia] 100 mg PO DAILY 04/10/21 04/10/21 History Allergies Allergy/AdvReac Type Severity Reaction Status Date / Time No Known Allergies Allergy Verified 04/10/21 07:16 Physical Exam Vitals: Vital Signs Temp Pulse Pulse Resp BP BP Pulse Ox 04/12/21 14:00 77 13 138/66 96 04/12/21 13:30 78 14 127/61 95 04/12/21 13:00 80 14 131/61 94 L 04/12/21 12:30 80 14 129/60 94 L 04/12/21 12:00 98.6 F 80 18 131/58 99 04/12/21 11:30 85 16 143/73 97 04/12/21 11:00 86 12 145/71 94 L 04/12/21 10:30 90 16 151/72 94 L 04/12/21 10:00 98.7 F 89 147/69 93 L 04/12/21 09:30 90 150/73 88 L 04/12/21 09:00 92 13 156/77 94 L 04/12/21 08:30 87 137/60 98 04/12/21 08:00 91 14 151/74 95 04/12/21 07:30 92 14 152/74 96 04/12/21 07:00 91 16 157/71 96 04/12/21 06:30 91 14 161/76 98 04/12/21 06:00 92 14 158/74 95 04/12/21 05:30 90 14 158/76 94 L 04/12/21 05:00 86 18 161/76 94 L 04/12/21 04:30 85 14 145/73 95 04/12/21 04:00 98.8 F 87 13 148/77 96 04/12/21 03:30 90 15 148/72 93 L 04/12/21 03:20 89 16 126/55 95 04/12/21 03:10 90 16 124/50 93 L 04/12/21 03:00 92 16 136/59 97 04/12/21 02:50 93 16 152/85 98 04/12/21 02:40 98.1 F 94 16 150/90 98 04/12/21 00:00 98.9 F 99 17 137/62 95 04/11/21 20:00 98.7 F 96 17 176/81 96 04/11/21 18:42 101 H 20 162/77 95 04/11/21 18:32 97 18 172/81 98 Intake and Output 04/12/21 04/12/21 04/12/21 06:59 14:59 22:59 Intake Total 183.35 740 230.07 Output Total 1450 1925 Balance -1266.65 -1185 230.07 Intake: IV 240 Sodium Chloride 0.9% 1, 140 000 ml @ 100 mls/hr IV . Q10H [facility] Rx#:[id number] Sodium Ferric Gluconat- 100 Sucrose 125 mg In Sodium Chloride 0.9% 100 ml @ 100 mls/hr IVPB DAILY [facility] Rx#:[id number] Intake, IV Titration 183.35 230.07 Amount Heparin Sod,Pork in 0.45% 183.35 230.07 NaCl 25,000 unit In 0.45 % NaCl 1 250ml.bag @ 12 UNITS/KG/HR 10.07 mls/hr IV .Q24H [facility] Rx#: [id number] Oral 500 Output: Urine 1450 1925 Other: Voiding Method Indwelling Catheter Indwelling Catheter # Voids 3 Physical Exam 61-year-old white male in no distress. Head: Atraumatic normocephalic. HEENT:[Neck is supple.] [No neck masses.] [No thyromegaly.] [No JVD.] Chest: [Symmetrical chest expansion crackles at the bases. Cardiac Exam: [Normal S1 and S2, no S3 gallop, no murmur.] Abdomen: [Soft, nontender, no megaly, no rebound, no guarding, normal bowel sounds.] Extremities: [No clubbing, no edema, no cyanosis.] Neurological Exam: [No focal neurologic deficit.] Alert and oriented 3. Psychiatric: Normal mood affect and normal mental status examination. Skin: No rashes. Results - Laboratory Findings CBC and BMP: 04/12/21 05:16 04/12/21 10:44 ABG ABG pH 7.36 (7.35-7.45) 04/12/21 13:56 ABG pCO2 59 mmHg (35-45) H 04/12/21 13:56 ABG pO2 85 mmHg (83-108) 04/12/21 13:56 ABG O2 Saturation 96.8 % (94-97) 04/12/21 13:56 PT/INR, D-dimer PT 10.6 sec (9.0-12.0) 04/11/21 02:52 INR 1.0 (<1.2) 04/11/21 02:52 D-Dimer 1.21 mg/L FEU (<0.60) H 04/10/21 03:06 Abnormal lab findings: Abnormal Labs 04/10/21 04/10/21 04/10/21 03:06 03:06 03:06 WBC RBC Hgb 9.4 L Hct 34.7 L MCV 77.4 L D MCH 20.9 L MCHC 27.0 L RDW 21.5 H Neutrophils # 7.8 H Lymphocytes # 0.6 L Lymphocytes # (Manual) Eosinophils # (Manual) APTT D-Dimer 1.21 H ABG pH ABG pCO2 ABG pO2 ABG HCO3 ABG Total CO2 ABG O2 Saturation Potassium Chloride BUN 57 H Creatinine 2.66 H Glucose 148 H POC Glucose (mg/dL) Hemoglobin A1c Magnesium 2.4 H Iron TIBC % Saturation Transferrin Troponin I Triglycerides HDL Cholesterol Procalcitonin Urine Protein Urine Glucose (UA) Amorphous Sediment Urine Mucus 04/10/21 04/10/21 04/10/21 03:06 06:39 06:39 WBC RBC 4.03 L Hgb 8.9 L Hct 31.5 L MCV 78.2 L MCH 22.1 L MCHC 28.2 L RDW 21.7 H Neutrophils # Lymphocytes # 0.7 L Lymphocytes # (Manual) Eosinophils # (Manual) APTT D-Dimer ABG pH ABG pCO2 ABG pO2 ABG HCO3 ABG Total CO2 ABG O2 Saturation Potassium Chloride BUN Creatinine Glucose POC Glucose (mg/dL) Hemoglobin A1c Magnesium Iron TIBC % Saturation Transferrin Troponin I 0.099 H* 3.420 H* Triglycerides HDL Cholesterol Procalcitonin Urine Protein Urine Glucose (UA) Amorphous Sediment Urine Mucus 04/10/21 04/10/21 04/10/21 06:39 06:39 06:39 WBC RBC Hgb Hct MCV MCH MCHC RDW Neutrophils # Lymphocytes # Lymphocytes # (Manual) Eosinophils # (Manual) APTT 43.7 H D-Dimer ABG pH ABG pCO2 ABG pO2 ABG HCO3 ABG Total CO2 ABG O2 Saturation Potassium Chloride BUN Creatinine Glucose POC Glucose (mg/dL) Hemoglobin A1c Magnesium Iron 19 L TIBC 638 H % Saturation 2.94 L Transferrin 456.0 H Troponin I Triglycerides HDL Cholesterol Procalcitonin 0.15 H Urine Protein Urine Glucose (UA) Amorphous Sediment Urine Mucus 04/10/21 04/10/21 04/10/21 10:54 12:06 13:59 WBC RBC Hgb Hct MCV MCH MCHC RDW Neutrophils # Lymphocytes # Lymphocytes # (Manual) Eosinophils # (Manual) APTT D-Dimer ABG pH ABG pCO2 ABG pO2 ABG HCO3 ABG Total CO2 ABG O2 Saturation Potassium Chloride BUN Creatinine Glucose POC Glucose (mg/dL) 63 L Hemoglobin A1c Magnesium Iron TIBC % Saturation Transferrin Troponin I 7.230 H* Triglycerides HDL Cholesterol Procalcitonin Urine Protein 1+ H Urine Glucose (UA) 4+ H Amorphous Sediment Urine Mucus 04/10/21 04/10/21 04/10/21 14:21 16:55 20:00 WBC RBC 3.76 L Hgb 8.5 L Hct 29.5 L MCV 78.5 L MCH 22.7 L MCHC 28.9 L RDW 21.4 H Neutrophils # Lymphocytes # Lymphocytes # (Manual) Eosinophils # (Manual) APTT D-Dimer ABG pH ABG pCO2 ABG pO2 ABG HCO3 ABG Total CO2 ABG O2 Saturation Potassium Chloride BUN Creatinine Glucose POC Glucose (mg/dL) 65 L 241 H Hemoglobin A1c Magnesium Iron TIBC % Saturation Transferrin Troponin I Triglycerides HDL Cholesterol Procalcitonin Urine Protein Urine Glucose (UA) Amorphous Sediment Urine Mucus 04/10/21 04/11/21 04/11/21 20:53 02:52 02:52 WBC RBC Hgb Hct MCV MCH MCHC RDW Neutrophils # Lymphocytes # Lymphocytes # (Manual) Eosinophils # (Manual) APTT D-Dimer ABG pH ABG pCO2 ABG pO2 ABG HCO3 ABG Total CO2 ABG O2 Saturation Potassium Chloride BUN Creatinine Glucose POC Glucose (mg/dL) 140 H Hemoglobin A1c 6.1 H Magnesium Iron TIBC % Saturation Transferrin Troponin I Triglycerides 157.00 H HDL Cholesterol 20.40 L Procalcitonin Urine Protein Urine Glucose (UA) Amorphous Sediment Urine Mucus 04/11/21 04/11/21 04/11/21 02:52 02:52 02:52 WBC RBC 3.59 L Hgb 7.9 L Hct 28.0 L MCV 78.0 L MCH 22.1 L MCHC 28.3 L RDW 21.5 H Neutrophils # Lymphocytes # Lymphocytes # (Manual) 0.54 L Eosinophils # (Manual) 0.75 H APTT 31.3 H D-Dimer ABG pH ABG pCO2 ABG pO2 ABG HCO3 ABG Total CO2 ABG O2 Saturation Potassium 5.2 H Chloride BUN 47 H Creatinine 2.46 H Glucose POC Glucose (mg/dL) Hemoglobin A1c Magnesium Iron TIBC % Saturation Transferrin Troponin I Triglycerides HDL Cholesterol Procalcitonin Urine Protein Urine Glucose (UA) Amorphous Sediment Urine Mucus 04/11/21 04/11/21 04/11/21 05:34 05:56 09:18 WBC RBC Hgb Hct MCV MCH MCHC RDW Neutrophils # Lymphocytes # Lymphocytes # (Manual) Eosinophils # (Manual) APTT 31.8 H D-Dimer ABG pH ABG pCO2 ABG pO2 ABG HCO3 ABG Total CO2 ABG O2 Saturation Potassium Chloride BUN Creatinine Glucose POC Glucose (mg/dL) 68 L 106 H Hemoglobin A1c Magnesium Iron TIBC % Saturation Transferrin Troponin I Triglycerides HDL Cholesterol Procalcitonin Urine Protein Urine Glucose (UA) Amorphous Sediment Urine Mucus 04/11/21 04/11/21 04/11/21 12:02 16:24 16:47 WBC RBC Hgb Hct MCV MCH MCHC RDW Neutrophils # Lymphocytes # Lymphocytes # (Manual) Eosinophils # (Manual) APTT 36.8 H D-Dimer ABG pH ABG pCO2 ABG pO2 ABG HCO3 ABG Total CO2 ABG O2 Saturation Potassium Chloride BUN Creatinine Glucose POC Glucose (mg/dL) 171 H 168 H Hemoglobin A1c Magnesium Iron TIBC % Saturation Transferrin Troponin I Triglycerides HDL Cholesterol Procalcitonin Urine Protein Urine Glucose (UA) Amorphous Sediment Urine Mucus 04/11/21 04/12/21 04/12/21 20:00 00:45 02:19 WBC RBC Hgb Hct MCV MCH MCHC RDW Neutrophils # Lymphocytes # Lymphocytes # (Manual) Eosinophils # (Manual) APTT 35.7 H D-Dimer ABG pH 7.13 L* ABG pCO2 91 H* ABG pO2 323 H ABG HCO3 30 H ABG Total CO2 33 H ABG O2 Saturation 99.8 H Potassium Chloride BUN Creatinine Glucose POC Glucose (mg/dL) 145 H Hemoglobin A1c Magnesium Iron TIBC % Saturation Transferrin Troponin I Triglycerides HDL Cholesterol Procalcitonin Urine Protein Urine Glucose (UA) Amorphous Sediment Urine Mucus 04/12/21 04/12/21 04/12/21 02:47 03:12 03:38 WBC RBC Hgb Hct MCV MCH MCHC RDW Neutrophils # Lymphocytes # Lymphocytes # (Manual) Eosinophils # (Manual) APTT D-Dimer ABG pH 7.15 L* ABG pCO2 89 H* ABG pO2 >400 H ABG HCO3 31 H ABG Total CO2 34 H ABG O2 Saturation 100.0 H Potassium Chloride BUN Creatinine Glucose POC Glucose (mg/dL) 112 H Hemoglobin A1c Magnesium Iron TIBC % Saturation Transferrin Troponin I Triglycerides HDL Cholesterol Procalcitonin Urine Protein 1+ H Urine Glucose (UA) 3+ H Amorphous Sediment Rare H Urine Mucus Rare H 04/12/21 04/12/21 04/12/21 05:16 05:16 05:36 WBC 11.0 H RBC 4.03 L Hgb 9.0 L Hct 32.0 L MCV 79.4 L MCH 22.3 L MCHC 28.1 L RDW 21.3 H Neutrophils # 9.4 H Lymphocytes # 0.5 L Lymphocytes # (Manual) Eosinophils # (Manual) APTT D-Dimer ABG pH 7.28 L ABG pCO2 65 H ABG pO2 ABG HCO3 31 H ABG Total CO2 33 H ABG O2 Saturation 97.6 H Potassium 5.7 H Chloride 109 H BUN 42 H Creatinine 2.39 H Glucose 103 H POC Glucose (mg/dL) Hemoglobin A1c Magnesium Iron TIBC % Saturation Transferrin Troponin I Triglycerides HDL Cholesterol Procalcitonin Urine Protein Urine Glucose (UA) Amorphous Sediment Urine Mucus 04/12/21 04/12/21 04/12/21 06:36 10:44 11:21 WBC RBC Hgb Hct MCV MCH MCHC RDW Neutrophils # Lymphocytes # Lymphocytes # (Manual) Eosinophils # (Manual) APTT 52.7 H D-Dimer ABG pH ABG pCO2 ABG pO2 ABG HCO3 ABG Total CO2 ABG O2 Saturation Potassium Chloride BUN Creatinine Glucose POC Glucose (mg/dL) 111 H 104 H Hemoglobin A1c Magnesium Iron TIBC % Saturation Transferrin Troponin I Triglycerides HDL Cholesterol Procalcitonin Urine Protein Urine Glucose (UA) Amorphous Sediment Urine Mucus 04/12/21 13:56 WBC RBC Hgb Hct MCV MCH MCHC RDW Neutrophils # Lymphocytes # Lymphocytes # (Manual) Eosinophils # (Manual) APTT D-Dimer ABG pH ABG pCO2 59 H ABG pO2 ABG HCO3 33 H ABG Total CO2 35 H ABG O2 Saturation Potassium Chloride BUN Creatinine Glucose POC Glucose (mg/dL) Hemoglobin A1c Magnesium Iron TIBC % Saturation Transferrin Troponin I Triglycerides HDL Cholesterol Procalcitonin Urine Protein Urine Glucose (UA) Amorphous Sediment Urine Mucus - Diagnostic Findings Chest x-ray: image reviewed (X-ray is mostly consistent with CHF.) Assessment and Plan Assessment: Impression: Acute non-ST elevation myocardial infarction Acute hypoxic respiratory failure secondary to acute diastolic congestive heart failure Acute hypercapnic respiratory failure secondary to underlying COPD and worsened by relatively high FiO2 requiring BiPAP. 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 Chronic anemia History of carotid artery stenosis and previous bilateral carotid endarterectomy Recommendation: Agree with the present treatment plan Continue Lasix as ordered by nephrology, I was considering placing the patient on Lasix infusion, however after knowing that the patient may undergo cardiac catheterization tomorrow, we'll try to keep him on the same dose as ordered by nephrology, until cardiac catheterization is done, my main concern is not to make his renal status any worse at this point. However if the patient gets any worse from the pulmonary perspective may need Lasix infusion or a higher dose of Lasix. Use BiPAP as needed but try to cut down on the FiO2 as much as possible maintaining O2 saturation above 90%. Use DuoNeb 4 times a day and when necessary for his underlying COPD We will continue to follow. Time with Patient: Greater than 30
[2021-04-12 20:38] LABS: Glucose,Whole Blood 218 mg/dL (75-99)
[2021-04-12 20:50] LABS: Glucose,Whole Blood 232 mg/dL (75-99)
[2021-04-12] MEDS: FUROSEMIDE 10 MG/ML 4 ML VIAL IV SCH (20:59)
[2021-04-12] MEDS ORDERED: FUROSEMIDE 10 MG/ML 4 ML VIAL IV SCH (21:00)
[2021-04-13] MEDS: NITROGLYCERIN OINT 1 INCH/GM PACKET TOPICAL SCH ×4 (00:16→23:38)
[2021-04-13] MEDS: SODIUM CHLORIDE 0.9% 1,000 ML IV SCH ×2 (00:20→17:44)
[2021-04-13] MEDS: NITROGLYCERIN-D5W PMX 50 MG in DEXTROSE/WATER 1 250ML.BAG IV SCH (03:18)
[2021-04-13] MEDS: HEPARIN SOD,PORK IN 0.45% NACL 25,000 UNIT in 0.45% NACL 1 250ML.BAG IV SCH (04:05)
[2021-04-13 05:58] LABS: Anisocytosis Moderate; HCT 27.3 % (39.0-53.0); Hypochromasia Marked; MCH 22.5 pg (25.0-35.0); MCHC 29.2 g/dL (31.0-37.0); MCV 77.1 fL (80.0-100.0); Mean Platelet Volume 8.7; Microcytosis Moderate; Platelet Count 174 k/uL (150-450); RBC 3.54 m/uL (4.30-5.90); RDW 21.5 % (11.5-15.5); WBC 5.3 k/uL (3.8-10.6)
[2021-04-13 06:47] LABS: Basophils # (M) 0.05 k/uL (0-0.2); Eosinophils # (M) 0.85 k/uL (0-0.7); Lymphocytes # (M) 0.95 k/uL (1.0-4.8); Monocytes # (M) 0.32 k/uL (0-1.0); Neutrophils # (M) 3.13 k/uL (1.3-7.7); Neutrophils % (M) 59 %; Nucleated Red Blood Cells 0 /100 WBC (0-0); Total Cells Counted 100
[2021-04-13] MEDS: carvediloL 12.5 MG TAB PO SCH ×2 (06:58→17:48)
[2021-04-13 07:14] LABS: Glucose,Whole Blood 56 mg/dL (75-99)
[2021-04-13 07:14] LABS: Glucose,Whole Blood 50 mg/dL (75-99)
[2021-04-13 07:20] LABS: Albumin 3.2 g/dL (3.5-5.0); Calcium 9.3 mg/dL (8.4-10.2); Potassium 4.5 mmol/L (3.5-5.1); Total Bilirubin 0.5 mg/dL (0.2-1.3); Total Protein 5.9 g/dL (6.3-8.2)
[2021-04-13 07:27] LABS: Glucose,Whole Blood 75 mg/dL (75-99)
--- NOTE | 2021-04-13 08:19 | XR ---
EXAMINATION TYPE: XR chest 1V portable DATE OF EXAM: 04/13/2021 COMPARISON: 04/12/2021 INDICATION: CHF TECHNIQUE: Single frontal view of the chest is obtained. FINDINGS: The heart size is normal. The pulmonary vasculature is normal. Patchy infiltrates are present greater on the left. Right lung infiltrates are improving. IMPRESSION: 1. Patchy bilateral lung infiltrates, improving on the right. Continued follow-up is recommended.
[2021-04-13] MEDS: FUROSEMIDE 10 MG/ML 4 ML VIAL IV SCH ×2 (08:54→21:59)
[2021-04-13] MEDS: INSULIN DETEMIR (LEVEMIR) 100 UNIT/ML SYR SQ SCH (09:00)
[2021-04-13] MEDS: SODIUM FERRIC GLUCONAT-SUCROSE 125 MG in SODIUM CHLORIDE 0.9% 100 ML IVPB SCH (09:02)
[2021-04-13] MEDS: CLOPIDOGREL 75 MG TAB PO SCH (09:22)
[2021-04-13] MEDS: PANTOPRAZOLE 40 MG TABLET PO SCH (09:22)
[2021-04-13] MEDS: ATORVASTATIN 80 MG TAB PO SCH (09:22)
[2021-04-13] MEDS: VORTIOXETINE HYDROBROMIDE 10 MG TABLET PO SCH (09:23)
[2021-04-13] MEDS: CYANOCOBALAMIN 500 MCG TAB PO SCH (09:23)
[2021-04-13] MEDS: PREGABALIN 100 MG CAP PO SCH ×3 (09:23→21:59)
[2021-04-13] MEDS: ASPIRIN 81 MG PO SCH (09:23)
[2021-04-13] MEDS: hydrALAZINE HCL 25 MG TAB PO SCH ×3 (09:24→21:59)
--- NOTE | 2021-04-13 09:41 | P.PN ---
Subjective Patient is seen in follow-up for acute kidney injury on chronic kidney disease. He's currently on heparin drip and nitro drip. Maintained on IV Lasix. Nonoliguric. On 5 L nasal cannula. Denies chest pain or shortness of breath. Vital signs are stable. General: On nasal cannula. HEENT: Head exam is unremarkable. LUNGS: Breath sounds decreased. HEART: Rate and Rhythm are regular. ABDOMEN: Soft, no distention. EXTREMITITES: No edema. Objective - Vital Signs Vital signs: Vital Signs Temp 97.9 F 04/13/21 04:00 Pulse 72 04/13/21 07:00 Resp 16 04/13/21 07:00 BP 136/61 04/13/21 07:00 Pulse Ox 93 L 04/13/21 07:00 Intake & Output 04/12/21 04/13/21 04/13/21 18:59 06:59 18:59 Intake Total 1558.07 1870 300 Output Total 2124 2039 155 Balance -566.93 -170 145 Intake: IV 320 1120 300 Sodium Chloride 0.9% 1, 220 1120 200 000 ml @ 50 mls/hr IV . Q20H [facility] Rx#:[id number] Sodium Ferric Gluconat- 100 100 Sucrose 125 mg In Sodium Chloride 0.9% 100 ml @ 100 mls/hr IVPB DAILY [facility] Rx#:[id number] Intake, IV Titration 238.07 250 Amount Furosemide 100 mg In 8 Sodium Chloride 0.9% 90 ml @ 10 MG/HR 10 mls/hr IV .Q10H [facility] Rx#: [id number] Heparin Sod,Pork in 0.45% 230.07 250 NaCl 25,000 unit In 0.45 % NaCl 1 250ml.bag @ 12 UNITS/KG/HR 10.07 mls/hr IV .Q24H [facility] Rx#: [id number] Oral 1000 500 Output: Urine 2124 2039 155 Other: Voiding Method Indwelling Catheter Indwelling Catheter - Labs CBC & Chem 7: 04/13/21 05:15 04/13/21 05:15 Labs: Abnormal Lab Results - Last 24 Hours (Table) 04/12/21 04/12/21 04/12/21 Range/Units 10:44 11:21 13:56 RBC (4.30-5.90) m/uL Hgb (13.0-17.5) gm/dL Hct (39.0-53.0) % MCV (80.0-100.0) fL MCH (25.0-35.0) pg MCHC (31.0-37.0) g/dL RDW (11.5-15.5) % Lymphocytes # (Manual) (1.0-4.8) k/uL Eosinophils # (Manual) (0-0.7) k/uL APTT 52.7 H (22.0-30.0) sec ABG pCO2 59 H (35-45) mmHg ABG HCO3 33 H (21-25) mmol/L ABG Total CO2 35 H (19-24) mmol/L Carbon Dioxide (22-30) mmol/L BUN (9-20) mg/dL Creatinine (0.66-1.25) mg/dL Glucose (74-99) mg/dL POC Glucose (mg/dL) 104 H (75-99) mg/dL Total Protein (6.3-8.2) g/dL Albumin (3.5-5.0) g/dL 04/12/21 04/12/21 04/13/21 Range/Units 20:26 20:49 05:15 RBC 3.54 L (4.30-5.90) m/uL Hgb 8.0 L (13.0-17.5) gm/dL Hct 27.3 L (39.0-53.0) % MCV 77.1 L (80.0-100.0) fL MCH 22.5 L (25.0-35.0) pg MCHC 29.2 L (31.0-37.0) g/dL RDW 21.5 H (11.5-15.5) % Lymphocytes # (Manual) 0.95 L (1.0-4.8) k/uL Eosinophils # (Manual) 0.85 H (0-0.7) k/uL APTT (22.0-30.0) sec ABG pCO2 (35-45) mmHg ABG HCO3 (21-25) mmol/L ABG Total CO2 (19-24) mmol/L Carbon Dioxide (22-30) mmol/L BUN (9-20) mg/dL Creatinine (0.66-1.25) mg/dL Glucose (74-99) mg/dL POC Glucose (mg/dL) 218 H 232 H (75-99) mg/dL Total Protein (6.3-8.2) g/dL Albumin (3.5-5.0) g/dL 04/13/21 04/13/21 04/13/21 Range/Units 05:15 05:15 07:10 RBC (4.30-5.90) m/uL Hgb (13.0-17.5) gm/dL Hct (39.0-53.0) % MCV (80.0-100.0) fL MCH (25.0-35.0) pg MCHC (31.0-37.0) g/dL RDW (11.5-15.5) % Lymphocytes # (Manual) (1.0-4.8) k/uL Eosinophils # (Manual) (0-0.7) k/uL APTT 63.8 H (22.0-30.0) sec ABG pCO2 (35-45) mmHg ABG HCO3 (21-25) mmol/L ABG Total CO2 (19-24) mmol/L Carbon Dioxide 34 H (22-30) mmol/L BUN 47 H (9-20) mg/dL Creatinine 2.22 H (0.66-1.25) mg/dL Glucose 71 L (74-99) mg/dL POC Glucose (mg/dL) 50 L (75-99) mg/dL Total Protein 5.9 L (6.3-8.2) g/dL Albumin 3.2 L (3.5-5.0) g/dL 04/13/21 Range/Units 07:11 RBC (4.30-5.90) m/uL Hgb (13.0-17.5) gm/dL Hct (39.0-53.0) % MCV (80.0-100.0) fL MCH (25.0-35.0) pg MCHC (31.0-37.0) g/dL RDW (11.5-15.5) % Lymphocytes # (Manual) (1.0-4.8) k/uL Eosinophils # (Manual) (0-0.7) k/uL APTT (22.0-30.0) sec ABG pCO2 (35-45) mmHg ABG HCO3 (21-25) mmol/L ABG Total CO2 (19-24) mmol/L Carbon Dioxide (22-30) mmol/L BUN (9-20) mg/dL Creatinine (0.66-1.25) mg/dL Glucose (74-99) mg/dL POC Glucose (mg/dL) 56 L (75-99) mg/dL Total Protein (6.3-8.2) g/dL Albumin (3.5-5.0) g/dL Assessment and Plan Plan: Assessment: 1. Acute kidney injury mostly prerenal initially improved with IV hydration. Now hypervolemic. Also received IV contrast for cardiac catheterization on 04/10/2021. Creatinine 2.22 today. No hydronephrosis noted on kidney ultras ound. 2. Chronic kidney disease stage IV with baseline creatinine 2.3-2.4 secondary to nephrosclerosis and diabetic kidney disease. 3. Acute HI status post cardiac catheterization on April 10. Right coronary intervention today. 4. Acute on chronic diastolic CHF. 5. Hyperkalemia secondary to chronic kidney disease. Resolved. 6. Diabetes mellitus. 7. Anemia of chronic kidney disease maintained on Aranesp. Severe iron deficiency noted. Plan: Maintain IV Lasix 40 mg twice daily - morning dose will be held today. Avoid nephrotoxins. Continue to monitor renal function and urine output. Monitor for contrast-induced acute kidney injury - received IV contrast on April 10 and scheduled to undergo cardiac cath again today. Discussed risk of worsening renal failure, potentially requiring replacement therapy, post-IV contrast exposure. He understands. I will decrease the rate of normal saline to 50 mL an hour due to hypervolemia and Hep-Lock fluids at 6 PM today. Maintain IV iron.
--- NOTE | 2021-04-13 09:59 | P.PN ---
Subjective Progress Note Date: 04/13/21 Patient is a 61-year-old male with a past medical history of hypertension, aortic stenosis, dyslipidemia, diabetes, chronic kidney disease was admitted with acute coronary syndrome. He follows with Dr. Muñoz in the office. Patient underwent heart catheterization on April 10 was found to have total occlusion of the mid RCA. Patient will go for a heart catheterization with Dr. Muñoz today to stent his mid RCA. Creatinine has returned to his baseline, today at 2.2. Patient examined resting in bed, alert and orientated with no signs of acute distress. Patient denies chest pain, palpitations, dyspnea, dizziness, syncope, or edema at this time. Blood pressure 117/62, heart rate 76, oxygen 96% on room air, respirations 16, afebrile. DIAGNOSTICS: EKG shows sinus rhythm with ST-T wave changes Echocardiogram showed normal LV function with an ejection fraction is 60-65%, mild aortic stenosis, and severe left ventricular hypertrophy Chest x-ray reveals patchy bilateral lung infiltrates, improving on the right Labs reviewed-hemoglobin 8, potassium 4.5, BUN 47, creatinine 2.22 Objective - Vital Signs Vital signs: Vital Signs Temp 98.0 F 04/13/21 08:00 Pulse 73 04/13/21 09:30 Resp 16 04/13/21 09:30 BP 140/63 04/13/21 09:30 Pulse Ox 93 L 04/13/21 09:30 Intake & Output 04/12/21 04/13/21 04/13/21 18:59 06:59 18:59 Intake Total 1558.07 1870 400 Output Total 2125 2040 255 Balance -566.93 -170 145 Intake: IV 320 1120 350 Sodium Chloride 0.9% 1, 220 1120 250 000 ml @ 50 mls/hr IV . Q20H [facility] Rx#:[id number] Sodium Ferric Gluconat- 100 100 Sucrose 125 mg In Sodium Chloride 0.9% 100 ml @ 100 mls/hr IVPB DAILY [facility] Rx#:[id number] Intake, IV Titration 238.07 250 Amount Furosemide 100 mg In 8 Sodium Chloride 0.9% 90 ml @ 10 MG/HR 10 mls/hr IV .Q10H [facility] Rx#: [id number] Heparin Sod,Pork in 0.45% 230.07 250 NaCl 25,000 unit In 0.45 % NaCl 1 250ml.bag @ 12 UNITS/KG/HR 10.07 mls/hr IV .Q24H [facility] Rx#: [id number] Oral 1000 500 50 Output: Urine 2125 2040 255 Other: Voiding Method Indwelling Catheter Indwelling Catheter Indwelling Catheter - Exam PHYSICAL EXAM: VITAL SIGNS: Reviewed. GENERAL: Well-developed in no acute distress. HEENT: Head is normocephalic. Pupils are equal, round. Sclerae anicteric. Mucous membranes of the mouth are moist. NECK: Supple. No JVD or thyromegaly RESPIRATORY: Respirations even and unlabored. Lungs diminished to auscultation bilaterally. Patient on BiPAP CARDIO: Regular rate and rhythm. S1 and S2 heard. no gallops. Ejection systolic murmur heard over the left chest EXTREMITIES: Normal range of motion. No clubbing or cyanosis. Peripheral pulses intact. Negative for bilateral lower extremity edema NEURO: Orientated x2, he is fatigued, but arouses to voice - Labs CBC & Chem 7: 04/13/21 05:15 04/13/21 05:15 Labs: Abnormal Lab Results - Last 24 Hours (Table) 04/12/21 04/12/21 04/12/21 Range/Units 10:44 11:21 13:56 RBC (4.30-5.90) m/uL Hgb (13.0-17.5) gm/dL Hct (39.0-53.0) % MCV (80.0-100.0) fL MCH (25.0-35.0) pg MCHC (31.0-37.0) g/dL RDW (11.5-15.5) % Lymphocytes # (Manual) (1.0-4.8) k/uL Eosinophils # (Manual) (0-0.7) k/uL APTT 52.7 H (22.0-30.0) sec ABG pCO2 59 H (35-45) mmHg ABG HCO3 33 H (21-25) mmol/L ABG Total CO2 35 H (19-24) mmol/L Carbon Dioxide (22-30) mmol/L BUN (9-20) mg/dL Creatinine (0.66-1.25) mg/dL Glucose (74-99) mg/dL POC Glucose (mg/dL) 104 H (75-99) mg/dL Total Protein (6.3-8.2) g/dL Albumin (3.5-5.0) g/dL 04/12/21 04/12/21 04/13/21 Range/Units 20:26 20:49 05:15 RBC 3.54 L (4.30-5.90) m/uL Hgb 8.0 L (13.0-17.5) gm/dL Hct 27.3 L (39.0-53.0) % MCV 77.1 L (80.0-100.0) fL MCH 22.5 L (25.0-35.0) pg MCHC 29.2 L (31.0-37.0) g/dL RDW 21.5 H (11.5-15.5) % Lymphocytes # (Manual) 0.95 L (1.0-4.8) k/uL Eosinophils # (Manual) 0.85 H (0-0.7) k/uL APTT (22.0-30.0) sec ABG pCO2 (35-45) mmHg ABG HCO3 (21-25) mmol/L ABG Total CO2 (19-24) mmol/L Carbon Dioxide (22-30) mmol/L BUN (9-20) mg/dL Creatinine (0.66-1.25) mg/dL Glucose (74-99) mg/dL POC Glucose (mg/dL) 218 H 232 H (75-99) mg/dL Total Protein (6.3-8.2) g/dL Albumin (3.5-5.0) g/dL 04/13/21 04/13/21 04/13/21 Range/Units 05:15 05:15 07:10 RBC (4.30-5.90) m/uL Hgb (13.0-17.5) gm/dL Hct (39.0-53.0) % MCV (80.0-100.0) fL MCH (25.0-35.0) pg MCHC (31.0-37.0) g/dL RDW (11.5-15.5) % Lymphocytes # (Manual) (1.0-4.8) k/uL Eosinophils # (Manual) (0-0.7) k/uL APTT 63.8 H (22.0-30.0) sec ABG pCO2 (35-45) mmHg ABG HCO3 (21-25) mmol/L ABG Total CO2 (19-24) mmol/L Carbon Dioxide 34 H (22-30) mmol/L BUN 47 H (9-20) mg/dL Creatinine 2.22 H (0.66-1.25) mg/dL Glucose 71 L (74-99) mg/dL POC Glucose (mg/dL) 50 L (75-99) mg/dL Total Protein 5.9 L (6.3-8.2) g/dL Albumin 3.2 L (3.5-5.0) g/dL 04/13/21 Range/Units 07:11 RBC (4.30-5.90) m/uL Hgb (13.0-17.5) gm/dL Hct (39.0-53.0) % MCV (80.0-100.0) fL MCH (25.0-35.0) pg MCHC (31.0-37.0) g/dL RDW (11.5-15.5) % Lymphocytes # (Manual) (1.0-4.8) k/uL Eosinophils # (Manual) (0-0.7) k/uL APTT (22.0-30.0) sec ABG pCO2 (35-45) mmHg ABG HCO3 (21-25) mmol/L ABG Total CO2 (19-24) mmol/L Carbon Dioxide (22-30) mmol/L BUN (9-20) mg/dL Creatinine (0.66-1.25) mg/dL Glucose (74-99) mg/dL POC Glucose (mg/dL) 56 L (75-99) mg/dL Total Protein (6.3-8.2) g/dL Albumin (3.5-5.0) g/dL Assessment and Plan Assessment: Non-ST elevated myocardial infarction Coronary artery syndrome Post heart catheterization, PCI of the RCA Uncontrolled hypertension Chronic renal failure Mild aortic stenosis Plan: heart catheterization today for PCI of the mid RCA Continue with hydralazine, hypertension better controlled hypertension Continue on heparin drip Continue Plavix Continue Coreg Continue all other current cardiac medications Further recommendations will be based on clinical course The above impression and plan of care have been discussed and directed by the signing physician. Manasa Jimenez, nurse practitioner, acting as scribe for signing physician.
[2021-04-13 11:48] LABS: Glucose,Whole Blood 91 mg/dL (75-99)
[2021-04-13] MEDS ORDERED: LIDOCAINE 1% INJ 10MG/ML (20 ML MDV) ONE (12:24)
[2021-04-13] MEDS ORDERED: IPRATROPIUM-ALBUTEROL 3 ML NEB INHALATION PRN (12:24)
[2021-04-13] MEDS ORDERED: VERAPAMIL 2.5 MG/ML 2 ML AMP ONE (12:24)
--- NOTE | 2021-04-13 12:24 | P.PN ---
Subjective Progress Note Date: 04/13/21 Principal diagnosis: Acute non-ST elevation myocardial infarction This is a 61-year-old white male with history of hypertension, 00-ilid-towh smoking history, aortic stenosis, chronic kidney disease, diabetes, patient was admitted on 04/10/2021, patient came into the ER mostly with chest pain, across the upper chest, patient was also complaining of shortness of breath. Patient has been known to have history of congestive heart failure, history of type 2 diabetes, chronic kidney disease, and history of hypertension. Patient is also known to have history of chronic low back pain, and history of COVID-19 infection back in June 2020. Patient was seen by cardiology on consultation, and he was felt to have non-ST elevation myocardial infarction, patient had elevated BNP, elevated d-dimer, and he underwent cardiac catheterization. Patient was found to have totally occluded long segment of mid RCA, mild disease in LAD with moderate disease in the diagonal branch, and he was also upon to have elevated left ventricular end-diastolic pressure. Medical therapy was recommended, patient was also advised to have a staged procedure in view of his advanced renal failure, and he may undergo stenting of the RCA and possibly tomorrow the delay was only because of his renal status. Today the patient was transferred to the ICU with shortness of breath, and his chest x-ray is showing worsening pulmonary edema. He is on Lasix, today I recommended Lasix at 10 mg per hour infusion. He is now on 5 L nasal cannula, O2 sats is 94%, he has been intermittently on BiPAP. When I evaluated the patient, did not seem to be in much of distress. But again he is on 5 L nasal cannula with O2 saturation of 94% ABG earlier today showed a pO2 of 85 pCO2 59 pH of 7.36. Previous ABG showed a pO2 of 100 pCO2 of 65 pH of 7.29, and at that point the patient was placed on BiPAP. He was also on 50% FiO2 at the time. And since then the patient has been on lower FiO2 with nasal cannula. Patient was reevaluated today on04/13/21, patient remains in the ICU, he seems to be hemodynamically stable, he is on 5 L nasal cannula with O2 sats at 97%. He is in sinus rhythm rate of 77/m, patient remains on Lasix, chest x-ray is showing slight improvement. And his creatinine is improving down to 2.22. Patient is scheduled to undergo cardiac catheterization again today, and possible stenting of RCA. This is to be done sometime later today. In the meantime the patient is doing well from the pulmonary perspective, no cough no wheezing no shortness of breath. Nonetheless his chest x-ray is consistent with mild pulmonary edema. Objective - Vital Signs Vital signs: Vital Signs Temp 98.0 F 04/13/21 08:00 Pulse 76 04/13/21 10:00 Resp 17 04/13/21 10:00 BP 143/68 04/13/21 10:00 Pulse Ox 95 04/13/21 10:00 Intake & Output 04/12/21 04/13/21 04/13/21 18:59 06:59 18:59 Intake Total 1558.07 1870 450 Output Total 2124 2039 340 Balance -566.93 -170 110 Intake: IV 320 1120 350 Sodium Chloride 0.9% 1, 220 1120 250 000 ml @ 50 mls/hr IV . Q20H [facility] Rx#:[id number] Sodium Ferric Gluconat- 100 100 Sucrose 125 mg In Sodium Chloride 0.9% 100 ml @ 100 mls/hr IVPB DAILY [facility] Rx#:[id number] Intake, IV Titration 238.07 250 50 Amount Furosemide 100 mg In 8 Sodium Chloride 0.9% 90 ml @ 10 MG/HR 10 mls/hr IV .Q10H [facility] Rx#: [id number] Heparin Sod,Pork in 0.45% 230.07 250 NaCl 25,000 unit In 0.45 % NaCl 1 250ml.bag @ 12 UNITS/KG/HR 10.07 mls/hr IV .Q24H [facility] Rx#: [id number] Sodium Chloride 0.9% 1, 50 000 ml @ 50 mls/hr IV . Q20H [facility] Rx#:[id number] Oral 1000 500 50 Output: Urine 2124 2039 340 Other: Voiding Method Indwelling Catheter Indwelling Catheter Indwelling Catheter - Exam Physical Exam 61-year-old white male in no distress. On 5 L nasal cannula, O2/is 97%. Head: Atraumatic normocephalic. HEENT:[Neck is supple.] [No neck masses.] [No thyromegaly.] [No JVD.] Chest: [Symmetrical chest expansion crackles at the bases. Cardiac Exam: [Normal S1 and S2, no S3 gallop, 2/6 systolic murmur thought the precordium.] Abdomen: [Soft, nontender, no megaly, no rebound, no guarding, normal bowel sounds.] Extremities: [No clubbing, no edema, no cyanosis.] Neurological Exam: [No focal neurologic deficit.] Alert and oriented 3. Psychiatric: Normal mood affect and normal mental status examination. Skin: No rashes. - Labs CBC & Chem 7: 04/13/21 05:15 04/13/21 05:15 Labs: Abnormal Lab Results - Last 24 Hours (Table) 04/12/21 04/12/21 04/12/21 Range/Units 13:56 20:26 20:49 RBC (4.30-5.90) m/uL Hgb (13.0-17.5) gm/dL Hct (39.0-53.0) % MCV (80.0-100.0) fL MCH (25.0-35.0) pg MCHC (31.0-37.0) g/dL RDW (11.5-15.5) % Lymphocytes # (Manual) (1.0-4.8) k/uL Eosinophils # (Manual) (0-0.7) k/uL APTT (22.0-30.0) sec ABG pCO2 59 H (35-45) mmHg ABG HCO3 33 H (21-25) mmol/L ABG Total CO2 35 H (19-24) mmol/L Carbon Dioxide (22-30) mmol/L BUN (9-20) mg/dL Creatinine (0.66-1.25) mg/dL Glucose (74-99) mg/dL POC Glucose (mg/dL) 218 H 232 H (75-99) mg/dL Total Protein (6.3-8.2) g/dL Albumin (3.5-5.0) g/dL Procalcitonin (0.02-0.09) ng/mL 04/13/21 04/13/21 04/13/21 Range/Units 05:15 05:15 05:15 RBC 3.54 L (4.30-5.90) m/uL Hgb 8.0 L (13.0-17.5) gm/dL Hct 27.3 L (39.0-53.0) % MCV 77.1 L (80.0-100.0) fL MCH 22.5 L (25.0-35.0) pg MCHC 29.2 L (31.0-37.0) g/dL RDW 21.5 H (11.5-15.5) % Lymphocytes # (Manual) 0.95 L (1.0-4.8) k/uL Eosinophils # (Manual) 0.85 H (0-0.7) k/uL APTT (22.0-30.0) sec ABG pCO2 (35-45) mmHg ABG HCO3 (21-25) mmol/L ABG Total CO2 (19-24) mmol/L Carbon Dioxide 34 H (22-30) mmol/L BUN 47 H (9-20) mg/dL Creatinine 2.22 H (0.66-1.25) mg/dL Glucose 71 L (74-99) mg/dL POC Glucose (mg/dL) (75-99) mg/dL Total Protein 5.9 L (6.3-8.2) g/dL Albumin 3.2 L (3.5-5.0) g/dL Procalcitonin 1.44 H (0.02-0.09) ng/mL 04/13/21 04/13/21 04/13/21 Range/Units 05:15 07:10 07:11 RBC (4.30-5.90) m/uL Hgb (13.0-17.5) gm/dL Hct (39.0-53.0) % MCV (80.0-100.0) fL MCH (25.0-35.0) pg MCHC (31.0-37.0) g/dL RDW (11.5-15.5) % Lymphocytes # (Manual) (1.0-4.8) k/uL Eosinophils # (Manual) (0-0.7) k/uL APTT 63.8 H (22.0-30.0) sec ABG pCO2 (35-45) mmHg ABG HCO3 (21-25) mmol/L ABG Total CO2 (19-24) mmol/L Carbon Dioxide (22-30) mmol/L BUN (9-20) mg/dL Creatinine (0.66-1.25) mg/dL Glucose (74-99) mg/dL POC Glucose (mg/dL) 50 L 56 L (75-99) mg/dL Total Protein (6.3-8.2) g/dL Albumin (3.5-5.0) g/dL Procalcitonin (0.02-0.09) ng/mL Assessment and Plan Assessment: Impression: Acute non-ST elevation myocardial infarction Acute hypoxic respiratory failure secondary to acute diastolic congestive heart failure Acute hypercapnic respiratory failure secondary to underlying COPD and worsened by relatively high FiO2 requiring BiPAP. 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 Chronic anemia History of carotid artery stenosis and previous bilateral carotid endarterectomy Recommendation: Agree with cardiac catheterization and possible stenting today. Continue Lasix as ordered by nephrology, clinically the patient is improving. M ay not require Lasix drip. Continue BiPAP as needed. Continue bronchodilators. We will continue to follow. Time with Patient: Less than 30
[2021-04-13] MEDS ORDERED: HEPARIN SODIUM 1,000 UN/ML (10ML VL) ONE (12:28)
[2021-04-13] MEDS ORDERED: SODIUM CHLORIDE 0.9% 1,000 ML IV ONE (12:30)
[2021-04-13] MEDS: MIDAZOLAM 2 MG/2 ML VIAL IV ONE ×2 (12:35→12:59)
[2021-04-13] MEDS ORDERED: LIDOCAINE 1% INJ 10MG/ML (20 ML MDV) SQ ONE (12:39)
[2021-04-13] MEDS ORDERED: HEPARIN SODIUM 1,000 UN/ML (10ML VL) IV ONE (12:52)
[2021-04-13 13:10] VITALS: RESP 16
--- NOTE | 2021-04-13 13:21 | P.PN ---
Subjective Progress Note Date: 04/13/21 HISTORY OF PRESENT ILLNESS 61-year-old male patient of Dr. Cronin and Dr. Muñoz with past medical hist ory of chronic kidney disease, type 2 diabetes, carotid stenosis status post carotid endarterectomy, GERD, hyperlipidemia, hypertension presenting to the emergency room, secondary to chest discomfort, lasting 30 minutes last night. Patient did not take anything for this pain, Patient was sent in via EMS, and was subsequently given nitroglycerin in the ambulance, with relief of the pain. Patient has known history of CHF, CK D stage IV aortic stenosis. His diabetes he said is controlled, with A1c of 6.4 within the past few months. In the emergency room, troponins are noted to be elevated, with anti-troponin of 0.099, subsequent to that was 3.4, then 7.2 and was seen by Dr. Shelby and was sent to the center medical and lab director, for non-ST elevation myocardial infarction, patient underwent cardiac cath, right radial artery results are currently pending, has 2 occlusive disease, no intervention according to the patient. 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 Might need Prandin, for prandial glucose control, however he is on tuojeo, along with a weekly shot not listed in home med, pt will need refill of demadex on discharge per request 04/12: A-Team was called on this patient this morning due to low pulse ox requiring 4 L with pulse ox of 93% then developed worsening shortness of breath and increasingly unresponsive. Blood pressure was 216/105, heart rate 113. Patient was given Lasix 80 mg IV push, 1 amp of dextrose and a nitro drip was started and patient was transferred into the intensive care unit. She has been mostly on BiPAP and intermittently for brief periods on 5 L nasal cannula. Patient has been very sleepy since he arrived to the ICU but awakens and can answer questions appropriately. Urine output has been [address] Muñoz has spoken with him and his in detail about ECI of the RCA and they are undecided whether to have it done here or transfer to tertiary care. Hydralazine was increased to 75 g 3 times daily. Chest x-ray reveals moderate pulmonary edema without change on 3 hours ago. Cardiac gram reveals EF of 60-65% with severe concentric left ventricular hypertrophy, moderate aortic valve sclerosis, mild aortic stenosis with gradient of 26.53 mmHg, trace mitral regurgitation, mild tricuspid regurgitation, mild pulmonary hypertension, RVSP 38.29 mmHg. 04/13: Patient is in center medical and lab director for PCI. REVIEW OF SYSTEMS Constitutional: No fever, no chills, no night sweats. No weight change. No weakness, fatigue or lethargy. No daytime sleepiness. EENT: No headache. No blurred vision or double vision, no loss of vision. No loss of Hearing, no ringing in the ears, no dizziness. No nasal drainage or congestion. No epistaxis. No sore throat. Lungs: Reported shortness of breath, cough, no sputum production. No wheezing. Cardiovascular: Reported chest pain, no lower extremity edema. No palpitations. No paroxysmal nocturnal dyspnea. No orthopnea. No lightheadedness or dizziness. No syncopal episodes. Abdominal: No abdominal pain. No nausea, vomiting. No diarrhea. No constipation. No bloody or tarry stools. No loss of appetite. Genitourinary: No dysuria, increased frequency, urgency. No urinary retention. Musculoskeletal: No myalgias. No muscle weakness, no gait dysfunction, no frequent falls. No back pain. No neck pain. Integumentary: No wounds, no lesions. No rash or pruritus. No unusual bruising. No change in hair or nails. Neurologic: No aphasia. No facial droop. No change in mentation. No head injury. No headache. No paralysis. No paresthesia. Psychiatric: No depression. No anxiety. No mood swings. Endocrine: No abnormal blood sugars. No weight change. No excessive sweating or thirst. No cold intolerance. PHYSICAL EXAMINATION Gen: This is a 61-year-old male. He is resting in the ICU bed on nasal cannula and appears to be comfortable and in no acute distress. Patient's is at bedside. HEENT: Head is atraumatic, normocephalic. Pupils equal, round. Sclerae is anicteric. NECK: Supple. No JVD. No lymphadenopathy. No thyromegaly. LUNGS: Clear to auscultation. No wheezes or rhonchi. No intercostal retractions. HEART: Regular rate and rhythm. Systolic murmur. ABDOMEN: Soft. Bowel sounds are present. No masses. No tenderness. EXTREMITIES: No pedal edema. No calf tenderness. Dorsalis pedis +2 bilaterally. NEUROLOGICAL: Patient is awake, alert and oriented x3. Cranial nerves 2 through 12 are grossly intact. ASSESSMENT AND PLAN 1. Acute non-ST elevation myocardial infraction, underwent cardiac cath, on 04/10 2021, for which he is currently on Plavix 75 mg Coreg 25 mg and aspirin 81 mg daily, Lipitor 80 mg daily patient is going to undergo another procedure in the next 24 hours or transferred to tertiary care. 2. Acute hypoxic respiratory failure secondary to acute diastolic heart failure. Continue Lasix 40 mg IV every 12 hours, monitor KALEB, daily weights, electrolytes and renal function. 3. Hypertension. Continue Coreg 25 mg twice daily, Lasix 40 mg IV every 12 hours, hydralazine 75 mg 3 times daily. 4. Diabetes mellitus type 2, with diabetic neuropathy with hyperglycemia, check for A1c, on Lyrica 100 mg twice a day, continue Januvia, hold metformin, and hold discharge and his continued levemir 40 units daily 5. CK D stage IV, followed by nephrology 6. Anemia of chronic disease, baseline hemoglobin of 8.9, check for iron studies. Continue Aranesp 7. History of carotid stenosis, with bilateral carotid endarterectomy, on aspirin and Plavix, along with statin 8. Dysthymia, on trintellix 9. DVT prophylaxis 10 GI prophylaxis Pepcid not omeprazole secondary to CK D4 11. COVID-19 testing negative. Patient has been hospitalized during a pandemic. DISCHARGE PLAN Home. Impression and plan of care have been directed as dictated by the signing physician. Chen Quiroz nurse practitioner acting as scribe for signing physician. Objective - Vital Signs Vital signs: Vital Signs Temp 98.0 F 04/13/21 08:00 Pulse 76 04/13/21 10:00 Resp 17 04/13/21 10:00 BP 143/68 04/13/21 10:00 Pulse Ox 95 04/13/21 10:00 Intake & Output 04/12/21 04/13/21 04/13/21 18:59 06:59 18:59 Intake Total 1558.07 1870 450 Output Total 2124 2039 340 Balance -566.93 -170 110 Intake: IV 320 1120 350 Sodium Chloride 0.9% 1, 220 1120 250 000 ml @ 50 mls/hr IV . Q20H [facility] Rx#:[id number] Sodium Ferric Gluconat- 100 100 Sucrose 125 mg In Sodium Chloride 0.9% 100 ml @ 100 mls/hr IVPB DAILY [facility] Rx#:[id number] Intake, IV Titration 238.07 250 50 Amount Furosemide 100 mg In 8 Sodium Chloride 0.9% 90 ml @ 10 MG/HR 10 mls/hr IV .Q10H [facility] Rx#: [id number] Heparin Sod,Pork in 0.45% 230.07 250 NaCl 25,000 unit In 0.45 % NaCl 1 250ml.bag @ 12 UNITS/KG/HR 10.07 mls/hr IV .Q24H [facility] Rx#: [id number] Sodium Chloride 0.9% 1, 50 000 ml @ 50 mls/hr IV . Q20H [facility] Rx#:[id number] Oral 1000 500 50 Output: Urine 2124 2039 340 Other: Voiding Method Indwelling Catheter Indwelling Catheter Indwelling Catheter - Labs CBC & Chem 7: 04/13/21 05:15 04/13/21 05:15 Labs: Abnormal Lab Results - Last 24 Hours (Table) 04/12/21 04/12/21 04/12/21 Range/Units 13:56 20:26 20:49 RBC (4.30-5.90) m/uL Hgb (13.0-17.5) gm/dL Hct (39.0-53.0) % MCV (80.0-100.0) fL MCH (25.0-35.0) pg MCHC (31.0-37.0) g/dL RDW (11.5-15.5) % Lymphocytes # (Manual) (1.0-4.8) k/uL Eosinophils # (Manual) (0-0.7) k/uL APTT (22.0-30.0) sec ABG pCO2 59 H (35-45) mmHg ABG HCO3 33 H (21-25) mmol/L ABG Total CO2 35 H (19-24) mmol/L Carbon Dioxide (22-30) mmol/L BUN (9-20) mg/dL Creatinine (0.66-1.25) mg/dL Glucose (74-99) mg/dL POC Glucose (mg/dL) 218 H 232 H (75-99) mg/dL Total Protein (6.3-8.2) g/dL Albumin (3.5-5.0) g/dL Procalcitonin (0.02-0.09) ng/mL 04/13/21 04/13/21 04/13/21 Range/Units 05:15 05:15 05:15 RBC 3.54 L (4.30-5.90) m/uL Hgb 8.0 L (13.0-17.5) gm/dL Hct 27.3 L (39.0-53.0) % MCV 77.1 L (80.0-100.0) fL MCH 22.5 L (25.0-35.0) pg MCHC 29.2 L (31.0-37.0) g/dL RDW 21.5 H (11.5-15.5) % Lymphocytes # (Manual) 0.95 L (1.0-4.8) k/uL Eosinophils # (Manual) 0.85 H (0-0.7) k/uL APTT (22.0-30.0) sec ABG pCO2 (35-45) mmHg ABG HCO3 (21-25) mmol/L ABG Total CO2 (19-24) mmol/L Carbon Dioxide 34 H (22-30) mmol/L BUN 47 H (9-20) mg/dL Creatinine 2.22 H (0.66-1.25) mg/dL Glucose 71 L (74-99) mg/dL POC Glucose (mg/dL) (75-99) mg/dL Total Protein 5.9 L (6.3-8.2) g/dL Albumin 3.2 L (3.5-5.0) g/dL Procalcitonin 1.44 H (0.02-0.09) ng/mL 04/13/21 04/13/21 04/13/21 Range/Units 05:15 07:10 07:11 RBC (4.30-5.90) m/uL Hgb (13.0-17.5) gm/dL Hct (39.0-53.0) % MCV (80.0-100.0) fL MCH (25.0-35.0) pg MCHC (31.0-37.0) g/dL RDW (11.5-15.5) % Lymphocytes # (Manual) (1.0-4.8) k/uL Eosinophils # (Manual) (0-0.7) k/uL APTT 63.8 H (22.0-30.0) sec ABG pCO2 (35-45) mmHg ABG HCO3 (21-25) mmol/L ABG Total CO2 (19-24) mmol/L Carbon Dioxide (22-30) mmol/L BUN (9-20) mg/dL Creatinine (0.66-1.25) mg/dL Glucose (74-99) mg/dL POC Glucose (mg/dL) 50 L 56 L (75-99) mg/dL Total Protein (6.3-8.2) g/dL Albumin (3.5-5.0) g/dL Procalcitonin (0.02-0.09) ng/mL
[2021-04-13] MEDS ORDERED: IOPAMIDOL-370 100ML BTL INJ ONE (13:40)
[2021-04-13] MEDS ORDERED: RX INFO: IV CONTRAST WAS GIVEN 1 EACH MISC MISCELLANE PRN (13:50)
[2021-04-13] MEDS ORDERED: ZOLPIDEM 5 MG TAB PO PRN (13:50)
[2021-04-13] MEDS ORDERED: MAG HYDROX/AL HYDROX/SIMETH 30 ML CUP PO PRN (13:50)
[2021-04-13] MEDS ORDERED: ATROPINE SULFATE 0.1 MG/ML 10ML SYRINGE IV PRN (13:50)
[2021-04-13 14:33] VITALS: BMI 25.9
[2021-04-13 17:20] LABS: Glucose,Whole Blood 176 mg/dL (75-99)
[2021-04-13] MEDS: hydrALAZINE HCL 50 MG TAB PO SCH (17:48)
[2021-04-13] MEDS ORDERED: HEPARIN SOD,PORK IN 0.45% NACL 25,000 UNIT in 0.45% NACL 1 250ML.BAG IV SCH ×2 (19:45→20:00)
[2021-04-13 20:31] LABS: Glucose,Whole Blood 213 mg/dL (75-99)
[2021-04-13] MEDS: AMOXIC-POT CLAV 875-125MG 1 EACH TAB PO SCH (21:59)
[2021-04-13] MEDS: INSULIN ASPART (NovoLOG) 100 UNIT/ML VIAL SQ SCH (23:04)
[2021-04-14] MEDS: HEPARIN SODIUM 1,000 UN/ML (10ML VL) IV PRN ×2 (04:06→11:09)
[2021-04-14 06:09] LABS: Glucose,Whole Blood 185 mg/dL (75-99)
[2021-04-14] MEDS: carvediloL 12.5 MG TAB PO SCH ×2 (06:23→18:33)
[2021-04-14] MEDS: INSULIN ASPART (NovoLOG) 100 UNIT/ML VIAL SQ SCH ×4 (06:24→20:53)
[2021-04-14 09:15] LABS: Glucose,Whole Blood 358 mg/dL (75-99)
[2021-04-14] MEDS: ATORVASTATIN 80 MG TAB PO SCH (09:17)
[2021-04-14] MEDS: SODIUM FERRIC GLUCONAT-SUCROSE 125 MG in SODIUM CHLORIDE 0.9% 100 ML IVPB SCH (09:17)
[2021-04-14] MEDS: CYANOCOBALAMIN 500 MCG TAB PO SCH (09:17)
[2021-04-14] MEDS: CLOPIDOGREL 75 MG TAB PO SCH (09:17)
[2021-04-14] MEDS: CHOLECALCIFEROL 125 MCG (5000 IU) TABLET PO SCH (09:17)
[2021-04-14] MEDS: NITROGLYCERIN OINT 1 INCH/GM PACKET TOPICAL SCH (09:17)
[2021-04-14] MEDS: LOSARTAN 50 MG TAB PO SCH (09:17)
[2021-04-14] MEDS: PANTOPRAZOLE 40 MG TABLET PO SCH (09:17)
[2021-04-14] MEDS: INSULIN DETEMIR (LEVEMIR) 100 UNIT/ML SYR SQ SCH ×3 (09:17→20:53)
[2021-04-14] MEDS: AMOXIC-POT CLAV 875-125MG 1 EACH TAB PO SCH ×2 (09:17→20:53)
[2021-04-14] MEDS: PREGABALIN 100 MG CAP PO SCH ×3 (09:17→20:53)
[2021-04-14] MEDS: ASPIRIN 81 MG PO SCH (09:17)
[2021-04-14] MEDS: FENOFIBRATE 160 MG TAB PO SCH (09:17)
[2021-04-14] MEDS: hydrALAZINE HCL 25 MG TAB PO SCH ×3 (09:17→20:53)
[2021-04-14] MEDS: FUROSEMIDE 10 MG/ML 4 ML VIAL IV SCH (09:17)
[2021-04-14 10:05] LABS: Anisocytosis Moderate; Basophils % (A) 1 %; Eosinophils # (A) 0.5 k/uL (0-0.7); Eosinophils % (A) 10 %; HCT 28.1 % (39.0-53.0); HGB 8.1 gm/dL (13.0-17.5); Hypochromasia Marked; Lymphocytes # (A) 0.5 k/uL (1.0-4.8); Lymphocytes % (A) 10 %; MCH 22.6 pg (25.0-35.0); MCHC 28.8 g/dL (31.0-37.0); MCV 78.6 fL (80.0-100.0); Mean Platelet Volume 10.1; Microcytosis Moderate; Monocytes # (A) 0.3 k/uL (0-1.0); Monocytes % (A) 5 %; Neutrophils # (A) 3.7 k/uL (1.3-7.7); Neutrophils % (A) 70 %; Platelet Count 172 k/uL (150-450); RBC 3.57 m/uL (4.30-5.90); RDW 21.5 % (11.5-15.5); WBC 5.3 k/uL (3.8-10.6)
[2021-04-14 10:39] LABS: Calcium 9.3 mg/dL (8.4-10.2); Potassium 4.5 mmol/L (3.5-5.1)
[2021-04-14] MEDS: MULTIVITAMINS, THERA 1 EACH TAB PO SCH (11:09)
[2021-04-14] MEDS: VORTIOXETINE HYDROBROMIDE 10 MG TABLET PO SCH (11:18)
[2021-04-14] MEDS ORDERED: INSULIN DETEMIR (LEVEMIR) 100 UNIT/ML SYR SQ SCH (11:30)
[2021-04-14 12:08] LABS: Glucose,Whole Blood 259 mg/dL (75-99)
--- NOTE | 2021-04-14 12:17 | P.PN ---
Subjective Patient is seen in follow-up for acute kidney injury on chronic kidney disease. He's currently on heparin drip. Maintained on Demadex. Nonoliguric. On room air. Denies chest pain or shortness of breath. Vital signs are stable. General: On nasal cannula. HEENT: Head exam is unremarkable. LUNGS: Breath sounds decreased. HEART: Rate and Rhythm are regular. ABDOMEN: Soft, no distention. EXTREMITITES: No edema. Objective - Vital Signs Vital signs: Vital Signs Temp 98.3 F 04/14/21 11:14 Pulse 84 04/14/21 11:14 Resp 16 04/14/21 11:14 BP 103/48 04/14/21 11:14 Pulse Ox 92 L 04/14/21 11:14 Intake & Output 04/13/21 04/14/21 04/14/21 18:59 06:59 18:59 Intake Total 1590 98 785.957 Output Total 1265 2575 900 Balance 325 -5085 -114.043 Weight 81.9 kg 83.1 kg 83.3 kg Intake: IV 610 20 100 Invasive Line 1 10 10 Invasive Line 2 10 Sodium Chloride 0.9% 1, 400 000 ml @ 50 mls/hr IV . Q20H [facility] Rx#:[id number] Sodium Ferric Gluconat- 100 100 Sucrose 125 mg In Sodium Chloride 0.9% 100 ml @ 100 mls/hr IVPB DAILY [facility] Rx#:[id number] Intake, IV Titration 100 78 85.957 Amount Heparin Sod,Pork in 0.45% 78 85.957 NaCl 25,000 unit In 0.45 % NaCl 1 250ml.bag @ 11. 917 UNITS/KG/HR 10 mls/hr IV .Q24H [facility] Rx#: [id number] Sodium Chloride 0.9% 1, 100 000 ml @ 50 mls/hr IV . Q20H [facility] Rx#:[id number] Oral 880 600 Output: Urine 1265 2575 900 Other: Voiding Method Indwelling Catheter Urinal Urinal ABP, PAP, CO, CI - Last Documented Arterial Blood Pressure 140/61 - Labs CBC & Chem 7: 04/14/21 09:40 04/14/21 09:40 Labs: Abnormal Lab Results - Last 24 Hours (Table) 04/13/21 04/13/21 04/14/21 Range/Units 17:18 20:29 02:09 RBC (4.30-5.90) m/uL Hgb (13.0-17.5) gm/dL Hct (39.0-53.0) % MCV (80.0-100.0) fL MCH (25.0-35.0) pg MCHC (31.0-37.0) g/dL RDW (11.5-15.5) % Lymphocytes # (1.0-4.8) k/uL APTT 31.5 H (22.0-30.0) sec Sodium (137-145) mmol/L Chloride (98-107) mmol/L Carbon Dioxide (22-30) mmol/L BUN (9-20) mg/dL Creatinine (0.66-1.25) mg/dL Glucose (74-99) mg/dL POC Glucose (mg/dL) 176 H 213 H (75-99) mg/dL 04/14/21 04/14/21 04/14/21 Range/Units 06:08 09:13 09:40 RBC 3.57 L (4.30-5.90) m/uL Hgb 8.1 L (13.0-17.5) gm/dL Hct 28.1 L (39.0-53.0) % MCV 78.6 L (80.0-100.0) fL MCH 22.6 L (25.0-35.0) pg MCHC 28.8 L (31.0-37.0) g/dL RDW 21.5 H (11.5-15.5) % Lymphocytes # 0.5 L (1.0-4.8) k/uL APTT (22.0-30.0) sec Sodium (137-145) mmol/L Chloride (98-107) mmol/L Carbon Dioxide (22-30) mmol/L BUN (9-20) mg/dL Creatinine (0.66-1.25) mg/dL Glucose (74-99) mg/dL POC Glucose (mg/dL) 185 H 358 H (75-99) mg/dL 04/14/21 04/14/21 04/14/21 Range/Units 09:40 09:40 11:48 RBC (4.30-5.90) m/uL Hgb (13.0-17.5) gm/dL Hct (39.0-53.0) % MCV (80.0-100.0) fL MCH (25.0-35.0) pg MCHC (31.0-37.0) g/dL RDW (11.5-15.5) % Lymphocytes # (1.0-4.8) k/uL APTT 36.3 H (22.0-30.0) sec Sodium 136 L (137-145) mmol/L Chloride 97 L (98-107) mmol/L Carbon Dioxide 32 H (22-30) mmol/L BUN 46 H (9-20) mg/dL Creatinine 2.26 H (0.66-1.25) mg/dL Glucose 335 H (74-99) mg/dL POC Glucose (mg/dL) 259 H (75-99) mg/dL Assessment and Plan Plan: Assessment: 1. Acute kidney injury mostly prerenal initially improved with IV hydration. Now hypervolemic. Also received IV contrast for cardiac catheterization on 04/10/2021 and 04/12/2021. Creatinine 2.26 today. No hydronephrosis noted on kidney ultrasound. 2. Chronic kidney disease stage IV with baseline creatinine 2.3-2.4 secondary to nephrosclerosis and diabetic kidney disease. 3. Acute AR status post cardiac catheterization on April 10. Attempted right coronary intervention on 04/13/2021 but not successful. 4. Acute on chronic diastolic CHF. 5. Hyperkalemia secondary to chronic kidney disease. Resolved. 6. Diabetes mellitus. 7. Anemia of chronic kidney disease maintained on Aranesp. Severe iron deficiency noted. Plan: Maintain Demadex. Avoid nephrotoxins. Continue to monitor renal function and urine output. Monitor for contrast-induced acute kidney injury - received IV contrast on April 10 and 2021. Maintain IV iron.
--- NOTE | 2021-04-14 13:57 | P.PN ---
Subjective Progress Note Date: 04/14/21 HISTORY OF PRESENT ILLNESS 61-year-old male patient of Dr. Cronin and Dr. Muñoz with past medical hist ory of chronic kidney disease, type 2 diabetes, carotid stenosis status post carotid endarterectomy, GERD, hyperlipidemia, hypertension presenting to the emergency room, secondary to chest discomfort, lasting 30 minutes last night. Patient did not take anything for this pain, Patient was sent in via EMS, and was subsequently given nitroglycerin in the ambulance, with relief of the pain. Patient has known history of CHF, CK D stage IV aortic stenosis. His diabetes he said is controlled, with A1c of 6.4 within the past few months. In the emergency room, troponins are noted to be elevated, with anti-troponin of 0.099, subsequent to that was 3.4, then 7.2 and was seen by Dr. Shelby and was sent to the labor relations manager, for non-ST elevation myocardial infarction, patient underwent cardiac cath, right radial artery results are currently pending, has 2 occlusive disease, no intervention according to the patient. 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 Might need Prandin, for prandial glucose control, however he is on tuojeo, along with a weekly shot not listed in home med, pt will need refill of demadex on discharge per request 04/12: A-Team was called on this patient this morning due to low pulse ox requiring 4 L with pulse ox of 93% then developed worsening shortness of breath and increasingly unresponsive. Blood pressure was 216/105, heart rate 113. Patient was given Lasix 80 mg IV push, 1 amp of dextrose and a nitro drip was started and patient was transferred into the intensive care unit. She has been mostly on BiPAP and intermittently for brief periods on 5 L nasal cannula. Patient has been very sleepy since he arrived to the ICU but awakens and can answer questions appropriately. Urine output has been [address] Muñoz has spoken with him and his in detail about ECI of the RCA and they are undecided whether to have it done here or transfer to tertiary care. Hydralazine was increased to 75 g 3 times daily. Chest x-ray reveals moderate pulmonary edema without change on 3 hours ago. Cardiac gram reveals EF of 60-65% with severe concentric left ventricular hypertrophy, moderate aortic valve sclerosis, mild aortic stenosis with gradient of 26.53 mmHg, trace mitral regurgitation, mild tricuspid regurgitation, mild pulmonary hypertension, RVSP 38.29 mmHg. 04/13: Patient is in labor relations manager for PCI. 04/14: Patient is seen today on the cardiac stepdown unit. Yesterday he underwent attempted PCI with Dr. Muñoz and may consider transfer to tertiary care center. Patient is on a heparin drip. He complains that yesterday he had sputum production with blood tinted. He currently denies any shortness of eric ath. He is on room air and incentive spirometry was added this morning. Patient had low blood sugar yesterday but today he is in the 300s now 259. He received 1 dose of Levemir 40 units and this will be switched to 1 dose of 10 units in addition and 20 units twice daily. On 43 units of Toujeo, Trulicity and Jardiance which are all not available here. Other blood work reveals hemoglobin of 8.1. BUN 46 and creatinine 2.26. Patient is afebrile, heart rate 84, blood pressure 103/48, pulse ox 92% on room air. Patient is also followed by intensivists. Patient is followed by nephrology for acute kidney injuryWith recommendations to maintain Demadex, avoid nephrotoxins and continue to monitor. REVIEW OF SYSTEMS Constitutional: No fever, no chills, no night sweats. No weight change. No weakness, fatigue or lethargy. No daytime sleepiness. EENT: No headache. No blurred vision or double vision, no loss of vision. No loss of Hearing, no ringing in the ears, no dizziness. No nasal drainage or congestion. No epistaxis. No sore throat. Lungs: Reported shortness of breath, cough, no sputum production. No wheezing. Cardiovascular:Denies chest pain, no lower extremity edema. No palpitations. No paroxysmal nocturnal dyspnea. No orthopnea. No lightheadedness or dizziness. No syncopal episodes. Abdominal: No abdominal pain. No nausea, vomiting. No diarrhea. No constipati on. No bloody or tarry stools. No loss of appetite. Genitourinary: No dysuria, increased frequency, urgency. No urinary retention. Musculoskeletal: No myalgias. No muscle weakness, no gait dysfunction, no frequent falls. No back pain. No neck pain. Integumentary: No wounds, no lesions. No rash or pruritus. No unusual bruising. No change in hair or nails. Neurologic: No aphasia. No facial droop. No change in mentation. No head injury. No headache. No paralysis. No paresthesia. Psychiatric: No depression. No anxiety. No mood swings. Endocrine: No abnormal blood sugars. No weight change. No excessive sweating or thirst. No cold intolerance. PHYSICAL EXAMINATION Gen: This is a 61-year-old male. He is resting inrecliner on the cardiac stepdown unit.. HEENT: Head is atraumatic, normocephalic. Pupils equal, round. Sclerae is anicteric. NECK: Supple. No JVD. No lymphadenopathy. No thyromegaly. LUNGS: Clear to auscultation. No wheezes or rhonchi. No intercostal re tractions. HEART: Regular rate and rhythm. Systolic murmur. ABDOMEN: Soft. Bowel sounds are present. No masses. No tenderness. EXTREMITIES: No pedal edema. No calf tenderness. Dorsalis pedis +2 b ilaterally. NEUROLOGICAL: Patient is awake, alert and oriented x3. Cranial nerves 2 through 12 are grossly intact. ASSESSMENT AND PLAN 1. Acute non-ST elevation myocardial infraction, underwent cardiac cath, on 04/10 2021, attempted PCI on 04/13. Continue patient on Lipitor 80 mg daily, Coreg 25 mg twice daily, Plavix 75 mg daily, Lasix 40 mg daily, Imdur 60 mg daily, losartan 100 mg daily. Patient is currently on heparin drip. 2. Acute hypoxic respiratory failure secondary to acute diastolic heart failure. Continue Lasix 40 mg po daily, monitor KALEB, daily weights, electrolytes and renal function. Senna spirometry added. 3. Hypertension. Continue Coreg 25 mg twice daily, Lasix 40 mg po, hydralazine 75 mg 3 times daily. 4. Diabetes mellitus type 2, with diabetic neuropathy with hyperglycemia, A1c 6.1, on Lyrica 100 mg twice a day, continue Levemir changed to 20 units twice daily, NovoLog scale before meals and at bedtime 5. CKD stage IV secondary to nephrosclerosis and diabetic kidney disease, followed by nephrology 6. Anemia of chronic disease, baseline hemoglobin of 8.9, check for iron studies. Continue Aranesp 7. History of carotid stenosis, with bilateral carotid endarterectomy, on aspirin and Plavix, along with statin 8. Dysthymia, on trintellix 9. DVT prophylaxis 10 GI prophylaxis Pepcid not omeprazole secondary to CK D4 11. COVID-19 testing negative. Patient has been hospitalized during a pandemic. DISCHARGE PLAN Home. Impression and plan of care have been directed as dictated by the signing physician. Chen Quiroz nurse practitioner acting as scribe for signing physician. Objective - Vital Signs Vital signs: Vital Signs Temp 98.3 F 04/14/21 11:14 Pulse 84 04/14/21 11:14 Resp 16 04/14/21 11:14 BP 103/48 04/14/21 11:14 Pulse Ox 92 L 04/14/21 11:14 Intake & Output 04/13/21 04/14/21 04/14/21 18:59 06:59 18:59 Intake Total 1590 98 85.957 Output Total 1265 2575 Balance 325 -2477 85.957 Weight 81.9 kg 83.1 kg 83.3 kg Intake: IV 610 20 Invasive Line 1 10 10 Invasive Line 2 10 Sodium Chloride 0.9% 1, 400 000 ml @ 50 mls/hr IV . Q20H [facility] Rx#:[id number] Sodium Ferric Gluconat- 100 Sucrose 125 mg In Sodium Chloride 0.9% 100 ml @ 100 mls/hr IVPB DAILY [facility] Rx#:[id number] Intake, IV Titration 100 78 85.957 Amount Heparin Sod,Pork in 0.45% 78 85.957 NaCl 25,000 unit In 0.45 % NaCl 1 250ml.bag @ 11. 917 UNITS/KG/HR 10 mls/hr IV .Q24H [facility] Rx#: [id number] Sodium Chloride 0.9% 1, 100 000 ml @ 50 mls/hr IV . Q20H [facility] Rx#:[id number] Oral 880 Output: Urine 1265 2575 Other: Voiding Method Indwelling Catheter Urinal ABP, PAP, CO, CI - Last Documented Arterial Blood Pressure 140/61 - Labs CBC & Chem 7: 04/14/21 09:40 04/14/21 09:40 Labs: Abnormal Lab Results - Last 24 Hours (Table) 04/13/21 04/13/21 04/13/21 Range/Units 05:15 17:18 20:29 RBC (4.30-5.90) m/uL Hgb (13.0-17.5) gm/dL Hct (39.0-53.0) % MCV (80.0-100.0) fL MCH (25.0-35.0) pg MCHC (31.0-37.0) g/dL RDW (11.5-15.5) % Lymphocytes # (1.0-4.8) k/uL APTT (22.0-30.0) sec Sodium (137-145) mmol/L Chloride (98-107) mmol/L Carbon Dioxide (22-30) mmol/L BUN (9-20) mg/dL Creatinine (0.66-1.25) mg/dL Glucose (74-99) mg/dL POC Glucose (mg/dL) 176 H 213 H (75-99) mg/dL Procalcitonin 1.44 H (0.02-0.09) ng/mL 04/14/21 04/14/21 04/14/21 Range/Units 02:09 06:08 09:13 RBC (4.30-5.90) m/uL Hgb (13.0-17.5) gm/dL Hct (39.0-53.0) % MCV (80.0-100.0) fL MCH (25.0-35.0) pg MCHC (31.0-37.0) g/dL RDW (11.5-15.5) % Lymphocytes # (1.0-4.8) k/uL APTT 31.5 H (22.0-30.0) sec Sodium (137-145) mmol/L Chloride (98-107) mmol/L Carbon Dioxide (22-30) mmol/L BUN (9-20) mg/dL Creatinine (0.66-1.25) mg/dL Glucose (74-99) mg/dL POC Glucose (mg/dL) 185 H 358 H (75-99) mg/dL Procalcitonin (0.02-0.09) ng/mL 04/14/21 04/14/21 04/14/21 Range/Units 09:40 09:40 09:40 RBC 3.57 L (4.30-5.90) m/uL Hgb 8.1 L (13.0-17.5) gm/dL Hct 28.1 L (39.0-53.0) % MCV 78.6 L (80.0-100.0) fL MCH 22.6 L (25.0-35.0) pg MCHC 28.8 L (31.0-37.0) g/dL RDW 21.5 H (11.5-15.5) % Lymphocytes # 0.5 L (1.0-4.8) k/uL APTT 36.3 H (22.0-30.0) sec Sodium 136 L (137-145) mmol/L Chloride 97 L (98-107) mmol/L Carbon Dioxide 32 H (22-30) mmol/L BUN 46 H (9-20) mg/dL Creatinine 2.26 H (0.66-1.25) mg/dL Glucose 335 H (74-99) mg/dL POC Glucose (mg/dL) (75-99) mg/dL Procalcitonin (0.02-0.09) ng/mL
[2021-04-14] MEDS: ISOSORBIDE MONONITRATE ER 60 MG TAB.ER.24H PO SCH (14:10)
--- NOTE | 2021-04-14 14:54 | P.PN ---
Subjective Patient is a 61-year-old male with a past medical history of hypertension, aortic stenosis, dyslipidemia, diabetes, chronic kidney disease was admitted with acute coronary syndrome. He follows with Dr. Muñoz in the office. Patient presented to the emergency room with new onset of chest discomfort. Patient underwent heart catheterization on April 10, 2021 was found to have total occlusion of the mid RCA, mild disease in LAD with moderate disease in diagonal branch, collaterals from the left coronary system, elevated LVEDP. Due to advanced renal failure and elevated creatinine of 2.66 at that time patient was not stented, he was continued to be medically managed. On 04/13/21, patient underwent cardiac catheterization with Dr. Muñoz and underwent attempted PCI however not successful. Patient is being considered for tertiary care center. Echocardiogram revealed EF of 6065 percent, mild aortic stenosis with a peak/mean gradient 26 mmHg/13 mmHg, mild tricuspid regurgitation, mild pulmonary hypertension 04/14/21 Patient seen and examined at bedside, no acute distress. He denies any chest pain or shortness of breath. He's currently maintained on IV heparin, aspirin 81 mg daily, atorvastatin 80 mg daily, carvedilol 25 mg by mouth daily, Plavix 75 mg daily, losartan 160 mg daily, hydralazine 75 mg 3 times a day, losartan 100 mg daily. Labs, WBC 5.3, hemoglobin 8.1, platelets 172, sodium 136, potassium 4.5, BUN 46, serum creatinine 2.2 ASSESSMENT NSTEMI Total occlusion of mid RCA Hypertension Aortic stenosis Dyslipidemia Type 2 diabetes Chronic kidney disease PLAN We will stop patient's IV heparin, Add Imdur 60mg daily Increase activity as tolerated Continue aspirin 81mg daily, atorvastatin, carvedilol 25 mg BID, Plavix 75 mg daily, Losartan 100 daily, hydralazine We will continue to monitor patient for additional 24-48 hours and make recommendations based on clinical course Spoke to patient's per request and she was updated on patient's care Nurse Practitioner note has been reviewed, I agree with a documented findings and plan of care. Patient was seen and examined. Objective - Vital Signs Vital signs: Vital Signs Temp 98.3 F 04/14/21 11:14 Pulse 84 04/14/21 11:14 Resp 16 04/14/21 11:14 BP 103/48 04/14/21 11:14 Pulse Ox 92 L 04/14/21 11:14 Intake & Output 04/13/21 04/14/21 04/14/21 18:59 06:59 18:59 Intake Total 1590 98 1069.491 Output Total 1265 2575 900 Balance 325 -2417 169.491 Weight 81.9 kg 83.1 kg 83.3 kg Intake: IV 610 20 100 Invasive Line 1 10 10 Invasive Line 2 10 Sodium Chloride 0.9% 1, 400 000 ml @ 50 mls/hr IV . Q20H [facility] Rx#:[id number] Sodium Ferric Gluconat- 100 100 Sucrose 125 mg In Sodium Chloride 0.9% 100 ml @ 100 mls/hr IVPB DAILY [facility] Rx#:[id number] Intake, IV Titration 100 78 129.491 Amount Heparin Sod,Pork in 0.45% 78 129.491 NaCl 25,000 unit In 0.45 % NaCl 1 250ml.bag @ 11. 917 UNITS/KG/HR 10 mls/hr IV .Q24H [facility] Rx#: [id number] Sodium Chloride 0.9% 1, 100 000 ml @ 50 mls/hr IV . Q20H [facility] Rx#:[id number] Oral 880 840 Output: Urine 1265 2575 900 Other: Voiding Method Indwelling Catheter Urinal Urinal ABP, PAP, CO, CI - Last Documented Arterial Blood Pressure 140/61 - Labs CBC & Chem 7: 04/14/21 09:40 04/14/21 09:40 Labs: Abnormal Lab Results - Last 24 Hours (Table) 04/13/21 04/13/21 04/14/21 Range/Units 17:18 20:29 02:09 RBC (4.30-5.90) m/uL Hgb (13.0-17.5) gm/dL Hct (39.0-53.0) % MCV (80.0-100.0) fL MCH (25.0-35.0) pg MCHC (31.0-37.0) g/dL RDW (11.5-15.5) % Lymphocytes # (1.0-4.8) k/uL APTT 31.5 H (22.0-30.0) sec Sodium (137-145) mmol/L Chloride (98-107) mmol/L Carbon Dioxide (22-30) mmol/L BUN (9-20) mg/dL Creatinine (0.66-1.25) mg/dL Glucose (74-99) mg/dL POC Glucose (mg/dL) 176 H 213 H (75-99) mg/dL 04/14/21 04/14/21 04/14/21 Range/Units 06:08 09:13 09:40 RBC 3.57 L (4.30-5.90) m/uL Hgb 8.1 L (13.0-17.5) gm/dL Hct 28.1 L (39.0-53.0) % MCV 78.6 L (80.0-100.0) fL MCH 22.6 L (25.0-35.0) pg MCHC 28.8 L (31.0-37.0) g/dL RDW 21.5 H (11.5-15.5) % Lymphocytes # 0.5 L (1.0-4.8) k/uL APTT (22.0-30.0) sec Sodium (137-145) mmol/L Chloride (98-107) mmol/L Carbon Dioxide (22-30) mmol/L BUN (9-20) mg/dL Creatinine (0.66-1.25) mg/dL Glucose (74-99) mg/dL POC Glucose (mg/dL) 185 H 358 H (75-99) mg/dL 04/14/21 04/14/21 04/14/21 Range/Units 09:40 09:40 11:48 RBC (4.30-5.90) m/uL Hgb (13.0-17.5) gm/dL Hct (39.0-53.0) % MCV (80.0-100.0) fL MCH (25.0-35.0) pg MCHC (31.0-37.0) g/dL RDW (11.5-15.5) % Lymphocytes # (1.0-4.8) k/uL APTT 36.3 H (22.0-30.0) sec Sodium 136 L (137-145) mmol/L Chloride 97 L (98-107) mmol/L Carbon Dioxide 32 H (22-30) mmol/L BUN 46 H (9-20) mg/dL Creatinine 2.26 H (0.66-1.25) mg/dL Glucose 335 H (74-99) mg/dL POC Glucose (mg/dL) 259 H (75-99) mg/dL
[2021-04-14 16:23] LABS: Glucose,Whole Blood 148 mg/dL (75-99)
--- NOTE | 2021-04-14 17:08 | P.PCN ---
Date of Procedure: 04/14/21 Operative Findings: Percutaneous coronary intervention Performing physician Anant Taylor M.D. Procedure performed #1 attempted balloon angioplasty of chronic total occlusion (MUSIC EDUCATOR) of the right coronary artery #2 ultrasound-guided access of the right common femoral artery Indication Acute coronary syndrome Complication None Level of sedation Moderate with a sedation length off an hour Procedure description After obtaining an informed consent the patient was brought to the cardiac labor relations manager. The right common femoral artery was cannulated using micropuncture technique, the micropuncture wire passed easily then I placed a 6-Norwegian sheath in the right common femoral artery. Anticoagulation was initiated using heparin with continuous ACT monitoring. Attempting balloon angioplasty and crossing the lesion at the right coronary artery was performed using a whisper wire, Choice PT wire, and Fielder XT wire. That was unsuccessful. The procedure was completed without any complication Postprocedure management Aggressive cholesterol control Maximize medical treatment
[2021-04-14 20:31] LABS: Glucose,Whole Blood 172 mg/dL (75-99)
[2021-04-14] MEDS ORDERED: INSULIN ASPART (NovoLOG) 100 UNIT/ML VIAL SQ SCH (22:18)
[2021-04-15 05:54] LABS: Glucose,Whole Blood 92 mg/dL (75-99)
[2021-04-15] MEDS: INSULIN ASPART (NovoLOG) 100 UNIT/ML VIAL SQ SCH ×2 (06:01→12:16)
[2021-04-15] MEDS: carvediloL 12.5 MG TAB PO SCH (06:32)
[2021-04-15] MEDS: AMOXIC-POT CLAV 875-125MG 1 EACH TAB PO SCH (08:41)
[2021-04-15] MEDS: SODIUM FERRIC GLUCONAT-SUCROSE 125 MG in SODIUM CHLORIDE 0.9% 100 ML IVPB SCH (08:41)
[2021-04-15] MEDS: CYANOCOBALAMIN 500 MCG TAB PO SCH (08:41)
[2021-04-15] MEDS: PANTOPRAZOLE 40 MG TABLET PO SCH (08:41)
[2021-04-15] MEDS: MULTIVITAMINS, THERA 1 EACH TAB PO SCH (08:41)
[2021-04-15] MEDS: LOSARTAN 50 MG TAB PO SCH (08:41)
[2021-04-15] MEDS: ATORVASTATIN 80 MG TAB PO SCH (08:42)
[2021-04-15] MEDS: CHOLECALCIFEROL 125 MCG (5000 IU) TABLET PO SCH (08:42)
[2021-04-15] MEDS: CLOPIDOGREL 75 MG TAB PO SCH (08:42)
[2021-04-15] MEDS: FENOFIBRATE 160 MG TAB PO SCH (08:42)
[2021-04-15] MEDS: ASPIRIN 81 MG PO SCH (08:42)
[2021-04-15] MEDS: PREGABALIN 100 MG CAP PO SCH (08:42)
[2021-04-15] MEDS: INSULIN DETEMIR (LEVEMIR) 100 UNIT/ML SYR SQ SCH (08:42)
[2021-04-15] MEDS: hydrALAZINE HCL 25 MG TAB PO SCH (08:42)
[2021-04-15] MEDS: ISOSORBIDE MONONITRATE ER 60 MG TAB.ER.24H PO SCH (08:42)
[2021-04-15] MEDS: VORTIOXETINE HYDROBROMIDE 10 MG TABLET PO SCH (08:43)
[2021-04-15 08:48] VITALS: TEMP 98.3
[2021-04-15] MEDS ORDERED: FUROSEMIDE 40 MG TAB PO SCH (09:00)
[2021-04-15] MEDS ORDERED: TORSEMIDE 20 MG TAB PO SCH (09:00)
--- NOTE | 2021-04-15 09:57 | P.PN ---
Subjective Patient is seen in follow-up for acute kidney injury on chronic kidney disease. On oral Lasix. Nonoliguric. On room air. Denies chest pain or shortness of breath. No active complaints. Vital signs are stable. General: On nasal cannula. HEENT: Head exam is unremarkable. LUNGS: Breath sounds decreased. HEART: Rate and Rhythm are regular. ABDOMEN: Soft, no distention. EXTREMITITES: No edema. Objective - Vital Signs Vital signs: Vital Signs Temp 98.3 F 04/15/21 08:30 Pulse 74 04/15/21 08:30 Resp 16 04/15/21 08:30 BP 148/64 04/15/21 08:30 Pulse Ox 95 04/15/21 08:30 Intake & Output 04/14/21 04/15/21 04/15/21 18:59 06:59 18:59 Intake Total 1319.491 10 270 Output Total 900 Balance 419.491 10 270 Weight 83.3 kg Intake: IV 110 10 10 Invasive Line 2 10 10 10 Sodium Ferric Gluconat- 100 Sucrose 125 mg In Sodium Chloride 0.9% 100 ml @ 100 mls/hr IVPB DAILY [facility] Rx#:[id number] Intake, IV Titration 129.491 Amount Heparin Sod,Pork in 0.45% 129.491 NaCl 25,000 unit In 0.45 % NaCl 1 250ml.bag @ 11. 917 UNITS/KG/HR 10 mls/hr IV .Q24H [facility] Rx#: [id number] Oral 1080 260 Output: Urine 900 Other: Voiding Method Urinal Toilet Toilet Urinal Urinal # Voids 3 ABP, PAP, CO, CI - Last Documented Arterial Blood Pressure 140/61 - Labs CBC & Chem 7: 04/14/21 09:40 04/14/21 09:40 Labs: Abnormal Lab Results - Last 24 Hours (Table) 04/14/21 04/14/21 04/14/21 Range/Units 09:40 09:40 09:40 RBC 3.57 L (4.30-5.90) m/uL Hgb 8.1 L (13.0-17.5) gm/dL Hct 28.1 L (39.0-53.0) % MCV 78.6 L (80.0-100.0) fL MCH 22.6 L (25.0-35.0) pg MCHC 28.8 L (31.0-37.0) g/dL RDW 21.5 H (11.5-15.5) % Lymphocytes # 0.5 L (1.0-4.8) k/uL APTT 36.3 H (22.0-30.0) sec Sodium 136 L (137-145) mmol/L Chloride 97 L (98-107) mmol/L Carbon Dioxide 32 H (22-30) mmol/L BUN 46 H (9-20) mg/dL Creatinine 2.26 H (0.66-1.25) mg/dL Glucose 335 H (74-99) mg/dL POC Glucose (mg/dL) (75-99) mg/dL 04/14/21 04/14/21 04/14/21 Range/Units 11:48 16:21 16:48 RBC (4.30-5.90) m/uL Hgb (13.0-17.5) gm/dL Hct (39.0-53.0) % MCV (80.0-100.0) fL MCH (25.0-35.0) pg MCHC (31.0-37.0) g/dL RDW (11.5-15.5) % Lymphocytes # (1.0-4.8) k/uL APTT 30.5 H (22.0-30.0) sec Sodium (137-145) mmol/L Chloride (98-107) mmol/L Carbon Dioxide (22-30) mmol/L BUN (9-20) mg/dL Creatinine (0.66-1.25) mg/dL Glucose (74-99) mg/dL POC Glucose (mg/dL) 259 H 148 H (75-99) mg/dL 04/14/21 Range/Units 20:29 RBC (4.30-5.90) m/uL Hgb (13.0-17.5) gm/dL Hct (39.0-53.0) % MCV (80.0-100.0) fL MCH (25.0-35.0) pg MCHC (31.0-37.0) g/dL RDW (11.5-15.5) % Lymphocytes # (1.0-4.8) k/uL APTT (22.0-30.0) sec Sodium (137-145) mmol/L Chloride (98-107) mmol/L Carbon Dioxide (22-30) mmol/L BUN (9-20) mg/dL Creatinine (0.66-1.25) mg/dL Glucose (74-99) mg/dL POC Glucose (mg/dL) 172 H (75-99) mg/dL Assessment and Plan Plan: Assessment: 1. Acute kidney injury mostly prerenal initially improved with IV hydration. Now hypervolemic. Also received IV contrast for cardiac catheterization on 04/10/2021 and 04/12/2021. Creatinine 2.26 yesterday. No hydronephrosis noted on kidney ultrasound. 2. Chronic kidney disease stage IV with baseline creatinine 2.3-2.4 secondary to nephrosclerosis and diabetic kidney disease. 3. Acute PA status post cardiac catheterization on April 10. Attempted right coronary intervention on 04/13/2021 but not successful. 4. Acute on chronic diastolic CHF. 5. Hyperkalemia secondary to chronic kidney disease. Resolved. 6. Diabetes mellitus. 7. Anemia of chronic kidney disease maintained on Aranesp. Severe iron deficiency noted - status post IV iron. Plan: Maintain oral diuretics. Avoid nephrotoxins. Continue to monitor renal function and urine output. Monitor for contrast-induced acute kidney injury - received IV contrast on April 10 and 2021. Morning labs pending. Advised follow up outpatient in 1 week. Repeat BMP and magnesium level to 3 days post discharge.
[2021-04-15 11:36] LABS: Potassium 4.8 mmol/L (3.5-5.1)
[2021-04-15 11:37] LABS: Calcium 9.6 mg/dL (8.4-10.2); Magnesium 2.3 mg/dL (1.6-2.3)
[2021-04-15 11:38] LABS: Glucose,Whole Blood 125 mg/dL (75-99)
[2021-04-15 12:44] VITALS: BP 129/52; PULSE 79
--- NOTE | 2021-04-15 13:32 | P.PN ---
Subjective Patient is a 61-year-old male with a past medical history of hypertension, aortic stenosis, dyslipidemia, diabetes, chronic kidney disease was admitted with acute coronary syndrome. He follows with Dr. Muñoz in the office. Patient presented to the emergency room with new onset of chest discomfort. Patient underwent heart catheterization on April 10, 2021 was found to have total occlusion of the mid RCA, mild disease in LAD with moderate disease in diagonal branch, collaterals from the left coronary system, elevated LVEDP. Due to advanced renal failure and elevated creatinine of 2.66 at that time patient was not stented, he was continued to be medically managed. On 04/13/21, patient underwent cardiac catheterization with Dr. Muñoz and underwent attempted attempting balloon angioplasty and crossing the lesion at the right coronary art leyda however not successful. Patient is being considered for tertiary care center. Echocardiogram revealed EF of 6065 percent, mild aortic stenosis with a peak/mean gradient 26 mmHg/13 mmHg, mild tricuspid regurgitation, mild pulmonary hypertension 04/15/21 Patient seen and examined at bedside, no acute distress. He has no complaints, he is feeling well. Ambulating in halls without difficulty. He denies any chest pain or shortness of breath. He's currently maintained on Imdur 60mg daily, aspirin 81 mg daily, atorvastatin 80 mg daily, carvedilol 25 mg by mouth daily, Plavix 75 mg daily, losartan 160 mg daily, hydralazine 75 mg 3 times a day, losartan 100 mg daily. Telemetry reviewed patient maintaining sinus mechanism, heart rate 70s. ASSESSMENT NSTEMI Total occlusion of mid RCA Hypertension Aortic stenosis Dyslipidemia Type 2 diabetes Chronic kidney disease PLAN From a cardiology perspective, patient is stable to be discharged home on current medication regimen. He has a follow up with Dr. Muñoz on 04/19/21 in the office, he will be referred to a behavioral health assistant and appointment set up at a tertiary care center, likely [facility] for further management of coronary artery disease. This was discussed at length with the patient and patient's . Continue imdur, aspirin 81mg daily, atorvastatin, carvedilol 25 mg BID, Plavix 75 mg daily, Losartan 100 daily, hydralazine Nurse Practitioner note has been reviewed, I agree with a documented findings an d plan of care. Patient was seen and examined. Objective - Vital Signs Vital signs: Vital Signs Temp 98.3 F 04/15/21 08:30 Pulse 79 04/15/21 12:44 Resp 16 04/15/21 08:30 BP 129/52 04/15/21 12:44 Pulse Ox 95 04/15/21 12:16 Intake & Output 04/14/21 04/15/21 04/15/21 18:59 06:59 18:59 Intake Total 1319.491 10 270 Output Total 900 Balance 419.491 10 270 Weight 83.3 kg Intake: IV 110 10 10 Invasive Line 2 10 10 10 Sodium Ferric Gluconat- 100 Sucrose 125 mg In Sodium Chloride 0.9% 100 ml @ 100 mls/hr IVPB DAILY ZAIN Rx#:[id number] Intake, IV Titration 129.491 Amount Heparin Sod,Pork in 0.45% 129.491 NaCl 25,000 unit In 0.45 % NaCl 1 250ml.bag @ 11. 917 UNITS/KG/HR 10 mls/hr IV .Q24H ZAIN Rx#: [id number] Oral 1080 260 Output: Urine 900 Other: Voiding Method Urinal Toilet Toilet Urinal Urinal # Voids 3 ABP, PAP, CO, CI - Last Documented Arterial Blood Pressure 140/61 - Labs CBC & Chem 7: 04/14/21 09:40 04/15/21 10:21 Labs: Abnormal Lab Results - Last 24 Hours (Table) 04/14/21 04/14/21 04/14/21 Range/Units 16:21 16:48 20:29 APTT 30.5 H (22.0-30.0) sec Carbon Dioxide (22-30) mmol/L BUN (9-20) mg/dL Creatinine (0.66-1.25) mg/dL Glucose (74-99) mg/dL POC Glucose (mg/dL) 148 H 172 H (75-99) mg/dL 04/15/21 04/15/21 Range/Units 10:21 11:36 APTT (22.0-30.0) sec Carbon Dioxide 32 H (22-30) mmol/L BUN 61 H (9-20) mg/dL Creatinine 3.13 H (0.66-1.25) mg/dL Glucose 118 H (74-99) mg/dL POC Glucose (mg/dL) 125 H (75-99) mg/dL
--- NOTE | 2021-04-15 16:19 | P.DS ---
Providers Date of admission: 04/10/21 05:31 Expected date of discharge: 04/15/21 Attending physician: Daniella Hairston Consults: 04/10/21 05:31 Consult Physician Routine Consulting Provider: Anant Muñoz Consult Reason/Comments: chest pain Do you want consulting provider notified?: Yes 04/10/21 08:32 Consult Physician Stat Consulting Provider: Niharika Guallpa Consult Reason/Comments: kidney failure Do you want consulting provider notified?: Yes 04/10/21 13:50 Consult Physician Routine Consulting Provider: Niharika Guallpa Consult Reason/Comments: nephropathy requires cardiac stents Do you want consulting provider notified?: Yes 04/12/21 03:03 Consult Physician Stat Consulting Provider: Jordan Jang Consult Reason/Comments: ICU management Do you want consulting provider notified?: Already Contacted 04/12/21 13:37 Consult Physician Stat Consulting Provider: Leroy Hernandez Consult Reason/Comments: bipap/ ICU managament Do you want consulting provider notified?: Already Contacted 04/13/21 13:50 Consult Physician Routine Consulting Provider: [facility] Consult Reason/Comments: Post Interventional patient Do you want consulting provider notified?: Already Contacted Primary care physician: [facility] Course: HISTORY OF PRESENT ILLNESS 61-year-old male patient of Dr. Cronin and Dr. Muñoz with past medical history of chronic kidney disease, type 2 diabetes, carotid stenosis status post carotid endarterectomy, GERD, hyperlipidemia, hypertension presenting to the emergency room, secondary to chest discomfort, lasting 30 minutes last night. Patient did not take anything for this pain, Patient was sent in via EMS, and was subsequently given nitroglycerin in the ambulance, with relief of the pain. Patient has known history of CHF, CK D stage IV aortic stenosis. His diabetes he said is controlled, with A1c of 6.4 within the past few months. In the emergency room, troponins are noted to be elevated, with anti-troponin of 0.099, subsequent to that was 3.4, then 7.2 and was seen by Dr. Shelby and was sent to the pathology laboratory aides teacher, for non-ST elevation myocardial infarction, patient underwent cardiac cath, right radial artery results are currently pending, has 2 occlusive disease, no intervention according to the patient. 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 Might need Prandin, for prandial glucose control, however he is on tuojeo, along with a weekly shot not listed in home med, pt will need refill of demadex on discharge per request 04/12: A-Team was called on this patient this morning due to low pulse ox requiring 4 L with pulse ox of 93% then developed worsening shortness of breath and increasingly unresponsive. Blood pressure was 216/105, heart rate 113. Patient was given Lasix 80 mg IV push, 1 amp of dextrose and a nitro drip was started and patient was transferred into the intensive care unit. She has been mostly on BiPAP and intermittently for brief periods on 5 L nasal cannula. Patient has been very sleepy since he arrived to the ICU but awakens and can answer questions appropriately. Urine output has been [address] Muñoz has spoken with him and his in detail about ECI of the RCA and they are undecided whether to have it done here or transfer to tertiary care. Hydralazine was increased to 75 g 3 times daily. Chest x-ray reveals moderate pulmonary edema without change on 3 hours ago. Cardiac gram reveals EF of 60-65% with severe concentric left ventricular hypertrophy, moderate aortic valve sclerosis, mild aortic stenosis with gradient of 26.53 mmHg, trace mitral regurgitation, mild tricuspid regurgitation, mild pulmonary hypertension, RVSP 38.29 mmHg. 04/13: Patient is in pathology laboratory aides teacher for PCI. 04/14: Patient is seen today on the cardiac stepdown unit. Yesterday he underwent attempted PCI with Dr. Muñoz and may consider transfer to tertiary care center. Patient is on a heparin drip. He complains that yesterday he had sputum production with blood tinted. He currently denies any shortness of breath. He is on room air and incentive spirometry was added this morning. Patient had low blood sugar yesterday but today he is in the 300s now 259. He received 1 dose of Levemir 40 units and this will be switched to 1 dose of 10 units in addition and 20 units twice daily. On 43 units of Toujeo, Trulicity and Jardiance which are all not available here. Other blood work reveals hemoglobin of 8.1. BUN 46 and creatinine 2.26. Patient is afebrile, heart rate 84, blood pressure 103/48, pulse ox 92% on room air. Patient is also followed by intensivists. Patient is followed by nephrology for acute kidney injuryWith recommendations to maintain Demadex, avoid nephrotoxins and continue to monitor. 04/15: Patient states he is feeling well today. He is dressed to be discharged and sitting in recliner, appears to be comfortable and in no acute distress. He has ambulated in the hallway without any difficulty, no chest pain, lightheadedness or dizziness. Cardiology has cleared him for discharge DISCHARGE DIAGNOSES 1. Acute non-ST elevation myocardial infraction, underwent cardiac cath, on 04/10 2021, attempted PCI on 04/13. 2. Acute hypoxic respiratory failure secondary to acute diastolic heart failur e. 3. Hypertension. 4. Diabetes mellitus type 2, with diabetic neuropathy with hyperglycemia, A1c 6.1 5. 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 Anemia of chronic disease 7. History of carotid stenosis, with bilateral carotid endarterectomy 8. Dysthymia 9. COVID-19 testing negative. Patient has been hospitalized during a pandemic. DISCHARGE PLAN Home. Greater than 35 minutes was utilized and coordinating patient's discharge. Impression and plan of care have been directed as dictated by the signing physician. Chen Quiroz nurse practitioner acting as scribe for signing physician. Patient Condition at Discharge: Good Plan - Discharge Summary Discharge Rx Participant: No New Discharge Prescriptions: New Isosorbide Mononitrate ER [Imdur] 60 mg PO DAILY #30 tablet Atorvastatin [Lipitor] 80 mg PO DAILY #30 tab Nitroglycerin Sl Tabs [Nitrostat] 0.4 mg SUBLINGUAL Q5M PRN #25 tab PRN Reason: Chest Pain Amoxic-Pot Clav 875-125Mg [Augmentin 875-125] 1 each PO Q12HR #14 tab carvediloL [Coreg*] 25 mg PO AC-BID #60 tab Clopidogrel [Plavix] 75 mg PO DAILY #30 tab Continue Omeprazole [PriLOSEC] 20 mg PO DAILY Pregabalin [Lyrica] 100 mg PO TID Insulin Glargine,Hum.rec.anlog [Toujeo Solostar] 40 units SQ DAILY Fenofibrate Nanocrystallized [Tricor] 145 mg PO DAILY Vortioxetine Hydrobromide [Trintellix] 10 mg PO DAILY Cholecalciferol (Vitamin D3) [Vitamin D3 (125 MCG = 5,000 IU)] 125 mcg PO D AILY Torsemide [Demadex] 20 mg PO DAILY #30 tab Losartan Potassium 100 mg PO DAILY Cyanocobalamin [Vitamin B-12] 500 mcg PO DAILY Multivitamins, Thera [Multivitamin (formulary)] 1 tab PO DAILY Zinc Gluconate [Zinc] 50 mg PO DAILY Aspirin 81 mg PO DAILY #90 tab sitaGLIPtin [Januvia] 100 mg PO DAILY Changed hydrALAZINE HCL [Apresoline] 75 mg PO TID PRN #135 tab PRN Reason: Blood Pressure - High Discontinued Atorvastatin [Lipitor] 20 mg PO DAILY Carvedilol [Coreg] 25 mg PO DAILY Empagliflozin [Jardiance] 10 mg PO DAILY metFORMIN HCL [Glucophage XR] 750 mg PO BID-W/MEALS Discharge Medication List Omeprazole [PriLOSEC] 20 mg PO DAILY 12/03/15 [History] Insulin Glargine,Hum.rec.anlog [Toujeo Solostar] 40 units SQ DAILY 07/06/16 [History] Pregabalin [Lyrica] 100 mg PO TID 07/06/16 [History] Fenofibrate Nanocrystallized [Tricor] 145 mg PO DAILY 10/05/17 [History] Vortioxetine Hydrobromide [Trintellix] 10 mg PO DAILY 07/31/18 [History] Cholecalciferol (Vitamin D3) [Vitamin D3 (125 MCG = 5,000 IU)] 125 mcg PO DAILY 03/01/21 [History] Cyanocobalamin [Vitamin B-12] 500 mcg PO DAILY 03/01/21 [History] Multivitamins, Thera [Multivitamin (formulary)] 1 tab PO DAILY 03/01/21 [History] Zinc Gluconate [Zinc] 50 mg PO DAILY 03/01/21 [History] Aspirin 81 mg PO DAILY #90 tab 03/04/21 [Rx] Torsemide [Demadex] 20 mg PO DAILY #30 tab 03/04/21 [Rx] Losartan Potassium 100 mg PO DAILY 04/10/21 [History] sitaGLIPtin [Januvia] 100 mg PO DAILY 04/10/21 [History] Amoxic-Pot Clav 875-125Mg [Augmentin 875-125] 1 each PO Q12HR #14 tab 04/15/21 [Rx] Atorvastatin [Lipitor] 80 mg PO DAILY #30 tab 04/15/21 [Rx] Clopidogrel [Plavix] 75 mg PO DAILY #30 tab 04/15/21 [Rx] Isosorbide Mononitrate ER [Imdur] 60 mg PO DAILY #30 tablet 04/15/21 [Rx] Nitroglycerin Sl Tabs [Nitrostat] 0.4 mg SUBLINGUAL Q5M PRN #25 tab 04/15/21 [Rx] carvediloL [Coreg*] 25 mg PO AC-BID #60 tab 04/15/21 [Rx] hydrALAZINE HCL [Apresoline] 75 mg PO TID PRN #135 tab 04/15/21 [Rx] Follow up Appointment(s)/Referral(s): Anant Muñoz MD [STAFF PHYSICIAN] - 04/20/21 4:15 pm Marquez Cronin DO [Primary Care Provider] - 1 Week Riya Harper MD [STAFF PHYSICIAN] - 1 Week Harman Arevalo DO [STAFF PHYSICIAN] - 1 Week Patient Instructions/Handouts: Heart Failure (ER), Coronary Artery Disease (DC), Chest Pain (ED), Low-Sodium Diet (ED) Discharge Disposition: HOME SELF-CARE
== END 2021-04-15 13:16 | disposition home or self-care (01) | DRG 280 ==
LOC: EC 02:24 → 3SCARD 05:31 → 2SICU 04-12 03:02 → 3SCARD 04-13 16:56
PROVIDERS: ADMIT Family Medicine; ATTEND Family Medicine
PROC: B2111ZZ Fluoroscopy of Multiple Coronary Arteries using Low Osmolar Contrast (ICD-10-PCS; principal; 2021-04-12)
PROC: 4A023N7 Measurement of Cardiac Sampling and Pressure, Left Heart, Percutaneous Approach (ICD-10-PCS; principal; 2021-04-12)
PROC: 5A09357 Assistance with Respiratory Ventilation, Less than 24 Consecutive Hours, Continuous Positive Airway Pressure (ICD-10-PCS; 2021-04-12)
PROC: 02JA3ZZ Inspection of Heart, Percutaneous Approach (ICD-10-PCS; 2021-04-14)
DX: I21.4 Non-ST elevation (NSTEMI) myocardial infarction (principal); I50.33 Acute on chronic diastolic (congestive) heart failure; J96.01 Acute respiratory failure with hypoxia; J96.02 Acute respiratory failure with hypercapnia; I13.0 Hypertensive heart and chronic kidney disease with heart failure and stage 1 through stage 4 chronic kidney disease, or unspecified chronic kidney disease; N18.4 Chronic kidney disease, stage 4 (severe); N17.9 Acute kidney failure, unspecified; I27.20 Pulmonary hypertension, unspecified; D63.1 Anemia in chronic kidney disease; I08.2 Rheumatic disorders of both aortic and tricuspid valves; E11.40 Type 2 diabetes mellitus with diabetic neuropathy, unspecified; E11.22 Type 2 diabetes mellitus with diabetic chronic kidney disease; E11.65 Type 2 diabetes mellitus with hyperglycemia; E11.51 Type 2 diabetes mellitus with diabetic peripheral angiopathy without gangrene; J44.9 Chronic obstructive pulmonary disease, unspecified; Z79.4 Long term (current) use of insulin; Z20.822 Contact with and (suspected) exposure to COVID-19; E87.5 Hyperkalemia; E61.1 Iron deficiency; I16.0 Hypertensive urgency; I25.10 Atherosclerotic heart disease of native coronary artery without angina pectoris; G89.29 Other chronic pain; M48.061 Spinal stenosis, lumbar region without neurogenic claudication; K21.9 Gastro-esophageal reflux disease without esophagitis; E78.5 Hyperlipidemia, unspecified; F34.1 Dysthymic disorder; F41.9 Anxiety disorder, unspecified; F17.210 Nicotine dependence, cigarettes, uncomplicated; Z71.6 Tobacco abuse counseling; Z79.82 Long term (current) use of aspirin; Z79.84 Long term (current) use of oral hypoglycemic drugs; Z79.899 Other long term (current) drug therapy; Z86.16 Personal history of COVID-19; Z90.49 Acquired absence of other specified parts of digestive tract; Z87.19 Personal history of other diseases of the digestive system; Z87.39 Personal history of other diseases of the musculoskeletal system and connective tissue; Z86.79 Personal history of other diseases of the circulatory system; Z91.81 History of falling; Z98.890 Other specified postprocedural states; Z71.3 Dietary counseling and surveillance; Z82.49 Family history of ischemic heart disease and other diseases of the circulatory system
CPT/HCPCS: 36415; 36600; 71045; 76770; 80048; 80053; 80061; 81001; 82150; 82805; 83036; 83540; 83550; 83690; 83735; 83880; 84132; 84145; 84484; 85025; 85379; 85610; 85730; 87635; 92920; 93005; 93306; 93458; 94660; 94760; 99285